=== PATIENT | female | born 1980 | race Caucasian/White ===

== ENCOUNTER 2017-02-21 12:12 | Emergency (ER) | payer MEDICAID, SELFPAY | END 2017-02-21 15:27 | disposition home or self-care (01) | PROVIDERS: Emergency Provider Nurse Practitioner Family; Visit Provider Nurse Practitioner Family | DX: O98.519 Other viral diseases complicating pregnancy, unspecified trimester (principal); J10.1 Influenza due to other identified influenza virus with other respiratory manifestations | CPT/HCPCS: 87804; 99201 ==

== ENCOUNTER → 2017-03-07 12:36 | Outpatient (CLI) | payer MEDICAID, SELFPAY ==
--- NOTE | 2017-03-07 13:20 | US_ITS ---
US OB transvaginal HISTORY: Evaluate for gestational age and estimated due date ITS.REASON: Check Dates ORDERING PHYSICIAN: Raphael Moody MD PATIENT AGE: 36 years COMPARISON: None FINDINGS: An intrauterine gestational sac is present with a pole with a crown-rump length of 1.9 cm correlating to gestational age of 10 weeks and 1 day. heart tones are present with an FHR of 167 bpm's. Yolk sac is noted. Estimated due date by ultrasound is 10/15/2017. Adnexa: Unremarkable. IMPRESSION: Live intrauterine gestation at 10 weeks 1 day with an estimated due date of 10/15/2017
[2017-03-07 14:05] LABS: Basophils % 0.2 % (0.1-2.0); Eosinophils # 0.2 K/mm3 (0.0-0.4); Eosinophils % 1.6 % (0.1-12.0); Hematocrit 42.6 % (37.0-47.0); Hemoglobin 14.5 g/dL (12.2-16.2); Lymphocytes # 1.9 K/mm3 (0.7-4.5); Lymphocytes % 16.5 K/mm3 (10-50); Mean Corpuscular Hemoglobin 31.3 pg (27.0-31.2); Mean Corpuscular Volume 91.8 fl (81-99); Monocytes # 0.5 K/mm3 (0.1-1.0); Neutrophils % 77.7 % (37.0-80.0); Platelet Count 247 K/mm3 (142-424); Red Blood Count 4.64 M/mm3 (4.20-5.40); Red Cell Distribution Width 14.7 % (11.5-17.5); White Blood Count 11.6 K/mm3 (4.8-10.8)
[2017-03-08 17:07] LABS: Hepatitis B Surface Antigen Negative (Negative); Hepatitis C Antibody <0.1 s/co ratio (0.0-0.9); Rapid Plasma Reagin Ab Titer Non Reactive (NonRea<1:1)
[2017-03-08 17:08] LABS: Rubella Antibodies, IgG 1.39 index (Immune >0.99)
== END ==
PROVIDERS: Family Provider Internal Medicine Adolescent Medicine; PCP Internal Medicine Adolescent Medicine; Visit Provider Nurse Practitioner Obstetrics & Gynecology
DX: Z34.90 Encounter for supervision of normal pregnancy, unspecified, unspecified trimester (principal); O26.841 Uterine size-date discrepancy, first trimester
CPT/HCPCS: 36415; 76830; 85025; 86592; 86762; 86850; 87340; 87380

== ENCOUNTER 2017-03-13 11:53 | Emergency (ER) | payer MEDICAID, SELFPAY ==
[2017-03-13 12:12] VITALS: BP 111/81; PULSE 98; RESP 20; TEMP 37; O2SAT 96; BMI 47.5
[2017-03-13 12:25] LABS: UTC Influenza A Antigen Negative (Negative); UTC Influenza B Antigen Negative (Negative)
--- NOTE | 2017-03-13 12:36 | PC.NURSE ---
1225: Spoke to patient regarding symptoms. Woke up yesterday with nonstop vomiting, diarrhea, nausea, feeling feverish. Report syncopal episode at work yesterday. Doesn't remember leaving work or most of the afternoon . Denies hitting head. Currently 8.5 weeks . RUQ and right suprapubic pain intermittently. Abdominal pain sharp and suprapubic pain described as cramping. hx of cholecystectomy. Denies dysuria, urinary frequency, change in color or smell. Saw OB, Dr. Moody, last week. US and heartbeat normal. Discussed [facility] guidelines and possible differentials. Agreeable to transfer to ER. Report given to Lorenzo, ER RNs. Bed 5 available. Patient assisted over by Tika.
--- NOTE | 2017-03-13 12:39 | PC.NURSE ---
PT SENT TO ED
[2017-03-13 12:44] VITALS: BP 126/81; PULSE 89; RESP 22; TEMP 36.9; O2SAT 97; BMI 45.7; BMI 46.0
--- NOTE | 2017-03-13 12:54 | HMH.EDGENADL ---
ED Disposition Clinical Impression: Viral gastroenteritis, Dehydration Qualifiers: Weeks of gestation: 9 weeks Qualified Code(s): Z3A.09 - 9 weeks gestation of UTI (urinary tract infection) Qualifiers: Urinary tract infection type: acute cystitis Hematuria presence: without hematuria Qualified Code(s): N30.00 - Acute cystitis without hematuria Disposition: Home, Self-Care Condition on Discharge: Good Instructions: Urinary Tract Infection, DI for Dehydration -- Adult, Nausea and Vomiting-Adult Prescriptions: Nitrofurantoin Monohyd/M-Cryst [Macrobid 100 mg Capsule] 100 mg PO BID #10 cap Promethazine HCl [Phenergan 25mg tab] 25 mg PO Q6H PRN #20 tab PRN Reason: Nausea And Vomiting Referrals: Miller Dee MD [Primary Care Provider] - Forms: Work/School Release Time of Disposition: 15:07 - Critical Care Critical Care Time: No Attestation: On 03/13/17, the high probability of a clinically significant, sudden or life threatening deterioration of the following system(s) required my full and direct attention, intervention and personal management. The time I documented below is in addition to time spent performing reported procedures but includes the following listed in this critical care notation. Medical Decision Making - Medical Records Medical records reviewed: Yes: I reviewed the patient's medical records. Vital Signs: 03/13/17 12:12 03/13/17 12:44 03/13/17 15:16 Temperature 98.6 F 98.4 F 98.0 F Temperature Source Temporal Artery Scan Oral Oral Pulse Rate 70 Pulse Rate [Brachial] 98 H 89 Respiratory Rate 20 22 98 H Blood Pressure 122/70 Blood Pressure [Left Arm] 111/81 126/81 Blood Pressure Mean [Left Arm] 91 96 Blood Pressure Source Automatic Cuff Blood Pressure Source [Left Arm] Automatic Cuff Automatic Cuff Blood Pressure Position Sitting Blood Pressure Position [Left Arm] Sitting Sitting 02 Sat by Pulse Oximetry 96 97 Oxygen Delivery Method Room Air Room Air Room Air - Lab Data Lab results reviewed: Yes: I reviewed the patient's lab results. Lab Results 03/13/17 12:19: Influenza Type A Ag Negative, Influenza Type B Ag Negative 03/13/17 13:15: WBC 11.5 H, RBC 4.44, Hgb 13.8, Hct 41.0, MCV 92.4, MCH 31.2, MCHC 33.7, RDW 15.0, Plt Count 247, MPV 7.6, Neut % (Auto) 77.9, Lymph % (Auto) 16.7, [place] % (Auto) 3.9, Eos % (Auto) 1.2, Baso % (Auto) 0.2, Neut # (Auto) 8.9 H, Lymph # (Auto) 1.9, [place] # (Auto) 0.5, Eos # (Auto) 0.1, Baso # (Auto) 0.0 03/13/17 13:15: Sodium 136, Potassium 3.3 L, Chloride 103, Carbon Dioxide 27, Anion Gap 9.3, BUN 9, Creatinine 0.61, Estimated Creat Clear 100, Estimated GFR 110, Est GFR ( Amer) 134, Glucose 94, Calcium 8.5, Total Bilirubin 0.3, AST 12 L, ALT 23, Alkaline Phosphatase 52, Total Protein 6.6, Albumin 3.1 L, Globulin 3.5 H, Albumin/Globulin Ratio 0.9 L, Amylase 26 03/13/17 13:15: Lipase 79 03/13/17 14:35: Chlamy pneumoniae PCR Not detected, Adenovirus (PCR) Not detected, B.parapertussis DNA PCR Not detected, Coronavirus OC43 (PCR) Not detected, Coronavirus HKU1 (PCR) Not detected, Coronavirus 229E (PCR) Not detected, Coronavirus NL63 (PCR) Not detected, Human Metapneumovir PCR Not detected, Influenza A (H1) PCR Not detected, Influ A (H1N1/09) PCR Not detected, Influenza A (H3) PCR Not detected, Influenza Type A (PCR) Not detected, Influenza Type B (PCR) Not detected, M. pneumoniae (PCR) Not detected, Parainfluenza 1 (PCR) Not detected, Parainfluenza 2 (PCR) Not detected, Parainfluenza 3 (PCR) Not detected, Parainfluenza 4 (PCR) Not detected, RSV (PCR) Not detected, Entero/Rhino (PCR) Not detected 03/13/17 14:35: Urine Color Yellow, Urine Appearance Clear, Urine pH 7.0, Ur Specific [place] 1.015, Urine Protein Negative, Urine Glucose (UA) Negative, Urine Ketones Negative, Urine Blood Negative, Urine Nitrate Negative, Urine Bilirubin Negative, Urine Urobilinogen 0.2, Ur Leukocyte Esterase Negative, Urine RBC None, Urine WBC 3-5, Ur Squam
[2017-03-13 13:22] LABS: Basophils % 0.2 % (0.1-2.0); Eosinophils # 0.1 K/mm3 (0.0-0.4); Eosinophils % 1.2 % (0.1-12.0); Hemoglobin 13.8 g/dL (12.2-16.2); Lymphocytes # 1.9 K/mm3 (0.7-4.5); Lymphocytes % 16.7 K/mm3 (10-50); Mean Corpuscular HGB Conc 33.7 g/dL (31.8-35.4); Mean Corpuscular Hemoglobin 31.2 pg (27.0-31.2); Mean Corpuscular Volume 92.4 fl (81-99); Mean Platelet Volume 7.6 fl (7.4-10.4); Monocytes # 0.5 K/mm3 (0.1-1.0); Monocytes % 3.9 % (1.7-9.3); Neutrophils # 8.9 K/mm3 (1.8-7.8); Neutrophils % 77.9 % (37.0-80.0); Platelet Count 247 K/mm3 (142-424); Red Blood Count 4.44 M/mm3 (4.20-5.40); White Blood Count 11.5 K/mm3 (4.8-10.8)
[2017-03-13 13:33] LABS: Lipase 79 u/L (73-393)
[2017-03-13 13:36] LABS: Alanine Aminotransferase 23 U/L (12-78); Albumin Level 3.1 gm/dL (3.4-5.0); Albumin/Globulin Ratio 0.9 (1.1-1.8); Alkaline Phosphatase 52 U/L (46-116); Amylase 26 U/L (25-125); Anion Gap 9.3 mEq/L (5-15); Aspartate Amino Transferase 12 U/L (15-37); Bilirubin,Total 0.3 mg/dL (0.2-1.0); Blood Urea Nitrogen 9 mg/dL (7-18); Calcium 8.5 mg/dL (8.5-10.1); Carbon Dioxide 27 mmol/L (21.0-32.0); Chloride 103 mmol/L (98-107); Creatinine Clearance Estimated 100 mL/min (0-300); Creatinine,Serum 0.61 mg/dL (0.55-1.02); Estimated Glomerular Filt Rate 110 ml/min (>60); GFR (African American) 134 ML/MIN (>60); Globulin 3.5 gm/dl (1.3-3.2); Glucose 94 mg/dL (74-106); Potassium 3.3 mmoL/L (3.5-5.1); Sodium 136 mmol/L (136-145); Total Protein,Serum 6.6 gm/dL (6.4-8.2)
[2017-03-13 14:43] LABS: Adenovirus,PCR Not Detected (NotDetected); Bordetella Pertussis Not Detected (NotDetected); Chlamydophila Pneumoniae, PCR Not Detected (NotDetected); Coronavirus 229E Not Detected (NotDetected); Coronavirus NL63 Not Detected (NotDetected); Coronavirus OC43 Not Detected (NotDetected); Coronovirus HKU1,PCR Not Detected (NotDetected); Human Metapneumovirus Not Detected (NotDetected); Influenza A, PCR Not Detected (NotDetected); Influenza AH1, 2009 Not Detected (NotDetected); Influenza AH1, PCR Not Detected (NotDetected); Influenza AH3,PCR Not Detected (NotDetected); Influenza B, PCR Not Detected (NotDetected); Microscopic, Urine URINE MICROSCOPIC (MICROSCOPIC); Mycoplasma Pneumoniae, PCR Not Detected (NotDected); Parainfluenza 1, PCR Not Detected (NotDetected); Parainfluenza 2, PCR Not Detected (NotDetected); Parainfluenza 3, PCR Not Detected (NotDetected); Parainfluenza 4, PCR Not Detected (NotDetected); Respiratory Syncytial Virus Not Detected (NotDetected); Rhinovirus/Enterovirus Not Detected (NotDetected)
[2017-03-13 14:52] LABS: Urine Pregnancy, HCG Qual. Positive (Negative)
[2017-03-13 14:55] LABS: Appearance,Urine Clear (Clear); Bilirubin,Urine Negative (Negative); Blood, Urine Negative (Negative); Color,Urine Yellow (Yellow); Glucose,Urine (UA) Negative (Negative); Ketones,Urine Negative (Negative); Leukocyte Esterase,Urine Negative (Negative); Nitrate,Urine Negative (Negative); Protein,Urine Negative (Negative); Specific Gravity, Urine 1.015 (1.005-1.030); Urobilinogen,Urine 0.2 EU/dl (0.2)
[2017-03-13 14:56] LABS: Bacteria,Urine 2+ /lpf; Squamous Epithelial Cell,Urine 20-50 #/hpf (0-5)
[2017-03-13 15:16] VITALS: BP 122/70; PULSE 70; RESP 98; TEMP 36.7
== END 2017-03-13 15:16 | disposition home or self-care (01) ==
LOC: UTC 12:00 → ER 12:42
PROVIDERS: Nurse Practitioner Family; Emergency Provider Emergency Medicine; Family Provider Internal Medicine Adolescent Medicine; PCP Internal Medicine Adolescent Medicine
DX: A08.4 Viral intestinal infection, unspecified (principal); E86.0 Dehydration; O23.11 Infections of bladder in pregnancy, first trimester; Z3A.09 9 weeks gestation of pregnancy; Z88.0 Allergy status to penicillin; Z88.6 Allergy status to analgesic agent; F17.210 Nicotine dependence, cigarettes, uncomplicated
CPT/HCPCS: 80053; 81001; 81025; 82150; 83690; 85025; 87086; 87486; 87581; 87633; 87798; 87804; 96360; 96365; 96375; 99284

== ENCOUNTER → 2017-05-01 16:04 | Outpatient (CLI) | payer MEDICAID, SELFPAY ==
[2017-05-08 17:12] LABS: DIA Value 174.38 pg/mL (.); Maternal Age At EDD 37.8 YEARS (.); hCG Value 18755 mIU/mL (.); uE3 Value 0.89 ng/mL (.)
[2017-05-14 09:22] LABS: DIA MoM 1.33 (.); DSR (Second Trimester) 1 IN 1189 (.); OSBR Risk 1 IN 6704 (.); uE3 MoM 1.23 (.)
[2017-05-16 21:44] LABS: Gest. Age on Collection Date 16.1 WEEKS (.)
[2017-05-16 21:45] LABS: Gestat. Age Based On EDD (.); Insulin Dep Diabetes No (.)
== END ==
PROVIDERS: Family Provider Internal Medicine Adolescent Medicine; PCP Internal Medicine Adolescent Medicine; Visit Provider Nurse Practitioner Obstetrics & Gynecology
DX: Z34.90 Encounter for supervision of normal pregnancy, unspecified, unspecified trimester (principal)
CPT/HCPCS: 36415; 82106

== ENCOUNTER 2017-05-17 10:56 | Emergency (ER) | payer MEDICAID, SELFPAY ==
[2017-05-17 11:02] VITALS: BP 138/77; PULSE 106; RESP 18; TEMP 36.9; O2SAT 97; BMI 48.4
[2017-05-17 11:20] LABS: Microscopic, Urine URINE MICROSCOPIC (MICROSCOPIC)
[2017-05-17 11:23] LABS: Appearance,Urine CLEAR (Clear); Bilirubin,Urine Negative (Negative); Blood, Urine Negative (Negative); Color,Urine YELLOW (Yellow); Glucose,Urine (UA) Negative (Negative); Ketones,Urine Negative (Negative); Leukocyte Esterase,Urine Negative (Negative); Nitrate,Urine Negative (Negative); Protein,Urine TRACE (Negative); Specific Gravity, Urine >= 1.030 (1.005-1.030); Urobilinogen,Urine 0.2 EU/dl (0.2)
--- NOTE | 2017-05-17 11:25 | HMH.EDGENADL ---
ED Disposition Clinical Impression: Pelvic cramping, Vaginal discharge Disposition: Home, Self-Care Condition on Discharge: Good Additional Instructions: Drink plenty of fluids. Follow-up with Dr. Moody, call for appointment. Referrals: Provider,Referral, [Primary Care Provider] - - Critical Care Critical Care Time: No Attestation: On 05/17/17, the high probability of a clinically significant, sudden or life threatening deterioration of the following system(s) required my full and direct attention, intervention and personal management. The time I documented below is in addition to time spent performing reported procedures but includes the following listed in this critical care notation. Medical Decision Making - Shilo Inquiry Pt receiving controlled substance: No Vital Signs: 05/17/17 11:02 Temperature 98.4 F Temperature Source Oral Pulse Rate [Right Brachial] 106 H Respiratory Rate 18 Blood Pressure [Right Arm] 138/77 Blood Pressure Mean [Right Arm] 97 Blood Pressure Source [Right Arm] Automatic Cuff Blood Pressure Position [Right Arm] Sitting 02 Sat by Pulse Oximetry 97 Oxygen Delivery Method Room Air - Lab Data Lab Results 05/17/17 11:15: Urine Color Yellow, Urine Appearance Clear, Urine pH 6.0, Ur Specific [place] >= 1.030, Urine Protein Trace, Urine Glucose (UA) Negative, Urine Ketones Negative, Urine Blood Negative, Urine Nitrate Negative, Urine Bilirubin Negative, Urine Urobilinogen 0.2, Ur Leukocyte Esterase Negative, Urine RBC None, Urine WBC 5-10, Ur Squamous Epith Cells 5-10, Calcium Oxalate Crystal 2+, Urine Bacteria 3+ 05/17/17 12:00: WBC 12.0 H, RBC 4.24, Hgb 13.7, Hct 40.1, MCV 94.6, MCH 32.2 H, MCHC 34.1, RDW 16.2, Plt Count 253, MPV 7.8, Neut % (Auto) 79.4, Lymph % (Auto) 15.1, [place] % (Auto) 3.8, Eos % (Auto) 1.6, Baso % (Auto) 0.1, Neut # (Auto) 9.5 H, Lymph # (Auto) 1.8, [place] # (Auto) 0.5, Eos # (Auto) 0.2, Baso # (Auto) 0.0 05/17/17 12:00: Sodium 136, Potassium 4.0, Chloride 102, Carbon Dioxide 24, Anion Gap 14.0, BUN 9, Creatinine 0.54 L, Estimated Creat Clear 113, Estimated GFR 127, Est GFR ( Amer) 154, Glucose 100, Calcium 8.8, Total Bilirubin 0.3, AST 18, ALT 19, Alkaline Phosphatase 62, Total Protein 7.0, Albumin 2.8 L, Globulin 4.2 H, Albumin/Globulin Ratio 0.7 L Result diagrams: 05/17/17 12:00 05/17/17 12:00 Orders (Tests/Meds): ORDERS Category Date Time Status Urine Culture Stat Micro 05/17/17 11:15 Received General Adult HPI - General Chief complaint: OB/Uterine Contractions Stated complaint: 18 weeks having pain and discharge Time Seen by Provider: 05/17/17 11:30 Mode of Arrival: Family Vehicle Limitations: No Limitations Description of Symptoms (Recalled from ER Triage Doc. by RN): c/o 18 weeks with pain in vaginal area and yellow/white discharge. Pain started yesterday. discharge started 2 days ago. - History of Present Illness HPI narrative: The patient is 18-1/2 weeks gestation . 3, para 1, Ab1. She sees Dr. Moody. The patient complains of a 2-3 day history of pelvic cramping and discharge. Seemed to get better yesterday, but became more severe today. She called Dr. Moody's office, but he was not available today. They advised her to go to labor and delivery to be checked. She presented there and was told because she was only 18-1/2 weeks to come to the emergency department instead. She says she has had problems with this with vomiting and has been admitted for dehydration twice. Has had hypokalemia as well. The last time she vomited was 2 days ago. - Related Data Home Medications Medication Instructions Recorded Confirmed Vit Calc,Iron,Folic [Kpn] 1 tab PO QHS 05/17/17 05/17/17 Previous Rx's Medication Instructions Recorded Promethazine HCl [Phenergan 25mg 25 mg PO Q6H PRN #20 tab 03/13/17 tab] Allergies Allergy/AdvReac Type Severity [place]
--- NOTE | 2017-05-17 11:35 | PC.NURSE ---
FHT: 157
[2017-05-17 11:37] LABS: Bacteria,Urine 3+ /lpf; Calcium Oxalate Crystals,Urine 2+ /lpf
[2017-05-17 12:14] LABS: Basophils % 0.1 % (0.1-2.0); Eosinophils # 0.2 K/mm3 (0.0-0.4); Eosinophils % 1.6 % (0.1-12.0); Hematocrit 40.1 % (37.0-47.0); Hemoglobin 13.7 g/dL (12.2-16.2); Lymphocytes # 1.8 K/mm3 (0.7-4.5); Lymphocytes % 15.1 K/mm3 (10-50); Mean Corpuscular HGB Conc 34.1 g/dL (31.8-35.4); Mean Corpuscular Hemoglobin 32.2 pg (27.0-31.2); Mean Corpuscular Volume 94.6 fl (81-99); Mean Platelet Volume 7.8 fl (7.4-10.4); Monocytes # 0.5 K/mm3 (0.1-1.0); Monocytes % 3.8 % (1.7-9.3); Neutrophils # 9.5 K/mm3 (1.8-7.8); Neutrophils % 79.4 % (37.0-80.0); Platelet Count 253 K/mm3 (142-424); Red Blood Count 4.24 M/mm3 (4.20-5.40); Red Cell Distribution Width 16.2 % (11.5-17.5)
[2017-05-17 12:29] LABS: Alanine Aminotransferase 19 U/L (12-78); Albumin Level 2.8 gm/dL (3.4-5.0); Albumin/Globulin Ratio 0.7 (1.1-1.8); Alkaline Phosphatase 62 U/L (46-116); Bilirubin,Total 0.3 mg/dL (0.2-1.0); Blood Urea Nitrogen 9 mg/dL (7-18); Calcium 8.8 mg/dL (8.5-10.1); Carbon Dioxide 24 mmol/L (21.0-32.0); Chloride 102 mmol/L (98-107); Creatinine Clearance Estimated 113 mL/min (0-300); Creatinine,Serum 0.54 mg/dL (0.55-1.02); Estimated Glomerular Filt Rate 127 ml/min (>60); GFR (African American) 154 ML/MIN (>60); Globulin 4.2 gm/dl (1.3-3.2); Glucose 100 mg/dL (74-106); Sodium 136 mmol/L (136-145)
[2017-05-17 12:31] LABS: Aspartate Amino Transferase 18 U/L (15-37)
[2017-05-17 12:49] VITALS: BP 129/86; PULSE 76; RESP 16; TEMP 36.8
[2017-05-21 06:29] LABS: Neisseria gonorrhoeae, NAA Negative (Negative)
== END 2017-05-17 12:52 | disposition home or self-care (01) ==
PROVIDERS: Emergency Provider Emergency Medicine; Family Provider Internal Medicine Adolescent Medicine
DX: R10.30 Lower abdominal pain, unspecified (principal); Z3A.18 18 weeks gestation of pregnancy; I10 Essential (primary) hypertension; J44.9 Chronic obstructive pulmonary disease, unspecified; F17.210 Nicotine dependence, cigarettes, uncomplicated
CPT/HCPCS: 80053; 81001; 85025; 87086; 87210; 87491; 87591; 99282

== ENCOUNTER 2017-05-30 18:08 | Outpatient (CLI) | payer MEDICAID, SELFPAY ==
[2017-05-30 18:15] VITALS: BMI 49.4
[2017-05-30 18:25] VITALS: BP 128/69; PULSE 114; RESP 22; TEMP 37.7; O2SAT 95
--- NOTE | 2017-05-30 18:40 | XR_ITS ---
XR chest 2V INDICATION: Chest pain COMPARISON: PA and lateral chest 02/26/2016 FINDINGS: The cardiovascular structures are unremarkable. No mediastinal shift or hilar mass is evident. The lungs are well expanded and clear bilaterally. The costophrenic sulci are sharp. No significant bony anomalies are apparent. IMPRESSION: Negative chest.
[2017-05-30 18:42] VITALS: BP 128/69; PULSE 114; RESP 22; TEMP 37.7; O2SAT 95; BMI 49.4
[2017-05-30 19:57] LABS: Basophils % 0.1 % (0.1-2.0); Eosinophils % 0.1 % (0.1-12.0); Hematocrit 34.8 % (37.0-47.0); Hemoglobin 11.8 g/dL (12.2-16.2); Lymphocytes # 0.6 K/mm3 (0.7-4.5); Lymphocytes % 8.8 K/mm3 (10-50); Mean Corpuscular HGB Conc 33.8 g/dL (31.8-35.4); Mean Corpuscular Hemoglobin 32.7 pg (27.0-31.2); Mean Corpuscular Volume 96.9 fl (81-99); Mean Platelet Volume 7.9 fl (7.4-10.4); Monocytes # 0.4 K/mm3 (0.1-1.0); Monocytes % 6.1 % (1.7-9.3); Neutrophils # 6.2 K/mm3 (1.8-7.8); Neutrophils % 84.9 % (37.0-80.0); Platelet Count 189 K/mm3 (142-424); Red Blood Count 3.59 M/mm3 (4.20-5.40); Red Cell Distribution Width 16.2 % (11.5-17.5); White Blood Count 7.3 K/mm3 (4.8-10.8)
[2017-05-30 19:58] LABS: Anion Gap 13.6 mEq/L (5-15); Blood Urea Nitrogen 5 mg/dL (7-18); Carbon Dioxide 23 mmol/L (21.0-32.0); Chloride 101 mmol/L (98-107); Creatinine Clearance Estimated 113 mL/min (0-300); Creatinine,Serum 0.54 mg/dL (0.55-1.02); Estimated Glomerular Filt Rate 127 ml/min (>60); GFR (African American) 154 ML/MIN (>60); Glucose 168 mg/dL (74-106); Sodium 135 mmol/L (136-145)
[2017-05-30 20:00] LABS: Potassium 2.6 mmoL/L (3.5-5.1)
[2017-05-30 20:00] LABS: Microscopic, Urine URINE MICROSCOPIC (MICROSCOPIC)
[2017-05-30 20:09] LABS: Appearance,Urine CLOUDY (Clear); Bilirubin,Urine Negative (Negative); Blood, Urine Negative (Negative); Color,Urine YELLOW (Yellow); Glucose,Urine (UA) Negative (Negative); Ketones,Urine 1+ (Negative); Leukocyte Esterase,Urine Negative (Negative); Nitrate,Urine Negative (Negative); PH,Urine 7.5 (5.0-8.5); Protein,Urine TRACE (Negative); Specific Gravity, Urine 1.015 (1.005-1.030)
[2017-05-30 20:27] LABS: Bacteria,Urine 3+ /lpf; RBC,Urine Occasional #/hpf (0-3); Squamous Epithelial Cell,Urine TNTC #/hpf (0-5)
[2017-05-30 20:36] LABS: Adenovirus,PCR Not Detected (NotDetected); Bordetella Pertussis Not Detected (NotDetected); Chlamydophila Pneumoniae, PCR Not Detected (NotDetected); Coronavirus 229E Not Detected (NotDetected); Coronavirus NL63 Not Detected (NotDetected); Coronavirus OC43 Not Detected (NotDetected); Coronovirus HKU1,PCR Not Detected (NotDetected); Human Metapneumovirus Not Detected (NotDetected); Influenza A, PCR Not Detected (NotDetected); Influenza AH1, 2009 Not Detected (NotDetected); Influenza AH1, PCR Not Detected (NotDetected); Influenza AH3,PCR Not Detected (NotDetected); Influenza B, PCR Not Detected (NotDetected); Mycoplasma Pneumoniae, PCR Not Detected (NotDected); Parainfluenza 1, PCR Not Detected (NotDetected); Parainfluenza 2, PCR Not Detected (NotDetected); Parainfluenza 3, PCR Not Detected (NotDetected); Parainfluenza 4, PCR Not Detected (NotDetected); Respiratory Syncytial Virus Not Detected (NotDetected); Rhinovirus/Enterovirus Not Detected (NotDetected)
== END 2017-05-30 21:08 | disposition still patient (30) ==
LOC: OBOUT 18:12 → OB 18:14
PROVIDERS: PCP Nurse Practitioner Obstetrics & Gynecology; Visit Provider Obstetrics & Gynecology
DX: O26.892 Other specified pregnancy related conditions, second trimester (principal); Z3A.20 20 weeks gestation of pregnancy; R07.9 Chest pain, unspecified; R11.2 Nausea with vomiting, unspecified; R09.89 Other specified symptoms and signs involving the circulatory and respiratory systems
CPT/HCPCS: 71046; 80048; 81001; 85025; 87086; 87486; 87581; 87633; 87798; 93005; 96360

== ENCOUNTER 2017-05-30 21:15 | Emergency (ER) | payer MEDICAID, SELFPAY ==
[2017-05-30 21:16] VITALS: BP 94/46; PULSE 114; RESP 22; TEMP 37.7; O2SAT 99; BMI 50.3
--- NOTE | 2017-05-30 22:58 | HMH.EDFEV ---
ED Disposition Clinical Impression: Viral gastroenteritis, Dehydration Disposition: Home, Self-Care Condition on Discharge: Good Instructions: DI for Dehydration -- Adult, DI for Viral Gastroenteritis -- Adult Additional Instructions: Please drink plenty of fluids, take the Phenergan as directed, follow-up with PCP within 8-10 hours if not better. If unable to see your doctor timely, please return to this, same, emergency room for reevaluation. Prescriptions: Promethazine HCl [Phenergan 25mg tab] 25 mg PO QID PRN #20 tab PRN Reason: Nausea And Vomiting Referrals: Raphael Moody MD [Primary Care Provider] - Forms: Work/School Release Time of Disposition: 00:21 - Critical Care Critical Care Time: No Attestation: On 05/30/17, the high probability of a clinically significant, sudden or life threatening deterioration of the following system(s) required my full and direct attention, intervention and personal management. The time I documented below is in addition to time spent performing reported procedures but includes the following listed in this critical care notation. Medical Decision Making - Medical Records Medical records reviewed: Yes: I reviewed the patient's medical records. - Shilo Inquiry Pt receiving controlled substance: No Vital Signs: 05/30/17 21:16 05/31/17 00:28 05/31/17 01:08 Temperature 99.8 F H 98.4 F Temperature Source Oral Oral Pulse Rate 113 H Pulse Rate [Right Brachial] 114 H 113 H Respiratory Rate 22 18 18 Blood Pressure 116/63 Blood Pressure [Left Arm] 94/46 116/63 Blood Pressure Mean [Left Arm] 62 80 Blood Pressure Source Automatic Cuff Blood Pressure Source [Left Arm] Automatic Cuff Automatic Cuff Blood Pressure Position Supine Blood Pressure Position [Left Arm] Supine Supine 02 Sat by Pulse Oximetry 99 94 L Oxygen Delivery Method Room Air Room Air Room Air - Lab Data Lab results reviewed: Yes: I reviewed the patient's lab results. Orders (Tests/Meds): ED MEDICATIONS Discontinued Medications Generic Name Dose Route Start Last Admin Trade Name Freq PRN Reason Stop Dose Admin Sodium Chloride 1,000 mls @ 999 mls/hr 05/30/17 23:15 05/30/17 23:19 Sod Chlor 0.9% 1000ml Bag IV 05/31/17 00:15 999 mls/hr .Q1H1M SEJAL Administration Potassium Chloride 60 meq 05/30/17 23:06 05/30/17 23:19 Klor-Con 20meq Tablet PO 05/30/17 23:07 60 meq ONCE ONE Administration Promethazine HCl 12.5 mg 05/30/17 23:03 05/30/17 23:19 Phenergan 25mg/Ml 1ml Vial IV 05/30/17 23:04 12.5 mg ONCE ONE Administration Sodium Chloride 25 ml 05/30/17 23:03 05/30/17 23:23 Sod Chlor 0.9% 25ml Bag IV 05/30/17 23:04 Not Given ONCE ONE - Reevaluation(s) Time: 00:15 Reevaluation #1: Upon reevaluation patient appears medically stable, clinically improving, able to hold on fluids. Offered admission but the patient declined, stating that she wants to follow up with her doctor in the morning. Fever HPI - General Chief Complaint: Fever Stated Complaint: fever,cough Time Seen by Provider: 05/30/17 23:05 Mode of Arrival: Wheelchair Source of Information: Patient Limitations: No Limitations Description of Symptoms (Recalled from ER Triage Doc. by RN): cough and fever x 1 day - History of Present Illness HPI Narrative: This is a 36-year-old female patient, 21 weeks , presented emergency room with nausea, vomiting, diarrhea for the past 2 days, unable to hold any solid food or liquids at this time. She was seen on the OB floor prior to being referred to the emergency room for evaluation. Her strep and flu swabs were performed upstairs, both negative, blood work was also ordered prior to being sent to the emergency room. Patient denies any abdominal pain, any abdominal contractions, vaginal discharge or vaginal bleeding. MD complaint: fever Temperature Source: subjective Context: sick contacts Associated symptoms: nasal
[2017-05-31 00:28] VITALS: BP 116/63; PULSE 113; RESP 18; O2SAT 94
[2017-05-31 01:08] VITALS: BP 116/63; PULSE 113; RESP 18; TEMP 36.9; O2SAT 94
== END 2017-05-31 01:08 | disposition home or self-care (01) ==
PROVIDERS: Emergency Provider Emergency Medicine; Family Provider Internal Medicine Adolescent Medicine; PCP Nurse Practitioner Obstetrics & Gynecology
DX: A08.4 Viral intestinal infection, unspecified (principal); E86.0 Dehydration; F17.210 Nicotine dependence, cigarettes, uncomplicated; J44.9 Chronic obstructive pulmonary disease, unspecified; I10 Essential (primary) hypertension; Z88.0 Allergy status to penicillin; Z88.6 Allergy status to analgesic agent
CPT/HCPCS: 96365; 96372; 99282

== ENCOUNTER → 2017-06-04 13:10 | Outpatient (CLI) | payer MEDICAID, SELFPAY ==
--- NOTE | 2017-06-04 13:13 | US_ITS ---
US OB /maternal detail: INDICATION: ITS.REASON: US OB Complete ORDERING PHYSICIAN: Raphael Moody MD PATIENT AGE: 36 years TECHNIQUE: ultrasound transabdominal scanning. COMPARISON: No previous relevant studies. FINDINGS: Single viable intrauterine gestation. cephalic position. Placenta: posterior placenta grade 1. There is average amount fluid. The cervix appears satisfactory. Closed and measuring or centimeters in length. Complete survey performed and was unremarkable on the submitted images as in PACS. No discrete anomalies identified on survey imaging by technologist. Active fetus. Three-vessel cord with satisfactory umbilical cord insertion. 4- chamber heart noted. Survey of brain & ventricles. Face and neck survey unremarkable. Diaphragm and chest views unremarkable. Abdomen: Both kidneys noted and unremarkable. Stomach noted and satisfactory. Spine: Survey of the spine satisfactory with no anomalies identified nor imaged. Both arms and legs noted. Amniotic Fluid: Adequate. Maternal adnexa: No significant findings. Measurements: Average ultrasound age 22w1d. Gestational Age 22w6d. Estimated due date by ultrasound age 0810/07/2017. Estimated weight 468 grams. This is 11th percentile based on last menstrual period BPD = 22w2d OFD = 22w4d HC = 21w5d AC = 22w0d FL = 22w1d Heart Rate = 155 bpm Cerebellum = 21w3d Humerus = 21w3d HC/AC is 1.14 (1.06-1.25). CI is 77% (70-86%). FL/BPD is 71%. FL/AC is 22% (20-24%). IMPRESSION: Single live fetus in the cephalic presentation with an average ultrasound age of 22 weeks 1 day. No obvious anomalies. Fetus is active with heart tones noted. Please see above for detailed description
== END ==
PROVIDERS: Family Provider Internal Medicine Adolescent Medicine; PCP Nurse Practitioner Obstetrics & Gynecology; Visit Provider Nurse Practitioner Obstetrics & Gynecology
DX: Z36.0 Encounter for antenatal screening for chromosomal anomalies (principal)
CPT/HCPCS: 76811

== ENCOUNTER 2017-07-26 09:40 | Outpatient (CLI) | payer MEDICAID, SELFPAY ==
[2017-07-26 11:40] VITALS: BP 119/70; PULSE 106; RESP 18
== END 2017-07-26 12:00 | disposition home or self-care (01) ==
LOC: LAB 09:41 → INF 11:20
PROVIDERS: Visit Provider Nurse Practitioner Obstetrics & Gynecology
DX: Z34.90 Encounter for supervision of normal pregnancy, unspecified, unspecified trimester (principal)
CPT/HCPCS: 36415; 96372; J2790

== ENCOUNTER 2017-07-26 11:50 | Outpatient (CLI) | payer MEDICAID, SELFPAY ==
[2017-07-26 12:13] VITALS: BMI 50.1
[2017-07-26 12:14] VITALS: BP 122/79; PULSE 98; RESP 20; TEMP 36.8; O2SAT 97; BMI 50.1
[2017-07-26 12:29] LABS: Appearance,Urine SL CLOUDY (Clear); Bilirubin,Urine Negative (Negative); Blood, Urine Negative (Negative); Color,Urine YELLOW (Yellow); Glucose,Urine (UA) Negative (Negative); Ketones,Urine Negative (Negative); Leukocyte Esterase,Urine Negative (Negative); Microscopic, Urine URINE MICROSCOPIC (MICROSCOPIC); Nitrate,Urine Negative (Negative); PH,Urine 6.5 (5.0-8.5); Protein,Urine 1+ (Negative); Specific Gravity, Urine 1.025 (1.005-1.030)
[2017-07-26 12:35] LABS: WBC,Urine Occasional #/hpf (0-3)
[2017-07-26 12:36] LABS: Bacteria,Urine 3+ /lpf; Hyaline Casts,Urine Occasional #/lpf (0); Squamous Epithelial Cell,Urine 50-100 #/hpf (0-5)
--- NOTE | 2017-07-26 13:43 | US_ITS ---
US kidney retroperitoneal comp HISTORY: Lower back and abdominal pain ITS.REASON: r/o pyelo ORDERING PHYSICIAN: Malena Shepard MD PATIENT AGE: 36 years Comparison: None FINDINGS: RIGHT KIDNEY:Unremarkable. Normal size and echogenicity. No hydronephrosis. The right kidney measures 13 x 4.5 x 6 cm LEFT KIDNEY:Unremarkable. No hydronephrosis. Normal size and echogenicity. Left kidney measures 14 x 4.5 x 6.7 cm OTHER FINDINGS: No other pertinent findings IMPRESSION: Negative bilateral renal ultrasound
== END 2017-07-26 16:18 | disposition home or self-care (01) ==
LOC: OBOUT 11:51 → OB 11:51
PROVIDERS: Visit Provider Obstetrics & Gynecology
DX: O26.93 Pregnancy related conditions, unspecified, third trimester (principal); Z3A.28 28 weeks gestation of pregnancy; M54.5 Low back pain
CPT/HCPCS: 59025; 76770; 81001; 87086

== ENCOUNTER → 2017-07-29 08:06 | Outpatient (CLI) | payer MEDICAID, SELFPAY | PROVIDERS: Family Provider Internal Medicine Adolescent Medicine; Visit Provider Nurse Practitioner Obstetrics & Gynecology | DX: O26.91 Pregnancy related conditions, unspecified, first trimester (principal); Z3A.18 18 weeks gestation of pregnancy; M54.5 Low back pain | CPT/HCPCS: 36415 ==

== ENCOUNTER → 2017-07-29 08:31 | Outpatient (CLI) | payer MEDICAID, SELFPAY ==
[2017-07-29 08:51] LABS: Glucose,Fasting 98 mg/dL (60-105)
[2017-07-29 10:20] LABS: Glucose 1 Hour 146 mg/dL (74-106)
[2017-07-29 11:25] LABS: Glucose 2 Hour 136 mg/dL (74-106)
[2017-07-29 12:09] LABS: Glucose 3 Hour 142 mg/dL (74-106)
== END ==
PROVIDERS: Visit Provider Nurse Practitioner Obstetrics & Gynecology
DX: O99.814 Abnormal glucose complicating childbirth (principal)
CPT/HCPCS: 36415; 82951

== ENCOUNTER 2017-08-12 14:52 | Outpatient (CLI) | payer MEDICAID, SELFPAY ==
[2017-08-12 14:52] VITALS: BP 130/71; PULSE 107; RESP 18; TEMP 36.6; O2SAT 98; BMI 49.4
[2017-08-12 15:33] VITALS: BMI 49.4
--- NOTE | 2017-08-12 16:07 | US_ITS ---
US OB biophysical profile: Doppler of the umbilical artery: Indication: ITS.REASON: POSSIBLE LABOR. ORDERING PHYSICIAN: Raphael Moody MD PATIENT AGE: 36 years FINDINGS: The following parameters are obtained: Average ultrasound age is 33 weeks 3 days. Estimated due date by ultrasound is 09/27/2017. Estimated weight is 2003 g. This is 90 percentile based on established due date BPD: 34 weeks 4 days OFD: 34 weeks 5 days HC: 34 weeks 2 days AC: 32 weeks 1 day FL: 32 weeks 3 days heart rate: 153 bpm. HC/AC: 1.09 Cephalic index: 79% FL/BPD: 73% FL/AC: 22% Amniotic fluid index: 16 cm Qualitative AFV: 2 breathing movements: 2 Gross body movements: 2 Tone: 2 Biophysical profile score: 8/8 Doppler evaluation of the umbilical artery: SD ratio: 2.5 Resistive index: 0.6 No obvious anomalies evident. Placenta: Posterior, grade 1 Cervix: Appears closed IMPRESSION: Single live fetus in cephalic presentation with average ultrasound age of 33 weeks 3 days and estimated due date of 09/27/2017 Biophysical profile 8 of 8 with an YAMIL of 16 cm Unremarkable Doppler evaluation of the umbilical artery
[2017-08-12 16:16] LABS: Appearance,Urine CLEAR (Clear); Bilirubin,Urine Negative (Negative); Blood, Urine Negative (Negative); Color,Urine YELLOW (Yellow); Glucose,Urine (UA) Negative (Negative); Ketones,Urine Negative (Negative); Leukocyte Esterase,Urine Negative (Negative); Microscopic, Urine URINE MICROSCOPIC (MICROSCOPIC); Nitrate,Urine Negative (Negative); Protein,Urine TRACE (Negative); Specific Gravity, Urine 1.015 (1.005-1.030); Urobilinogen,Urine 0.2 EU/dl (0.2)
[2017-08-12 16:39] LABS: Bacteria,Urine 2+ /lpf
--- NOTE | 2017-08-12 17:08 | P.PN_ITS ---
Internal Medicine - PN: Subj *Date: 08/12/17 *Time: 17:06 Interval history: She came in complaining of contractions. She is 30 weeks along. She says she started having pain last night and it got worse today when she was at work. She says the pain comes and goes like contractions. It starts in the front and goes around her back. Exam Vital signs and Labs for Last 24 Hours: Temp Pulse Resp BP Pulse Ox 97.8 F 107 H 18 130/71 98 08/12/17 14:52 08/12/17 14:52 08/12/17 14:52 08/12/17 14:52 08/12/17 14:52 Laboratory Results - last 24 hr 08/12/17 15:50: Urine Color Yellow, Urine Appearance Clear, Urine pH 7.0, Ur Specific [place] 1.015, Urine Protein Trace, Urine Glucose (UA) Negative, Urine Ketones Negative, Urine Blood Negative, Urine Nitrate Negative, Urine Bilirubin Negative, Urine Urobilinogen 0.2, Ur Leukocyte Esterase Negative, Urine RBC None , Urine WBC 3-5, Ur Squamous Epith Cells 3-5, Urine Bacteria 2+ I & O for Last 24 hours: Intake & Output 08/10/17 08/11/17 08/12/17 08/13/17 11:59 11:59 11:59 11:59 Weight 270 lb - Constitutional no acute distress Assessment and Plan (1) False labor before 37 completed weeks of gestation Current visit: Yes Status: Acute Category: Medical Code(s): O47.00 - False labor before 37 completed weeks of gestation, unspecified trimester (2) Low back pain during in third trimester Current visit: Yes Status: Acute Category: Medical Code(s): O26.893 - Other specified related conditions, third trimester; M54.5 - Low back pain - Assessment and plan all Dx Assessment and Plan for all problems:: She was not having any contractions on the monitor. We gave her 1 dose of Brethine and a dose of Stadol. This seemed to help with her discomfort. She had an ultrasound that was normal. Her urinalysis is normal. Her cervix is long and closed and the presenting part is extremely high. Her urinalysis was negative except for small amount of protein. She has an appointment to follow-up with [facility] for her advanced maternal age in 48 hours time. She will return tomorrow for a repeat dose of steroids. She received 12 mg of Celestone today.
== END 2017-08-12 17:15 | disposition home or self-care (01) | DRG 781 ==
LOC: OBOUT 14:58 → OB 08-15 14:50
PROVIDERS: PCP Nurse Practitioner Obstetrics & Gynecology; Visit Provider Nurse Practitioner Obstetrics & Gynecology
DX: O26.893 Other specified pregnancy related conditions, third trimester (principal); O60.03 Preterm labor without delivery, third trimester; Z3A.30 30 weeks gestation of pregnancy; M54.5 Low back pain
CPT/HCPCS: 59025; 76819; 81001; 87086; 96360; 96372; J0595

== ENCOUNTER 2017-08-13 11:10 | Outpatient (CLI) | payer MEDICAID, SELFPAY ==
[2017-08-13 11:20] VITALS: BP 137/75; PULSE 110; RESP 20; TEMP 36.7; O2SAT 98; BMI 49.4
== END 2017-08-13 11:45 | disposition home or self-care (01) ==
LOC: OBOUT 11:11 → OB 11:13
PROVIDERS: Visit Provider Nurse Practitioner Obstetrics & Gynecology
DX: O26.893 Other specified pregnancy related conditions, third trimester (principal); O60.03 Preterm labor without delivery, third trimester; Z3A.30 30 weeks gestation of pregnancy; M54.5 Low back pain
CPT/HCPCS: 96372

== ENCOUNTER 2017-08-27 12:15 | Outpatient (CLI) | payer MEDICAID, SELFPAY ==
[2017-08-27 12:40] VITALS: BP 138/88; PULSE 98; RESP 18; TEMP 36.7; O2SAT 98; BMI 50.5
[2017-08-27 13:08] LABS: Fetal Membrane Rupture (Rapid) Negative (Negative)
== END 2017-08-27 13:47 | disposition home or self-care (01) ==
LOC: OBOUT 12:18 → OB 12:19
PROVIDERS: Obstetrics & Gynecology; Visit Provider Nurse Practitioner Obstetrics & Gynecology
DX: O26.893 Other specified pregnancy related conditions, third trimester (principal); Z3A.33 33 weeks gestation of pregnancy
CPT/HCPCS: 59025; 84112

== ENCOUNTER → 2017-09-07 08:58 | Outpatient (CLI) | payer MEDICAID, SELFPAY ==
[2017-09-07 09:36] LABS: Basophils % 0.2 % (0.1-2.0); Eosinophils # 0.1 K/mm3 (0.0-0.4); Eosinophils % 1.3 % (0.1-12.0); Hematocrit 33.5 % (37.0-47.0); Lymphocytes # 1.1 K/mm3 (0.7-4.5); Mean Corpuscular Hemoglobin 31.3 pg (27.0-31.2); Mean Corpuscular Volume 94.8 fl (81-99); Mean Platelet Volume 7.8 fl (7.4-10.4); Monocytes # 0.3 K/mm3 (0.1-1.0); Monocytes % 3.4 % (1.7-9.3); Neutrophils % 80.2 % (37.0-80.0); Platelet Count 215 K/mm3 (142-424); Red Blood Count 3.53 M/mm3 (4.20-5.40); White Blood Count 7.5 K/mm3 (4.8-10.8)
[2017-09-07 10:02] LABS: D-Dimer 1090 ng/mL (0-400)
[2017-09-07 10:15] LABS: Alanine Aminotransferase 17 U/L (12-78); Anion Gap 12.1 mEq/L (5-15); Aspartate Amino Transferase 11 U/L (15-37); Blood Urea Nitrogen 4 mg/dL (7-18); Calcium 8.5 mg/dL (8.5-10.1); Carbon Dioxide 25 mmol/L (21.0-32.0); Chloride 108 mmol/L (98-107); Estimated Glomerular Filt Rate 112 ml/min (>60); GFR (African American) 136 ML/MIN (>60); Glucose 114 mg/dL (74-106); Potassium 3.1 mmoL/L (3.5-5.1); Sodium 142 mmol/L (136-145); Uric Acid 4.6 mg/dL (2.6-7.2)
[2017-09-07 10:24] LABS: Creatinine,Urine Random 73 mg/dL (20-320); Total Protein,Urine Random 28.7 mg/dL (0.0-11.9)
[2017-09-07 10:32] LABS: Activated Partial Thrombo Time 26.1 seconds (23.6-34.0); INR 0.92 (0.9-1.1); Prothrombin Time 9.5 seconds (9.4-11.8)
[2017-09-07 10:35] LABS: Collection Time,Urine 24 hours; Creatinine 24 Hour,Urine 1679 mg/24hr (630-2500); Creatinine Clearance Urine 194.3 mL/min (25-115); Total Protein 24 Hour,Urine 660 mg/24 hr (40-90); Total Volume,Urine 2300 mL (600-1600)
[2017-09-07 14:43] LABS: Fibrinogen 500 mg/dL (204-500)
== END ==
PROVIDERS: Visit Provider Nurse Practitioner Obstetrics & Gynecology
DX: O10.92 Unspecified pre-existing hypertension complicating childbirth (principal); Z34.90 Encounter for supervision of normal pregnancy, unspecified, unspecified trimester
CPT/HCPCS: 36415; 80048; 82575; 84155; 84450; 84460; 84550; 85025; 85378; 85384; 85610; 85730

== ENCOUNTER 2017-09-07 19:12 | Observation (INO) ==
[2017-09-07 19:40] LABS: Microscopic, Urine URINE MICROSCOPIC (MICROSCOPIC)
[2017-09-07 19:49] LABS: Appearance,Urine CLEAR (Clear); Bilirubin,Urine Negative (Negative); Blood, Urine Negative (Negative); Color,Urine YELLOW (Yellow); Glucose,Urine (UA) TRACE (Negative); Ketones,Urine Negative (Negative); Leukocyte Esterase,Urine Negative (Negative); Protein,Urine Negative (Negative); Specific Gravity, Urine 1.015 (1.005-1.030); Urobilinogen,Urine 0.2 EU/dl (0.2)
[2017-09-07 19:50] LABS: Amorphous Sediment,Urine Trace /lpf
[2017-09-08 05:41] VITALS: BP 117/77
--- NOTE | 2017-09-08 08:01 | Discharge Summary ---
General - General Admission date:: 09/07/17 Discharge date: 09/08/17 HPI HPI: She is a 36-year-old 3 para 1 aborta 1 who is 34 and 5 weeks gestational age. She has been followed since 28 weeks with gestational diabetes. She is diet controlled. Over the last week her blood pressure has increased and when I saw her in the office earlier in the week her blood pressure is in the 140s over 90s. She had a headache and blurry vision. Her reflexes were flat and she did not have any clonus. I started her on labetalol 200 mg twice daily. I ordered routine blood work. Her platelets, liver function tests and other blood work is normal. She did a 24-hour urine and she had 660 mg of protein in the 24 hour urine. She came in yesterday with headache, blurry vision and low back pain. She is not having contractions. Her blood pressure on arrival was 140/90 and since being here on bedrest her blood pressures are in the 120-140 range over 70-80 range. She continues to have a mild headache as well as blurry vision. She received a course of steroids approximately 4 weeks ago when she came in with some low back pain and labor. She has had a previous section and she is morbidly obese. Hospital Course Hospital Course: She was admitted and observed overnight. She has had resolution of her blood pressure but she continues to have a headache and blurry vision. She continues to have back pain and I did give her a Percocet overnight for her back pain. I spoke to Dr. Clif Montanez at the [facility] and we will transfer her there for further care. She is still only 34 weeks and 5 days. Objective Vital signs: Temp Pulse Resp BP Pulse Ox 97.9 F 81 17 117/77 98 09/07/17 19:36 09/08/17 05:13 09/07/17 19:36 09/08/17 05:13 09/07/17 19:36 no acute distress, morbidly obese - *Routine HEENT Exam Head: Present: normocephalic - *Routine Respiratory Exam Comments: She has good air entry bilaterally. - *Routine Abdominal Exam Present: soft - *Routine Exam Comments: Her cervix is long and closed. Results Labs on day of discharge: Labs from last 24 hours 09/07/17 19:20 Urine Color Yellow Urine Appearance Clear Urine pH 7.0 Ur Specific [place] 1.015 Urine Protein Negative Urine Glucose (UA) Trace Urine Ketones Negative Urine Blood Negative Urine Nitrate Negative Urine Bilirubin Negative Urine Urobilinogen 0.2 Ur Leukocyte Esterase Negative Ur Squamous Epith Cells 10-20 Amorphous Sediment Trace DS: Diagnosis - Discharge Diagnosis (1) induced hypertension, antepartum Status: Acute (2) Gestational diabetes mellitus (GDM) affecting , antepartum Status: Acute (3) Morbid obesity with BMI of 50.0-59.9, adult Status: Acute (4) Low back pain during in third trimester Status: Acute Discharge Plan - Patient Discharge Instructions ACTIVITY: Bed rest DIET: continue same diet, diabetic diet - Follow up Plan Disposition: Xfer Short-Term Hosp Home Medications: Home Medications Medication Instructions Recorded Confirmed Type Vit Calc,Iron,Folic [Kpn] 1 tab PO QHS 05/17/17 09/07/17 History Ferrous Sulfate 325 mg PO DAILY 05/30/17 09/07/17 History Labetalol HCl 200 mg PO BID 09/07/17 09/07/17 History Prescriptions/Medication Reconciliation: Continue promethazine 25 mg tablet 25 mg PO Q4H PRN #20 tab PRN Reason: Nausea And Vomiting promethazine 12.5 mg tablet 12.5 mg PO Q6H PRN #30 tab PRN Reason: nausea and vomiting Vit Calc,Iron,Folic [Kpn] 1 tab PO QHS Ferrous Sulfate 325 mg PO DAILY Labetalol HCl 200 mg PO BID
== END 2017-09-08 10:07 | disposition short-term general hospital (02) ==
LOC: OB 19:12 → OBOUT 19:12 → OB 19:13
PROVIDERS: ADMIT Nurse Practitioner Obstetrics & Gynecology; ATTEND Nurse Practitioner Obstetrics & Gynecology

== ENCOUNTER 2017-09-20 12:35 | Inpatient (IN) ==
--- NOTE | 2017-09-20 12:56 | Emergency Department Note ---
ED Disposition Clinical Impression: Preeclampsia in period RML pneumonia Qualifiers: Pneumonia type: due to unspecified organism Qualified Code(s): J18.1 - Lobar pneumonia, unspecified organism Disposition: Admitted as Observation Condition on Discharge: Fair Referrals: Miller Dee MD [Primary Care Provider] - Time of Disposition: 15:44 - Critical Care Critical Care Time: Yes Attestation: On 09/20/17, the high probability of a clinically significant, sudden or life threatening deterioration of the following system(s) required my full and direct attention, intervention and personal management. The time I documented below is in addition to time spent performing reported procedures but includes the following listed in this critical care notation. Total Critical Care Time: 40 Vital system(s) involved:: Circulatory Failure My critical care processes included: Assessment & monitoring of V/S, Initial and Re-exams, Data Review/Interpretation, Coordinating Care, Medication Orders and management, Documentation Medical Decision Making - Shilo Inquiry Pt receiving controlled substance: No Vital Signs: 09/20/17 12:38 09/20/17 13:06 09/20/17 13:30 Temperature 99.6 F Temperature Source Oral Pulse Rate [Right Brachial] 85 86 74 Respiratory Rate 24 20 20 Blood Pressure [Right Arm] 160/134 155/84 157/100 Blood Pressure Mean [Right Arm] 142 107 119 Blood Pressure Source [Right Arm] Automatic Cuff Automatic Cuff Blood Pressure Position [Right Arm] Supine Supine 02 Sat by Pulse Oximetry 92 L 94 L 100 Oxygen Delivery Method Room Air Room Air Nasal Cannula Oxygen Flow Rate (LPM) 2 2 09/20/17 13:47 09/20/17 14:00 09/20/17 14:26 Temperature Temperature Source Pulse Rate [Right Brachial] 75 74 79 Respiratory Rate 24 20 20 Blood Pressure [Right Arm] 164/103 170/100 167/106 Blood Pressure Mean [Right Arm] 123 123 126 Blood Pressure Source [Right Arm] Automatic Cuff Automatic Cuff Automatic Cuff Blood Pressure Position [Right Arm] Supine Supine Supine 02 Sat by Pulse Oximetry 99 100 98 Oxygen Delivery Method Room Air Nasal Cannula Room Air Oxygen Flow Rate (LPM) 2 09/20/17 14:27 09/20/17 15:00 09/20/17 15:30 Temperature Temperature Source Pulse Rate [Right Brachial] 82 77 86 Respiratory Rate 24 24 20 Blood Pressure [Right Arm] 167/106 170/96 169/102 Blood Pressure Mean [Right Arm] 126 120 124 Blood Pressure Source [Right Arm] Automatic Cuff Automatic Cuff Blood Pressure Position [Right Arm] Sitting Sitting 02 Sat by Pulse Oximetry 96 98 99 Oxygen Delivery Method Nasal Cannula Nasal Cannula Nasal Cannula Oxygen Flow Rate (LPM) 2 2 2 - Lab Data Lab results reviewed: Yes: I reviewed the patient's lab results. Lab Results 09/20/17 12:50: WBC 9.3, RBC 3.21 L, Hgb 9.9 L, Hct 30.5 L, MCV 94.8, MCH 30.9, MCHC 32.6, RDW 17.0, Plt Count 349, MPV 7.6, Neut % (Auto) 82.0 H, Lymph % (Auto ) 10.8, [place] % (Auto) 4.4, Eos % (Auto) 2.3, Baso % (Auto) 0.5, Neut # (Auto) 7.6, Lymph # (Auto) 1.0, [place] # (Auto) 0.4, Eos # (Auto) 0.2, Baso # (Auto) 0.1 09/20/17 12:50: Sodium 146 H, Potassium 3.8, Chloride 107, Carbon Dioxide 32, Anion Gap 10.8, BUN 12, Creatinine 0.67, Estimated Creat Clear 91, Estimated GFR 99, Est GFR ( Amer) 120, Glucose 87, Calcium 8.4 L, Total Bilirubin 0.4, AST 12 L, ALT 33, Alkaline Phosphatase 90, Troponin I < 0.02, Total Protein 5.9 L, Albumin 2.3 L, Globulin 3.6 H, Albumin/Globulin Ratio 0.6 L 09/20/17 12:50: Lactic Acid 0.5 Result diagrams: 09/20/17 12:50 09/20/17 12:50 Orders (Tests/Meds): ED MEDICATIONS Generic Name Dose Route Start Last Admin Trade Name Freq PRN Reason Stop Dose Admin Ceftriaxone Sodium 1 gm/ 50 mls @ 100 mls/hr 09/20/17 15:15 09/20/17 15:13 Sodium Chloride IV 10/04/17 15:14 100 mls/hr Q24H SEJAL Administration Protocol Magnesium Sulfate 20 gm in 500 mls @ 50 mls/hr 09/20/17 15:45 09/20/17 15:42 Magnesium Sulfate 20gm/500ml Premix IV 09/21/17 15:44 50 mls/hr .Q10H SEJAL Administration 2 GM/HR Azithromycin 500 mg/ Sodium 250 mls @ 250 mls/hr 09/20/17 15:45 Chloride IV 10/04/17 15:44 Q24H SEJAL Protocol Discontinued Medications Generic Name Dose Route Start Last Admin Trade Name Allan PRN Reason Stop Dose Admin Iopamidol 75 ml 09/20/17 14:53 09/20/17 14:56 [id number]; 75ml Vial IV 09/20/17 14:54 75 ml ONCE ONE Administration Labetalol HCl 200 mg 09/20/17 12:52 09/20/17 13:36 Normodyne 100mg Tablet PO 09/20/17 12:53 200 mg ONCE ONE Administration Magnesium Sulfate 4 gm 09/20/17 12:56 09/20/17 13:36 Magnesium Sulfate 4gm/50ml Premix IV 09/20/17 12:57 4 gm ONCE ONE Administration Sodium Chloride 50 ml 09/20/17 14:53 09/20/17 14:56 Rad-Ns 50ml Vial IV 09/20/17 14:54 50 ml ONCE ONE Administration Sodium Chloride 10 ml 09/20/17 14:53 09/20/17 14:56 Rad-Saline Flush 10ml Syringe IV 09/20/17 14:54 10 ml ONCE ONE Administration ORDERS Category Date Time Status Urinalysis-Acute [Urinalysis and Microscopic] Stat Lab 09/20/17 15:37 Ordered Blood Culture Stat Micro 09/20/17 12:50 Received - CT Data CT Scan: Chest Time Received: 15:[address] Reviewed: Yes: I discussed the CT results w/the radiologist Findings Narrative: neg PE, has definite RML and RLL pneumonia per radiology - US Data US Images: Lower Extremity (per tech neg DVT) - ECG Data Tracing #1 I reviewed this ECG and interpreted as documented below: ECG initial impression date: 09/20/17 ECG initial impression time: 13:00 ECG normal with no acute: arrhythmias, ischemia, conduction abnormalities, chamber hypertrophy Normal Sinus Rhythm: Yes - Physician Consults Physician Consulted: OB energy economist Time: 15:04 Reason -: Pt condition, Obstetrical Eval/Care Comment/Response: Dr. Shepard energy economist for Dr. Moody: will consult RE issues/preeclampsia; requesting 2 g/hr Magnesium sulfate x 24 hours Additional Consult: service call Dr. Velasquez Time: 15:35 (ok to admit on Rocephin/Zmax consultation done on OB already) Reason -: Admission - Reevaluation(s) Time: 14:54 (SBP in the 150's, h/a gone) Reevaluation #2: Headache better, BP variable at times SBP 150's and then back up to 160's when off mag gtts; have reinitiated Mag gtts at 2 grams per hour following d/w Dr. Shepard. Medical Decision Narrative: On arrival, seizure precautions placed on bed, Mag ordered for stat IV administration, her daily dose of Labetalol given PO as she missed two doses already today. Resp/SOB HPI - General Chief Complaint: Shortness of Breath/Dyspnea Stated Complaint: Had baby 09/13/17 now has SOA Time Seen by Provider: 09/20/17 12:50 Mode of Arrival: Family Vehicle Limitations: No Limitations Description of Symptoms (Recalled from ER Triage Doc. by RN): C/O SOB, VOMITING ALL NIGHT AND MIGRAINE FOR 4-5 DAYS. HAD C SECTION ON 09/13/17 - History of Present Illness Patient with IDDM, recent high risk complicated by preeclampsia, states did not take her Labetalol today as prescribed; reports CS on 09/13/17 at around 35 weeks GA at due to high risk. She states she had headaches and "floaters" while and that the headache has not resolved. She has had some intermittent vomiting over the last few days, "gets sweaty" at times w/o any fever, has had progressive edema to BLE over the past two to three days along with progressive CHAVARRIA, a little cough, no sputum. No urinary sx. Not . MD Complaint: shortness of breath Onset (ago): day(s) Context: other Severity: moderate Consistency/Duration: intermittent Relieving factors: rest Known history of: diabetes Associated symptoms: cough, nausea/vomiting, other - Related Data Home Medications Medication Instructions Recorded Confirmed Ferrous Sulfate 325 mg PO BID 05/30/17 09/20/17 Labetalol HCl 200 mg PO TID 09/07/17 09/20/17 Acetaminophen [Acetaminophen 325mg 650 mg PO Q4HP PRN 09/20/17 09/20/17 tab] Docusate Sodium [Colace 250mg 250 mg PO BID PRN 09/20/17 09/20/17 capsule] Ibuprofen [Ibuprofen 600mg Tab] 600 mg PO Q6 09/20/17 09/20/17 Oxycodone HCl [Roxicodone 5mg tab] 5 mg PO Q4HP PRN 09/20/17 09/20/17 Allergies Allergy/AdvReac Type Severity Reaction Status Date / Time aspirin [ASPIRIN] Allergy Unknown Hives Verified 09/05/17 10:50 codeine [CODEINE] Allergy Unknown Hives Verified 09/05/17 10:50 Penicillins Allergy Hives Verified 09/05/17 10:50 Grape Jelly Allergy Severe Difficulty Uncoded 09/05/17 10:50 Breathing - Well's Criteria PE Score Clinical signs/symptoms of DVT: Yes PE is #1 diagnosis or equally likely: Yes Heart rate is > 100: No Immobile at least 3 days, or surgery in past 4 wks: Yes Previously, obj. diagnosed PE or DVT: No Hemoptysis: No Malignancy w/Rx within 6mo, or palliative: No PE Score: 7 [facility] History I have reviewed the patient's past medical history: Yes Medical History: Reports:: Chronic Obstructive Pulmonary Disease (COPD), Diabetes Mellitus Type 2 (GESTATIONAL DIABETES), Hypertension Denies:: Cancer, Diabetes Mellitus Type 1, MRSA Laterality Cases: Left: Carpal Tunnel Release Other Surgeries: Yes: , Other Amputation: No Fractures: No Comment: gallbladder, 2003?, wisdom teeth - Social History Smoking Status: Former smoker Tobacco Type: cigarettes Alcohol Intake: never Substance Use Type: denies use Occupational Status: unemployed - Psychiatric History Expresses thoughts of harming self/others: None Suicide Plan Description: No Plan Family Hx:: Cancer, Diabetes, Hypertension, Stroke, Heart Attack, Asthma, Hyperlipidemia, Thyroid Disorder, Kidney Disease ROS Obtained: Yes All systems reviewed & no additional complaints Physical Exam - General General appearance: alert, obese, other (appears uncomfortable, somewhat tachypneic) - Head Head exam: atraumatic, normocephalic, normal inspection - Eye Eye exam: Present: normal appearance, PERRL, EOMI - ENT ENT exam: Present: normal exam, normal oropharynx, mucous membranes moist, normal external ear exam - Neck Neck exam: Present: normal inspection, full ROM, trachea midline. Absent: meningismus, lymphadenopathy - Chest Chest inspection: Present: normal inspection, symmetric chest wall rise. Absent : tenderness - Respiratory Respiratory exam: Present: normal lung sounds bilaterally. Absent: respiratory distress, wheezes, stridor, accessory muscle use, prolonged expiratory phase - Cardiovascular Cardiovascular exam: Present: regular rate, normal rhythm, other (nonpitting edema bilaterally, no asymmetry, no ropiness, neg Delilah's). Absent: JVD - Abdominal Exam Abdominal exam: Present: soft, normal bowel sounds, other (sp CS). Absent: distention, tenderness, guarding - Extremities Exam Extremities exam: Present: full ROM, normal capillary refill, pedal edema - Back Exam Back exam: Present: full ROM - Neurological Exam Neurological exam: Present: alert, oriented X3, CN II-XII intact, normal gait, reflexes normal, other (GCS 4/6/5). Absent: motor sensory deficit - Psychiatric Psychiatric exam: Present: normal affect, normal mood - Skin Skin exam: Present: warm, dry, intact
[2017-09-20 12:58] LABS: Basophils # 0.1 K/mm3 (0-0.2); Basophils % 0.5 % (0.1-2.0); Eosinophils # 0.2 K/mm3 (0.0-0.4); Eosinophils % 2.3 % (0.1-12.0); Hematocrit 30.5 % (37.0-47.0); Hemoglobin 9.9 g/dL (12.2-16.2); Lymphocytes % 10.8 K/mm3 (10-50); Mean Corpuscular HGB Conc 32.6 g/dL (31.8-35.4); Mean Corpuscular Hemoglobin 30.9 pg (27.0-31.2); Mean Corpuscular Volume 94.8 fl (81-99); Mean Platelet Volume 7.6 fl (7.4-10.4); Monocytes # 0.4 K/mm3 (0.1-1.0); Monocytes % 4.4 % (1.7-9.3); Neutrophils # 7.6 K/mm3 (1.8-7.8); Platelet Count 349 K/mm3 (142-424); Red Blood Count 3.21 M/mm3 (4.20-5.40); White Blood Count 9.3 K/mm3 (4.8-10.8)
[2017-09-20 13:11] LABS: Alanine Aminotransferase 33 U/L (12-78); Albumin Level 2.3 gm/dL (3.4-5.0); Albumin/Globulin Ratio 0.6 (1.1-1.8); Alkaline Phosphatase 90 U/L (46-116); Anion Gap 10.8 mEq/L (5-15); Aspartate Amino Transferase 12 U/L (15-37); Bilirubin,Total 0.4 mg/dL (0.2-1.0); Blood Urea Nitrogen 12 mg/dL (7-18); Calcium 8.4 mg/dL (8.5-10.1); Carbon Dioxide 32 mmol/L (21.0-32.0); Chloride 107 mmol/L (98-107); Globulin 3.6 gm/dl (1.3-3.2); Glucose 87 mg/dL (74-106); Potassium 3.8 mmoL/L (3.5-5.1); Sodium 146 mmol/L (136-145); Total Protein,Serum 5.9 gm/dL (6.4-8.2)
--- NOTE | 2017-09-20 15:16 | Non-Invasive Vascular Report ---
"Venous Exam Indications: Orthopnea 786.02. 729.5 Pain in limb. 782.3 Edema. IMPRESSIONS 1. There is no evidence of significant Reflux. 2. No evidence of deep or superficial vein thrombosis involving the right lower extremity and left lower extremity Complete lower extremity venous duplex evaluation. Doppler flow study including spectral analysis, color and banks scale imaging. Location: Vascular laboratory. Patient status: Emergency department. Tables: Venous flow and imaging: + + + + + |Location |Overall |Flow properties |Comments | + + + + + |Right common femoral|Patent |Normal phasicity; | | | | |spontaneous; normal| | | | |augmentation; | | | | |compressible | | + + + + + |Right saphenofemoral|Patent |Compressible | | |junction | | | | + + + + + |Right profunda |Patent |Compressible | | |femoral | | | | + + + + + |Right femoral |Patent |Normal phasicity; | | | | |spontaneous; normal| | | | |augmentation; | | | | |compressible; no | | | | |reflux | | + + + + + |Right greater |Patent |Normal phasicity; | | |saphenous | |spontaneous; normal| | | | |augmentation; | | | | |compressible | | + + + + + |Right popliteal |Patent |Normal phasicity; | | | | |spontaneous; normal| | | | |augmentation; | | | | |compressible | | + + + + + |Right posterior |Difficult |Compressible |Difficult to | |tibial |study | |image. | + + + + + |Right peroneal |Difficult |Compressible |Difficult to | | |study | |image | + + + + + |Right gastrocnemius |Patent |Compressible | | + + + + + |Right soleal |Patent |Compressible | | + + + + + |Left common femoral |Patent |Normal phasicity; | | | | |spontaneous; normal| | | | |augmentation; | | | | |compressible | | + + + + + |Left saphenofemoral |Patent |Compressible | | |junction | | | | + + + + + |Left profunda |Patent |Compressible | | |femoral | | | | + + + + + |Left femoral |Patent |Normal phasicity; | | | | |spontaneous; normal| | | | |augmentation; | | | | |compressible | | + + + + + |Left greater |Patent |Normal phasicity; | | |saphenous | |spontaneous; normal| | | | |augmentation; | | | | |compressible | | + + + + + |Left popliteal |Patent |Normal phasicity; | | | | |spontaneous; normal| | | | |augmentation; | | | | |compressible | | + + + + + |Left posterior |Difficult |Compressible |Difficult to | |tibial |study | |image | + + + + + |Left peroneal |Difficult |Compressible |Difficult to | | |study | |image | + + + + + |Left gastrocnemius |Patent |Compressible | | + + + + + |Left soleal |Patent |Compressible | | + + + + + (Report amended ) Electronically signed by: Bry Fitzpatrick [id number]"
[2017-09-20 15:53] LABS: Microscopic, Urine URINE MICROSCOPIC (MICROSCOPIC)
[2017-09-20 15:56] LABS: Appearance,Urine SL CLOUDY (Clear); Bilirubin,Urine Negative (Negative); Blood, Urine 3+ (Negative); Color,Urine YELLOW (Yellow); Glucose,Urine (UA) Negative (Negative); Ketones,Urine Negative (Negative); Leukocyte Esterase,Urine Negative (Negative); Protein,Urine TRACE (Negative); Urobilinogen,Urine 0.2 EU/dl (0.2)
--- NOTE | 2017-09-20 16:02 | Pharmacy Consult Notes ---
[facility] Pharmacy VTE Monitoring - Patient Demographics Admission date: 09/20/17 Report Date: 09/20/17 Time: 16:02 Allergies/Adverse Reactions: Patient Allergies aspirin [ASPIRIN] Allergy (Unknown, Verified 09/05/17 10:50) Hives codeine [CODEINE] Allergy (Unknown, Verified 09/05/17 10:50) Hives Penicillins Allergy (Verified 09/05/17 10:50) Hives Grape Jelly Allergy (Severe, Uncoded 09/05/17 10:50) Difficulty Breathing Height: 1.57 m Weight: 113.398 kg Patient Problems: Current Active Problems RML pneumonia (Acute) Preeclampsia in period (Acute) - VTE Risk Labs: VTE Related Lab Results Hgb 9.9 g/dL (12.2-16.2) L 09/20/17 12:50 Hct 30.5 % (37.0-47.0) L 09/20/17 12:50 Plt Count 349 K/mm3 (142-424) 09/20/17 12:50 BUN 12 mg/dL (7-18) 09/20/17 12:50 Creatinine 0.67 mg/dL (0.55-1.02) 09/20/17 12:50 Estimated Creat Clear 91 mL/min (0-300) 09/20/17 12:50 Clinical Trial Participant: No - Prophylaxis VTE Prophylaxis Ordered?: Yes Types of VTE Prophylaxis: TEDS Knee High
[2017-09-20 16:03] LABS: RBC,Urine 50-100 #/hpf (0-3); Squamous Epithelial Cell,Urine 20-50 #/hpf (0-5)
[2017-09-20 16:04] LABS: Bacteria,Urine Trace /lpf
--- NOTE | 2017-09-20 16:45 | History & Physical Report ---
*Admission Date: 09/20/17 <Celia Horn 09/20/17 16:50> *Chief complaint: SOA, swelling <JustinaCelia - 09/20/17 16:50> *History of present illness: Ms. Winston is a 36-year-old white female patient with a history of COPD and preeclampsia. She was a patient of Dr. Freitas and when she developed preeclampsia, she was sent to the [facility]. She states she stayed there for 1 week and had a at 35 weeks. Her blood pressure improved and she was sent home. Approximately 3 days ago she began having lower extremity edema and a headache. Last night she began vomiting and became lightheaded and short of breath. Her shortness of air worsened today and she presented to the emergency room for further evaluation and treatment. She had a Doppler that was negative for DVT and a CTA that was negative for PE. The CTA did show bilateral pneumonia. The patient's blood pressure was also elevated upon emergency room presentation. She will be admitted for further evaluation and treatment. CRA OFFICER will be consulted. <Celia Horn 09/20/17 16:50> [facility] History Medical History: Reports:: Chronic Obstructive Pulmonary Disease (COPD), Diabetes Mellitus Type 2 (GESTATIONAL DIABETES), Hypertension Denies:: Cancer, Diabetes Mellitus Type 1, MRSA <JustinaCelia - 09/20/17 16:50> Laterality Cases: Left: Carpal Tunnel Release <Celia Horn 09/20/17 16:50> Other Surgeries: Yes: , Other <Celia Horn 09/20/17 16:50> Amputation: No <Celia Horn 09/20/17 16:50> Fractures: No <Celia Horn 09/20/17 16:50> - *Social History Smoking Status: Former smoker <Celia Horn 09/20/17 16:50> Tobacco Type: cigarettes <Celia Horn 09/20/17 16:50> Alcohol Intake: never <Celia Horn 09/20/17 16:50> Substance Use Type: denies use <Celia Horn 09/20/17 16:50> Occupational Status: unemployed <Celia Horn 09/20/17 16:50> - Psychiatric History Expresses thoughts of harming self/others: None <Celia Horn 09/20/17 16: 50> Suicide Plan Description: No Plan <Celia Horn 09/20/17 16:50> *Family Hx:: Cancer, Diabetes, Hypertension, Stroke, Heart Attack, Asthma, Hyperlipidemia, Thyroid Disorder, Kidney Disease <Celia Horn 09/20/17 16: 50> Review of Systems - Constitutional Reports chills, Denies fever(s) <Celia Horn 09/20/17 16:50> - Eyes Denies blurry vision, Denies double vision <Celia Horn 09/20/17 16:50> - ENT Denies nasal congestion, Denies sore throat <Celia Horn 09/20/17 16:50> - *Cardiovascular Reports chest pain (midsternal), Reports fast heart rate <JustinaCelia 16:50> - *Respiratory Reports shortness of breath with activity, Denies chest congestion, Denies cough <Celia Horn 09/20/17 16:50> - *Gastrointestinal Reports nausea, Reports vomiting, Denies abdominal pain, Denies loose stools < Celia Horn 09/20/17 16:50> - *Genitourinary Denies difficulty urinating, Denies painful urination <Celia Horn 16:50> - *Musculoskeletal Denies joint pain, Denies muscle weakness <Celia Horn 09/20/17 16:50> - *Neurologic Reports headache(s), Denies dizziness <Celia Horn 09/20/17 16:50> Meds Home Medications Medication Instructions Recorded Confirmed Type Ferrous Sulfate 325 mg PO BID 05/30/17 09/20/17 History Labetalol HCl 200 mg PO TID 09/07/17 09/20/17 History Acetaminophen [Acetaminophen 325mg 650 mg PO Q4HP PRN 09/20/17 09/20/17 History tab] Docusate Sodium [Colace 250mg 250 mg PO BID PRN 09/20/17 09/20/17 History capsule] Ibuprofen [Ibuprofen 600mg Tab] 600 mg PO Q6 09/20/17 09/20/17 History Oxycodone HCl [Roxicodone 5mg tab] 5 mg PO Q4HP PRN 09/20/17 09/20/17 History <Sal Velasquez - 09/20/17 18:16> Allergies Allergy/AdvReac Type Severity Reaction Status Date / Time aspirin [ASPIRIN] Allergy Unknown Hives Verified 09/05/17 10:50 codeine [CODEINE] Allergy Unknown Hives Verified 09/05/17 10:50 Penicillins Allergy Hives Verified 09/05/17 10:50 Grape Jelly Allergy Severe Difficulty Uncoded 09/05/17 10:50 Breathing <Sal Velasquez - 09/20/17 18:16> Exam Vital signs and Labs for Last 24 Hours: Temp Pulse Resp BP Pulse Ox 99.4 F 79 20 171/96 96 09/20/17 16:28 09/20/17 16:28 09/20/17 16:28 09/20/17 16:28 09/20/17 16:00 Laboratory Results - last 24 hr 09/20/17 12:50: WBC 9.3, RBC 3.21 L, Hgb 9.9 L, Hct 30.5 L, MCV 94.8, MCH 30.9, MCHC 32.6, RDW 17.0, Plt Count 349, MPV 7.6, Neut % (Auto) 82.0 H, Lymph % (Auto ) 10.8, [place] % (Auto) 4.4, Eos % (Auto) 2.3, Baso % (Auto) 0.5, Neut # (Auto) 7.6, Lymph # (Auto) 1.0, [place] # (Auto) 0.4, Eos # (Auto) 0.2, Baso # (Auto) 0.1 09/20/17 12:50: Sodium 146 H, Potassium 3.8, Chloride 107, Carbon Dioxide 32, Anion Gap 10.8, BUN 12, Creatinine 0.67, Estimated Creat Clear 91, Estimated GFR 99, Est GFR ( Amer) 120, Glucose 87, Calcium 8.4 L, Total Bilirubin 0.4, AST 12 L, ALT 33, Alkaline Phosphatase 90, Troponin I < 0.02, Total Protein 5.9 L, Albumin 2.3 L, Globulin 3.6 H, Albumin/Globulin Ratio 0.6 L 09/20/17 12:50: Lactic Acid 0.5 09/20/17 14:40: Urine Color Yellow, Urine Appearance Sl cloudy, Urine pH 7.0, Ur Specific [place] 1.010, Urine Protein Trace, Urine Glucose (UA) Negative, Urine Ketones Negative, Urine Blood 3+, Urine Nitrate Negative, Urine Bilirubin Negative, Urine Urobilinogen 0.2, Ur Leukocyte Esterase Negative, Urine RBC 50- 100, Urine WBC None, Ur Squamous Epith Cells 20-50, Ur Transition Epith Cell 10- 20, Urine Bacteria Trace 09/20/17 17:08: POC Glucose 99 <RonSal - 09/20/17 18:16> Temp Pulse Resp BP Pulse Ox 99.4 F 79 20 171/96 99 09/20/17 16:28 09/20/17 16:28 09/20/17 16:28 09/20/17 16:28 09/20/17 15:30 Laboratory Results - last 24 hr 09/20/17 12:50: WBC 9.3, RBC 3.21 L, Hgb 9.9 L, Hct 30.5 L, MCV 94.8, MCH 30.9, MCHC 32.6, RDW 17.0, Plt Count 349, MPV 7.6, Neut % (Auto) 82.0 H, Lymph % (Auto ) 10.8, [place] % (Auto) 4.4, Eos % (Auto) 2.3, Baso % (Auto) 0.5, Neut # (Auto) 7.6, Lymph # (Auto) 1.0, [place] # (Auto) 0.4, Eos # (Auto) 0.2, Baso # (Auto) 0.1 09/20/17 12:50: Sodium 146 H, Potassium 3.8, Chloride 107, Carbon Dioxide 32, Anion Gap 10.8, BUN 12, Creatinine 0.67, Estimated Creat Clear 91, Estimated GFR 99, Est GFR ( Amer) 120, Glucose 87, Calcium 8.4 L, Total Bilirubin 0.4, AST 12 L, ALT 33, Alkaline Phosphatase 90, Troponin I < 0.02, Total Protein 5.9 L, Albumin 2.3 L, Globulin 3.6 H, Albumin/Globulin Ratio 0.6 L 09/20/17 12:50: Lactic Acid 0.5 09/20/17 14:40: Urine Color Yellow, Urine Appearance Sl cloudy, Urine pH 7.0, Ur Specific [place] 1.010, Urine Protein Trace, Urine Glucose (UA) Negative, Urine Ketones Negative, Urine Blood 3+, Urine Nitrate Negative, Urine Bilirubin Negative, Urine Urobilinogen 0.2, Ur Leukocyte Esterase Negative, Urine RBC 50- 100, Urine WBC None, Ur Squamous Epith Cells 20-50, Ur Transition Epith Cell 10- 20, Urine Bacteria Trace <TimiviniciusCelia 09/20/17 16:50> I & O for Last 24 hours: Intake & Output 09/18/17 09/19/17 09/20/17 09/21/17 11:59 11:59 11:59 11:59 Weight 250 lb <Sal Velasquez 09/20/17 18:16> Intake & Output 09/18/17 09/19/17 09/20/17 09/21/17 11:59 11:59 11:59 11:59 Weight 250 lb <JustinaCelia 09/20/17 16:50> - Constitutional no acute distress [facility] 16:50> - *Routine HEENT Exam Head: Present: normocephalic, atraumatic <JustinaCelia - 09/20/17 16:50> Eye: Present: EOMI, PERRL <TimiviniciusCelia 09/20/17 16:50> ENT: Present: mucous membranes moist <TimiviniciusCelia 09/20/17 16:50> - *Routine Neck Exam Present: supple, full ROM <JustinaCelia 09/20/17 16:50> - *Routine Respiratory Exam Present: decreased breath sounds, CTA bilaterally <TimiviniciusCelia - 09/20/17 16 :50> - *Routine Cardiovascular Exam Present: RRR <JustinaCelia - 09/20/17 16:50> - *Routine Abdominal Exam Present: soft, normoactive bowel sounds. Absent: tenderness <JustinaCelia 09/20/17 16:50> - *Routine Extremities Exam Present: edema (2+ in bilateral LE's) <Celia Horn 09/20/17 16:50> - *Routine Skin Exam Present: intact <Celia Horn - 09/20/17 16:50> - *Routine Neurological Exam Present: alert, oriented X3 <Celia Horn - 09/20/17 16:50> H&P: Result - Labs Labs: Short CBC 09/20/17 Range/Units 12:50 WBC 9.3 (4.8-10.8) K/mm3 Hgb 9.9 L (12.2-16.2) g/dL Hct 30.5 L (37.0-47.0) % Plt Count 349 (142-424) K/mm3 BMP 09/20/17 12:50 Sodium 146 H Potassium 3.8 Chloride 107 Carbon Dioxide 32 BUN 12 Creatinine 0.67 Glucose 87 Calcium 8.4 L Cardiac Enzymes 09/20/17 Range/Units 12:50 Troponin I < 0.02 (0.00-0.06) ng/ml Liver Function 09/20/17 Range/Units 12:50 Total Bilirubin 0.4 (0.2-1.0) mg/dL AST 12 L (15-37) U/L ALT 33 (12-78) U/L Alkaline Phosphatase 90 (46-116) U/L Albumin 2.3 L (3.4-5.0) gm/dL Urine 09/20/17 Range/Units 14:40 Urine Color Yellow (Yellow) Urine Appearance Sl cloudy (Clear) Urine pH 7.0 (5.0-8.5) Ur Specific [place] 1.010 (1.005-1.030) Urine Protein Trace (Negative) Urine Glucose (UA) Negative (Negative) <Sal Velasquez - 09/20/17 18:16> <Celia Horn - 09/20/17 16:50> - Impressions CXR - Prominent right upper lobe right perihilar right lower lobe diffuse ill- defined pneumonia with questionable left lower lobe involvement as well. Venous Doppler 1. There is no evidence of significant Reflux. 2. No evidence of deep or superficial vein thrombosis involving the right lower extremity and left lower extremity CTA Study negative for PE though contrast opacification is somewhat less than optimal however there appears be diffuse bilateral pneumonic infiltrates prosthesis secondary to viral pneumonia <JustinaLadariusa - 09/20/17 16:50> Assessment and Plan (1) Pneumonia Current visit: Yes Status: Acute Category: Medical Code(s): J18.9 - Pneumonia, unspecified organism (2) Preeclampsia in period Current visit: Yes Status: Acute Category: Medical Code(s): O14.95 - Unspecified pre-eclampsia, complicating the puerperium (3) Gestational diabetes mellitus (GDM) Current visit: No Status: Chronic Qualifiers: Gestational diabetes mellitus control: diet-controlled Trimester: third trimester Qualified Code(s): O24.410 - Gestational diabetes mellitus in , diet controlled Category: Medical Code(s): O24.419 - Gestational diabetes mellitus in , unspecified control <Celia Horn - 09/20/17 16:42> (1) Bilateral pneumonia Current visit: Yes Status: Acute Category: Medical Code(s): J18.9 - Pneumonia, unspecified organism (2) Preeclampsia in period Current visit: Yes Status: Acute Category: Medical Code(s): O14.95 - Unspecified pre-eclampsia, complicating the puerperium (3) Gestational diabetes mellitus (GDM) Current visit: No Status: Chronic Qualifiers: Gestational diabetes mellitus control: diet-controlled Trimester: third trimester Qualified Code(s): O24.410 - Gestational diabetes mellitus in , diet controlled Category: Medical Code(s): O24.419 - Gestational diabetes mellitus in , unspecified control <Sal Velasquez - 09/20/17 18:16> - Assessment and plan all Dx Assessment and Plan for all problems:: Patient seen and examined after arrival to floor. SHe still has a headache but it has eased. She is SOA with exertion but comfortable at rest. No cough or pleuritic pain. She is tolerating her diet. SHe is tearful over being away from her baby. Will add Duonebs to her treatment and check PCR respiratory panel otherwise concur with present treatment plan. Dr. Shepard is consulted for management of her pre-eclampsia. <Sal Velasquez - 09/20/17 18:16> Patient has been started on abx and mag sulfate. Most of her home meds have been ordered. Will consult POWDER LOADER. <Celia Horn - 09/20/17 16:50>
[2017-09-20 19:44] LABS: Coronavirus 229E Not Detected (NotDetected); Coronavirus NL63 Not Detected (NotDetected); Coronavirus OC43 Not Detected (NotDetected); Coronovirus HKU1,PCR Not Detected (NotDetected)
[2017-09-21 06:36] LABS: Basophils % 0.3 % (0.1-2.0); Eosinophils # 0.2 K/mm3 (0.0-0.4); Eosinophils % 2.3 % (0.1-12.0); Hematocrit 32.3 % (37.0-47.0); Hemoglobin 10.4 g/dL (12.2-16.2); Lymphocytes % 10.3 K/mm3 (10-50); Mean Corpuscular HGB Conc 32.1 g/dL (31.8-35.4); Mean Corpuscular Hemoglobin 31.2 pg (27.0-31.2); Mean Corpuscular Volume 97.2 fl (81-99); Mean Platelet Volume 7.3 fl (7.4-10.4); Monocytes # 0.5 K/mm3 (0.1-1.0); Neutrophils % 82.1 % (37.0-80.0); Platelet Count 397 K/mm3 (142-424); Red Blood Count 3.32 M/mm3 (4.20-5.40); Red Cell Distribution Width 17.7 % (11.5-17.5); White Blood Count 9.8 K/mm3 (4.8-10.8)
[2017-09-21 06:39] LABS: Anion Gap 9.3 mEq/L (5-15); Potassium 3.3 mmoL/L (3.5-5.1)
[2017-09-21 06:53] LABS: Calcium 7.6 mg/dL (8.5-10.1)
--- NOTE | 2017-09-21 08:35 | Progress Note ---
Internal Medicine - PN: Subj *Date: 09/21/17 *Time: 09:08 Interval history: She did not rest well last night due to persistent headache but states her headache is some better this morning. Her blood pressure has improved overnight. She is still short of breath with exertion but comfortable at rest. Denies cough. No chest pain. Exam Vital signs and Labs for Last 24 Hours: Temp Pulse Resp BP Pulse Ox 98.0 F 80 18 140/83 92 L 09/21/17 07:53 09/21/17 07:53 09/21/17 07:53 09/21/17 07:53 09/21/17 07:53 Laboratory Results - last 24 hr 09/20/17 12:50: WBC 9.3, RBC 3.21 L, Hgb 9.9 L, Hct 30.5 L, MCV 94.8, MCH 30.9, MCHC 32.6, RDW 17.0, Plt Count 349, MPV 7.6, Neut % (Auto) 82.0 H, Lymph % (Auto ) 10.8, [place] % (Auto) 4.4, Eos % (Auto) 2.3, Baso % (Auto) 0.5, Neut # (Auto) 7.6, Lymph # (Auto) 1.0, [place] # (Auto) 0.4, Eos # (Auto) 0.2, Baso # (Auto) 0.1 09/20/17 12:50: Sodium 146 H, Potassium 3.8, Chloride 107, Carbon Dioxide 32, Anion Gap 10.8, BUN 12, Creatinine 0.67, Estimated Creat Clear 91, Estimated GFR 99, Est GFR ( Amer) 120, Glucose 87, Calcium 8.4 L, Total Bilirubin 0.4, AST 12 L, ALT 33, Alkaline Phosphatase 90, Troponin I < 0.02, Total Protein 5.9 L, Albumin 2.3 L, Globulin 3.6 H, Albumin/Globulin Ratio 0.6 L 09/20/17 12:50: Lactic Acid 0.5 09/20/17 14:40: Urine Color Yellow, Urine Appearance Sl cloudy, Urine pH 7.0, Ur Specific [place] 1.010, Urine Protein Trace, Urine Glucose (UA) Negative, Urine Ketones Negative, Urine Blood 3+, Urine Nitrate Negative, Urine Bilirubin Negative, Urine Urobilinogen 0.2, Ur Leukocyte Esterase Negative, Urine RBC 50- 100, Urine WBC None, Ur Squamous Epith Cells 20-50, Ur Transition Epith Cell 10- 20, Urine Bacteria Trace 09/20/17 17:08: POC Glucose 99 09/20/17 19:30: Chlamy pneumoniae PCR Not detected, Adenovirus (PCR) Not detected, B.parapertussis DNA PCR Not detected, Coronavirus OC43 (PCR) Not detected, Coronavirus HKU1 (PCR) Not detected, Coronavirus 229E (PCR) Not detected, Coronavirus NL63 (PCR) Not detected, Human Metapneumovir PCR Not detected, Influenza A (H1) PCR Not detected, Influ A (H1N1/09) PCR Not detected , Influenza A (H3) PCR Not detected, Influenza Type A (PCR) Not detected, Influenza Type B (PCR) Not detected, M. pneumoniae (PCR) Not detected, Parainfluenza 1 (PCR) Not detected, Parainfluenza 2 (PCR) Not detected, Parainfluenza 3 (PCR) Not detected, Parainfluenza 4 (PCR) Not detected, RSV (PCR ) Not detected, Entero/Rhino (PCR) Not detected 09/20/17 20:28: POC Glucose 120 H 09/21/17 05:59: POC Glucose 121 H 09/21/17 06:22: WBC 9.8, RBC 3.32 L, Hgb 10.4 L, Hct 32.3 L, MCV 97.2, MCH 31.2 , MCHC 32.1, RDW 17.7 H, Plt Count 397, MPV 7.3 L, Neut % (Auto) 82.1 H, Lymph % (Auto) 10.3, [place] % (Auto) 5.0, Eos % (Auto) 2.3, Baso % (Auto) 0.3, Neut # ( Auto) 8.0 H, Lymph # (Auto) 1.0, [place] # (Auto) 0.5, Eos # (Auto) 0.2, Baso # ( Auto) 0.0 09/21/17 06:22: Sodium 142, Potassium 3.3 L, Chloride 104, Carbon Dioxide 32, Anion Gap 9.3, BUN 8 D, Creatinine 0.67, Estimated Creat Clear 91, Estimated GFR 99, Est GFR ( Amer) 120, Glucose 117 H D, Calcium 7.6 L, Magnesium 5.0 H I & O for Last 24 hours: Intake & Output 09/18/17 09/19/17 09/20/17 09/21/17 11:59 11:59 11:59 11:59 Intake Total 7 / 2257 Output Total 300 / 300 Balance 1956 / 1956 Weight 250 lb Narrative: She is alert and oriented and mildly uncomfortable with her headache. No respiratory distress. Breath sounds remain relatively clear. Heart is regular. Abdomen is soft and nondistended with appropriate tenderness around her incision. Extremities show 1+ pretibial edema Assessment and Plan (1) Bilateral pneumonia Current visit: Yes Status: Acute Category: Medical Code(s): J18.9 - Pneumonia, unspecified organism (2) Preeclampsia in period Current visit: Yes Status: Acute Category: Medical Code(s): O14.95 - Unspecified pre-eclampsia, complicating the puerperium (3) Gestational diabetes mellitus (GDM) Current visit: No Status: Chronic Qualifiers: Gestational diabetes mellitus control: diet-controlled Trimester: third trimester Qualified Code(s): O24.410 - Gestational diabetes mellitus in , diet controlled Category: Medical Code(s): O24.419 - Gestational diabetes mellitus in , unspecified control - Assessment and plan all Dx Assessment and Plan for all problems:: Her blood pressure has improved. Magnesium level is therapeutic. Dr. Shepard will manage this. She is still somewhat dyspneic with exertion. She remains afebrile and her white blood cell count is normal. PCR Respiratory panel is negative. We will continue her antibiotics and neb treatments and repeat her chest x-ray today.
--- NOTE | 2017-09-21 14:41 | Progress Note ---
Internal Medicine - PN: Hannah *Date: 09/21/17 *Time: 13:38 Interval history: HD #2 1 week admitted with acute pneumonia and exacerbation of hypertension complicated by preeclampsia with delivery at 35 weeks Was discharged home on labetalol 200 TID but non-compliant with medications and missed 2 doses yesterday Given history of severe preeclampsia and inability to confirm suspicion of chronic HTN with superimposed preeclampsia, she was given another treatment with magnesium sulfate (4gm bolus and 2gm/hour continuous infusion), but this was discontinued this am due to magnesium level 5 (presumed toxic level but actually was therapeutic level for this indication). will increase labetalol dose to 300 TID at this time Exam Vital signs and Labs for Last 24 Hours: Temp Pulse Resp BP Pulse Ox 98.1 F 90 18 175/98 92 L 09/21/17 12:00 09/21/17 12:00 09/21/17 12:00 09/21/17 12:00 09/21/17 12:00 Laboratory Results - last 24 hr 09/20/17 14:40: Urine Color Yellow, Urine Appearance Sl cloudy, Urine pH 7.0, Ur Specific [place] 1.010, Urine Protein Trace, Urine Glucose (UA) Negative, Urine Ketones Negative, Urine Blood 3+, Urine Nitrate Negative, Urine Bilirubin Negative, Urine Urobilinogen 0.2, Ur Leukocyte Esterase Negative, Urine RBC 50- 100, Urine WBC None, Ur Squamous Epith Cells 20-50, Ur Transition Epith Cell 10- 20, Urine Bacteria Trace 09/20/17 17:08: POC Glucose 99 09/20/17 19:30: Chlamy pneumoniae PCR Not detected, Adenovirus (PCR) Not detected, B.parapertussis DNA PCR Not detected, Coronavirus OC43 (PCR) Not detected, Coronavirus HKU1 (PCR) Not detected, Coronavirus 229E (PCR) Not detected, Coronavirus NL63 (PCR) Not detected, Human Metapneumovir PCR Not detected, Influenza A (H1) PCR Not detected, Influ A (H1N1/09) PCR Not detected , Influenza A (H3) PCR Not detected, Influenza Type A (PCR) Not detected, Influenza Type B (PCR) Not detected, M. pneumoniae (PCR) Not detected, Parainfluenza 1 (PCR) Not detected, Parainfluenza 2 (PCR) Not detected, Parainfluenza 3 (PCR) Not detected, Parainfluenza 4 (PCR) Not detected, RSV (PCR ) Not detected, Entero/Rhino (PCR) Not detected 09/20/17 20:28: POC Glucose 120 H 09/21/17 05:59: POC Glucose 121 H 09/21/17 06:22: WBC 9.8, RBC 3.32 L, Hgb 10.4 L, Hct 32.3 L, MCV 97.2, MCH 31.2 , MCHC 32.1, RDW 17.7 H, Plt Count 397, MPV 7.3 L, Neut % (Auto) 82.1 H, Lymph % (Auto) 10.3, [place] % (Auto) 5.0, Eos % (Auto) 2.3, Baso % (Auto) 0.3, Neut # ( Auto) 8.0 H, Lymph # (Auto) 1.0, [place] # (Auto) 0.5, Eos # (Auto) 0.2, Baso # ( Auto) 0.0 09/21/17 06:22: Sodium 142, Potassium 3.3 L, Chloride 104, Carbon Dioxide 32, Anion Gap 9.3, BUN 8 D, Creatinine 0.67, Estimated Creat Clear 91, Estimated GFR 99, Est GFR ( Amer) 120, Glucose 117 H D, Calcium 7.6 L, Magnesium 5.0 H I & O for Last 24 hours: Intake & Output 09/19/17 09/20/17 09/21/17 09/22/17 11:59 11:59 11:59 11:59 Intake Total 2256 / 2256 Output Total 300 / 300 Balance 1956 / 1956 Weight 250 lb - Constitutional no acute distress - *Routine Respiratory Exam Absent: respiratory distress - *Routine Abdominal Exam Present: soft. Absent: tenderness, distended, rebound, guarding - *Routine Extremities Exam Present: edema (2+) - *Routine Skin Exam Absent: rash - *Routine Neurological Exam Present: alert, oriented X3 - Routine Psychiatric Exam Absent: depressed, anxious Assessment and Plan (1) Bilateral pneumonia Current visit: Yes Status: Acute Category: Medical Code(s): J18.9 - Pneumonia, unspecified organism (2) Preeclampsia in period Current visit: Yes Status: Acute Category: Medical Code(s): O14.95 - Unspecified pre-eclampsia, complicating the puerperium (3) Gestational diabetes mellitus (GDM) Current visit: No Status: Chronic Qualifiers: Gestational diabetes mellitus control: diet-controlled Trimester: third trimester Qualified Code(s): O24.410 - Gestational diabetes mellitus in , diet controlled Category: Medical Code(s): O24.419 - Gestational diabetes mellitus in , unspecified control (4) Chronic hypertension with superimposed preeclampsia Current visit: Yes Status: Acute Category: Medical Code(s): O11.9 - Pre- existing hypertension with pre-eclampsia, unspecified trimester - Assessment and plan all Dx Assessment and Plan for all problems:: Magnesium sulfate x 2 in period (immediately after delivery and 1 wk ) Increase labetalol to 300 TID Continue inpatient management until hypertension stable on po meds and pneumonia sufficiently treated for discharge on po meds
[2017-09-22 06:43] LABS: Basophils % 0.4 % (0.1-2.0); Eosinophils # 0.3 K/mm3 (0.0-0.4); Eosinophils % 3.4 % (0.1-12.0); Hematocrit 31.1 % (37.0-47.0); Hemoglobin 9.9 g/dL (12.2-16.2); Lymphocytes # 1.2 K/mm3 (0.7-4.5); Lymphocytes % 14.8 K/mm3 (10-50); Mean Corpuscular HGB Conc 31.7 g/dL (31.8-35.4); Mean Corpuscular Hemoglobin 30.9 pg (27.0-31.2); Mean Corpuscular Volume 97.3 fl (81-99); Monocytes # 0.4 K/mm3 (0.1-1.0); Monocytes % 5.3 % (1.7-9.3); Neutrophils # 6.1 K/mm3 (1.8-7.8); Neutrophils % 76.1 % (37.0-80.0); Platelet Count 441 K/mm3 (142-424); Red Cell Distribution Width 17.8 % (11.5-17.5); White Blood Count 8.1 K/mm3 (4.8-10.8)
[2017-09-22 06:51] LABS: Anion Gap 9.5 mEq/L (5-15); Calcium 7.9 mg/dL (8.5-10.1); Potassium 3.5 mmoL/L (3.5-5.1)
--- NOTE | 2017-09-22 12:28 | Progress Note ---
Internal Medicine - PN: Subj *Date: 09/22/17 *Time: 12:25 Interval history: HD #3 Pneumonia, exacerbation of bloodpressure Appears chronic HTN with superimposed preeclampsia at time of delivery; non- compliant with medications after discharge home No new complaints Blood pressure still labile but improved overall with less severe range pressures on 300 TID labetalol SaO2 92% on RA Exam Vital signs and Labs for Last 24 Hours: Temp Pulse Resp BP Pulse Ox 98.4 F 102 H 20 155/83 92 L 09/22/17 08:00 09/22/17 08:00 09/22/17 08:00 09/22/17 08:00 09/22/17 08:00 Laboratory Results - last 24 hr 09/21/17 11:57: POC Glucose 99 09/21/17 16:54: POC Glucose 107 09/21/17 21:28: POC Glucose 117 H 09/22/17 06:14: POC Glucose 93 09/22/17 06:28: WBC 8.1, RBC 3.20 L, Hgb 9.9 L, Hct 31.1 L, MCV 97.3, MCH 30.9, MCHC 31.7 L, RDW 17.8 H, Plt Count 441 H, MPV 7.0 L, Neut % (Auto) 76.1, Lymph % (Auto) 14.8, [place] % (Auto) 5.3, Eos % (Auto) 3.4, Baso % (Auto) 0.4, Neut # ( Auto) 6.1, Lymph # (Auto) 1.2, [place] # (Auto) 0.4, Eos # (Auto) 0.3, Baso # (Auto ) 0.0 09/22/17 06:28: Sodium 144, Potassium 3.5, Chloride 108 H, Carbon Dioxide 30, Anion Gap 9.5, BUN 11 D, Creatinine 0.72, Estimated Creat Clear 85, Estimated GFR 91, Est GFR ( Amer) 110, Glucose 89, Calcium 7.9 L, Magnesium 2.5 H D 09/22/17 10:55: POC Glucose 97 I & O for Last 24 hours: Intake & Output 09/20/17 09/21/17 09/22/17 09/23/17 11:59 11:59 11:59 11:59 Intake Total 3157 / 3157 3989 / 3989 Output Total 300 / 300 1900 / 1900 Balance 2857 / 2857 2088 / 2088 Weight 250 lb - Constitutional no acute distress - *Routine Respiratory Exam Absent: respiratory distress - *Routine Abdominal Exam Present: soft. Absent: tenderness, distended, guarding - *Routine Skin Exam Absent: rash - *Routine Neurological Exam Present: alert, oriented X3, normal reflexes - Routine Psychiatric Exam Present: normal affect. Absent: depressed, anxious Assessment and Plan (1) Bilateral pneumonia Current visit: Yes Status: Acute Category: Medical Code(s): J18.9 - Pneumonia, unspecified organism (2) Preeclampsia in period Current visit: Yes Status: Acute Category: Medical Code(s): O14.95 - Unspecified pre-eclampsia, complicating the puerperium (3) Gestational diabetes mellitus (GDM) Current visit: No Status: Chronic Qualifiers: Gestational diabetes mellitus control: diet-controlled Trimester: third trimester Qualified Code(s): O24.410 - Gestational diabetes mellitus in , diet controlled Category: Medical Code(s): O24.419 - Gestational diabetes mellitus in , unspecified control (4) Chronic hypertension with superimposed preeclampsia Current visit: Yes Status: Acute Category: Medical Code(s): O11.9 - Pre- existing hypertension with pre-eclampsia, unspecified trimester - Assessment and plan all Dx Assessment and Plan for all problems:: Inpatient management for pneumonia per medicine May benefit from supplemental O2 with current O2 sat 92% on RA Will need f/u with PCP for bp management after time frame for continued optimal management Ok to discharge from preeclampsia standpoint when stable with pneumonia
--- NOTE | 2017-09-22 14:59 | Progress Note ---
Internal Medicine - PN: Subj *Date: 09/22/17 *Time: 14:55 Interval history: She is feeling much better. She is not having much cough congestion or shortness of breath. She never ran a fever. Her white count is normal. She is holding significant edema. Apparently she was a heavy smoker in the past. She quit at 20 weeks in her . Exam Vital signs and Labs for Last 24 Hours: Temp Pulse Resp BP Pulse Ox 99.1 F 88 20 155/79 98 09/22/17 12:00 09/22/17 12:35 09/22/17 12:00 09/22/17 12:00 09/22/17 12:35 Laboratory Results - last 24 hr 09/21/17 11:57: POC Glucose 99 09/21/17 16:54: POC Glucose 107 09/21/17 21:28: POC Glucose 117 H 09/22/17 06:14: POC Glucose 93 09/22/17 06:28: WBC 8.1, RBC 3.20 L, Hgb 9.9 L, Hct 31.1 L, MCV 97.3, MCH 30.9, MCHC 31.7 L, RDW 17.8 H, Plt Count 441 H, MPV 7.0 L, Neut % (Auto) 76.1, Lymph % (Auto) 14.8, Wilkes % (Auto) 5.3, Eos % (Auto) 3.4, Baso % (Auto) 0.4, Neut # ( Auto) 6.1, Lymph # (Auto) 1.2, Wilkes # (Auto) 0.4, Eos # (Auto) 0.3, Baso # (Auto ) 0.0 09/22/17 06:28: Sodium 144, Potassium 3.5, Chloride 108 H, Carbon Dioxide 30, Anion Gap 9.5, BUN 11 D, Creatinine 0.72, Estimated Creat Clear 85, Estimated GFR 91, Est GFR ( Amer) 110, Glucose 89, Calcium 7.9 L, Magnesium 2.5 H D 09/22/17 10:55: POC Glucose 97 Selected Entries 09/21/17 20:00 09/22/17 00:00 09/22/17 04:00 Blood Pressure [Left Arm] 131/86 123/67 133/76 09/22/17 08:00 09/22/17 12:00 Blood Pressure [Left Arm] 155/83 155/79 Laboratory Tests 09/20/17 09/21/17 09/22/17 12:50 06:22 06:28 WBC 9.3 9.8 8.1 Hgb 9.9 L 10.4 L 9.9 L Hct 30.5 L 32.3 L 31.1 L Sodium Potassium Chloride 09/22/17 06:28 WBC Hgb Hct Sodium 144 Potassium 3.5 Chloride 108 H I & O for Last 24 hours: Intake & Output 09/20/17 09/21/17 09/22/17 09/23/17 11:59 11:59 11:59 11:59 Intake Total 3157 / 3157 3989 / 3989 Output Total 300 / 300 1900 / 1900 Balance 2857 / 2857 2089 / 2089 Weight 250 lb Microbiology Reports for the Last 24 Hours: Microbiology 09/20/17 12:50 Blood Blood Culture - Preliminary NO GROWTH AFTER 48 HOURS 09/20/17 12:50 Blood Blood Culture - Preliminary NO GROWTH AFTER 48 HOURS - Constitutional no acute distress, obese - *Routine HEENT Exam Head: Present: normocephalic Eye: Present: PERRL ENT: Present: mucous membranes moist - *Routine Neck Exam Present: supple - *Routine Respiratory Exam Present: decreased breath sounds. Absent: respiratory distress, stridor, wheezes - *Routine Cardiovascular Exam Present: RRR - *Routine Abdominal Exam Present: soft Comments: Obese - *Routine Extremities Exam Present: edema Comments: 2-3+ - *Routine Neurological Exam Present: alert, normal reflexes, normal tone, normal speech. Absent: altered mental status, clonus, tremors Assessment and Plan (1) Bilateral pneumonia Current visit: Yes Status: Acute Category: Medical Code(s): J18.9 - Pneumonia, unspecified organism (2) Preeclampsia in period Current visit: Yes Status: Acute Category: Medical Code(s): O14.95 - Unspecified pre-eclampsia, complicating the puerperium (3) Gestational diabetes mellitus (GDM) Current visit: No Status: Chronic Qualifiers: Gestational diabetes mellitus control: diet-controlled Trimester: third trimester Qualified Code(s): O24.410 - Gestational diabetes mellitus in , diet controlled Category: Medical Code(s): O24.419 - Gestational diabetes mellitus in , unspecified control (4) Chronic hypertension with superimposed preeclampsia Current visit: Yes Status: Acute Category: Medical Code(s): O11.9 - Pre- existing hypertension with pre-eclampsia, unspecified trimester - Assessment and plan all Dx Assessment and Plan for all problems:: Lasix 20 mg IV one time. Echocardiogram is ordered. Daily weights are ordered.
--- NOTE | 2017-09-23 07:59 | Progress Note ---
Internal Medicine - PN: Subj *Date: 09/23/17 *Time: 07:59 Exam Vital signs and Labs for Last 24 Hours: Temp Pulse Resp BP Pulse Ox 98.6 F 98 H 18 157/88 92 L 09/23/17 07:39 09/23/17 07:39 09/23/17 07:39 09/23/17 07:39 09/23/17 07:39 Laboratory Results - last 24 hr 09/22/17 10:55: POC Glucose 97 I & O for Last 24 hours: Intake & Output 09/20/17 09/21/17 09/22/17 09/23/17 23:59 23:59 23:59 23:59 Intake Total 1537 / 1537 3068 / 3068 3924 / 3924 1719 / 1719 Output Total 1100 / 1100 1900 / 1900 1900 / 1900 Balance 1537 / 1537 1967 / 2023 -181 / -181 Weight 113.398 kg 282.8 kg Microbiology Reports for the Last 24 Hours: Microbiology 09/20/17 12:50 Blood Blood Culture - Preliminary NO GROWTH AFTER 48 HOURS 09/20/17 12:50 Blood Blood Culture - Preliminary NO GROWTH AFTER 48 HOURS Assessment and Plan (1) Bilateral pneumonia Current visit: Yes Status: Acute Category: Medical Code(s): J18.9 - Pneumonia, unspecified organism (2) Preeclampsia in period Current visit: Yes Status: Acute Category: Medical Code(s): O14.95 - Unspecified pre-eclampsia, complicating the puerperium (3) Gestational diabetes mellitus (GDM) Current visit: No Status: Chronic Qualifiers: Gestational diabetes mellitus control: diet-controlled Trimester: third trimester Qualified Code(s): O24.410 - Gestational diabetes mellitus in , diet controlled Category: Medical Code(s): O24.419 - Gestational diabetes mellitus in , unspecified control (4) Chronic hypertension with superimposed preeclampsia Current visit: Yes Status: Acute Category: Medical Code(s): O11.9 - Pre- existing hypertension with pre-eclampsia, unspecified trimester The patient's infection will respond to the chosen ABx?: Yes Is the patient receiving the right drug, dose, and route?: Yes Could a more targeted ABx be ordered?: No
--- NOTE | 2017-09-23 08:21 | Progress Note ---
Internal Medicine - PN: Subj *Date: 09/23/17 *Time: 08:18 Interval history: Patient really wants to go home today. She slept well. She denies chest pain. She is short of breath with activity. She is eating and drinking well. Bowels are moving and she is voiding without problems. She has been ambulating in the room without difficulty. Dr. Hickey referred to giving her Lasix last p.m. Which was not done. Order not noted. Will order again this morning. Echo was completed. Weight is inaccurate. Exam Vital signs and Labs for Last 24 Hours: Temp Pulse Resp BP Pulse Ox 98.6 F 98 H 18 157/88 92 L 09/23/17 07:39 09/23/17 07:39 09/23/17 07:39 09/23/17 07:39 09/23/17 07:39 Laboratory Results - last 24 hr 09/22/17 10:55: POC Glucose 97 I & O for Last 24 hours: Intake & Output 09/20/17 09/21/17 09/22/17 09/23/17 11:59 11:59 11:59 11:59 Intake Total 3157 / 3157 3989 / 3989 3102 / 3102 Output Total 300 / 300 1900 / 1900 2700 / 2700 Balance 2857 / 2857 2089 / 2089 402 / 402 Weight 250 lb 623 lb 7.476 oz Microbiology Reports for the Last 24 Hours: Microbiology 09/20/17 12:50 Blood Blood Culture - Preliminary NO GROWTH AFTER 48 HOURS 09/20/17 12:50 Blood Blood Culture - Preliminary NO GROWTH AFTER 48 HOURS - Constitutional no acute distress, obese - *Routine Respiratory Exam Comments: Minimal crackles bilaterally in bases - *Routine Cardiovascular Exam Present: RRR - *Routine Abdominal Exam Present: soft, normoactive bowel sounds, tenderness (Mild postop tenderness). Absent: guarding Comments: Postop abdominal wound has healed. - *Routine Extremities Exam Present: edema (1+ pitting edema bilaterally), full ROM. Absent: calf tenderness - *Routine Neurological Exam Present: alert, oriented X3 Assessment and Plan (1) Bilateral pneumonia Current visit: Yes Status: Acute Category: Medical Code(s): J18.9 - Pneumonia, unspecified organism (2) Preeclampsia in period Current visit: Yes Status: Acute Category: Medical Code(s): O14.95 - Unspecified pre-eclampsia, complicating the puerperium (3) Gestational diabetes mellitus (GDM) Current visit: No Status: Chronic Qualifiers: Gestational diabetes mellitus control: diet-controlled Trimester: third trimester Qualified Code(s): O24.410 - Gestational diabetes mellitus in , diet controlled Category: Medical Code(s): O24.419 - Gestational diabetes mellitus in , unspecified control (4) Chronic hypertension with superimposed preeclampsia Current visit: Yes Status: Acute Category: Medical Code(s): O11.9 - Pre- existing hypertension with pre-eclampsia, unspecified trimester (5) Leg edema Current visit: Yes Status: Acute Category: Medical Code(s): R60.0 - Localized edema - Assessment and plan all Dx Assessment and Plan for all problems:: We will going to give the 20 of Lasix IV this a.m.. Echocardiogram results are pending. Patient will probably be discharged home today.
[2017-09-23 11:34] VITALS: BP 141/96
--- NOTE | 2017-09-23 15:10 | Discharge Summary ---
General - General Admission date:: 09/20/17 Discharge date: 09/23/17 HPI HPI: Ms. Winston is a 36-year-old white female patient with a history of COPD and preeclampsia. She was a patient of Dr. Freitas and when she developed preeclampsia, she was sent to the [facility]. She states she stayed there for 1 week and had a at 35 weeks. Her blood pressure improved and she was sent home. Approximately 3 days ago she began having lower extremity edema and a headache. Last night she began vomiting and became lightheaded and short of breath. Her shortness of air worsened today and she presented to the emergency room for further evaluation and treatment. She had a Doppler that was negative for DVT and a CTA that was negative for PE. The CTA did show bilateral pneumonia. The patient's blood pressure was also elevated upon emergency room presentation. She will be admitted for further evaluation and treatment. RECEP will be consulted. Hospital Course Hospital Course: Pt was admitted and started on abx, oxygen, and duonebs. Her PCR respiratory panel was negative. Dr. Shepard was consulted for management of her pre- eclampsia. She saw the patient and agreed with the magnesium sulfate she had been given (4gm bolus and 2gm/hour continuous infusion). The magnesium sulfate was discontinued due to a magnesium level 5. She also increased her labetalol dose to 300 TID. Her BP improved as did her headache. Her SOA improved as well. She had a repeat CXR showing diffuse right perihilar, right lower lobe, and right upper lobe pneumonia again most prominent in the right lower lobe along with mild superimposed vascular congestion. An echo was ordered showing and EF of >50%. She was given a one time dose of lasix. She remained SOA with activity but was able to get up and ambulate around the room. She was anxious to get home to her . She was stable to be discharged on abx and will f/ u with Dr. Velasquez and Dr. Shepard. Objective Vital signs: Temp Pulse Resp BP Pulse Ox 97.9 F 103 H 18 141/96 93 L 09/23/17 11:33 09/23/17 12:00 09/23/17 11:33 09/23/17 11:33 09/23/17 11:33 Narrative: - Constitutional no acute distress - *Routine HEENT Exam Head: Present: normocephalic, atraumatic Eye: Present: EOMI, PERRL ENT: Present: mucous membranes moist - *Routine Neck Exam Present: supple, full ROM - *Routine Respiratory Exam Present: decreased breath sounds, CTA bilaterally - *Routine Cardiovascular Exam Present: RRR - *Routine Abdominal Exam Present: soft, normoactive bowel sounds. Absent: tenderness - *Routine Extremities Exam Present: edema (2+ in bilateral LE's) - *Routine Skin Exam Present: intact - *Routine Neurological Exam Present: alert, oriented X3 Results Labs on day of discharge: Preliminary micro results at discharge 09/20/17 12:50 Blood Culture - Preliminary Blood NO GROWTH AFTER 48 HOURS 09/20/17 12:50 Blood Culture - Preliminary Blood NO GROWTH AFTER 48 HOURS DS: Diagnosis - Discharge Diagnosis (1) Bilateral pneumonia Status: Acute (2) Preeclampsia in period Status: Acute (3) Gestational diabetes mellitus (GDM) Status: Chronic (4) Chronic hypertension with superimposed preeclampsia Status: Acute (5) Leg edema Status: Acute Discharge Plan - Patient Discharge Instructions ACTIVITY: Limited activity DIET: diabetic diet Patient Instructions: Pre-eclampsia, Pneumonia-Adult - Follow up Plan Follow up with: Sal Velasquez MD [Staff Physician] - 1 week (Also follow-up with Dr. Shepard) Disposition: Home, Self-Half-Way Medications: Home Medications Medication Instructions Recorded Confirmed Type Ferrous Sulfate 325 mg PO BID 05/30/17 09/20/17 History Labetalol HCl 200 mg PO TID 09/07/17 09/20/17 History Acetaminophen [Acetaminophen 325mg 650 mg PO Q4HP PRN 09/20/17 09/20/17 History tab] Docusate Sodium [Colace 250mg 250 mg PO BID PRN 09/20/17 09/20/17 History capsule] Ibuprofen [Ibuprofen 600mg Tab] 600 mg PO Q6 09/20/17 09/20/17 History Oxycodone HCl [Roxicodone 5mg tab] 5 mg PO Q4HP PRN 09/20/17 09/20/17 History Prescriptions/Medication Reconciliation: New Cefdinir [Omnicef 300mg Capsule] 300 mg PO BID #14 cap Continue Ibuprofen [Ibuprofen 600mg Tab] 600 mg PO Q6 Acetaminophen [Acetaminophen 325mg tab] 650 mg PO Q4HP PRN PRN Reason: PAIN Docusate Sodium [Colace 250mg capsule] 250 mg PO BID PRN PRN Reason: Constipation Ferrous Sulfate 325 mg PO BID Labetalol HCl 200 mg PO TID Oxycodone HCl [Roxicodone 5mg tab] 5 mg PO Q4HP PRN PRN Reason: PAIN
--- NOTE | 2017-09-23 20:46 | Cardiology Report ---
PROCEDURE: 2-D M-mode and color Doppler study INDICATIONS FOR THE TEST: Chest pain COPD+ Heart Murmur Tobacco Smoking Palpitations Fatigue Syncope Edema+ Hypertension+Diabetes Mellitus Rheumatic Fever SOB+CHAVARRIA Obesity Hyperlipidemia Family History HD Additional History 1WK POST OP C SECTION PRE-ECLAMPSIA, GESTATIONAL DM PATIENT INFORMATION HEIGHT: 62 WEIGHT:250 GENDER: Female B/P:155/79 2-D/M-MODE INTERPRETATION: 2-D MEASUREMENTS OBSERVED VALUES IN CMS Right Ventricular Dimension (RVDd) 2.1 Interventricular Septum (Thickness)(IVsd) 1.0 Left Ventricular Internal Dimensions(LVIDd) 5.7 Left Ventricular Posterior Wall (Thickness)(LVPWd) 0.8 Aortic Root 3.4 Aortic Cusp Separation 2.1 Left Atrial Dimensions (LAD) 4.1 2D 1. Left atrium is mildly enlarged, left ventricle is normal size, there is no concentric left ventricular hypertrophy, visually estimated ejection fraction 55% with no obvious regional wall motion abnormality. 2. The right atrium and right ventricle are normal size and contractility. 3. The aortic, mitral and tricuspid valvular grossly normal. 4. The pulmonic valve is poorly. 5. No significant pericardial effusion noted. DOPPLER INTERROGATION: Doppler interrogation of the aortic, mitral and tricuspid valvular presence of mild to moderate mitral and mild tricuspid regurgitation, tricuspid regurgitant jet velocity is insufficient for calculation of the right ventricular systolic pressure, diastolic parameters are inconclusive. CONCLUSION: 1. Mildly enlarged left atrium, normal left ventricular size, visually estimated ejection fraction 55% with no obvious regional wall motion abnormality, diastolic parameters are inconclusive. 2. Mild to moderate mitral and mild tricuspid regurgitation 3. No significant pericardial effusion noted.
== END 2017-09-23 13:05 | disposition home or self-care (01) ==
LOC: ER 12:35 → 2ND 15:57
PROVIDERS: ADMIT Family Medicine; ATTEND Family Medicine

== ENCOUNTER → 2018-05-05 08:43 | Outpatient (POV) | payer MEDICAID, SELFPAY ==
--- NOTE | 2018-05-05 10:33 | XR_ITS ---
EXAM: XR cervical spine 3V HISTORY: ITS.REASON: CERVICALGIA ORDERING PHYSICIAN: So Donis MD PATIENT AGE: 37 years COMPARISON: None FINDINGS: Normal alignment. No fracture or dislocation. No lytic or blastic change. Small posterior osteophytes are present at C4-C5. The disc spaces are well-preserved. No prevertebral soft tissue swelling. No cervical ribs. IMPRESSION: Mild cervical spondylosis with small posterior osteophytes at C4-C5
== END ==
PROVIDERS: PCP Nurse Practitioner Family; Visit Provider Specialist
DX: M54.2 Cervicalgia (principal)
CPT/HCPCS: 72040

== ENCOUNTER → 2018-05-09 08:04 | Outpatient (POV) | payer MEDICAID, SELFPAY | PROVIDERS: Visit Provider Specialist | DX: M79.642 Pain in left hand (principal) | CPT/HCPCS: 95886; 95908 ==

== ENCOUNTER → 2018-07-31 14:49 | Outpatient (CLI) | payer MEDICAID, SELFPAY ==
--- NOTE | 2018-07-31 14:54 | XR_ITS ---
XR chest 2V HISTORY: ITS.REASON: COPD, shortness of breath ORDERING PHYSICIAN: Sherrie Ewing PATIENT AGE: 37 years COMPARISON: 01/22/2018 FINDINGS: The cardiomediastinal silhouette and pulmonary vascularity are within normal limits. The lungs are clear without infiltrates, suspicious nodules, or pleural effusions. No acute bony abnormalities. IMPRESSION: Negative chest, no acute finding
== END ==
PROVIDERS: PCP Nurse Practitioner Family; Visit Provider Nurse Practitioner Family
DX: J44.0 Chronic obstructive pulmonary disease with (acute) lower respiratory infection (principal)
CPT/HCPCS: 71046

== ENCOUNTER → 2018-08-13 14:02 | Outpatient (CLI) | payer MEDICAID, SELFPAY ==
--- NOTE | 2018-08-13 14:10 | CA_ITS ---
PROCEDURE: 2-D M-mode and color Doppler study INDICATIONS FOR THE TEST: Chest pain COPD+ Heart Murmur Tobacco Smoking+ Palpitations Fatigue Syncope Edema+ Hypertension+Diabetes Mellitus+ Rheumatic Fever SOB CHAVARRIA Obesity+Hyperlipidemia Family History HD+ Additional History tds r/t body habitus, tachycardia PATIENT INFORMATION HEIGHT: 62 WEIGHT:298 GENDER: Female B/P:145/80 2-D/M-MODE INTERPRETATION: 2-D MEASUREMENTS OBSERVED VALUES IN CMS Right Ventricular Dimension (RVDd) 2.1 Interventricular Septum (Thickness)(IVsd) 1.1 Left Ventricular Internal Dimensions(LVIDd) 5.4 Left Ventricular Posterior Wall (Thickness)(LVPWd) 0.8 Aortic Root 2.4 Aortic Cusp Separation 2.3 Left Atrial Dimensions (LAD) 3.3 2D 1. Technically difficult study because of the patient's factor and poor acoustic windows 2. The left atrium is mildly enlarged, left ventricle is normal size, mild concentric left ventricular hypertrophy, visually estimated ejection fraction approximately 45%, there appears to be marked hypokinesis involving the basal septum, inferior basal wall and posterolateral wall. 3. The right atrium and right ventricle are moderately enlarged with normal contractility. 4. The aortic valve is minimally thickened and fibrosed. 5. The mitral and tricuspid valve leaflets are minimally thickened. 6. The pulmonic valve is poorly present. 7. No significant pericardial effusion noted. DOPPLER INTERROGATION: Doppler interrogation of the aortic, mitral and tricuspid valvular presence of mild mitral and tricuspid regurgitation, tricuspid regurgitation jet velocity is inadequate for calculation of the right ventricular systolic pressure, diastolic parameters are inconclusive. Inferior vena cava is normal size with normal inspiratory collapse. CONCLUSION: 1. Technically difficult study because of the patient's factor and poor acoustic windows. 2. Biatrial enlargement, normal left ventricular size, mild concentric left ventricular hypertrophy, visually estimated ejection fraction 45% with segmental wall motion abnormality described above, diastolic parameters are inconclusive. 3. Moderately enlarged right ventricle with normal contractility. 4. Mild mitral and tricuspid regurgitation 5. No significant pericardial effusion noted.
[2018-08-13 16:46] LABS: Basophils % 0.4 % (0.1-2.0); Eosinophils # 0.2 K/mm3 (0.0-0.4); Eosinophils % 1.8 % (0.1-12.0); Hematocrit 35.3 % (37.0-47.0); Hemoglobin 11.4 g/dL (12.2-16.2); Lymphocytes # 2.1 K/mm3 (0.7-4.5); Lymphocytes % 18.2 % (10-50); Mean Corpuscular HGB Conc 32.3 g/dL (31.8-35.4); Mean Corpuscular Volume 86.6 fl (81-99); Mean Platelet Volume 7.6 fl (7.4-10.4); Monocytes # 0.6 K/mm3 (0.1-1.0); Monocytes % 5.6 % (1.7-9.3); Neutrophils # 8.4 K/mm3 (1.8-7.8); Platelet Count 353 K/mm3 (142-424); Red Blood Count 4.08 M/mm3 (4.20-5.40); Red Cell Distribution Width 16.3 % (11.5-17.5); White Blood Count 11.3 K/mm3 (4.8-10.8)
== END ==
PROVIDERS: Obstetrics & Gynecology; PCP Nurse Practitioner Family; Visit Provider Nurse Practitioner Family
DX: R60.0 Localized edema (principal); N93.9 Abnormal uterine and vaginal bleeding, unspecified
CPT/HCPCS: 36415; 85025; 93306

== ENCOUNTER 2018-08-20 09:00 | Outpatient (RCR) | payer MEDICAID, SELFPAY | END 2018-09-08 08:50 | disposition home or self-care (01) | LOC: OT 09:00 | PROVIDERS: PCP Nurse Practitioner Family; Visit Provider Plastic Surgery Surgery of the Hand | DX: G56.02 Carpal tunnel syndrome, left upper limb (principal) | CPT/HCPCS: 97110; 97140; 97165 ==

== ENCOUNTER → 2018-08-20 13:12 | Outpatient (CLI) | payer MEDICAID, SELFPAY ==
--- NOTE | 2018-08-20 13:14 | US_ITS ---
US transvaginal HISTORY: ITS.REASON: US T/V- Heavy Bleeding ORDERING PHYSICIAN: Malena Shepard MD PATIENT AGE: 37 years Comparison: None FINDINGS: Uterus measures 9.1 x 4.5 x 6.1 cm. Right ovary is 4.0 x 2.3 x 2.9 cm. Left ovary is 3.9 x 1.8 x 3.0 cm. There is blood flow to both ovaries and there are no ovarian lesions except for a few small bilateral ovarian follicles. There is no cul-de-sac fluid. Endometrial stripe is 1.17 cm. Within the anterior lower uterine segment within the myometrium at the level of the scar there is a 5.8 mm anechoic focus with smooth metz and distal acoustic enhancement. IMPRESSION: No acute process. There is a benign-appearing anterior lower uterine segment cyst. This is likely benign and could be chronic sequela from the prior surgery.
== END ==
PROVIDERS: PCP Nurse Practitioner Family; Visit Provider Obstetrics & Gynecology
DX: N92.0 Excessive and frequent menstruation with regular cycle (principal)
CPT/HCPCS: 76830

== ENCOUNTER 2018-10-08 09:00 | Outpatient (RCR) | payer MEDICAID, SELFPAY | END 2018-10-28 15:00 | disposition home or self-care (01) | LOC: OT 09:00 | PROVIDERS: Visit Provider Plastic Surgery Surgery of the Hand | DX: M75.82 Other shoulder lesions, left shoulder (principal) | CPT/HCPCS: 97110; 97165 ==

== ENCOUNTER → 2018-10-15 10:29 | Outpatient (CLI) | payer MEDICAID, SELFPAY ==
[2018-10-15 10:48] LABS: Basophils # 0.1 K/mm3 (0-0.2); Basophils % 0.4 % (0.1-2.0); Eosinophils # 0.2 K/mm3 (0.0-0.4); Eosinophils % 1.7 % (0.1-12.0); Hemoglobin 12.6 g/dL (12.2-16.2); Lymphocytes # 1.7 K/mm3 (0.7-4.5); Mean Corpuscular HGB Conc 32.4 g/dL (31.8-35.4); Mean Corpuscular Volume 86.3 fl (81-99); Mean Platelet Volume 7.2 fl (7.4-10.4); Monocytes # 0.7 K/mm3 (0.1-1.0); Monocytes % 5.3 % (1.7-9.3); Neutrophils # 9.6 K/mm3 (1.8-7.8); Neutrophils % 78.5 % (37.0-80.0); Platelet Count 338 K/mm3 (142-424); Red Blood Count 4.52 M/mm3 (4.20-5.40); Red Cell Distribution Width 16.4 % (11.5-17.5); White Blood Count 12.2 K/mm3 (4.8-10.8)
== END ==
PROVIDERS: Visit Provider Obstetrics & Gynecology
DX: D72.829 Elevated white blood cell count, unspecified (principal)
CPT/HCPCS: 36415; 85025

== ENCOUNTER → 2019-03-26 14:29 | Outpatient (CLI) | payer OTHER, SELFPAY ==
[2019-03-26 14:57] LABS: Basophils % 0.3 % (0.1-2.0); Eosinophils # 0.8 K/mm3 (0.0-0.4); Eosinophils % 5.7 % (0.1-12.0); Hematocrit 41.9 % (37.0-47.0); Hemoglobin 13.4 g/dL (12.2-16.2); Lymphocytes # 1.9 K/mm3 (0.7-4.5); Lymphocytes % 13.5 % (10-50); Mean Corpuscular HGB Conc 32.1 g/dL (31.8-35.4); Mean Corpuscular Hemoglobin 27.5 pg (27.0-31.2); Mean Corpuscular Volume 85.7 fl (81-99); Mean Platelet Volume 7.6 fl (7.4-10.4); Monocytes # 0.6 K/mm3 (0.1-1.0); Monocytes % 4.6 % (1.7-9.3); Neutrophils # 10.6 K/mm3 (1.8-7.8); Neutrophils % 75.9 % (37.0-80.0); Platelet Count 323 K/mm3 (142-424); Red Blood Count 4.89 M/mm3 (4.20-5.40); Red Cell Distribution Width 18.3 % (11.5-17.5)
[2019-03-26 16:28] LABS: Alanine Aminotransferase 30 U/L (12-78); Albumin Level 3.2 gm/dL (3.4-5.0); Alkaline Phosphatase 93 U/L (46-116); Anion Gap 13.8 mEq/L (5-15); Aspartate Amino Transferase 12 U/L (15-37); Bilirubin,Total 0.4 mg/dL (0.2-1.0); Blood Urea Nitrogen 8 mg/dL (7-18); Calcium 8.8 mg/dL (8.5-10.1); Carbon Dioxide 31 mmol/L (21.0-32.0); Chloride 103 mmol/L (98-107); Cholesterol 127 mg/dL (140-200); Estimated Glomerular Filt Rate 70 ml/min (>60); GFR (African American) 84 ML/MIN (>60); Globulin 3.3 gm/dl (1.3-3.2); Glucose 113 mg/dL (74-106); HDL Cholesterol 42 mg/dL (29-89); LDL Cholesterol 67 mg/dL (0-130); Potassium 3.8 mmoL/L (3.5-5.1); Sodium 144 mmol/L (136-145); Thyroid Stimulating Hormone 1.76 uIU/ml (0.358-3.740); Total Protein,Serum 6.5 gm/dL (6.4-8.2); Triglycerides 90 mg/dL (30-200); VLDL Cholesterol 18 mg/dL (0-40)
== END ==
PROVIDERS: Visit Provider Nuclear Medicine Nuclear Cardiology
DX: R53.83 Other fatigue (principal); G47.19 Other hypersomnia
CPT/HCPCS: 36415; 80053; 80061; 84443; 85025

== ENCOUNTER → 2019-04-16 11:49 | Outpatient (CLI) | payer OTHER, SELFPAY ==
[2019-04-16 12:21] LABS: Basophils # 0.1 K/mm3 (0-0.2); Basophils % 0.5 % (0.1-2.0); Eosinophils # 0.2 K/mm3 (0.0-0.4); Hematocrit 44.2 % (37.0-47.0); Mean Corpuscular HGB Conc 31.7 g/dL (31.8-35.4); Mean Corpuscular Hemoglobin 27.7 pg (27.0-31.2); Mean Corpuscular Volume 87.3 fl (81-99); Monocytes # 0.5 K/mm3 (0.1-1.0); Monocytes % 4.7 % (1.7-9.3); Neutrophils # 7.6 K/mm3 (1.8-7.8); Neutrophils % 73.8 % (37.0-80.0); Platelet Count 362 K/mm3 (142-424); Red Blood Count 5.06 M/mm3 (4.20-5.40); Red Cell Distribution Width 18.2 % (11.5-17.5); White Blood Count 10.3 K/mm3 (4.8-10.8)
[2019-04-16 12:59] LABS: Chloride 98 mmol/L (98-107)
[2019-04-16 13:00] LABS: Potassium 4.2 mmoL/L (3.5-5.1); Sodium 139 mmol/L (136-145)
[2019-04-16 13:02] LABS: Alanine Aminotransferase 22 U/L (12-78); Alkaline Phosphatase 88 U/L (38-126); Anion Gap 11.2 mEq/L (5-15); Aspartate Amino Transferase 21 U/L (14-36); Bilirubin,Total 0.3 mg/dl (0.2-1.3); Blood Urea Nitrogen 7 mg/dl (7-17); Carbon Dioxide 34 mmol/L (22.0-30.0); Cholesterol 155 mg/dl (140-200); Estimated Glomerular Filt Rate 80 ml/min (>60); GFR (African American) 97 ML/MIN (>60); Triglycerides 100 mg/dl (30-150); VLDL Cholesterol 20 mg/dL (0-40)
[2019-04-16 13:03] LABS: Albumin/Globulin Ratio 1.5 (1.1-1.8); Calcium 9.5 mg/dl (8.4-10.2); Globulin 2.7 g/dL (1.3-3.2); Glucose 90 mg/dl (74-100); HDL Cholesterol 52 mg/dl (40-60); Total Protein,Serum 6.7 g/dl (6.3-8.2)
[2019-04-16 13:49] LABS: Thyroid Stimulating Hormone 2.26 uIU/mL (0.465-4.68)
[2019-04-16 14:24] LABS: Direct LDL Cholesterol 94.72 mg/dL (100-129)
== END ==
PROVIDERS: Visit Provider Nuclear Medicine Nuclear Cardiology
DX: R53.83 Other fatigue (principal); G47.19 Other hypersomnia
CPT/HCPCS: 36415; 80053; 80061; 84443; 85025

== ENCOUNTER → 2019-12-31 15:30 | Outpatient (CLI) | payer OTHER, SELFPAY ==
--- NOTE | 2019-12-31 15:33 | MM_ITS ---
PROCEDURE: MM DIG SCREENING MAMM BI W/CAD Digital Breast Tomosynthesis Included CLINICAL INDICATION: SCREENING There is a history of breast cancer in the patient's maternal grandmother. COMPARISON: This is a baseline screening exam, patient without complaints TECHNIQUE: Standard CC and MLO images and 3D Tomosynthesis was obtained. R2 CAD reviewed. FINDINGS: The breasts are composed primarily of fat with minimal scattered fibroglandular densities. There is minor ductal hyperplasia in the subareolar regions bilaterally. There is no suspicious lesion and no suspicious microcalcifications. IMPRESSION: Fatty type breast parenchyma with no suspicious lesions seen BI-RAD Category: 1 Negative FOLLOW-UP: 1YR 1 Year Follow-up (A letter has been sent to the patient regarding results of the study.) Dictated by: Dr. Vaibhav Gardner MD 01/05/2020 10:46 Dr. Vaibhav Gardner MD in [place] 01/05/2020 10:46
== END ==
PROVIDERS: PCP Nurse Practitioner; Visit Provider Nurse Practitioner
DX: Z12.31 Encounter for screening mammogram for malignant neoplasm of breast (principal)
CPT/HCPCS: 77063; 77067

== ENCOUNTER 2020-01-13 19:54 | Emergency (ER) | payer OTHER, SELFPAY ==
[2020-01-13] VITALS (8 sets, daily range): BP systolic 105–125; BP diastolic 52–85; PULSE 68–92; RESP 18–20; TEMP 37.2; O2SAT 93–99; BMI 55.8
--- NOTE | 2020-01-13 20:15 | ECG_ITS ---
APPROVED REPORT Exam: Resting ECG HR:73 bpm ECG Measurements Heart Rate 73 AXES ND 150 P 65 QRSd 90 QRS 37 QT 384 T 49 QTc 423 Conclusion Normal sinus rhythm with sinus arrhythmia Normal ECG Electronically signed by : Miller Dee, 01/15/2020 19:22:11
--- NOTE | 2020-01-13 20:33 | XR_ITS ---
PROCEDURE: XR CHEST 2V CLINICAL HISTORY: SOa Shortness of air, smoker COMPARISON: CR CXR2V XR chest 2V from 05/30/2017 CR CXR1VP XR chest portable from 09/20/[address] angio chest from 09/20/2017 CR CXR2V XR chest 2V from 09/21/2017 FINDINGS: Mild cardiomegaly without failure. The lungs are clear without infiltrates, suspicious nodules, or pleural effusions. No acute bony abnormalities. IMPRESSION: Mild cardiomegaly otherwise negative Dictated by: Bry Fitzpatrick MD 01/14/2020 06:00 Bry Fitzpatrick MD in [facility] 01/14/2020 06:00
--- NOTE | 2020-01-13 20:44 | HMH.EDSOB ---
ED Disposition Clinical Impression: Acute viral syndrome Disposition: Home, Self-Care Condition on Discharge: Good Instructions: DI for Shortness of Breath Additional Instructions: fluids and see pcp for follow up Prescriptions: Benzonatate [Tessalon Perle 100mg Cap] 100 mg PO TID #30 cap Transmission Status: Pending to [facility] Referrals: Мария Winters PA [Primary Care Provider] - - Critical Care Critical Care Time: No Attestation: On 01/13/20, the high probability of a clinically significant, sudden or life threatening deterioration of the following system(s) required my full and direct attention, intervention and personal management. The time I documented below is in addition to time spent performing reported procedures but includes the following listed in this critical care notation. Medical Decision Making - Medical Records Medical records reviewed: Yes: I reviewed the patient's medical records. - Shilo Inquiry Pt receiving controlled substance: No Vital Signs: 01/13/20 19:55 01/13/20 20:25 01/13/20 20:55 Temperature 98.9 F Temperature Source Oral Pulse Rate [Left Brachial] 69 75 68 Respiratory Rate 20 18 18 Blood Pressure [Left Arm] 125/85 109/72 L 125/85 Blood Pressure Mean [Left Arm] 98 84 98 02 Sat by Pulse Oximetry 94 L 94 L 93 L Oxygen Delivery Method Room Air Nasal Cannula Nasal Cannula Oxygen Flow Rate (LPM) 1.5 1 01/13/20 21:25 01/13/20 21:55 01/13/20 22:25 Temperature Temperature Source Pulse Rate [Left Brachial] 73 70 92 H Respiratory Rate 18 18 18 Blood Pressure [Left Arm] 116/69 117/56 L 115/52 L Blood Pressure Mean [Left Arm] 84 76 73 02 Sat by Pulse Oximetry 99 94 L 94 L Oxygen Delivery Method Nasal Cannula Nasal Cannula Nasal Cannula Oxygen Flow Rate (LPM) 1 1 1 01/13/20 22:55 01/13/20 23:06 Temperature Temperature Source Pulse Rate [Left Brachial] 72 71 Respiratory Rate 18 18 Blood Pressure [Left Arm] 115/61 105/55 L Blood Pressure Mean [Left Arm] 79 71 02 Sat by Pulse Oximetry 93 L 97 Oxygen Delivery Method Nasal Cannula Nasal Cannula Oxygen Flow Rate (LPM) 1 2 - Lab Data Lab results reviewed: Yes: I reviewed the patient's lab results. Lab Results 01/13/20 20:25: WBC 14.8 H, RBC 5.21, Hgb 15.6, Hct 47.7 H, MCV 91.5, MCH 29.9, MCHC 32.6, RDW 17.4, Plt Count 275, MPV 7.8, Neut % (Auto) 88.3 H, Lymph % (Auto) 7.8 L, [place] % (Auto) 3.3, Eos % (Auto) 0.3, Baso % (Auto) 0.3, Neut # (Auto) 13.0 H, Lymph # (Auto) 1.2, [place] # (Auto) 0.5, Eos # (Auto) 0.0, Baso # (Auto) 0.1, Total Counted 100, Neutrophils % (Manual) 91 H, Lymphocytes % (Manual) 7 L, Monocytes % (Manual) 2, Platelet Estimate Normal, RBC Morphology Not Reportable, Stomatocytes 1+ 01/13/20 20:25: Sodium 138, Potassium 3.5, Chloride 102, Carbon Dioxide 30, Anion Gap 9.5, BUN 18 H, Creatinine 0.70, Estimated Creat Clear 88, Estimated GFR 93, Est GFR ( Amer) 112, Glucose 142 H, Calcium 9.3, Total Bilirubin 0.5, AST 21, ALT 24, Alkaline Phosphatase 87, Troponin I < 0.01, C-Reactive Protein 21.5 H, Total Protein 7.3, Albumin 4.2, Globulin 3.1, Albumin/Globulin Ratio 1.4 01/13/20 20:25: Lactate 2.2 H 01/13/20 20:25: ESR 17 01/13/20 20:25: Amylase 31, Procalcitonin 0.043 01/13/20 20:25: Lipase 46 01/13/20 21:32: SARS-CoV-2 IgG Ab (Rapid) Negative, SARS-CoV-2 IgM Ab (Rapid) Negative 01/13/20 21:32: Chlamy pneumoniae PCR Not detected, Adenovirus (PCR) Not detected, B. pertussis DNA (PCR) Not detected, Coronavirus OC43 (PCR) Not detected, Coronavirus HKU1 (PCR) Not detected, Coronavirus 229E (PCR) Not detected, SARS-CoV-2 (PCR) Not detected, Coronavirus NL63 (PCR) Not detected, Human Metapneumovir PCR Not detected, Influenza A (H1) PCR Not detected, Influ A (H1N1/09) PCR Not detected, Influenza A (H3) PCR Not detected, Influenza Type A (PCR) Not detected, Influenza Type B (PCR) Not detected, M. pneumoniae (PCR) Not detected, Parainfluenza 1 (PCR) Not detected, Parainfluenza 2 (PCR) Not detec
[2020-01-13 21:00] LABS: Chloride 102 mmol/L (98-107); Potassium 3.5 mmoL/L (3.5-5.1); Sodium 138 mmol/L (136-145)
[2020-01-13 21:02] LABS: Basophils # 0.1 K/mm3 (0-0.2); Basophils % 0.3 % (0.1-2.0); Eosinophils % 0.3 % (0.1-12.0); Hematocrit 47.7 % (37.0-47.0); Hemoglobin 15.6 g/dL (12.2-16.2); Lymphocytes # 1.2 K/mm3 (0.7-4.5); Lymphocytes % 7.8 % (10-50); Mean Corpuscular HGB Conc 32.6 g/dL (31.8-35.4); Mean Corpuscular Hemoglobin 29.9 pg (27.0-31.2); Mean Corpuscular Volume 91.5 fl (81-99); Mean Platelet Volume 7.8 fl (7.4-10.4); Monocytes # 0.5 K/mm3 (0.1-1.0); Monocytes % 3.3 % (1.7-9.3); Neutrophils % 88.3 % (37.0-80.0); Platelet Count 275 K/mm3 (142-424); Red Blood Count 5.21 M/mm3 (4.20-5.40); Red Cell Distribution Width 17.4 % (11.5-17.5); White Blood Count 14.8 K/mm3 (4.8-10.8)
[2020-01-13 21:03] LABS: Alanine Aminotransferase 24 U/L (12-78); Albumin Level 4.2 g/dl (3.5-5.0); Albumin/Globulin Ratio 1.4 (1.1-1.8); Alkaline Phosphatase 87 U/L (38-126); Amylase 31 U/L (30-110); Anion Gap 9.5 mEq/L (5-15); Aspartate Amino Transferase 21 U/L (14-36); Bilirubin,Total 0.5 mg/dl (0.2-1.3); Blood Urea Nitrogen 18 mg/dl (7-17); Carbon Dioxide 30 mmol/L (22.0-30.0); Creatinine Clearance Estimated 88 mL/min (50-200); Estimated Glomerular Filt Rate 93 ml/min (>60); GFR (African American) 112 ML/MIN (>60); Globulin 3.1 g/dL (1.3-3.2); Total Protein,Serum 7.3 g/dl (6.3-8.2)
[2020-01-13 21:04] LABS: Calcium 9.3 mg/dl (8.4-10.2); Glucose 142 mg/dl (74-100); Lipase 46 U/L (23-300); MANUAL DIFFERENTIAL MANUAL DIFFERENTIAL (MANUAL DIFF)
[2020-01-13 21:09] LABS: C-Reactive Protein 21.5 mg/L (0-4)
[2020-01-13 21:21] LABS: Procalcitonin 0.043 ng/mL (0.0-2.0)
[2020-01-13 21:23] LABS: Lactic Acid 2.2 mmol/L (0.7-2.1)
[2020-01-13 21:26] LABS: Troponin I < 0.01 ng/ml (0.00-0.034)
[2020-01-13 21:29] LABS: Erythrocyte Sedimentation Rate 17 mm/hr (0-20)
[2020-01-13 21:46] LABS: Lymphocytes % 7 % (10-50); Monocytes % 2 % (2-9); Neutrophils % 91 % (42-76); Platelet Estimate Normal; Total Cells Counted 100
[2020-01-13 21:47] LABS: Stomatocytes 1+
[2020-01-13 22:01] LABS: Coronavirus 19 IgG Antibody Negative (Negative); Coronavirus 19 IgM Antibody Negative (Negative)
[2020-01-13 22:05] LABS: Adenovirus,PCR Not Detected (NotDetected); Bordetella Pertussis Not Detected (NotDetected); Chlamydophila Pneumoniae, PCR Not Detected (NotDetected); Coronavirus 19, PCR Not Detected (NotDetected); Coronavirus 229E Not Detected (NotDetected); Coronavirus NL63 Not Detected (NotDetected); Coronavirus OC43 Not Detected (NotDetected); Coronovirus HKU1,PCR Not Detected (NotDetected); Human Metapneumovirus Not Detected (NotDetected); Influenza A, PCR Not Detected (NotDetected); Influenza AH1, 2009 Not Detected (NotDetected); Influenza AH1, PCR Not Detected (NotDetected); Influenza AH3,PCR Not Detected (NotDetected); Influenza B, PCR Not Detected (NotDetected); Mycoplasma Pneumoniae, PCR Not Detected (NotDetected); Parainfluenza 1, PCR Not Detected (NotDetected); Parainfluenza 2, PCR Not Detected (NotDetected); Parainfluenza 3, PCR Not Detected (NotDetected); Parainfluenza 4, PCR Not Detected (NotDetected); Respiratory Syncytial Virus Not Detected (NotDetected)
[2020-01-14 00:26] LABS: Reflex Lactic Add Lactic Reflex
[2020-01-14 00:34] LABS: Lactic Acid Follow Up (RFLX 1) 1.9 mmol/L (0.7-2.1)
[2020-01-14 00:46] LABS: Rhinovirus/Enterovirus Detected (NotDetected)
[2020-01-14 00:53] LABS: Troponin I < 0.01 ng/ml (0.00-0.034)
[2020-01-14 00:57] VITALS: BP 119/68; PULSE 89; RESP 18; TEMP 36.8; O2SAT 96
== END 2020-01-14 01:12 | disposition home or self-care (01) ==
PROVIDERS: Emergency Provider Emergency Medicine; PCP Physician Assistant
DX: Z20.828 Contact with and (suspected) exposure to other viral communicable diseases (principal); B34.9 Viral infection, unspecified; F41.8 Other specified anxiety disorders; I10 Essential (primary) hypertension; J44.9 Chronic obstructive pulmonary disease, unspecified; F17.210 Nicotine dependence, cigarettes, uncomplicated; Z88.0 Allergy status to penicillin; Z79.899 Other long term (current) drug therapy
CPT/HCPCS: 71046; 80053; 82150; 83605; 83690; 84145; 84484; 85007; 85025; 85651; 86140; 86328; 87040; 87581; 87633; 87798; 93005; 96365; 96366; 96375; 99284; J2405

== ENCOUNTER 2020-06-07 18:58 | Emergency (ER) | payer OTHER, SELFPAY ==
[2020-06-07 19:07] VITALS: BP 139/89; PULSE 89; RESP 19; TEMP 36.9; O2SAT 98; BMI 54.8
[2020-06-07 19:25] LABS: Adenovirus,PCR Not Detected (NotDetected); Bordetella Pertussis Not Detected (NotDetected); Chlamydophila Pneumoniae, PCR Not Detected (NotDetected); Coronavirus 19, PCR Not Detected (NotDetected); Coronavirus 229E Not Detected (NotDetected); Coronavirus NL63 Not Detected (NotDetected); Coronavirus OC43 Not Detected (NotDetected); Coronovirus HKU1,PCR Not Detected (NotDetected); Human Metapneumovirus Not Detected (NotDetected); Influenza A, PCR Not Detected (NotDetected); Influenza AH1, 2009 Not Detected (NotDetected); Influenza AH1, PCR Not Detected (NotDetected); Influenza AH3,PCR Not Detected (NotDetected); Influenza B, PCR Not Detected (NotDetected); Mycoplasma Pneumoniae, PCR Not Detected (NotDetected); Parainfluenza 1, PCR Not Detected (NotDetected); Parainfluenza 2, PCR Not Detected (NotDetected); Parainfluenza 3, PCR Not Detected (NotDetected); Parainfluenza 4, PCR Not Detected (NotDetected); Respiratory Syncytial Virus Not Detected (NotDetected); Rhinovirus/Enterovirus Not Detected (NotDetected)
[2020-06-07 19:29] LABS: Basophils % 0.4 % (0.1-2.0); Eosinophils # 0.1 K/mm3 (0.0-0.4); Eosinophils % 0.7 % (0.1-12.0); Hematocrit 42.5 % (37.0-47.0); Hemoglobin 14.3 g/dL (12.2-16.2); Lymphocytes # 1.3 K/mm3 (0.7-4.5); Lymphocytes % 12.1 % (10-50); Mean Corpuscular HGB Conc 33.6 g/dL (31.8-35.4); Mean Corpuscular Hemoglobin 29.5 pg (27.0-31.2); Mean Corpuscular Volume 87.6 fl (81-99); Mean Platelet Volume 7.3 fl (7.4-10.4); Monocytes # 0.4 K/mm3 (0.1-1.0); Monocytes % 3.4 % (1.7-9.3); Neutrophils # 8.9 K/mm3 (1.8-7.8); Neutrophils % 83.4 % (37.0-80.0); Platelet Count 295 K/mm3 (142-424); Red Blood Count 4.85 M/mm3 (4.20-5.40); Red Cell Distribution Width 16.5 % (11.5-17.5); White Blood Count 10.7 K/mm3 (4.8-10.8)
[2020-06-07 19:31] LABS: Chloride 99 mmol/L (98-107); Sodium 137 mmol/L (136-145)
[2020-06-07 19:32] LABS: Potassium 3.6 mmoL/L (3.5-5.1)
[2020-06-07 19:34] LABS: Alanine Aminotransferase 22 U/L (12-78); Albumin Level 4.3 g/dl (3.5-5.0); Alkaline Phosphatase 75 U/L (38-126); Anion Gap 11.6 mEq/L (5-15); Aspartate Amino Transferase 23 U/L (14-36); Bilirubin,Indirect 0.5 mg/dL (0.0-0.9); Bilirubin,Total 0.5 mg/dl (0.2-1.3); Bilirubin,Unconjugated 0.5 mg/dL (0.0-1.1); Blood Urea Nitrogen 9 mg/dl (7-17); Calcium 9.4 mg/dl (8.4-10.2); Carbon Dioxide 30 mmol/L (22.0-30.0); Creatinine Clearance Estimated 118 mL/min (50-200); Estimated Glomerular Filt Rate 137 ml/min (>60); GFR (African American) 165 ML/MIN (>60); Glucose 169 mg/dl (74-100); Total Protein,Serum 7.2 g/dl (6.3-8.2)
--- NOTE | 2020-06-07 19:41 | ECG_ITS ---
APPROVED REPORT Exam: Resting ECG HR:82 bpm ECG Measurements Heart Rate 82 AXES VA 140 P 50 QRSd 98 QRS 51 QT 382 T 62 QTc 446 Conclusion Normal sinus rhythm Normal ECG Electronically signed by : Miller Dee, 06/09/2020 13:57:18
[2020-06-07 19:56] LABS: Troponin I < 0.01 ng/ml (0.00-0.034)
--- NOTE | 2020-06-07 20:01 | HMH.EDGENADL ---
ED Disposition Clinical Impression: Intractable headache Qualifiers: Headache type: unspecified Headache chronicity pattern: acute headache Qualified Code(s): R51.9 - Headache, unspecified Disposition: Xfer Short-Term Hosp Condition on Discharge: Fair Referrals: Sherrie Ewing [Primary Care Provider] - - Critical Care Critical Care Time: No Attestation: On 06/07/20, the high probability of a clinically significant, sudden or life threatening deterioration of the following system(s) required my full and direct attention, intervention and personal management. The time I documented below is in addition to time spent performing reported procedures but includes the following listed in this critical care notation. Medical Decision Making - Shilo Inquiry Pt receiving controlled substance: Yes Shilo was queried for this patient: Yes Risks and benefits of using a controlled substance: were not discussed with pt by me Vital Signs: 06/07/20 19:07 Temperature 98.4 F Temperature Source Oral Pulse Rate [Right Brachial] 89 Respiratory Rate 19 Blood Pressure [Right Arm] 139/89 Blood Pressure Mean [Right Arm] 105 Blood Pressure Source [Right Arm] Automatic Cuff Blood Pressure Position [Right Arm] Sitting 02 Sat by Pulse Oximetry 98 Oxygen Delivery Method Room Air - Lab Data Lab Results 06/07/20 19:10: Chlamy pneumoniae PCR Not detected, Adenovirus (PCR) Not detected, B. pertussis DNA (PCR) Not detected, Coronavirus OC43 (PCR) Not detected, Coronavirus HKU1 (PCR) Not detected, Coronavirus 229E (PCR) Not detected, SARS-CoV-2 (PCR) Not detected, Coronavirus NL63 (PCR) Not detected, Human Metapneumovir PCR Not detected, Influenza A (H1) PCR Not detected, Influ A (H1N1/09) PCR Not detected, Influenza A (H3) PCR Not detected, Influenza Type A (PCR) Not detected, Influenza Type B (PCR) Not detected, M. pneumoniae (PCR) Not detected, Parainfluenza 1 (PCR) Not detected, Parainfluenza 2 (PCR) Not detected, Parainfluenza 3 (PCR) Not detected, Parainfluenza 4 (PCR) Not detected, RSV (PCR) Not detected, Entero/Rhino (PCR) Not detected 06/07/20 19:10: WBC 10.7, RBC 4.85, Hgb 14.3, Hct 42.5, MCV 87.6, MCH 29.5, MCHC 33.6, RDW 16.5, Plt Count 295, MPV 7.3 L, Neut % (Auto) 83.4 H, Lymph % (Auto) 12.1, [place] % (Auto) 3.4, Eos % (Auto) 0.7, Baso % (Auto) 0.4, Neut # (Auto) 8.9 H, Lymph # (Auto) 1.3, [place] # (Auto) 0.4, Eos # (Auto) 0.1, Baso # (Auto) 0.0 06/07/20 19:10: Sodium 137, Potassium 3.6, Chloride 99, Carbon Dioxide 30, Anion Gap 11.6, BUN 9, Creatinine 0.50 L, Estimated Creat Clear 118, Estimated GFR 137, Est GFR ( Amer) 165, Glucose 169 H, Calcium 9.4, Total Bilirubin 0.5, Direct Bilirubin 0.0, Conjugated Bilirubin 0.0, Indirect Bilirubin 0.5, Unconjugated Bilirubin 0.5, AST 23, ALT 22, Alkaline Phosphatase 75, Troponin I < 0.01, Total Protein 7.2, Albumin 4.3 06/07/20 22:10: Troponin I < 0.01 Result diagrams: 06/07/20 19:10 06/07/20 19:10 Orders (Tests/Meds): ED MEDICATIONS Generic Name Dose Route Start Last Admin Trade Name Freq PRN Reason Stop Dose Admin Sodium Chloride 1,000 mls @ 999 mls/hr 06/07/20 19:15 06/07/20 19:27 Sod Chlor 0.9% 1000ml Bag IV 06/07/20 20:15 999 mls/hr .Q1H1M SEJAL Administration Discontinued Medications Generic Name Dose Route Start Last Admin Trade Name Freq PRN Reason Stop Dose Admin Butorphanol Tartrate 1 mg 06/07/20 21:48 Butorphanol Tartrate 1 Mg/Ml Vial IV 06/07/20 21:49 ONCE ONE Ketorolac Tromethamine 30 mg 06/07/20 19:12 06/07/20 19:27 Ketorolac 30mg/Ml Vial IV 06/07/20 19:13 30 mg ONCE ONE Administration Lidocaine HCl 20 ml 06/07/20 22:52 Lidocaine 2% 20ml Vial IJ 06/07/20 22:53 ONCE ONE Morphine Sulfate 4 mg 06/07/20 20:15 06/07/20 21:27 Morphine 4mg/Ml Syringe IV 06/07/20 20:16 4 mg ONCE ONE Administration Ondansetron HCl 4 mg 06/07/20 19:12 06/07/20 19:27 Ondansetron 4mg/2ml Vial IV 06/07/20 19:13 4 mg ONCE ON
--- NOTE | 2020-06-07 20:12 | CT_ITS ---
PROCEDURE: CT HEAD/BRAIN WO CON CLINICAL INDICATION: headache COMPARISON: CT HDWO CT HEAD W/O CONTRAST from 02/26/2016 TECHNIQUE: Axial images obtained. All CT scans at the facility use one or more dose reduction, viz: automated exposure control, ma/kV adjustment per patient size (including targeted exams where dose is matched to indication, i.e. head), or iterative reconstruction technique. FINDINGS: No midline shift, mass effect, intracranial hemorrhage, hydrocephalus, or extra-axial fluid collection is evident. The calvarium has an unremarkable appearance. No mastoid effusion. No sinus air-fluid level. IMPRESSION: No acute intracranial finding Dictated by: Bry Fitzpatrick MD 06/08/2020 06:50 Bry Fitzpatrick MD in [facility] 06/08/2020 06:50
--- NOTE | 2020-06-07 20:13 | XR_ITS ---
PROCEDURE: XR CHEST 2V CLINICAL HISTORY: cough, fever Cough and fever, smoker COMPARISON: CR CXR1VP XR chest portable from 09/20/[address] angio chest from 09/20/2017 CR CXR2V XR chest 2V from 09/21/2017 CR XR CHEST 2V from 01/13/2020 FINDINGS: The cardiomediastinal silhouette and pulmonary vascularity are within normal limits. The lungs are clear without infiltrates, suspicious nodules, or pleural effusions. No acute bony abnormalities. IMPRESSION: No acute findings. Dictated by: Bry Fitzpatrick MD 06/08/2020 06:07 Bry Fitzpatrick MD in [facility] 06/08/2020 06:07
--- NOTE | 2020-06-07 20:55 | PC.NURSE ---
calling [facility] at this time.
--- NOTE | 2020-06-07 20:59 | PC.NURSE ---
speakinf to dr. funes at at this time
--- NOTE | 2020-06-07 21:00 | PC.NURSE ---
md advised they are on diversion and unable to accept patient at this time.
--- NOTE | 2020-06-07 22:00 | PC.NURSE ---
calling [facility] at this time.
--- NOTE | 2020-06-07 22:02 | PC.NURSE ---
[facility] at this time.
--- NOTE | 2020-06-07 22:03 | PC.NURSE ---
calling [facility] at this time
--- NOTE | 2020-06-07 22:07 | PC.NURSE ---
dr. chi is the hospitilist at the medical center. awaiting call back at this time.
--- NOTE | 2020-06-07 22:15 | PC.NURSE ---
speaking to dr. chi at [facility] at this time.
--- NOTE | 2020-06-07 22:17 | PC.NURSE ---
awaiting call back from [facility]. they had to confirm they were able to due the procedures that md is wanting to be sent out for.
--- NOTE | 2020-06-07 22:46 | PC.NURSE ---
RECEIVED CALL BACK RE: ACCEPTED BY DR BARRERA AT [facility]. AWAITING BED ASSIGNMENT.
[2020-06-07 23:04] LABS: Troponin I < 0.01 ng/ml (0.00-0.034)
--- NOTE | 2020-06-07 23:16 | PC.NURSE ---
[id number] received call from [employer] STATING HAS BED AT [facility] FLOOR REPORT TO BE CALLED TO [phone] SEND FACE SHEET TO FAX NUMBER [phone]
[2020-06-07 23:54] VITALS: BP 125/74; PULSE 79; RESP 17; TEMP 36.7; O2SAT 98
== END 2020-06-08 00:10 | disposition short-term general hospital (02) ==
PROVIDERS: Family Medicine; Emergency Provider Emergency Medicine; PCP Nurse Practitioner Family
DX: R51.9 Headache, unspecified (principal); R50.9 Fever, unspecified; R11.10 Vomiting, unspecified; T88.1XXA Other complications following immunization, not elsewhere classified, initial encounter; J44.9 Chronic obstructive pulmonary disease, unspecified; E66.01 Morbid (severe) obesity due to excess calories; Z68.43 Body mass index [BMI] 50.0-59.9, adult; I10 Essential (primary) hypertension; F41.8 Other specified anxiety disorders; Z88.0 Allergy status to penicillin; Z88.5 Allergy status to narcotic agent; F17.210 Nicotine dependence, cigarettes, uncomplicated; Z79.899 Other long term (current) drug therapy
CPT/HCPCS: 62272; 70450; 71046; 80048; 80076; 84484; 85025; 87581; 87633; 87798; 93005; 99283; J2405

== ENCOUNTER 2020-06-12 17:35 | Emergency (ER) | payer OTHER, SELFPAY ==
[2020-06-12] VITALS (7 sets, daily range): BP systolic 104–142; BP diastolic 55–101; PULSE 52–87; RESP 15–18; TEMP 37; O2SAT 93–98; BMI 47.5
--- NOTE | 2020-06-12 17:42 | CT_ITS ---
PROCEDURE: CT HEAD/BRAIN WO CON CLINICAL INDICATION: headache COMPARISON: CT CT HEAD/BRAIN WO CON from 06/07/2020 TECHNIQUE: Axial images obtained. All CT scans at the facility use one or more dose reduction, viz: automated exposure control, ma/kV adjustment per patient size (including targeted exams where dose is matched to indication, i.e. head), or iterative reconstruction technique. FINDINGS: No midline shift, mass effect, intracranial hemorrhage, hydrocephalus, or extra-axial fluid collection is evident. The calvarium has an unremarkable appearance. No mastoid effusion. No sinus air-fluid level. IMPRESSION: No acute intracranial finding Dictated by: Bry Fitzpatrick MD 06/13/2020 10:52 Bry Fitzpatrick MD in [facility] 06/13/2020 10:52
--- NOTE | 2020-06-12 17:46 | HMH.EDGENADL ---
ED Disposition Clinical Impression: Headache Qualifiers: Headache type: unspecified Headache chronicity pattern: chronic headache Intractability: not intractable Qualified Code(s): R51.9 - Headache, unspecified Disposition: Home, Self-Care Condition on Discharge: Fair Instructions: DI for Migraine, DI for Chronic Pain -- Adult, DI for Headache Additional Instructions: You have been evaluated for headache. Please avoid triggers that cause headache or migraine. Keep a headache journal. Take Tylenol and ibuprofen. Take sumatriptan as needed for migraines. Take Flexeril as needed for muscle spasms. Please call your neurologist in the morning to schedule close follow-up. Return to the emergency department at once if you have any new or worsening headache, vision changes, neck pain, fevers, chills, other concerns. Prescriptions: Cyclobenzaprine HCl [Flexeril 10mg tablet] 10 mg PO Q8 PRN #9 tab PRN Reason: Muscle Spasm Transmission Status: Received by [facility] SUMAtriptan succinate [Imitrex 25mg Tablet] 25 mg PO Q6 PRN #12 tab PRN Reason: Headache Transmission Status: Received by [facility] Referrals: Sherrie Ewing [Primary Care Provider] - Forms: Work/School Release Time of Disposition: 20:44 - Critical Care Critical Care Time: No Attestation: On 06/12/20, the high probability of a clinically significant, sudden or life threatening deterioration of the following system(s) required my full and direct attention, intervention and personal management. The time I documented below is in addition to time spent performing reported procedures but includes the following listed in this critical care notation. Medical Decision Making - Medical Records Medical records reviewed: Yes: I reviewed the patient's medical records. - Shilo Inquiry Pt receiving controlled substance: No Vital Signs: 06/12/20 17:36 06/12/20 18:27 06/12/20 18:30 Temperature 98.6 F Temperature Source Oral Pulse Rate 59 L 58 L Pulse Rate [Right] 87 Respiratory Rate 18 17 Blood Pressure 116/62 124/79 Blood Pressure [Right Arm] 142/101 H Blood Pressure Mean 91 Blood Pressure Mean [Right Arm] 114 Blood Pressure Source Automatic Cuff Automatic Cuff Blood Pressure Position Sitting Right Lateral 02 Sat by Pulse Oximetry 98 96 95 Oxygen Delivery Method Room Air 06/12/20 19:00 06/12/20 19:31 06/12/20 20:00 Temperature Temperature Source Pulse Rate 62 52 L 64 Pulse Rate [Right] Respiratory Rate 17 15 16 Blood Pressure 137/86 104/55 L 117/68 Blood Pressure [Right Arm] Blood Pressure Mean 96 71 84 Blood Pressure Mean [Right Arm] Blood Pressure Source Blood Pressure Position 02 Sat by Pulse Oximetry 94 L 96 93 L Oxygen Delivery Method - Lab Data Lab Results 06/12/20 18:28: WBC 9.4, RBC 4.51, Hgb 13.1, Hct 40.2, MCV 89.0, MCH 28.9, MCHC 32.5, RDW 16.8, Plt Count 254, MPV 7.7, Neut % (Auto) 71.7, Lymph % (Auto) 20.5, [place] % (Auto) 4.0, Eos % (Auto) 3.3, Baso % (Auto) 0.5, Neut # (Auto) 6.7, Lymph # (Auto) 1.9, [place] # (Auto) 0.4, Eos # (Auto) 0.3, Baso # (Auto) 0.1 06/12/20 18:28: Sodium 137, Potassium 3.5, Chloride 103, Carbon Dioxide 30, Anion Gap 7.5, BUN 8, Creatinine 0.70, Estimated Creat Clear 84, Estimated GFR 93, Est GFR ( Amer) 112, Glucose 102 H, Calcium 9.0, Total Bilirubin 0.5, AST 20, ALT 15, Alkaline Phosphatase 66, Total Protein 6.4, Albumin 3.6, Globulin 2.8, Albumin/Globulin Ratio 1.3, Lipase 20 L Result diagrams: 06/12/20 18:28 06/12/20 18:28 Orders (Tests/Meds): ED MEDICATIONS Generic Name Dose Route Start Last Admin Trade Name Freq PRN Reason Stop Dose Admin Sodium Chloride 1,000 mls @ 999 mls/hr 06/12/20 17:45 06/12/20 18:35 Sod Chlor 0.9% 1000ml Bag IV 06/12/20 18:45 999 mls/hr .Q1H1M SEJAL Administration Discontinued Medications Generic Name Dose Route Start Last Admin Trade Name Freq PRN Reason Stop Dose Admin Cyclobenzapri
--- NOTE | 2020-06-12 17:49 | PC.NURSE ---
Called [facility] and request medical records from previous visit pt had in which she was discharged this past Saturday06/10/20
[2020-06-12 18:39] LABS: Basophils # 0.1 K/mm3 (0-0.2); Basophils % 0.5 % (0.1-2.0); Eosinophils # 0.3 K/mm3 (0.0-0.4); Eosinophils % 3.3 % (0.1-12.0); Hematocrit 40.2 % (37.0-47.0); Hemoglobin 13.1 g/dL (12.2-16.2); Lymphocytes # 1.9 K/mm3 (0.7-4.5); Lymphocytes % 20.5 % (10-50); Mean Corpuscular HGB Conc 32.5 g/dL (31.8-35.4); Mean Corpuscular Hemoglobin 28.9 pg (27.0-31.2); Mean Platelet Volume 7.7 fl (7.4-10.4); Monocytes # 0.4 K/mm3 (0.1-1.0); Neutrophils # 6.7 K/mm3 (1.8-7.8); Neutrophils % 71.7 % (37.0-80.0); Platelet Count 254 K/mm3 (142-424); Red Blood Count 4.51 M/mm3 (4.20-5.40); Red Cell Distribution Width 16.8 % (11.5-17.5); White Blood Count 9.4 K/mm3 (4.8-10.8)
[2020-06-12 18:48] LABS: Chloride 103 mmol/L (98-107); Potassium 3.5 mmoL/L (3.5-5.1); Sodium 137 mmol/L (136-145)
[2020-06-12 18:51] LABS: Alanine Aminotransferase 15 U/L (12-78); Albumin Level 3.6 g/dl (3.5-5.0); Albumin/Globulin Ratio 1.3 (1.1-1.8); Alkaline Phosphatase 66 U/L (38-126); Anion Gap 7.5 mEq/L (5-15); Aspartate Amino Transferase 20 U/L (14-36); Bilirubin,Total 0.5 mg/dl (0.2-1.3); Blood Urea Nitrogen 8 mg/dl (7-17); Carbon Dioxide 30 mmol/L (22.0-30.0); Creatinine Clearance Estimated 84 mL/min (50-200); Estimated Glomerular Filt Rate 93 ml/min (>60); GFR (African American) 112 ML/MIN (>60); Globulin 2.8 g/dL (1.3-3.2); Glucose 102 mg/dl (74-100); Lipase 20 U/L (23-300); Total Protein,Serum 6.4 g/dl (6.3-8.2)
== END 2020-06-12 21:12 | disposition home or self-care (01) ==
PROVIDERS: Emergency Provider Emergency Medicine; PCP Nurse Practitioner Family
DX: R51.9 Headache, unspecified (principal); R42 Dizziness and giddiness; J44.9 Chronic obstructive pulmonary disease, unspecified; F41.8 Other specified anxiety disorders; I10 Essential (primary) hypertension; F17.210 Nicotine dependence, cigarettes, uncomplicated; Z88.0 Allergy status to penicillin; Z88.5 Allergy status to narcotic agent; Z79.899 Other long term (current) drug therapy
CPT/HCPCS: 70450; 80053; 83690; 85025; 96372; 96375; 99283

== ENCOUNTER 2021-04-01 17:32 | Emergency (ER) | payer OTHER, SELFPAY ==
[2021-04-01 18:15] VITALS: BP 125/72; PULSE 80; RESP 19; TEMP 37; O2SAT 97; BMI 54.8
--- NOTE | 2021-04-01 18:34 | HMH.EDUTC ---
[facility] [place] Disposition Clinical Impression: Upper respiratory infection, viral, COVID-19 virus test result unknown Disposition: Home, Self-Care Condition on Discharge: Good Instructions: DI for Viral Upper Respiratory Infection -- Adult, DI for COVID-19 (Suspected or Confirmed ) Additional Instructions: covid swab was sent to lab, call tomorrow for results. self isolate until test results are known to be negative No sign of a bacterial infection. Likely viral. Viruses can take 7-14 days to run their course. Nasal saline and bulb syringe or nose Marychuy to remove nasal drainage to help with nasal congestion. Hard to eat, drink, sleep with nasal congestion so important to keep this cleaned out. Monitor temp. Tylenol or Motrin as needed for pain or fever Encourage fluids, water, Gatorade, Powerade, Pedialyte if /toddler/child Warm salt water gargles Warm fluids Sore throat lozenges Sleep elevated Humidifier/vaporizer Follow-up immediately for new or worsening symptoms or no noticeable improvement over the next 48-72 hours. Referrals: Sherrie Ewing [Primary Care Provider] - Time of Disposition: 18:36 Medical Decision Making - Shilo Inquiry Pt receiving controlled substance: No Orders (Tests/Meds): ORDERS Category Date Time Status Covid-19 Nasal PCR ([facility]) Routine Lab 04/01/21 18:10 Received Rapid Strep Scrn Group A [Strep Scrn Group A (Rapid)] Lab 04/01/21 18:10 Received Stat [facility] [place] HPI - General Chief complaint: Urgent Treatment Center Stated complaint: SOA,sore throat, cough KHANNA Time Seen by Provider: 04/01/21 18:34 Mode of Arrival: Ambulatory Source of Information: Patient Limitations: No Limitations - History of Present Illness Provider Complaint: 40 yr old female presnets for cough, nasal congestion, sinus pressure and tiredness that started today - Related Data Home Medications Medication Instructions Recorded Confirmed buspirone 10 mg tablet 10 mg PO DAILY tab 04/06/19 06/07/20 prazosin 1 mg capsule 1 mg PO DAILY cap 04/06/19 06/07/20 Fluticasone/Umeclidin/Vilanter 1 dose IH DAILY 01/13/20 06/07/20 [Trelegy Ellipta 100-62.5-25] Umeclidinium [place] [Incruse 62.5 mcg IH DAILY 01/13/20 06/07/20 Ellipta] Venlafaxine HCl [Venlafaxine HCl 150 mg PO DAILY 01/13/20 06/07/20 ER] Benzonatate [Tessalon Perle 100mg 100 mg PO TID 06/07/20 06/07/20 Cap] Previous Rx's Medication Instructions Recorded Cyclobenzaprine HCl [Flexeril 10mg 10 mg PO Q8 PRN #9 tab 06/12/20 tablet] SUMAtriptan succinate [Imitrex 25 mg PO Q6 PRN #12 tab 06/12/20 25mg Tablet] Allergies Allergy/AdvReac Type Severity Reaction Status Date / Time aspirin [ASPIRIN] Allergy Unknown Hives Verified 01/13/20 20:44 codeine [CODEINE] Allergy Unknown Hives Verified 01/13/20 20:44 Penicillins Allergy Hives Verified 01/13/20 20:44 Grape Jelly Allergy Severe Difficulty Uncoded 04/06/19 09:[address] [facility] History - Hepatitis A Screen Attestation statement:: This patient has been screened for Hepatitis A risk factors. I have reviewed the patient's past medical history: Yes Medical History: Reports:: Anxiety, Congestive Heart Failure, Chronic Obstructive Pulmonary Disease (COPD), Depression, Hypertension, Migraine Denies:: Cancer, Diabetes Mellitus Type 1, Diabetes Mellitus Type 2, Internal Pacemaker, MRSA, Seizures Other Medical History: Reports: Arthritis. Denies: Blood Transfusion Reaction Comment: super morbid obesity Laterality Cases: Left: Carpal Tunnel Release Other Surgeries: Yes: , Other. No: Pacemaker Amputation: No Fractures: No Comment: gallbladder, 2003?, wisdom teeth, left wrist and thumb, ablation,10/10/18 - Social History Smoking Status: Current every day smoker Tobacco Type: cigarettes # Packs/Day (cigarettes): 1 Alcohol Intake: never Substance Use Type: denies use Occupational Status: unemployed Housing: apartment Household Members: spouse - Psychiatric Hist
[2021-04-01 18:40] VITALS: BP 125/72; PULSE 80; RESP 19; TEMP 37; O2SAT 97
[2021-04-01 18:47] LABS: Strep Scrn Group A (Rapid) Negative (Negative)
== END 2021-04-01 18:45 | disposition home or self-care (01) ==
PROVIDERS: Emergency Provider Nurse Practitioner Family; PCP Nurse Practitioner Family
DX: J06.9 Acute upper respiratory infection, unspecified (principal); Z20.822 Contact with and (suspected) exposure to COVID-19; F41.9 Anxiety disorder, unspecified; I50.9 Heart failure, unspecified; J44.9 Chronic obstructive pulmonary disease, unspecified; F32.A Depression, unspecified; I12.9 Hypertensive chronic kidney disease with stage 1 through stage 4 chronic kidney disease, or unspecified chronic kidney disease; N18.9 Chronic kidney disease, unspecified
CPT/HCPCS: 87430; 99203; C9803; G0463; U0003; U0005

== ENCOUNTER 2021-08-05 14:57 | Emergency (ER) | payer MEDICARE, SELFPAY ==
[2021-08-05 15:50] VITALS: BP 138/91; PULSE 86; RESP 22; TEMP 36.9; O2SAT 100; BMI 47.7
[2021-08-05 15:58] LABS: Adenovirus,PCR Not Detected (NotDetected); Bordetella Pertussis Not Detected (NotDetected); Chlamydophila Pneumoniae, PCR Not Detected (NotDetected); Coronavirus 229E Not Detected (NotDetected); Coronavirus NL63 Not Detected (NotDetected); Coronavirus OC43 Not Detected (NotDetected); Coronovirus HKU1,PCR Not Detected (NotDetected); Human Metapneumovirus Not Detected (NotDetected); Influenza A, PCR Not Detected (NotDetected); Influenza AH1, 2009 Not Detected (NotDetected); Influenza AH1, PCR Not Detected (NotDetected); Influenza AH3,PCR Not Detected (NotDetected); Influenza B, PCR Not Detected (NotDetected); Mycoplasma Pneumoniae, PCR Not Detected (NotDetected); Parainfluenza 1, PCR Not Detected (NotDetected); Parainfluenza 2, PCR Not Detected (NotDetected); Parainfluenza 3, PCR Not Detected (NotDetected); Parainfluenza 4, PCR Not Detected (NotDetected); Respiratory Syncytial Virus Not Detected (NotDetected); Rhinovirus/Enterovirus Not Detected (NotDetected)
--- NOTE | 2021-08-05 16:17 | HMH.EDUTC ---
[facility] [place] Disposition Clinical Impression: URI (upper respiratory infection) Qualifiers: URI type: unspecified URI Qualified Code(s): J06.9 - Acute upper respiratory infection, unspecified Disposition: Home, Self-Care Condition on Discharge: Good Instructions: DI for Cough -- Adult, Cough, Sore Throat Additional Instructions: *Monitor Temp, Over the counter Motrin or Tylenol as directed/as needed Tylenol every 4 hours and Motrin every 6 hours (as long as your family doctor has told you that you can take it) for fever or pain. and straight to ER if unable to lower temp less than 101.0 after medication given *Warm salt water gargles may help to soothe the throat *Throat Lozenges *Warm fluids like tea with honey may help to soothe the throat *Sleep elevated *Humidifier/Vaporizer Your throat swab was sent for culture. Those results are typically sent to your primary care. Be sure to follow up in 2-3 days with your family doctor/primary care physician if no improvement so they can review those result and treat if necessary. If you don?t have a primary care doctor, I recommend you get one but in the mean time, you will have to return to a walk in clinic Follow up IMMEDIATELY for new or worsening symptoms or no Noticeable improvement over the next 48-72 hours. 911 for difficulty breathing or swallowing You were tested for today for COVID19 your test result should be back in the next 24-48 hours, your results will be available on the [facility] My Health portal you can view your results there Prescriptions: Benzonatate [Benzonatate 100mg cap] 100 mg PO Q8HP PRN #30 cap PRN Reason: Cough Transmission Status: Pending to [facility] methylPREDNISolone [Medrol 4mg tab] 4 mg PO DIRECTED #21 tab Transmission Status: Pending to [facility] Azithromycin [Z-Davi 250mg Tab] 250 mg PO DIRECTED #6 tab Transmission Status: Pending to [facility] Referrals: Sylvie Winters APRN [Primary Care Provider] - As needed Time of Disposition: 17:04 Medical Decision Making - Shilo Inquiry Pt receiving controlled substance: No Shilo was queried for this patient: No Vital Signs: 08/05/21 15:50 08/05/21 16:37 Temperature 98.4 F 98.4 F Temperature Source Oral Pulse Rate 86 Pulse Rate [Right Brachial] 86 Respiratory Rate Blood Pressure 138/91 H Blood Pressure [Right Arm] 138/91 H Blood Pressure Mean [Right Arm] 106 Blood Pressure Source [Right Arm] Automatic Cuff Blood Pressure Position [Right Arm] Sitting 02 Sat by Pulse Oximetry 100 Oxygen Delivery Method Room Air - Lab Data Lab results reviewed: Yes: I reviewed the patient's lab results. Lab Results 08/05/21 15:28: Group A Strep Rapid Negative Orders (Tests/Meds): ORDERS Category Date Time Status Full Resp Panel w/COVID ([facility]) Routine Lab 08/05/21 15:30 Received Strep Screen Confirmation Stat Micro 08/05/21 15:28 Received [facility] UTC HPI - General Stated complaint: fever, cough, weakness, runny nose Time Seen by Provider: 08/05/21 16:17 Mode of Arrival: Ambulatory Source of Information: Patient Limitations: No Limitations Description of Symptoms (Recalled from Triage Doc. by RN): PATIENT C/O FEVER, FATIGUE, HEADACHE, LIGHT-HEADED AND COUGH X 2 DAYS HEENT Symptoms (Recalled from RN notes): Yes Resp Symptoms (Recalled from RN notes): Yes Skin Symptoms (Recalled from RN notes): No MS Symptoms (Recalled from RN notes): No Functional Status (Recalled from RN notes): WNL - History of Present Illness Provider Complaint: Patient state that she has been having body aches, chills, cough, fatigue and over all not feeling well for several days States that daughter has been having similar symptoms States that since yesterday she was feeling worse so she came in to get checked - Related Data Home Medications Medication Instructions Recorded Confirmed buspirone 10 mg tablet 10 mg PO DAILY tab 04/06/19 06/07/20 prazosin 1
[2021-08-05 16:28] LABS: Strep Scrn Group A (Rapid) Negative (Negative)
[2021-08-05 16:37] VITALS: BP 138/91; PULSE 86; RESP 22; TEMP 36.9; O2SAT 100
[2021-08-05 19:33] LABS: Coronavirus 19, PCR Detected (NotDetected)
== END 2021-08-05 17:16 | disposition home or self-care (01) ==
PROVIDERS: Emergency Provider Nurse Practitioner; PCP Nurse Practitioner
DX: U07.1 COVID-19 (principal); J06.9 Acute upper respiratory infection, unspecified; R53.1 Weakness; R50.9 Fever, unspecified; R53.82 Chronic fatigue, unspecified; I11.0 Hypertensive heart disease with heart failure; I50.9 Heart failure, unspecified; M19.90 Unspecified osteoarthritis, unspecified site; G43.909 Migraine, unspecified, not intractable, without status migrainosus; E66.01 Morbid (severe) obesity due to excess calories; F32.A Depression, unspecified; F41.9 Anxiety disorder, unspecified; F17.210 Nicotine dependence, cigarettes, uncomplicated; Z68.42 Body mass index [BMI] 45.0-49.9, adult; Z82.49 Family history of ischemic heart disease and other diseases of the circulatory system; Z83.438 Family history of other disorder of lipoprotein metabolism and other lipidemia; Z83.3 Family history of diabetes mellitus; Z82.5 Family history of asthma and other chronic lower respiratory diseases; Z80.9 Family history of malignant neoplasm, unspecified; Z84.1 Family history of disorders of kidney and ureter; Z83.49 Family history of other endocrine, nutritional and metabolic diseases
CPT/HCPCS: 87430; 87581; 87632; 87798; 99213; C9803; G0463; U0003; U0005

== ENCOUNTER 2021-10-05 12:39 | Emergency (ER) | payer MEDICARE, SELFPAY ==
--- NOTE | 2021-10-05 12:43 | XR_ITS ---
FINAL REPORT CLINICAL HISTORY: RT SHOULDER PAIN, NO INJURY FINDINGS: RIGHT SHOULDER Three views of the right shoulder demonstrate no acute fracture or dislocation. There are mild degenerative changes of the acromioclavicular and glenohumeral joints. The visualized bony structures are well aligned. There is a chronic calcification adjacent to the humeral head which may represent calcific tendinitis. IMPRESSION: Mild degenerative change. Findings may represent calcific tendinitis. Reviewed, Interpreted and Dictated by Darrell Thao III, MD Transcribed by Delmi Bates Authenticated and [facility]
[2021-10-05 12:45] VITALS: BP 140/85; PULSE 86; RESP 18; TEMP 36.8; O2SAT 98; BMI 46.7
[2021-10-05 13:35] VITALS: BP 140/85; PULSE 86; RESP 18; TEMP 36.8; O2SAT 98
--- NOTE | 2021-10-05 13:45 | HMH.EDUTC ---
[facility] [place] Disposition Clinical Impression: Calcific tendinitis Disposition: Home, Self-Care Condition on Discharge: Good Instructions: Calcific Tendonitis of the Shoulder, DI for Calcific Tendonitis of the Shoulder Additional Instructions: Rest the extremity on back of chair if tolerable and sleep with pillow under armpit may help , Ice 15-20 minutes 3-4 times daily, Medrol as prescribed *Ibuprofen 600 every 6-8 hours as needed for pain an inflammation. If need something more can take Tylenol in between doses of Ibuprofen to help Immediately follow up with your family doctor for new or worsening of symptoms, or no noticeable improvement over the next 3-5 days Return if needed Prescriptions: Ibuprofen [Ibuprofen 600mg Tablet] 600 mg PO Q6HP PRN #20 tab PRN Reason: Moderate Pain Transmission Status: Pending to [facility] Referrals: Provider,Referral, MD [Primary Care Provider] - As needed Time of Disposition: 13:57 Medical Decision Making - Shilo Inquiry Pt receiving controlled substance: No Shilo was queried for this patient: No Vital Signs: 10/05/21 12:45 10/05/21 13:35 Temperature 98.3 F 98.3 F Temperature Source Oral Pulse Rate 86 Pulse Rate [Right Brachial] 86 Respiratory Rate 18 18 Blood Pressure 140/85 Blood Pressure [Right Arm] 140/85 Blood Pressure Mean [Right Arm] 103 Blood Pressure Source [Right Arm] Automatic Cuff Blood Pressure Position [Right Arm] Sitting 02 Sat by Pulse Oximetry 98 Oxygen Delivery Method Room Air - Radiology Data #1 Image(s): Shoulder Image Reviewed: Yes I have reviewed radiologist's interpretation IMPRESSION: Mild degenerative change. Findings may represent calcific tendinitis. Medical Decision Narrative: Patient states that she has taken ibuprofen and medrol dose pack in the past without complications or reactions [facility] [place] HPI - General Stated complaint: RT shoulder pain Time Seen by Provider: 10/05/21 13:15 Mode of Arrival: Ambulatory Source of Information: Patient Limitations: No Limitations Description of Symptoms (Recalled from Triage Doc. by RN): PATIENT C/O RIGHT SHOULDER PAIN X 3 DAYS HEENT Symptoms (Recalled from RN notes): No Resp Symptoms (Recalled from RN notes): No Skin Symptoms (Recalled from RN notes): No MS Symptoms (Recalled from RN notes): Yes Functional Status (Recalled from RN notes): WNL - History of Present Illness Provider Complaint: Patient states that she has been having pain in her right shoulder for about 3 days Denies known injury States that she just raised up her arm and it started hurting - Related Data Home Medications Medication Instructions Recorded Confirmed buspirone 10 mg tablet 10 mg PO DAILY tab 04/06/19 06/07/20 prazosin 1 mg capsule 1 mg PO DAILY cap 04/06/19 06/07/20 Fluticasone/Umeclidin/Vilanter 1 dose IH DAILY 01/13/20 06/07/20 [Trelegy Ellipta 100-62.5-25] Umeclidinium [place] [Incruse 62.5 mcg IH DAILY 01/13/20 06/07/20 Ellipta] Venlafaxine HCl [Venlafaxine HCl 150 mg PO DAILY 01/13/20 06/07/20 ER] Benzonatate [Tessalon Perle 100mg 100 mg PO TID 06/07/20 06/07/20 Cap] Previous Rx's Medication Instructions Recorded Cyclobenzaprine HCl [Flexeril 10mg 10 mg PO Q8 PRN #9 tab 06/12/20 tablet] SUMAtriptan succinate [Imitrex 25 mg PO Q6 PRN #12 tab 06/12/20 25mg Tablet] Azithromycin [Z-Davi 250mg Tab] 250 mg PO DIRECTED #6 tab 08/05/21 Benzonatate [Benzonatate 100mg 100 mg PO Q8HP PRN #30 cap 08/05/21 cap] methylPREDNISolone [Medrol 4mg 4 mg PO DIRECTED #21 tab 08/05/21 tab] Ibuprofen [Ibuprofen 600mg 600 mg PO Q6HP PRN #20 tab 10/05/21 Tablet] Allergies Allergy/AdvReac Type Severity Reaction Status Date / Time aspirin [ASPIRIN] Allergy Unknown Hives Verified 01/13/20 20:44 codeine [CODEINE] Allergy Unknown Hives Verified 01/13/20 20:44 Penicillins Allergy Hives Verified 01/13/20 20:44 Grape Jelly Allergy Severe Difficu
== END 2021-10-05 14:03 | disposition home or self-care (01) ==
PROVIDERS: Emergency Provider Nurse Practitioner
DX: M75.31 Calcific tendinitis of right shoulder
CPT/HCPCS: 73030; 99212; G0463

== ENCOUNTER 2021-11-09 19:18 | Emergency (ER) | payer MEDICARE, SELFPAY ==
[2021-11-09] VITALS (7 sets, daily range): BP systolic 103–139; BP diastolic 60–93; PULSE 77–93; RESP 16–20; TEMP 36.6–36.8; O2SAT 93–99; BMI 42.9; BMI 53.0
--- NOTE | 2021-11-09 20:12 | PC.NURSE ---
verbal orders received from, Dr. Liao for xrays. Radiology notified.
--- NOTE | 2021-11-09 20:26 | XR_ITS ---
PROCEDURE INFORMATION: Exam: XR Right Knee Exam date and time: 11/09/2021 8:31 PM Age: 40 years old Clinical indication: Injury or trauma; Fall; Blunt trauma; Knee; Right TECHNIQUE: Imaging protocol: Radiologic exam of the Right knee. Views: 3 views. COMPARISON: CR XR ANKLE RT MIN 3V 11/09/2021 8:30 PM FINDINGS: Bones/joints: Mild medial joint space narrowing. No acute fracture or dislocation. Soft tissues: Normal. IMPRESSION: No acute findings.
--- NOTE | 2021-11-09 20:26 | XR_ITS ---
PROCEDURE INFORMATION: Exam: XR Right Tibia and Fibula Exam date and time: 11/09/2021 8:32 PM Age: 40 years old Clinical indication: Injury or trauma; Fall; Blunt trauma; Knee and lower leg; Right TECHNIQUE: Imaging protocol: Radiologic exam of the Right tibia and fibula. Views: 2 views. COMPARISON: CR XR ANKLE RT MIN 3V 11/09/2021 8:30 PM FINDINGS: Bones/joints: Asymmetric appearance of the ankle joint with widening of the joint space overlying the lateral talar dome. Soft tissues: Soft tissue swelling overlying the ankle. IMPRESSION: Asymmetric appearance of the ankle joint concerning for ligamentous injury.
--- NOTE | 2021-11-09 20:26 | XR_ITS ---
PROCEDURE INFORMATION: Exam: XR Right Foot Exam date and time: 11/09/2021 8:34 PM Age: 40 years old Clinical indication: Injury or trauma; Fall; Blunt trauma; Foot; Right TECHNIQUE: Imaging protocol: Radiologic exam of the Right foot. Views: 3 or more views. COMPARISON: CR XR TIBIA FIBULA RT 2V 11/09/2021 8:32 PM FINDINGS: Bones/joints: Asymmetric appearance of the ankle joint. Soft tissues: Soft tissue swelling overlying the ankle. IMPRESSION: Asymmetric appearance of the ankle joint.
--- NOTE | 2021-11-09 20:26 | XR_ITS ---
PROCEDURE INFORMATION: Exam: XR Right Ankle Exam date and time: 11/09/2021 8:30 PM Age: 40 years old Clinical indication: Injury or trauma; Fall; Blunt trauma; Ankle; Right TECHNIQUE: Imaging protocol: Radiologic exam of the Right ankle. Views: 3 or more views. COMPARISON: US CA venous doppler LE BI 09/20/2017 2:06 PM FINDINGS: Bones/joints: Asymmetric appearance of the ankle joint with widening of the joint space above the lateral talar dome. Soft tissues: Soft tissue swelling overlying the ankle. IMPRESSION: Asymmetric appearance of the ankle joint with widening of the joint space above the lateral talar dome concerning for ligamentous injury and high ankle sprain.
--- NOTE | 2021-11-09 20:26 | XR_ITS ---
PROCEDURE INFORMATION: Exam: XR Pelvis Exam date and time: 11/09/2021 8:28 PM Age: 40 years old Clinical indication: Injury or trauma; Fall; Blunt trauma (contusions or hematomas); Right; Pelvic region TECHNIQUE: Imaging protocol: Radiologic exam of the pelvis. Views: 1 or 2 view. COMPARISON: CT ABDOMEN PELVIS W CON 10/14/2018 9:37 PM FINDINGS: Bones/joints: Unremarkable. No acute fracture. Soft tissues: No radiopaque foreign body. IMPRESSION: No acute findings.
--- NOTE | 2021-11-09 20:27 | HMH.EDLOEX ---
Discharge Plan Disposition Patient Disposition: Home, Self-Care Prescriptions Prescriptions: No Action prazosin 1 mg capsule 1 mg PO DAILY buspirone 10 mg tablet 10 mg PO DAILY Label Comments: TAKE 1 TABLET BY MOUTH THREE TIMES DAILY FOR ANXIETY venlafaxine 150 MG tablet extended release 24hr 150 mg PO DAILY umeclidinium 62.5 MCG blister with device 62.5 mcg IH DAILY [id number] 1 EACH blister with device 1 dose IH DAILY sumatriptan succinate 25 MG tablet 25 mg PO Q6 PRN (Reason: Headache) Qty: 12 0RF Rx Instructions: may take 50mg once if 25mg ineffective cyclobenzaprine 10 MG tablet 10 mg PO Q8 PRN (Reason: Muscle Spasm) Qty: 9 0RF benzonatate 100 MG capsule 100 mg PO Q8HP PRN (Reason: Cough) Qty: 30 0RF ibuprofen 600 MG tablet 600 mg PO Q6HP PRN (Reason: Moderate Pain) Qty: 20 0RF Referrals Follow up/Referrals: Sylvie Winters APRN [Primary Care Provider] - See instructions Torin Cox JR, MD [Physician] - See instructions Clinical Impressions Clinical Impression: Right knee injury, Injury of ankle, right, Acute internal derangement of knee Instructions Patient Instructions: DI for Ankle Sprain, DI for Knee Pain Discharge ED Provider: Gabe Liao Lower Extremity Injury HPI General Chief Complaint: Extremity Injury, Lower Stated Complaint: AO 11/09/21 1700 injury to right knee Time Seen by Provider: 11/09/21 20:27 Mode of Arrival: Wheelchair Source of Information: Patient, Significant Other and Medical Record Limitations: No Limitations Description of Symptoms (Recalled from ER Triage Doc. by RN): Pt c/o RLE pain after falling 2 x since saturday. Unable to bear weight. Bruising, heat, and swelling noted to RLE. Pulses History of Present Illness HPI Narrative: acute injury to rt lower ext sec to fall off mower - had today and last saturday with pain and swelling and dec wt bearing - no neuro sx MD complaint: knee injury, leg injury and fall Onset (ago): hour(s) Injury: Right: pelvis, knee, ankle and foot Type of Injury: blunt Place: home Severity: moderate Exacerbating factors: weight bearing Context: fall Associated symptoms: unable to bear weight Other symptoms: none Related Data Home Medications Medication Instructions Recorded Confirmed buspirone 10 mg tablet 10 mg PO DAILY Anxiety 04/06/19 06/07/20 prazosin 1 mg capsule 1 mg PO DAILY Depression 04/06/19 06/07/20 fluticasone fur. 100 mcg-umeclid 1 dose IH DAILY Breathing problems 01/13/20 06/07/20 62.5 mcg-vilant 25 mcg inhalat.powder umeclidinium 62.5 mcg/actuation 62.5 mcg IH DAILY Breathing 01/13/20 06/07/20 blister powder for inhalation problems venlafaxine 150 mg tablet,extended 150 mg PO DAILY Depression 01/13/20 06/07/20 release 24 hr Previous Rx's Medication Instructions Recorded cyclobenzaprine 10 mg tablet 10 mg PO Q8 PRN Muscle Spasm #9 06/12/20 tabs sumatriptan succinate 25 mg tablet 25 mg PO Q6 PRN Headache #12 tabs 06/12/20 benzonatate 100 mg capsule 100 mg PO Q8HP PRN Cough #30 caps 08/05/21 ibuprofen 600 mg tablet 600 mg PO Q6HP PRN Moderate Pain 10/05/21 #20 tabs Allergies Allergy/AdvReac Type Severity Reaction Status Date / Time aspirin [ASPIRIN] Allergy Unknown Hives Verified 01/13/20 20:44 codeine [CODEINE] Allergy Unknown Hives Verified 01/13/20 20:44 Penicillins Allergy Hives Verified 01/13/20 20:44 Grape Jelly Allergy Severe Difficulty Uncoded 04/06/19 09:17 Breathing PFSH PFSH Social History Smoking Status: Current every day smoker tobacco type: cigarettes packs per day: 1 second hand exposure: No alcohol intake: never substance use type: denies use current occupational status: other Travel in the last 8 weeks: None household members: spouse housing: apartment 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 current occupational exposures/hazards: No caffeine: Yes ROS Obtained: Christopher
--- NOTE | 2021-11-09 20:30 | XR_ITS ---
PROCEDURE INFORMATION: Exam: XR Chest Exam date and time: 11/09/2021 8:25 PM Age: 40 years old Clinical indication: Injury or trauma; Fall; Blunt trauma (contusions or hematomas) TECHNIQUE: Imaging protocol: Radiologic exam of the chest. Views: 2 views. COMPARISON: CR XR CHEST 2V 06/07/2020 8:14 PM FINDINGS: Lungs: No consolidation. Pleural spaces: No pneumothorax. Heart/Mediastinum: No cardiomegaly. Bones/joints: No acute fracture. IMPRESSION: No acute findings.
--- NOTE | 2021-11-09 21:16 | CT_ITS ---
PROCEDURE INFORMATION: Exam: CT Right Lower Extremity Without Contrast, Ankle Exam date and time: 11/09/2021 9:19 PM Age: 40 years old Clinical indication: Injury or trauma and abnormal findings; Fall; Abnormal imaging study; Right ankle xray; Blunt trauma TECHNIQUE: Imaging protocol: CT of the Right lower extremity without contrast was performed. Exam focused on the ankle. Radiation optimization: All CT scans at this facility use at least one of these dose optimization techniques: automated exposure control; mA and/or kV adjustment per patient size (includes targeted exams where dose is matched to clinical indication); or iterative reconstruction. COMPARISON: CR XR ANKLE RT MIN 3V 11/09/2021 8:30 PM FINDINGS: Bones/joints: There tiny age-indeterminate ossifications between the distal tibia and fibula which could be the sequela ligamentous injury and avulsion here. Additional tiny ossification adjacent to the distal tip of the medial malleolus. No acute linear fracture. Minimal asymmetry ankle mortise joint again evident. Soft tissues: Soft tissue swelling. IMPRESSION: 1. There tiny age-indeterminate ossifications between the distal tibia and fibula which could be the sequela ligamentous injury and avulsion here. Additional tiny ossification adjacent to the distal tip of the medial malleolus. No acute linear fracture. 2. Minimal asymmetry ankle mortise joint again evident.
--- NOTE | 2021-11-09 21:18 | PC.NURSE ---
at BS speaking with pt about results
--- NOTE | 2021-11-09 21:30 | PC.NURSE ---
Patient returned from xray. [place] 5/325 po given as ordered. Pt states her pain is a 6/10. Pt is currently sitting in wheelchair and family is laying in stretcher. Pt states she is comfortable.
== END 2021-11-09 22:40 | disposition home or self-care (01) ==
PROVIDERS: Emergency Provider Emergency Medicine; PCP Nurse Practitioner
DX: S89.91XA Unspecified injury of right lower leg, initial encounter (principal); M23.91 Unspecified internal derangement of right knee; W19.XXXA Unspecified fall, initial encounter
CPT/HCPCS: 71046; 72170; 73562; 73590; 73610; 73630; 73700; 99283

== ENCOUNTER → 2021-11-21 09:45 | Outpatient (CLI) | payer MEDICARE, SELFPAY ==
--- NOTE | 2021-11-21 09:49 | MR_ITS ---
FINAL REPORT TECHNIQUE: Multiplanar MR without contrast CLINICAL HISTORY: PAIN IN RIGHT KNEE fell off back of truck x 2 weeks then 4-5 days later lace roller fell on right knee pt stated its hard to put alot of weight on knee FINDINGS: Articular cartilage: Grade 2 chondromalacia patella. Mild degenerative changes. Marrow signal: Unremarkable Joint fluid: Small joint effusion with small Pak cyst. Menisci: Normal morphology without tear Ligaments: Collateral and cruciate ligaments intact Significant edema superficial to the patellar tendon and patellar. Presumed soft tissue contusion. Patellar and quadriceps tendinosis. IMPRESSION: Soft tissue contusion anteriorly without meniscal or ligamentous injury. Reviewed, Interpreted and Dictated by Curt Logan MD Transcribed by Danita Thakkar Authenticated and . [facility]
== END ==
PROVIDERS: PCP Nurse Practitioner; Visit Provider Nurse Practitioner
DX: M25.561 Pain in right knee (principal)
CPT/HCPCS: 73721

== ENCOUNTER 2022-01-02 10:52 | Emergency (ER) | payer MEDICARE, SELFPAY ==
[2022-01-02 12:10] VITALS: BP 138/80; PULSE 85; RESP 18; TEMP 36.7; O2SAT 98; BMI 54.8
--- NOTE | 2022-01-02 12:29 | EXP.UTC ---
Discharge Plan Disposition Patient Disposition: Home, Self-Care Condition: Good Prescriptions Prescriptions: New benzonatate 100 mg capsule 100 mg PO TID PRN (Reason: cough) Qty: 30 0RF azithromycin [Zithromax Z-Davi] 250 mg tablet See Rx Instructions .ROUTE .COMPLEX 5 Days Qty: 6 0RF Rx Instructions: For 250 mg dose pack: take 500 mg today (day 1), then 250 mg for 4 days (days 2-5) methylprednisolone [Medrol (Davi)] 4 mg tablets,dose pack See Rx Instructions .Route .COMPLEX 6 Days Qty: 21 0RF Rx Instructions: taper pack; albuterol sulfate [Proventil HFA] 90 mcg/actuation HFA aerosol inhaler 1 inh inhalation Q6H PRN (Reason: shortness of breath or wheezing) Qty: 8.5 0RF No Action prazosin 1 mg capsule 1 mg PO DAILY buspirone 10 mg tablet 10 mg PO DAILY Label Comments: TAKE 1 TABLET BY MOUTH THREE TIMES DAILY FOR ANXIETY venlafaxine 150 MG tablet extended release 24hr 150 mg PO DAILY umeclidinium 62.5 MCG blister with device 62.5 mcg IH DAILY [id number] 1 EACH blister with device 1 dose IH DAILY sumatriptan succinate 25 MG tablet 25 mg PO Q6 PRN (Reason: Headache) Qty: 12 0RF Rx Instructions: may take 50mg once if 25mg ineffective cyclobenzaprine 10 MG tablet 10 mg PO Q8 PRN (Reason: Muscle Spasm) Qty: 9 0RF benzonatate 100 MG capsule 100 mg PO Q8HP PRN (Reason: Cough) Qty: 30 0RF ibuprofen 600 MG tablet 600 mg PO Q6HP PRN (Reason: Moderate Pain) Qty: 20 0RF Referrals Follow up/Referrals: Sylvie Winters APRN [Primary Care Provider] - See instructions Activity Restrictions/Add. Instructions Additional Instructions/Restrictions: Start antibiotic today. Be sure to complete entire prescription even if feeling better Monitor temp. Tylenol every 4 hours as needed and / or ibuprofen every 6 hours as needed ( As long as your primary care physician has told you that it ok to take both. For fever/aches/pains ER if no less than 101 despite Tylenol or Motrin Humidifier/vaporizer or hot steamy shower Inhaler every 4-6 hours as needed like we discussed. If unsure how to use it, ask pharmacist to demonstrate how. Should help open airways and improve cough, wheezing, and shortness of breath *Tessalon Perles will not cause drowsiness but use at bedtime to help stop cough so that you may get some rest. *Start steroid today. Helps with inflammation therefore, cough and wheezing. Follow directions on the package. Reviewed side effects. Patient reports taking them before. Make sure to follwo up with your Family doctor if you continue to have pain in your right side/ribs Follow up IMMEDIATELY for new or worsening of symptoms OR no noticeable improvement over the next 48-72 hours. 911 immediately for any life threatening symptoms such as chest pain or difficulty breathing Clinical Impressions Clinical Impression: Bronchitis, Sinusitis Instructions Patient Instructions: DI for Sinusitis, Sinusitis, Acute Bronchitis Discharge ED Provider: Deborah Root [facility] [place] HPI General Stated complaint: Abd pain, diarreah, nausea, light headed Mode of Arrival: Ambulatory Source of Information: Patient Limitations: No Limitations Time Seen by Provider: 01/02/22 12:29 Description of Symptoms (Recalled from Triage Doc. by RN): PATIENT C/O COUGH, CHEST CONGESTION, AND RUQ PAIN X 2 DAYS HEENT Symptoms (Recalled from RN notes): No Resp Symptoms (Recalled from RN notes): Yes Skin Symptoms (Recalled from RN notes): No MS Symptoms (Recalled from RN notes): No Functional Status (Recalled from RN notes): WNL History of Present Illness Provider Complaint: Patient states that she has been having cough and chest congestion for several days States about 2 mths ago she fell from truck and hurt her right lower ribs States that it hasnt got much better and thinks the coughing has made
[2022-01-02 12:52] VITALS: BP 138/80; PULSE 85; RESP 18; TEMP 36.7; O2SAT 98
== END 2022-01-02 12:59 | disposition home or self-care (01) ==
PROVIDERS: Emergency Provider Nurse Practitioner; PCP Nurse Practitioner
DX: R07.81 Pleurodynia (principal); J01.90 Acute sinusitis, unspecified; R06.02 Shortness of breath; R51.9 Headache, unspecified; M62.838 Other muscle spasm; J44.9 Chronic obstructive pulmonary disease, unspecified; F17.210 Nicotine dependence, cigarettes, uncomplicated; Z79.1 Long term (current) use of non-steroidal anti-inflammatories (NSAID); Z79.51 Long term (current) use of inhaled steroids; Z79.52 Long term (current) use of systemic steroids; Z79.899 Other long term (current) drug therapy; Z88.5 Allergy status to narcotic agent; Z88.0 Allergy status to penicillin; Z88.6 Allergy status to analgesic agent; Z91.018 Allergy to other foods
CPT/HCPCS: 99213; G0463

== ENCOUNTER 2022-02-02 17:05 | Emergency (ER) | payer MEDICARE, SELFPAY ==
--- NOTE | 2022-02-02 17:05 | ECG_ITS ---
APPROVED REPORT Exam: Resting ECG HR:82 bpm ECG Measurements Heart Rate 82 AXES TX 141 P 64 QRSd 97 QRS 67 QT 345 T 48 QTc 384 Conclusion SINUS RHYTHM NONSPECIFIC T-WAVE ABNORMALITY BORDERLINE ECG UNCONFIRMED REPORT Electronically signed by : Miller Dee MD 02/03/2022 10:07:48
[2022-02-02 17:08] VITALS: BP 140/90; PULSE 85; RESP 20; TEMP 36.8; O2SAT 96; BMI 53.9
[2022-02-02 17:31] VITALS: BP 98/71; PULSE 86; O2SAT 97
--- NOTE | 2022-02-02 17:36 | XR_ITS ---
PROCEDURE INFORMATION: Exam: XR Chest Exam date and time: 02/02/2022 5:40 PM Age: 41 years old Clinical indication: Shortness of breath TECHNIQUE: Imaging protocol: Radiologic exam of the chest. Views: 2 views. COMPARISON: CR XR CHEST 2V 11/09/2021 8:25 PM FINDINGS: Lungs: No evidence of pneumonia or interstitial edema. Streaky opacities in left lower lobe are re-identified, favored to represent atelectasis. Pleural spaces: Unremarkable. No pleural effusion. No pneumothorax. Heart/Mediastinum: Unremarkable. No cardiomegaly. Bones/joints: Unremarkable. IMPRESSION: No evidence of pneumonia or interstitial edema.
--- NOTE | 2022-02-02 17:42 | PC.NURSE ---
DR. HERNANDEZ AT BEDSIDE
--- NOTE | 2022-02-02 17:43 | PC.NURSE ---
CLARIBEL DENSON at for patient eval
--- NOTE | 2022-02-02 17:47 | PC.NURSE ---
pt to radiology via wc with technical services assistant
--- NOTE | 2022-02-02 17:48 | PC.NURSE ---
PT TO XR
[2022-02-02 17:54] LABS: Coronavirus 19, PCR Not Detected (NotDetected); Influenza A, PCR Not Detected (NotDetected); Influenza B, PCR Not Detected (NotDetected)
--- NOTE | 2022-02-02 17:55 | PC.NURSE ---
PT RETURNED FROM XR
--- NOTE | 2022-02-02 17:57 | HMH.EDGENADL ---
Discharge Plan Disposition Patient Disposition: Home, Self-Care Condition: Good Prescriptions Prescriptions: New benzonatate 200 mg capsule 200 mg PO TID PRN (Reason: cough) Qty: 20 0RF No Action prazosin 1 mg capsule 1 mg PO DAILY buspirone 10 mg tablet 10 mg PO DAILY Label Comments: TAKE 1 TABLET BY MOUTH THREE TIMES DAILY FOR ANXIETY venlafaxine 150 MG tablet extended release 24hr 150 mg PO DAILY umeclidinium 62.5 MCG blister with device 62.5 mcg IH DAILY [id number] 1 EACH blister with device 1 dose IH DAILY sumatriptan succinate 25 MG tablet 25 mg PO Q6 PRN (Reason: Headache) Qty: 12 0RF Rx Instructions: may take 50mg once if 25mg ineffective cyclobenzaprine 10 MG tablet 10 mg PO Q8 PRN (Reason: Muscle Spasm) Qty: 9 0RF benzonatate 100 MG capsule 100 mg PO Q8HP PRN (Reason: Cough) Qty: 30 0RF ibuprofen 600 MG tablet 600 mg PO Q6HP PRN (Reason: Moderate Pain) Qty: 20 0RF benzonatate 100 mg capsule 100 mg PO TID PRN (Reason: cough) Qty: 30 0RF azithromycin [Zithromax Z-Davi] 250 mg tablet See Rx Instructions .ROUTE .COMPLEX 5 Days Qty: 6 0RF Rx Instructions: For 250 mg dose pack: take 500 mg today (day 1), then 250 mg for 4 days (days 2-5) methylprednisolone [Medrol (Davi)] 4 mg tablets,dose pack See Rx Instructions .Route .COMPLEX 6 Days Qty: 21 0RF Rx Instructions: taper pack; albuterol sulfate [Proventil HFA] 90 mcg/actuation HFA aerosol inhaler 1 inh inhalation Q6H PRN (Reason: shortness of breath or wheezing) Qty: 8.5 0RF Referrals Follow up/Referrals: Miller Dee MD [Primary Care Provider] - See instructions Activity Restrictions/Add. Instructions Additional Instructions/Restrictions: At this time was felt you are safe to be discharged from the emergency department. If new or worsening symptoms please do not hesitate to return for continued evaluation. Please take Tylenol and ibuprofen every 6 hours, take your Tessalon Perles as prescribed. Clinical Impressions Clinical Impression: Cough, Viral syndrome, Laryngitis Discharge ED Provider: Todd Aguirre General Adult HPI General Chief complaint: Shortness of Breath/Dyspnea Stated complaint: SOA Time Seen by Provider: 02/02/22 17:57 Mode of Arrival: Ambulatory Source of Information: Patient Limitations: No Limitations Description of Symptoms (Recalled from ER Triage Doc. by RN): PT WITH C/O BEING SICK SINCE BEFORE . C/O COUGH, SHORTNESS OF BREATH AND CHEST PRESSURE History of Present Illness HPI narrative: Patient is a 41-year-old female with COPD not on home oxygen, hypertension who presents emergency department for evaluation of subacute cough. Onset since , refractory to antibiotics and steroids outpatient. Patient has adequate p.o. intake. Symptoms are moderate to severe in intensity. There is an associated hoarseness of voice that has been onset recently. There is an associated chest pressure that has been persistent that does not radiate. Due to continued symptoms he presents here for continued evaluation at this time. Related Data Home Medications Medication Instructions Recorded Confirmed buspirone 10 mg tablet 10 mg PO DAILY Anxiety 04/06/19 06/07/20 prazosin 1 mg capsule 1 mg PO DAILY Depression 04/06/19 06/07/20 fluticasone fur. 100 mcg-umeclid 1 dose IH DAILY Breathing problems 01/13/20 06/07/20 62.5 mcg-vilant 25 mcg inhalat.powder umeclidinium 62.5 mcg/actuation 62.5 mcg IH DAILY Breathing 01/13/20 06/07/20 blister powder for inhalation problems venlafaxine 150 mg tablet,extended 150 mg PO DAILY Depression 01/13/20 06/07/20 release 24 hr Previous Rx's Medication Instructions Recorded cyclobenzaprine 10 mg tablet 10 mg PO Q8 PRN Muscle Spasm #9 06/12/20 tabs sumatriptan succinate 25 mg tablet 25 mg PO Q6 PRN Headache #12 tabs 06/12/20 benzonatate 100
[2022-02-02 17:58] LABS: Basophils # 0.1 K/mm3 (0-0.2); Basophils % 0.9 % (0.1-2.0); Eosinophils # 0.3 K/mm3 (0.0-0.4); Eosinophils % 2.8 % (0.1-12.0); Hematocrit 43.9 % (37.0-47.0); Hemoglobin 14.4 g/dL (12.2-16.2); Lymphocytes # 2.3 K/mm3 (0.7-4.5); Lymphocytes % 22.6 % (10-50); Mean Corpuscular HGB Conc 32.7 g/dL (31.8-35.4); Mean Corpuscular Volume 94.8 fl (81-99); Monocytes # 0.6 K/mm3 (0.1-1.0); Monocytes % 5.3 % (1.7-9.3); Neutrophils # 7.1 K/mm3 (1.8-7.8); Neutrophils % 68.4 % (37.0-80.0); Platelet Count 289 K/mm3 (142-424); Red Blood Count 4.64 M/mm3 (4.20-5.40); Red Cell Distribution Width 17.3 % (11.5-17.5); White Blood Count 10.3 K/mm3 (4.8-10.8)
[2022-02-02 18:00] VITALS: BP 117/48; PULSE 79; O2SAT 97
[2022-02-02 18:01] VITALS: PULSE 71; PULSE 74
[2022-02-02 18:03] LABS: Anion Gap 10.6 mEq/L (5-15); Blood Urea Nitrogen 9 mg/dl (7-17); Calcium 9.2 mg/dl (8.4-10.2); Carbon Dioxide 30 mmol/L (22.0-30.0); Chloride 102 mmol/L (98-107); Creatinine Clearance Estimated 83 mL/min (50-200); Estimated Glomerular Filt Rate 92 ml/min (>60); GFR (African American) 111 ML/MIN (>60); Glucose 122 mg/dl (74-100); Potassium 3.6 mmoL/L (3.5-5.1); Sodium 139 mmol/L (136-145)
--- NOTE | 2022-02-02 18:13 | PC.NURSE ---
PT MEDICATED PER EMAR, NO NEEDS AT THIS TIME
[2022-02-02 18:14] LABS: Troponin I < 0.01 ng/ml (0.00-0.034)
--- NOTE | 2022-02-02 18:20 | PC.NURSE ---
RESPIRATORY AT BEDSIDE
[2022-02-02 19:45] LABS: Strep Scrn Group A (Rapid) Negative (Negative)
[2022-02-02 20:07] VITALS: BP 148/72; PULSE 85; RESP 17; TEMP 36.9; O2SAT 98
== END 2022-02-02 20:10 | disposition home or self-care (01) ==
PROVIDERS: Emergency Provider Emergency Medicine; PCP Internal Medicine Adolescent Medicine
DX: J04.0 Acute laryngitis (principal); B34.9 Viral infection, unspecified; J44.9 Chronic obstructive pulmonary disease, unspecified; Z88.0 Allergy status to penicillin; Z88.6 Allergy status to analgesic agent; I10 Essential (primary) hypertension; Z86.711 Personal history of pulmonary embolism
CPT/HCPCS: 71046; 80048; 84484; 85025; 87430; 93005; 94640; 96365; 96375; 99284; C9803; U0003; U0005

== ENCOUNTER → 2022-04-18 15:56 | Outpatient (CLI) | payer MEDICARE, SELFPAY ==
[2022-04-18 17:16] LABS: Basophils # 0.1 K/mm3 (0-0.2); Basophils % 0.8 % (0.1-2.0); Eosinophils # 0.3 K/mm3 (0.0-0.4); Eosinophils % 2.6 % (0.1-12.0); Hematocrit 48.1 % (37.0-47.0); Hemoglobin 15.7 g/dL (12.2-16.2); Lymphocytes # 2.1 K/mm3 (0.7-4.5); Lymphocytes % 18.2 % (10-50); Mean Corpuscular HGB Conc 32.6 g/dL (31.8-35.4); Mean Corpuscular Hemoglobin 31.5 pg (27.0-31.2); Mean Corpuscular Volume 96.7 fl (81-99); Mean Platelet Volume 8.1 fl (7.4-10.4); Monocytes # 0.5 K/mm3 (0.1-1.0); Monocytes % 4.7 % (1.7-9.3); Neutrophils # 8.4 K/mm3 (1.8-7.8); Neutrophils % 73.8 % (37.0-80.0); Platelet Count 294 K/mm3 (142-424); Red Blood Count 4.97 M/mm3 (4.20-5.40); Red Cell Distribution Width 15.9 % (11.5-17.5); White Blood Count 11.4 K/mm3 (4.8-10.8)
[2022-04-26 04:09] LABS: D001-IgE D pteronyssinus <0.10 kU/L (Class 0); D002-IgE D farinae <0.10 kU/L (Class 0); E001-IgE Cat Dander <0.10 kU/L (Class 0); E005-IgE Dog Dander <0.10 kU/L (Class 0); E072-IgE Mouse Urine <0.10 kU/L (Class 0); G002-IgE Bermuda Grass <0.10 kU/L (Class 0); G006-IgE Timothy Grass <0.10 kU/L (Class 0); I006-IgE Cockroach, German 0.55 kU/L (Class I); Immunoglobulin E, Total 133 IU/mL (6-495); M001-IgE Penicillium chrysogen <0.10 kU/L (Class 0); M002-IgE Cladosporium herbarum <0.10 kU/L (Class 0); M003-IgE Aspergillus fumigatus <0.10 kU/L (Class 0); M006-IgE Alternaria alternata <0.10 kU/L (Class 0); T001-IgE Maple/Box Elder <0.10 kU/L (Class 0); T003-IgE Common Silver Birch <0.10 kU/L (Class 0); T006-IgE Cedar, Mountain <0.10 kU/L (Class 0); T007-IgE Oak, White <0.10 kU/L (Class 0); T008-IgE Elm, American <0.10 kU/L (Class 0); T010-IgE Walnut <0.10 kU/L (Class 0); T011-IgE Maple Leaf Sycamore <0.10 kU/L (Class 0); T014-IgE Cottonwood <0.10 kU/L (Class 0); T015-IgE Ash, White <0.10 kU/L (Class 0); T022-IgE Pecan, Hickory <0.10 kU/L (Class 0); T070-IgE White Mulberry <0.10 kU/L (Class 0); W001-IgE Ragweed, Short <0.10 kU/L (Class 0); W011-IgE Thistle, Russian <0.10 kU/L (Class 0); W014-IgE Pigweed, Common <0.10 kU/L (Class 0); W018-IgE Sheep Sorrel <0.10 kU/L (Class 0)
== END ==
PROVIDERS: PCP Nurse Practitioner; Visit Provider Internal Medicine Pulmonary Disease
DX: J30.9 Allergic rhinitis, unspecified; R06.09 Other forms of dyspnea; R06.2 Wheezing; R09.89 Other specified symptoms and signs involving the circulatory and respiratory systems
CPT/HCPCS: 36415; 82785; 85025; 86003

== ENCOUNTER → 2022-05-07 10:04 | Outpatient (POV) | payer MEDICARE, SELFPAY ==
--- NOTE | 2022-05-07 10:41 | EXP.PAIN.OV ---
HPI Data of Consult Patient: new to practice Consult date: 05/07/22 Requesting Physician: Laurence Carter APRN Primary Care Provider: Sylvie Winters APRN Consult Narrative Reason for consult: Neck pain, shoulder pain, low back pain, right hip pain History of present illness: Ms. Winston is a 41 year old female who presents today as a new patient. She is a referral from Sylvie Winters's office. Today she rates her pain a 9 out of 10. Patient states that she does have pain throughout her spine that has been going on for years. She states that her neck pain does radiate into her shoulders and fingers with occasional numbness as well as describing this as a sharp razor like sensation. She states it is constant and does occasionally feel like it locks up with decreased range of motion. She states that her low back pain is more of a constant achy, occasional stabbing pain that does radiate down. 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 Patient states that her pain does interfere with her activities of daily living such as cooking and cleaning and that she cannot even sweet pickle maker her 4-year-old due to the pain. Patient states she cannot tolerate prolonged walking or standing due to the pain and frequently has to lean on the counter to even do the dishes. Patient states that when she is at the grocery store she can only walk for a few minutes before she has to sit down and take breaks. Patient has had injections in the past and her neck muscles however she states this did not provide additional relief. Patient has tried [id number] Tylenol and ibuprofen along with heat and ice with minimal improvement. Patient did go to physical therapy for her previous left shoulder surgery however she did not notice significant relief. Patient also states she has been to the chiropractor in the past and this did provide significant relief however it has not since her pain has progressed. Patient does use multiple pillows at night to help with her positioning and is also used a TENS unit with no additional relief. Patient denies any recent cervical or lumbar imaging patient is not currently on any scheduled medications. Her Shilo is [id number].'s been reviewed and appropriate. CC: Laurence Carter APRN [facility] Disclaimer: The information contained in this section may have been updated after the patient was seen, as this information can be updated by other users. Medical History Allergic rhinitis Asthma Asthma Chronic cough COPD (chronic obstructive pulmonary disease) History of COPD Hypertension Pulmonary embolism Smoking greater than 30 pack years Surgical History H/O carpal tunnel repair H/O section H/O wisdom tooth extraction Hx of cholecystectomy Family History Other No significant family history Social History Smoking Status: Current every day smoker tobacco type: cigarettes packs per day: 1 second hand exposure: No alcohol intake: never substance use type: denies use current occupational status: other Travel in the last 8 weeks: None household members: spouse housing: apartment 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 current occupational exposures/hazards: No caffeine: Yes Review of Systems Review of Systems Review of systems:: pertinent systems reviewed and negative unless documented below Review of systems (narrative): Review of Systems: General: No recent weight changes, no fever, no sleep disturbances Respiratory: No cough, no shortness of air, no recurring pulmonary infections Cardiovascular/peripheral vascular: No chest pain, no palpitations, no edema, no shortness of breath Gastrointestinal: No new onset incontinence, normal bowel movements reported Genitourinary: No new onset incontinence Musculoskeletal
[2022-05-07 10:42] VITALS: BP 159/89; PULSE 120; RESP 18; O2SAT 98; BMI 54.8
== END ==
PROVIDERS: PCP Nurse Practitioner; Visit Provider Nurse Practitioner Family
DX: M54.12 Radiculopathy, cervical region (principal); M54.2 Cervicalgia; M25.519 Pain in unspecified shoulder; M54.50 Low back pain, unspecified; M25.551 Pain in right hip
CPT/HCPCS: 99202; G0463

== ENCOUNTER 2022-05-15 10:06 | Day surgery (SDC) | payer MEDICARE, SELFPAY ==
[2022-05-15 10:20] VITALS: BP 151/75; PULSE 86; RESP 18; TEMP 36.2; O2SAT 97; BMI 53.0
[2022-05-15 10:42] VITALS: BP 170/98; PULSE 94; RESP 19; O2SAT 96
[2022-05-15 10:43] VITALS: BP 170/98; PULSE 94; RESP 18; O2SAT 96
[2022-05-15 10:48] VITALS: BP 137/88; PULSE 92; RESP 18; O2SAT 97
--- NOTE | 2022-05-15 11:02 | P.PCN_ITS ---
Procedure Date: 05/15/22 Time: 10:40 Anesthesiologist:: Moisés Cook CRNA Complications:: None Pre-procedure Diagnosis:: Degenerative disc disease cervical spine multiple levels. Cervical radiculopathy. Post-procedure Diagnosis:: Same. Indications for Procedure:: Very pleasant 41-year-old female comes our clinic today for cervical epidural steroid injection. Patient has cervical neck pain she describes constant, dull, aching. She also complains of bilateral shoulder and arm radicular symptoms at times. Procedure Details:: Procedure:Cervical epidural steroid injection Informed consent was obtained and the risks and benefits of the procedure were explained to the patient. The patient was taken to the procedure room and noninvasive monitors placed, including noninvasive blood pressure cuff and pulse oximeter. The neck was prepped using Chloraprep as a cleansing solution. The C6- C7 interspace was viewed using fluroscopy. The skin and subcutaneous tissues were anesthetized using lidocaine 1.5% and a 25-gauge needle. After this an 18- gauge Touhy epidural needle was placed into the C6-C7 interspace under fluroscopy guidance and advanced using loss of resistance to air until the epidural space was encountered. After confirmation of needle placement in the epidural space using contrast dye, a solution containing normal saline, 2 mL and Depo-Medrol 80 mg was incrementally injected into the cervical epidural space.~ The patient tolerated the procedure well with no complications. The patient was observed in the Pain Clinic and then discharged home neurologically intact. Plan and Disposition:: Patient was discharged without incident.
== END 2022-05-15 10:48 | disposition home or self-care (01) ==
PROVIDERS: PCP Nurse Practitioner; Visit Provider Nurse Anesthetist, Certified Registered
DX: M50.123 Cervical disc disorder at C6-C7 level with radiculopathy (principal)
CPT/HCPCS: 62321; J1040; Q9966

== ENCOUNTER → 2022-05-31 13:00 | Outpatient (POV) | payer MEDICARE, SELFPAY ==
[2022-05-31 13:27] VITALS: BP 149/99; PULSE 100; RESP 20; O2SAT 96; BMI 58.5
--- NOTE | 2022-05-31 13:28 | A.OFFVIS_ITS ---
[facility] Pain Management SOAP Note Subjective:: This patient is a very pleasant 41-year-old obese female that comes our clinic today for follow-up after receiving cervical epidural steroid injection at the C6-7 level. Patient injection was on 05/15/2022. She reports minimal relief in terms of her overall posterior cervical neck pain as well as bilateral arm radicular symptoms. She rates her pain 8/10 today. Patient has difficulty with flexion, extension left and right rotation in the cervical spine. Patient also complains of bilateral arm radicular symptoms. She describes her arms go numb . I discussed in detail with the patient regarding repeating the cervical epidural steroid injection. I answered her questions. She wishes to proceed. She describes her posterior cervical neck pain as constant, dull, aching, sharp and stabbing at times. She Objective:: Patient is awake alert [place] x3. In no acute distress. Flexion-extension lumbar and cervical spine somewhat guarded secondary to pain. Deep tendon reflexes upper and lower extremities normal. Motor strength upper and lower extremities normal. There is no gross sensory deficit. Gait is normal. Assessment:: Degenerative disc disease cervical spine multilevels. Cervical radiculopathy. Plan:: We will plan a second cervical epidural steroid injection. I discussed in detail with the patient regarding the injection. I answered her questions. She wishes to proceed. [facility] Disclaimer: The information contained in this section may have been updated after the patient was seen, as this information can be updated by other users. Medical History Allergic rhinitis Asthma Asthma Chronic cough COPD (chronic obstructive pulmonary disease) History of COPD Hypertension Pulmonary embolism Smoking greater than 30 pack years Surgical History H/O carpal tunnel repair H/O section H/O wisdom tooth extraction Hx of cholecystectomy Family History Other No significant family history Social History Smoking Status: Current every day smoker tobacco type: cigarettes packs per day: 1 second hand exposure: No alcohol intake: never substance use type: denies use current occupational status: other Travel in the last 8 weeks: None household members: spouse housing: apartment 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 current occupational exposures/hazards: No caffeine: Yes
== END ==
PROVIDERS: PCP Nurse Practitioner; Visit Provider Nurse Anesthetist, Certified Registered
DX: M50.123 Cervical disc disorder at C6-C7 level with radiculopathy (principal)
CPT/HCPCS: 99212; G0463

== ENCOUNTER → 2022-06-01 07:34 | Outpatient (CLI) | payer MEDICARE, SELFPAY | PROVIDERS: PCP Nurse Practitioner; Visit Provider Internal Medicine Pulmonary Disease | DX: R06.09 Other forms of dyspnea (principal) | CPT/HCPCS: 94060; 94618; 94726; 94729 ==

== ENCOUNTER → 2022-07-05 09:24 | Outpatient (POV) | payer MEDICARE, SELFPAY ==
--- NOTE | 2022-07-05 09:51 | EXP.PAIN.SOA ---
[facility] Pain Management SOAP Note Subjective:: Patient is a pleasant 41-year-old female who presents today for cervical epidural denial. We are currently treating the patient for degenerative disc disease of cervical spine multilevels with cervical radiculopathy symptoms. Today she rates her pain at a 9 out of 10. Patient denies any new trauma or injury. Patient denies any change location or type of pain she experiences. Patient states her pain is a aching, throbbing sensation that is worse with increased activity. Patient cannot tolerate activities such as bending, lifting or twisting due to the pain. She does have difficulty with flexion and extension and does state the pain interferes with her ability to perform activities of daily living such as cooking and cleaning. She states frequently when driving she has to turn her head and body together due to the worsening pain when trying to turn her head. Patient has tried [id number] Tylenol and ibuprofen along with heat and ice and topicals with minimal improvement. Patient denies any heart or kidney issues. Patient has had cervical epidurals in the past at C6-C7 with minimal relief. Patient is not on any scheduled medications. Her Shilo is [id number]. Its been reviewed and appropriate. Review of Systems: General: No recent weight changes, no fever, no sleep disturbances Respiratory: No cough, no shortness of air, no recurring pulmonary infections Cardiovascular/peripheral vascular: No chest pain, no palpitations, no edema, no shortness of breath Gastrointestinal: No new onset incontinence, normal bowel movements reported Genitourinary: No new onset incontinence Musculoskeletal: Neck pain Psychiatric: [Normal mood/affect] Neurological: [Denies weakness in extremities], [denies balance issues] Objective:: Physical Exam: General: Alert and oriented x3, no acute distress, pleasant and cooperative Lungs: Respirations even and unlabored, symmetrical chest expansion Eyes: PERRL Musculoskeletal: Flexion and extension of cervical [spine] somewhat guarded secondary to pain, [antalgic gait noted] positive Kemps test Neurological: Speech clear, no gross sensory deficit Assessment:: Degenerative disc disease of cervical spine with cervical radiculopathy symptoms, cervical facet arthropathy, spondylosis Plan:: Patient continues to experience significant pain in her neck with limited range of motion. Patient had a positive Kemps test during today's exam. I have discussed with the patient that she may benefit from a medial branch block of her cervical spine. Risk and benefits were discussed with the patient and she would like to proceed forward with this plan of care. Patient is not on any blood thinners. Patient has tried and failed conservative therapies such as oral medications, heat and ice, topicals, and at home stretching and exercise for longer than 6 weeks. Patient is unable to tolerate physical therapy due to significant comorbidities of asthma and COPD that are aggravated by physical therapy. We will schedule her for a medial branch block of her cervical spine bilaterally C4-5 and C5-6. I will also send in a prescription of diclofenac 75 mg twice daily with a 14-day supply of this medication. Patient has been counseled to take this medication with food to minimize GI upset and discontinue all other NSAIDs while taking this medication. If patient does not get significant relief we will look at ordering advanced imaging of her cervical spine. Patient has been instructed to contact the clinic with any concerns before the next appointment. Dr. Coleman has reviewed this note and agrees with this plan of care. This note was dictated using voice recognition software and make contain errors or omissions. [facility] Disclaimer: The information contained in this section may have been updated after the patient was seen, as this information can be updated by other users. Medical History Allergic rhinitis Ast
[2022-07-05 10:22] VITALS: BP 124/82; PULSE 99; RESP 18; O2SAT 98; BMI 42.0
== END | disposition home or self-care (01) ==
PROVIDERS: PCP Nurse Practitioner; Visit Provider Nurse Practitioner Family
DX: M50.123 Cervical disc disorder at C6-C7 level with radiculopathy (principal); M47.22 Other spondylosis with radiculopathy, cervical region
CPT/HCPCS: 99212; G0463

== ENCOUNTER 2022-07-17 09:18 | Day surgery (SDC) | payer MEDICARE, SELFPAY ==
[2022-07-17 09:43] VITALS: BP 156/95; PULSE 79; RESP 18; TEMP 36.2; O2SAT 97; BMI 54.8
[2022-07-17 10:31] VITALS: BP 151/99; PULSE 75; RESP 18
[2022-07-17 10:32] VITALS: BP 151/100; PULSE 75; RESP 18; O2SAT 97
--- NOTE | 2022-07-17 10:41 | P.PCN_ITS ---
Procedure Date: 07/17/22 Time: 10:40 Anesthesiologist:: Moisés Cook CRNA Complications:: None Pre-procedure Diagnosis:: Degenerative disc cervical spine multilevels. Cervical radiculopathy. Cervical spondylosis. Multilevel cervical facet arthropathy. Post-procedure Diagnosis:: Same. Indications for Procedure:: A very pleasant 41-year-old female comes our clinic today for medial branch blocks C4-5, C5-6 bilaterally. Patient has difficulty with flexion, extension, left and right rotation of the cervical spine. She rates her pain 7/10. Procedure Details:: Informed consent was obtained and the risk and benefits of the procedure was explained to the patient. Patient was taken to the procedure room where noninvasive monitors were placed, including noninvasive blood pressure cuff as well as pulse oximeter. The area over the posterior cervical spine was cleansed using chlorhexidine as a cleansing solution. I anesthetized the skin and subcutaneous tissues with 1% Lidocaine. I placed 25 -gauge spinal needles into the facet joint/ medial branches of C4-5, C5 bilaterally. Needle placement was confirmed with fluoroscopy. After confirmation of needle placement, each site was injected with 1 mL of 1% lidocaine and 0.25 % Marcaine and 10 mg of Depo- Medrol. A total of 20 mg of depo medrol was used for bilateral medial branch blocks of C4-5, C5-6 bilaterally. Patient tolerated the procedure without difficulty. There were no complications. Plan and Disposition:: Patient was discharged without incident.
[2022-07-17 10:45] VITALS: BP 147/92; PULSE 78; RESP 18; O2SAT 97
== END 2022-07-17 10:45 | disposition home or self-care (01) ==
PROVIDERS: PCP Nurse Practitioner; Visit Provider Nurse Anesthetist, Certified Registered
DX: M50.122 Cervical disc disorder at C5-C6 level with radiculopathy (principal); M47.22 Other spondylosis with radiculopathy, cervical region
CPT/HCPCS: 64490; 64491; J1040; Q9966

== ENCOUNTER 2022-12-27 18:30 | Emergency (ER) | payer MEDICARE, SELFPAY ==
[2022-12-27 18:45] VITALS: BP 121/92; PULSE 104; RESP 20; TEMP 37.2; O2SAT 96; BMI 53.0
--- NOTE | 2022-12-27 19:01 | EXP.UTC ---
Discharge Plan Disposition Patient Disposition: Home, Self-Care Condition: Good Prescriptions Prescriptions: New sulfamethoxazole-trimethoprim [Bactrim DS] 800-160 mg tablet 1 tab PO Q12H 7 Days Qty: 14 0RF phenazopyridine [Pyridium] 200 mg tablet 200 mg PO Q8H 2 Days Qty: 6 0RF No Action Trelegy Ellipta 200-62.5-25 mcg blister with device 1 inh inhalation DAILY 90 Days Qty: 90 3RF oxymetazoline [Nasal [place] (oxymetazoline)] 0.05 % spray,non-aerosol 2 spray intranasal Q12H PRN (Reason: BREATHING) ipratropium-albuterol 0.5 mg-3 mg(2.5 mg base)/3 mL solution for nebulization 3 ml inhalation Q6H PRN (Reason: shortness of breath or wheezing) Qty: 90 3RF diclofenac sodium 75 mg tablet,delayed release (DR/EC) 75 mg PO BID albuterol sulfate [Proventil HFA] 90 mcg/actuation HFA aerosol inhaler 1 inh inhalation Q6H PRN (Reason: shortness of breath or wheezing) Qty: 8.5 0RF montelukast 10 mg tablet 10 mg PO DAILY azelastine 137 mcg (0.1 %) aerosol,spray 2 spray intranasal HS Rx Instructions: administer into each nostril fluticasone propionate [Flonase Allergy Relief] 50 mcg/actuation spray,suspension 2 spray intranasal ONCE Rx Instructions: administer into each nostril Referrals Follow up/Referrals: Sylvie Winters APRN [Primary Care Provider] - See instructions Activity Restrictions/Add. Instructions Additional Instructions/Restrictions: *Increase fluids. Water not Soda or Tea *Start antibiotic immediately and be sure to take as ordered for the FULL length of time although you should start to see improvement over the next 48 hours *Pyridium as needed Remember this medication will turn your urine . This is normal but it will stain what ever it gets on *You should not use Pyridium for more than 48 hours. If so , follow up with your primary physician to review urine culture and ensure that antibiotic is adequate for infection *Be SURE to follow up anytime for new or worsening symptoms with your family doctor. AND in 48 hours for urine culture results with your family doctor, if you do not have a doctor then you may call back to the [facility] for urine culture results and further treatment. We do recommend that you choose and establish care with a Primary Care Physician. ?AND follow up with them ?in 10-14 days to repeat UA to ensure infection is resolved and blood no longer present *Be sure to let your PCP know that we sent urine cultures from the [facility] so they can follow up to ensure that you area the on the correct antibiotic Call your doctor office and make appointment for 48 hours (2 days from today) ?to follow up and get the results of your urine culture and further treatment Clinical Impressions Clinical Impression: UTI (urinary tract infection) Qualifiers: Urinary tract infection type: site unspecified Hematuria presence: with hematuria Qualified Code(s): N39.0 - Urinary tract infection, site not specified Instructions Patient Instructions: DI for Urinary Tract Infection (UTI), Urinary Tract Infection Discharge ED Provider: Deborah Root [facility] [place] HPI General Stated complaint: frequent, painful urination Mode of Arrival: Ambulatory Source of Information: Patient Limitations: No Limitations Time Seen by Provider: 12/27/22 19:01 Description of Symptoms (Recalled from Triage Doc. by RN): PATIENT C/O PAIN WITH URINATION AND LEFT SIDE PAIN X 2 DAYS HEENT Symptoms (Recalled from RN notes): No Resp Symptoms (Recalled from RN notes): No Skin Symptoms (Recalled from RN notes): No MS Symptoms (Recalled from RN notes): No Functional Status (Recalled from RN notes): WNL History of Present Illness Provider Complaint: Patient states that she has been having achy like feeling in her left side and burning with urination with frequency and urgency States that symptoms started about 2 days ago and has not improved States that she is just getting off her period and thought
[2022-12-27 19:16] LABS: Apearance,Urine Clear (Clear); Bilirubin,Urine Negative (Negative); Blood, Urine 3+ (Negative); Color,Urine Yellow (Yellow); Glucose,Urine (UA) Negative (Negative); Ketones,Urine Negative (Negative); Protein,Urine Negative (Negative); Specific Gravity, Urine 1.015 (1.005-1.030); UTC Leukocyte Esterase,Urine 1+ (Negative); UTC Nitrate,Urine Negative (Negative); Urobilinogen,Urine 0.2 EU/dl (0.2)
[2022-12-27 19:18] VITALS: BP 121/92; PULSE 104; RESP 20; TEMP 37.2; O2SAT 96
== END 2022-12-27 19:40 | disposition home or self-care (01) ==
PROVIDERS: Emergency Provider Nurse Practitioner; PCP Nurse Practitioner
DX: N39.0 Urinary tract infection, site not specified (principal); B96.20 Unspecified Escherichia coli [E. coli] as the cause of diseases classified elsewhere; R31.9 Hematuria, unspecified; F17.210 Nicotine dependence, cigarettes, uncomplicated; J44.9 Chronic obstructive pulmonary disease, unspecified; I10 Essential (primary) hypertension
CPT/HCPCS: 81003; 87086; 99212; 99214; G0463

== ENCOUNTER → 2023-01-04 10:01 | Outpatient (CLI) | payer MEDICARE, SELFPAY ==
--- NOTE | 2023-01-04 10:02 | CT_ITS ---
FINAL REPORT TECHNIQUE: Thin section axial images were obtained from the lung apices through the upper abdomen without contrast. This study was performed with techniques to keep radiation doses as low as reasonably achievable (ALARA). Individualized dose reduction techniques using automated exposure control or adjustment of mA and/or kV according to the patient's size were employed. CLINICAL HISTORY: COPD FINDINGS: There is no mediastinal, hilar, or axillary lymphadenopathy. No pleural or pericardial effusion. There is granulomatous disease. The lungs are otherwise clear. Limited, unenhanced evaluation of the upper abdomen is without acute abnormality. There is no acute osseous abnormality. IMPRESSION: No acute intrathoracic abnormality. Reviewed, Interpreted and Dictated by Heidi Garrett MD Transcribed by Latha Benz Authenticated and [facility]
[2023-01-07 15:09] LABS: Strongyloides IgG Antibody Negative (Negative)
[2023-01-09 19:09] LABS: Alpha-1-Antitrypsin 166 mg/dL (101-187)
== END ==
LOC: RAD 10:01
PROVIDERS: PCP Physician Assistant; Visit Provider Internal Medicine Pulmonary Disease
DX: J44.9 Chronic obstructive pulmonary disease, unspecified (principal); D72.19 Other eosinophilia
CPT/HCPCS: 36415; 71250; 82103; 82104; 86682

== ENCOUNTER 2023-02-18 19:45 | Inpatient (IN) | payer MEDICARE, MEDICAID, SELFPAY ==
[2023-02-18] VITALS (9 sets, daily range): BP systolic 150–172; BP diastolic 74–128; PULSE 74–100; RESP 18–35; TEMP 36.5–36.9; O2SAT 89–98; BMI 53.0; BMI 54.3
--- NOTE | 2023-02-18 19:50 | XR_ITS ---
PROCEDURE INFORMATION: Exam: XR Chest Exam date and time: 02/18/2023 7:52 PM Age: 42 years old Clinical indication: Cough and shortness of breath; Smoker's cough; Additional info: Cough. SOB TECHNIQUE: Imaging protocol: Radiologic exam of the chest. Views: 1 view. COMPARISON: CT CHEST WO CON 01/04/2023 10:03 AM FINDINGS: Lungs: Normal. Pleural spaces: Normal No pleural effusion. No pneumothorax. Heart/Mediastinum: Normal. No cardiomegaly. Bones/joints: Unremarkable. IMPRESSION: No acute findings.
--- NOTE | 2023-02-18 19:51 | ED_ITS ---
Discharge Plan Disposition Patient Disposition: Admitted Clinical Impressions Clinical Impression: COPD exacerbation, Sepsis, Hypoxic respiratory failure Discharge ED Provider: Todd Aguirre General Adult HPI General Chief complaint: Upper Respiratory Infection Stated complaint: SOA Time Seen by Provider: 02/18/23 19:50 History of Present Illness HPI narrative: Patient is a 42-year-old female past medical history of COPD not on home oxygen, on nocturnal CPAP. Patient also has history of chronic cough, smoking greater than 30 pack years. Over the last week she has had progressive cough and shortness of breath refractory to her DuoNebs at home. Due to persistent worsening shortness of breath and substernal chest pain she presents here for continued evaluation. Substernal chest pain was acute, earlier today. Vomiting onset over the last 1 hour that is nonbloody. No other acute complaints at this time. Related Data Home Medications Medication Instructions Recorded Confirmed oxymetazoline 0.05 % nasal spray 2 spray intranasal Q12H PRN 04/18/22 01/04/23 (Nasal [place] (oxymetazoline)) BREATHING azelastine 137 mcg (0.1 %) nasal 2 spray intranasal HS Breathing 05/07/22 01/04/23 spray aerosol problems fluticasone propionate 50 2 spray intranasal ONCE Breathing 05/07/22 01/04/23 mcg/actuation nasal problems spray,suspension (Flonase Allergy Relief) montelukast 10 mg tablet 10 mg PO DAILY ALLERGIES 05/07/22 01/04/23 Previous Rx's Medication Instructions Recorded albuterol sulfate 90 mcg/actuation 1 inh inhalation Q6H PRN shortness 01/02/22 aerosol inhaler (Proventil HFA) of breath or wheezing #8.5 grams ipratropium 0.5 mg-albuterol 3 mg 3 ml inhalation Q6H PRN shortness 04/18/22 (2.5 mg base)/3 mL nebulization of breath or wheezing #90 mL soln fluticasone fur. 200 mcg-umeclid 1 inh inhalation DAILY 90 days #90 09/25/22 62.5 mcg-vilant 25 mcg ea inhalat.powder (Trelegy Ellipta) phenazopyridine 200 mg tablet 200 mg PO Q8H pain 2 days #6 tabs 12/27/22 (Pyridium) sulfamethoxazole 800 1 tab PO Q12H 7 days #14 tabs 12/27/22 mg-trimethoprim 160 mg tablet (Bactrim DS) Allergies Allergy/AdvReac Type Severity Reaction Status Date / Time aspirin [ASPIRIN] Allergy Unknown Hives Verified 01/04/23 10:33 codeine [CODEINE] Allergy Unknown Hives Verified 01/04/23 10:33 Penicillins Allergy Hives Verified 01/04/23 10:33 Grape Jelly Allergy Severe Difficulty Uncoded 01/04/23 10:33 Breathing PFSH PFSH Disclaimer: The information contained in this section may have been updated after the patient was seen, as this information can be updated by other users. Medical History Allergic rhinitis Asthma Asthma Chronic cough COPD (chronic obstructive pulmonary disease) COPD mixed type Dyspnea on exertion History of COPD Hypertension Moderate persistent asthma Peripheral eosinophilia Pulmonary embolism Shortness of Breath Smoking greater than 30 pack years Surgical History H/O carpal tunnel repair H/O section H/O wisdom tooth extraction Hx of cholecystectomy Family History Other No significant family history Social History Smoking Status: Unknown if ever smoked second hand exposure: No alcohol intake: never substance use type: denies use current occupational status: other Travel in the last 8 weeks: None household members: spouse housing: apartment 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 current occupational exposures/hazards: No caffeine: Yes ROS Obtained: Yes Systems reviewed as appropriate & no additional complaints except as documented Physical Exam General General appearance: alert and other (In acute distress) Head Head exam: atraumatic and normocephalic Eye Eye exam: Present PERRL and EOMI ENT ENT exam: Present mucous membranes moist Neck Neck exam: Present normal inspection Chest Chest inspection: Present normal inspection and symmetric chest wall rise Respiratory Respiratory exam: Present respiratory distress, wheezes and other (Decreased air movement in all lung field) Cardiovascular Cardiovascular exam: Present regular rate and normal rhythm Abdominal Exam Abdominal exam: Present soft; Absent tenderness Extremities Exam Extremities exam: Present normal inspection Neurological Exam Neurological exam: Present alert Psychiatric Psychiatric exam: Present normal affect Skin Skin exam: Present warm and dry Medical Decision Making Shilo Inquiry Pt receiving controlled substance: No Vital Signs: 02/18/23 19:50 02/18/23 20:49 02/18/23 20:49 Temperature 97.8 F Temperature Source Oral Pulse Rate 74 74 Pulse Rate [Right Brachial] 100 H Respiratory Rate 26 H Blood Pressure Blood Pressure [Right Arm] 150/128 H Blood Pressure Mean Blood Pressure Mean [Right Arm] 135 Blood Pressure Source Blood Pressure Source [Right Arm] Automatic Cuff Blood Pressure Position Blood Pressure Position [Right Arm] Sitting 02 Sat by Pulse Oximetry 96 Oxygen Delivery Method Room Air Oxygen Flow Rate (LPM) 02/18/23 19:47 02/18/23 19:55 02/18/23 20:11 Temperature Temperature Source Pulse Rate 96 H 96 H Pulse Rate [Right Brachial] Respiratory Rate 35 H Blood Pressure 150/128 H 163/100 H 172/100 H Blood Pressure [Right Arm] Blood Pressure Mean 133 121 113 Blood Pressure Mean [Right Arm] Blood Pressure Source Blood Pressure Source [Right Arm] Blood Pressure Position Blood Pressure Position [Right Arm] 02 Sat by Pulse Oximetry 95 89 L 94 L Oxygen Delivery Method Non-Rebreather Nasal Cannula Venturi Mask Oxygen Flow Rate (LPM) 3 02/18/23 20:50 02/18/23 21:08 Temperature 97.7 F Temperature Source Oral Pulse Rate 80 80 Pulse Rate [Right Brachial] Respiratory Rate 22 22 Blood Pressure 150/74 H 150/74 H Blood Pressure [Right Arm] Blood Pressure Mean 99 Blood Pressure Mean [Right Arm] Blood Pressure Source Automatic Cuff Blood Pressure Source [Right Arm] Blood Pressure Position Left Lateral Blood Pressure Position [Right Arm] 02 Sat by Pulse Oximetry 95 Oxygen Delivery Method BiPAP BiPAP Oxygen Flow Rate (LPM) Lab Data Lab Results 02/18/23 19:50: VBG pH 7.28 L, VBG pCO2 72.3 H, VBG pO2 70.3 H, VBG HCO3 33.5 H, VBG Total CO2 35.7 H, VBG O2 Saturation 91.7 H, VBG Base Excess 6.8 H 02/18/23 19:58: WBC 24.4 H*, RBC 4.68, Hgb 14.8, Hct 44.6, MCV 95.4, MCH 31.7 H, MCHC 33.2, RDW 16.4, Plt Count 380, MPV 7.8, Neut % (Auto) 81.7 H, Lymph % (Auto) 11.1, [place] % (Auto) 5.3, Eos % (Auto) 1.5, Baso % (Auto) 0.4, Neut # (Auto) 19.9 H, Lymph # (Auto) 2.7, [place] # (Auto) 1.3 H, Eos # (Auto) 0.4, Baso # (Auto) 0.1, Total Counted 100, Neutrophils % (Manual) 82 H, Lymphocytes % (Manual) 11, Monocytes % (Manual) 6, Eosinophils % (Manual) 1, Platelet Estimate Normal, Anisocytosis 1+, Macrocytosis 1+, Ovalocytes 1+, Sodium 137, Potassium 3.3 L, Chloride 94 L, Carbon Dioxide 33 H, Anion Gap 13.3, BUN 12, Creatinine 0.70, Estimated Creat Clear 82, Estimated GFR 91, Est GFR ( Amer) 111, Glucose 227 H, Lactate 1.7, Calcium 8.1 L, Total Bilirubin 0.4, AST 30, ALT 26, Alkaline Phosphatase 102, Troponin I < 0.01, NT-Pro-B Natriuret Pep 88.7, Total Protein 7.3, Albumin 4.1, Globulin 3.2, Albumin/Globulin Ratio 1.3, Lipase 53 02/18/23 20:16: SARS-CoV-2 (PCR) Not detected, Influenza A Untype (PCR) Not detected, Influenza Type B (PCR) Not detected 02/18/23 19:58 02/18/23 19:58 Orders (Tests/Meds): ED MEDICATIONS Generic Name Dose Route Start Last Admin Trade Name Freq PRN Reason Stop Dose Admin Acetaminophen 650 mg 02/18/23 20:37 Acetaminophen 325mg Tab PO 03/20/23 20:36 Q4HP PRN Fever or Mild Pain (1-3) Albuterol/Ipratropium 3 ml 02/19/23 00:00 Ipratropium/Albuterol 3 Ml Neb IH 03/21/23 00:00 Q6RT SEJAL Sodium Chloride 1,500 mls @ 750 mls/hr 02/18/23 20:15 02/18/23 20:35 Sod Chlor 0.9% 1000ml Bag 30 ml/kg infuse over 2 hr (1500 ml) 02/18/23 22:14 750 mls/hr IV Administration .Q2H ONE Levofloxacin/Dextrose 750 mg in 150 mls @ 100 mls/hr 02/18/23 21:00 Levofloxacin 750mg/150ml Premix IV 02/28/23 20:59 Q24H SEJAL Nicotine 21 mg 02/18/23 20:37 Nicotine 21mg/24hr Patch TD 03/20/23 20:36 DAILYP PRN Nicotine Cravings Pantoprazole Sodium 40 mg 02/18/23 20:45 Pantoprazole 40mg Tablet PO 03/20/23 20:44 DAILY SEJAL Discontinued Medications Generic Name Dose Route Start Last Admin Trade Name Freq PRN Reason Stop Dose Admin Albuterol/Ipratropium 9 ml 02/18/23 19:50 02/18/23 20:48 Ipratropium/Albuterol 3 Ml Neb IH 02/18/23 19:51 9 ml ONCE ONE Administration Azithromycin 500 mg/ Sodium 250 mls @ 250 mls/hr 02/18/23 20:13 Chloride IV 02/18/23 20:14 ONCE ONE Ceftriaxone Sodium 1 gm/ 50 mls @ 100 mls/hr 02/18/23 20:14 02/18/23 20:47 Sodium Chloride IV 02/18/23 20:43 100 mls/hr ONCE ONE Administration Methylprednisolone Sodium Succinate 125 mg 02/18/23 19:50 02/18/23 20:12 Methylprednisolone Sod Succ 125mg Vial IV 02/18/23 19:51 125 mg ONCE ONE Administration Ondansetron HCl 4 mg 02/18/23 20:12 02/18/23 20:13 Ondansetron 4mg/2ml Vial IV 02/18/23 20:13 4 mg ONCE ONE Administration ORDERS Category Date Time Status CXR --portable [XR chest portable] Stat Exams 02/18/23 19:50 Completed BNP [Brain Natriuretic Peptide] Stat Lab 02/18/23 19:58 Completed CBC w/Auto Diff [Complete Blood Count Auto Diff] Stat Lab 02/18/23 19:58 Completed CMP [Comprehensive Metabolic Panel] Stat Lab 02/18/23 19:58 Completed Complete Blood Count Auto Diff AMLAB Lab 02/19/23 06:00 Ordered Comprehensive Metabolic Panel AMLAB Lab 02/19/23 06:00 Ordered Lactic Acid Stat Lab 02/18/23 19:58 Completed Lipase Stat Lab 02/18/23 19:58 Completed Rapid PCR Covid and Flu A/B Stat Lab 02/18/23 20:16 Completed Trop I [Troponin I] Stat Lab 02/18/23 19:58 Completed Troponin I Q3H Lab 02/18/23 23:00 Ordered Troponin I Q3H Lab 02/19/23 02:00 Ordered Blood Culture Stat Micro 02/18/23 20:50 Received VBG [Venous Blood Gas] Stat RT 02/18/23 19:50 Completed EKG Request [ECG Request] Stat Y 02/18/23 19:50 Ordered ECG Data Tracing #1: Independently interpreted by me, rate is 80, rhythm is regular, axis is normal, no ST elevation in anatomical contiguous leads, significant wandering, QTc 410. HEART Score History (anamnesis): Slightly suspicious ECG: Non-specific disturbance Age: <45 years Risk factors: 3 or more risk factors Troponin: </= normal limit HEART Score: 3 Medical Decision Narrative: In summary patient is a 42-year-old female past medical history described above who presents emergency department for evaluation of shortness of breath, cough, chest pain. Patient is hemodynamically stable and in respiratory distress upon arrival, on nonrebreather saturating greater than 90%. I suspect patient is having a significant COPD exacerbation. Differential diagnosis includes pneumonia, ACS, among others. Workup will be conducted with hematologic labs, viral swab, VBG, chest x-ray, EKG, troponins. Initial interventions include DuoNeb's x 3, methylprednisolone. Initial workup reviewed by me, significant leukocytosis. Chest x-ray informally interpreted by me and it appears that there is opacities in the right lower lobe however this is confounded by patient's body habitus. Formal read shows no acute pathology. Patient meets sepsis criteria and will be started on ceftriaxone and azithromycin as well as given sepsis bolus fluids. Patient's VBG shows hypercarbic acidosis for which patient will be placed on moderate BiPAP settings. There is no SYLVIA. Initial troponin below detectable limit. Patient oxygen requirement was between 6 L nasal cannula and Ventimask. Case was discussed with hospital medicine regard ing management and patient will be admitted to her service for continued evaluation at this time. Critical Care Critical Care Time Critical Care Time: Yes Attestation: On 02/18/23, the high probability of a clinically significant, sudden or life threatening deterioration of the following system(s) required my full and direct attention, intervention and personal management. The time I documented below is in addition to time spent performing reported procedures but includes the following listed in this critical care notation. Total Time Total Critical Care Time: 35
--- NOTE | 2023-02-18 19:52 | ECG_ITS ---
APPROVED REPORT Exam: Resting ECG HR:80 bpm ECG Measurements Heart Rate 80 AXES NE 148 P 72 QRSd 97 QRS 69 QT 375 T 83 QTc 410 Conclusion SINUS RHYTHM WITH SINUS ARRHYTHMIA NORMAL ECG UNCONFIRMED REPORT Electronically signed by : Miller Dee MD 02/20/2023 09:03:34
--- NOTE | 2023-02-18 20:05 | PC.NURSE ---
Patient was placed on 3LNC and patient trended down to spo2 of 85%, titrated up to 4LNC, notified provider and spoke with respiratory. Plan to place on venti mask and titrate at this time.
[2023-02-18 20:10] LABS: Basophils # 0.1 K/mm3 (0-0.2); Basophils % 0.4 % (0.1-2.0); Eosinophils # 0.4 K/mm3 (0.0-0.4); Eosinophils % 1.5 % (0.1-12.0); Hematocrit 44.6 % (37.0-47.0); Hemoglobin 14.8 g/dL (12.2-16.2); Lymphocytes # 2.7 K/mm3 (0.7-4.5); Lymphocytes % 11.1 % (10-50); Mean Corpuscular HGB Conc 33.2 g/dL (31.8-35.4); Mean Corpuscular Hemoglobin 31.7 pg (27.0-31.2); Mean Corpuscular Volume 95.4 fl (81-99); Mean Platelet Volume 7.8 fl (7.4-10.4); Monocytes # 1.3 K/mm3 (0.1-1.0); Monocytes % 5.3 % (1.7-9.3); Neutrophils # 19.9 K/mm3 (1.8-7.8); Neutrophils % 81.7 % (37.0-80.0); Platelet Count 380 K/mm3 (142-424); Red Blood Count 4.68 M/mm3 (4.20-5.40); Red Cell Distribution Width 16.4 % (11.5-17.5); White Blood Count 24.4 K/mm3 (4.8-10.8)
[2023-02-18] MEDS: METHYLPREDNISOLONE SOD SUCC 125MG VIAL 125 MG IV (20:12)
[2023-02-18] MEDS: ONDANSETRON 4MG/2ML VIAL 4 MG IV (20:13)
[2023-02-18 20:15] LABS: MANUAL DIFFERENTIAL MANUAL DIFFERENTIAL (MANUAL DIFF)
[2023-02-18 20:15] LABS: VBG Base Excess 6.8 mmol/L (-2.4-2.3); VBG HCO3 33.5 mmol/L (23-30); VBG Oxygen Saturation 91.7 % (50-70); VBG PH 7.28 mmol/L (7.31-7.41); VBG PO2 70.3 mmol/L (28-40); VBG Total CO2 35.7 mmol/L (23-27)
[2023-02-18 20:17] LABS: Lipase 53 U/L (23-300)
[2023-02-18 20:18] LABS: Alanine Aminotransferase 26 U/L (12-78); Alkaline Phosphatase 102 U/L (38-126); Aspartate Amino Transferase 30 U/L (14-36); Bilirubin,Total 0.4 mg/dl (0.2-1.3); Blood Urea Nitrogen 12 mg/dl (7-17); Chloride 94 mmol/L (98-107); Creatinine Clearance Estimated 82 mL/min (50-200); Estimated Glomerular Filt Rate 91 ml/min (>60); GFR (African American) 111 ML/MIN (>60)
[2023-02-18 20:19] LABS: Albumin Level 4.1 g/dl (3.5-5.0); Albumin/Globulin Ratio 1.3 (1.1-1.8); Calcium 8.1 mg/dl (8.4-10.2); Globulin 3.2 g/dL (1.3-3.2); Glucose 227 mg/dl (74-100); Potassium 3.3 mmoL/L (3.5-5.1); Sodium 137 mmol/L (136-145); Total Protein,Serum 7.3 g/dl (6.3-8.2)
[2023-02-18 20:20] LABS: VBG PCO2 72.3 mmol/L (35-51)
[2023-02-18 20:21] LABS: Coronavirus 19, PCR Not Detected (NotDetected); Influenza A, PCR Not Detected (NotDetected); Influenza B, PCR Not Detected (NotDetected)
--- NOTE | 2023-02-18 20:21 | PC.NURSE ---
Patient spo2 96% on 50% fio2 via venti mask at this time. Patient had episode of nausea and emesis and reports that she was incontinent of urine and stool at this time. Patient appears diaphoretic and continues to report shortness of breath.
[2023-02-18 20:26] LABS: Anion Gap 13.3 mEq/L (5-15); Carbon Dioxide 33 mmol/L (22.0-30.0)
[2023-02-18 20:28] LABS: Lactic Acid 1.7 mmol/L (0.7-2.1)
[2023-02-18 20:30] LABS: NT Pro Brain Natriuretic Pep. 88.7 pg/mL (0-125)
[2023-02-18 20:31] LABS: Troponin I < 0.01 ng/ml (0.00-0.034)
[2023-02-18] MEDS: 0.9 % SODIUM CHLORIDE 1000ML 1,500 ML 750 ML IV (20:35)
[2023-02-18 20:36] LABS: Anisocytosis 1+; Eosinophils % 1 % (0-3); Lymphocytes % 11 % (10-50); Macrocytosis 1+; Monocytes % 6 % (2-9); Neutrophils % 82 % (42-76); Platelet Estimate Normal; Total Cells Counted 100
--- NOTE | 2023-02-18 20:36 | PC.NURSE ---
I called and requested a bed for admission from Kosta GUERRERO, assistant warehouse manager.
[2023-02-18 20:37] LABS: Ovalocytes 1+
--- NOTE | 2023-02-18 20:39 | EXP.HP ---
History of Present Illness *Admission Date: 02/18/23 *Reason for visit:: SOB *History of present illness: This is a 42-year-old female morbidly obese with significant PMHx of COPD not on home oxygen, ABILIO on nocturnal CPAP, chronic cough, smoking greater than 30 pack years. Over the last week she has had progressive cough and shortness of breath refractory to her DuoNebs at home. Due to persistent worsening shortness of breath and substernal chest pain she presents here for continued evaluation. Substernal chest pain was acute, earlier today. Vomiting onset over the last 1 hour that is nonbloody. No other acute complaints at this time. Admitted for treatment and management. [facility] Disclaimer: The information contained in this section may have been updated after the patient was seen, as this information can be updated by other users. Medical History Allergic rhinitis Asthma Asthma Chronic cough COPD (chronic obstructive pulmonary disease) COPD mixed type Dyspnea on exertion History of COPD Hypertension Moderate persistent asthma Peripheral eosinophilia Pulmonary embolism Shortness of Breath Smoking greater than 30 pack years Surgical History H/O carpal tunnel repair H/O section H/O wisdom tooth extraction Hx of cholecystectomy Family History Other No significant family history Social History (Updated 02/19/23 @ 02:24 by Tammy Bond RN) Smoking Status: Current every day smoker tobacco type: cigarettes packs per day: 1 second hand exposure: No alcohol intake: never substance use type: denies use current occupational status: other Travel in the last 8 weeks: None household members: spouse housing: apartment 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 current occupational exposures/hazards: No caffeine: Yes Review of Systems Review of Systems Review of systems:: pertinent systems reviewed and negative unless documented below Meds Home Medications and Allergies Home Medications Medication Instructions Recorded Confirmed Type albuterol sulfate 2.5 mg/3 mL 2.5 mg continuous nebulization 02/19/23 02/19/23 History (0.083 %) solution for nebulization QIDP PRN Breathing Problems albuterol sulfate 90 mcg/actuation 2 puff inhalation TIDP PRN 02/19/23 02/19/23 History aerosol inhaler Shortness Of Breath Or Wheezing azelastine 137 mcg (0.1 %) nasal 2 spray intranasal BID 02/19/23 02/19/23 History spray aerosol cariprazine 1.5 mg capsule 1.5 mg PO DAILY 02/19/23 02/19/23 History (Vraylar) duloxetine 30 mg capsule,delayed 30 mg PO DAILY 02/19/23 02/19/23 History release fluticasone fur. 100 mcg-umeclid 1 inh inhalation DAILY 02/19/23 02/19/23 History 62.5 mcg-vilant 25 mcg inhalat.powder (Trelegy Ellipta) fluticasone propionate 50 1 spray intranasal DAILY 02/19/23 02/19/23 History mcg/actuation nasal spray,suspension montelukast 10 mg tablet 10 mg PO DAILY 02/19/23 02/19/23 History prednisone 20 mg tablet 20 mg PO BID 02/19/23 02/19/23 History propranolol 60 mg capsule,24 60 mg PO DAILY 02/19/23 02/19/23 History hr,extended release sumatriptan succinate 100 mg tablet 100 mg PO NEEDED PRN Migraine 02/19/23 02/19/23 History Headache New Prescriptions to Start Prescriptions: Allergies Allergy/AdvReac Type Severity Reaction Status Date / Time aspirin [ASPIRIN] Allergy Unknown Hives Verified 01/04/23 10:33 codeine [CODEINE] Allergy Unknown Hives Verified 01/04/23 10:33 Penicillins Allergy Hives Verified 01/04/23 10:33 Grape Jelly Allergy Severe Difficulty Uncoded 01/04/23 10:33 Breathing Exam Data for Last 24 hours Vital signs and Labs for Last 24 Hours: Temp Pulse Resp BP Pulse Ox O2 Del Method 97.8 F 100 H 26 H 150/128 H 96 Room Air 02/18/23 19:50 02/18/23 19:50 02/18/23 19:50 02/18/23 19:50 02/18/23 19:50 02/18/23 19:50 Laboratory Results - last 24 hr 02/18/23 19:50: VBG pH 7.28 L, VBG pCO2 72.3 H, VBG pO2 70.3 H, VBG HCO3 33.5 H, VBG Total CO2 35.7 H, VBG O2 Saturation 91.7 H, VBG Base Excess 6.8 H 02/18/23 19:58: WBC 24.4 H*, RBC 4.68, Hgb 14.8, Hct 44.6, MCV 95.4, MCH 31.7 H, MCHC 33.2, RDW 16.4, Plt Count 380, MPV 7.8, Neut % (Auto) 81.7 H, Lymph % (Auto) 11.1, [place] % (Auto) 5.3, Eos % (Auto) 1.5, Baso % (Auto) 0.4, Neut # (Auto) 19.9 H, Lymph # (Auto) 2.7, [place] # (Auto) 1.3 H, Eos # (Auto) 0.4, Baso # (Auto) 0.1, Total Counted 100, Neutrophils % (Manual) 82 H, Lymphocytes % (Manual) 11, Monocytes % (Manual) 6, Eosinophils % (Manual) 1, Platelet Estimate Normal, Anisocytosis 1+, Macrocytosis 1+, Ovalocytes 1+, Sodium 137, Potassium 3.3 L, Chloride 94 L, Carbon Dioxide 33 H, Anion Gap 13.3, BUN 12, Creatinine 0.70, Estimated Creat Clear 82, Estimated GFR 91, Est GFR ( Amer) 111, Glucose 227 H, Lactate 1.7, Calcium 8.1 L, Total Bilirubin 0.4, AST 30, ALT 26, Alkaline Phosphatase 102, Troponin I < 0.01, NT-Pro-B Natriuret Pep 88.7, Total Protein 7.3, Albumin 4.1, Globulin 3.2, Albumin/Globulin Ratio 1.3, Lipase 53 I & O for Last 24 hours: Intake & Output 02/15/23 02/16/23 02/17/23 02/18/23 23:59 23:59 23:59 23:59 Weight 131.542 kg Constitutional Constitutional: moderate distress, cooperative and somnolent *Routine HEENT Exam Head: Present normocephalic and atraumatic Eye: Present EOMI, PERRL and normal accommodation ENT: Present mucous membranes moist *Routine Neck Exam Neck: Present supple, full ROM and trachea midline *Routine Respiratory Exam Respiratory: Present decreased breath sounds, prolonged expiratory phase, respiratory distress, wheezes and diminished air movement *Routine Cardiovascular Exam Cardiovascular: Present RRR, Normal S1, Normal S2 and tachycardia *Routine Abdominal Exam Abdominal: Present soft, normoactive bowel sounds and obese; Absent organomegaly *Routine Rectal Exam Rectal:: deferred *Routine Genitalia Exam Genitalia:: deferred *Routine Extremities Exam Extremities: Present full ROM and pulses intact; Absent cyanosis, clubbing or edema *Routine Skin Exam Skin: Present intact, dry and warm *Routine Neurological Exam Neurological: Present alert, oriented X3, normal reflexes, moving all extremities and normal speech Routine Psychiatric Exam Psychiatric: Present normal thought process, cooperative and good judgment H&P: Result Imaging and Cardiology CT scan - chest: Status: image reviewed by me, Preliminary report and final report EKG: Status: image reviewed by me and Preliminary report Assessment and Plan *Assessment and plan (1) Respiratory failure with hypercapnia: Status: Acute Qualifiers: Chronicity: acute on chronic Qualified Code(s): J96.22 - Acute and chronic respiratory failure with hypercapnia Category: Medical Code(s): J96.92 - Respiratory failure, unspecified with hypercapnia (2) COPD exacerbation: Status: Acute Category: Medical Code(s): J44.1 - Chronic obstructive pulmonary disease with (acute) exacerbation (3) Leukocytosis: Status: Acute Qualifiers: Leukocytosis type: unspecified Qualified Code(s): D72.829 - Elevated white blood cell count, unspecified Category: Medical Code(s): D72.829 - Elevated white blood cell count, unspecified (4) Smoking greater than 30 pack years: Status: Chronic Category: Social Hx Code(s): F17.210 - Nicotine dependence, cigarettes, uncomplicated (5) Morbid obesity with BMI of 50.0-59.9, adult: Status: Acute Category: Medical Code(s): E66.01 - Morbid (severe) obesity due to excess calories; Z68.43 - Body mass index [BMI] 50.0-59.9, adult Plan 42-year-old female morbidly obese with significant PMHx of COPD not on home oxygen, ABILIO on nocturnal CPAP, chronic cough, smoking greater than 30 pack years. Over the last week she has had progressive cough and shortness of breath refractory to her DuoNebs at home. on Arrival initial interventions include DuoNeb's x 3, methylprednisolone. labs are significant leukocytosis. CXR obatined. reviewed. Patient met sepsis criteria and was started on ceftriaxone and azithromycin as well as given sepsis bolus fluids. Patient's VBG shows hypercarbic acidosis for which patient was placed on moderate BiPAP settings. Discussed with the ER provider fpor admission. Plan as follow: -Acute on chronic respiratory failure with hypercapnia, COPD exacerbation: Admit patient on BIpap . Pulmonology consulted Douneb q6h Iv solumedrol given at ER monitor O2 sat repeat ABG - Leukocytosis: to r/o PNA vs inflamatory reaction zithro and ceft IV given at ER started on levaquin IV repeat and monitor CBC sputum culture -tobacco dependance: On nicotine patch Morbid obesity> Lovenox for DVT ppx. On protonix Full code Rounded on patient after nurse practitioner. Personally examined and interviewed patient. Agree with exam findings and care plan as documented.
[2023-02-18] MEDS: CEFTRIAXONE 1 GM 1 GM in 0.9 % SODIUM CHLORIDE 50 ML IV (20:47)
[2023-02-18] MEDS: IPRATROPIUM/ALBUTEROL 3 ML NEB 9 ML IH (20:48)
--- NOTE | 2023-02-18 21:05 | PC.NURSE ---
Nurse to nurse report to Candie GUERRERO.
[2023-02-18] MEDS: AZITHROMYCIN 500 MG in 0.9 % SODIUM CHLORIDE 250 ML 250 MG IV (22:33)
[2023-02-18] MEDS: IPRATROPIUM/ALBUTEROL 3 ML NEB IH (22:55)
[2023-02-18 23:15] LABS: Troponin I < 0.01 ng/ml (0.00-0.034)
[2023-02-18] MEDS: LEVOFLOXACIN/D5W 750 MG/150 ML 750 MG/150 ML PIGGYBACK 100 MG IV (23:38)
[2023-02-19] VITALS (15 sets, daily range): BP systolic 112–148; BP diastolic 56–77; PULSE 69–100; RESP 18–30; TEMP 36.3–37.4; O2SAT 87–98; BMI 53.7
[2023-02-19 02:14] LABS: ABG Base Excess 1.2 mmol/L (-2.4-2.3); ABG HCO3 27.7 mmhg (22.0-26.0); ABG Oxygen Saturation 98 % (90-100); ABG PH 7.29 mmol/L (7.35-7.45); ABG PO2 101.8 mmhg (80-100); ABG TCO2 29.5 mmhg (23-27)
[2023-02-19 02:16] LABS: Oxygen 40 %
[2023-02-19 02:17] LABS: Allen's Test Acceptable; Source Left Radial; Vent Rate 18
[2023-02-19 02:19] LABS: ABG PCO2 58.4 mmhg (35.0-45.0)
[2023-02-19 02:51] LABS: Troponin I < 0.01 ng/ml (0.00-0.034)
[2023-02-19] MEDS: IPRATROPIUM/ALBUTEROL 3 ML NEB IH ×5 (06:12→21:38)
[2023-02-19] MEDS: ACETAMINOPHEN 325MG TAB 650 MG PO (06:51)
[2023-02-19 06:59] LABS: Basophils % 0.1 % (0.1-2.0); Hematocrit 42.8 % (37.0-47.0); Hemoglobin 13.8 g/dL (12.2-16.2); Lymphocytes # 0.5 K/mm3 (0.7-4.5); Lymphocytes % 2.5 % (10-50); Mean Corpuscular HGB Conc 32.3 g/dL (31.8-35.4); Mean Corpuscular Hemoglobin 31.3 pg (27.0-31.2); Mean Corpuscular Volume 96.7 fl (81-99); Mean Platelet Volume 7.4 fl (7.4-10.4); Monocytes # 0.4 K/mm3 (0.1-1.0); Monocytes % 2.1 % (1.7-9.3); Neutrophils # 19.7 K/mm3 (1.8-7.8); Neutrophils % 95.2 % (37.0-80.0); Platelet Count 284 K/mm3 (142-424); Red Blood Count 4.42 M/mm3 (4.20-5.40); Red Cell Distribution Width 16.5 % (11.5-17.5); White Blood Count 20.7 K/mm3 (4.8-10.8)
[2023-02-19 07:09] LABS: Chloride 93 mmol/L (98-107); Potassium 4.2 mmoL/L (3.5-5.1); Sodium 135 mmol/L (136-145)
[2023-02-19 07:10] LABS: MANUAL DIFFERENTIAL MANUAL DIFFERENTIAL (MANUAL DIFF)
[2023-02-19 07:11] LABS: Alanine Aminotransferase 31 U/L (12-78); Aspartate Amino Transferase 30 U/L (14-36); Blood Urea Nitrogen 12 mg/dl (7-17); Creatinine Clearance Estimated 109 mL/min (50-200); Estimated Glomerular Filt Rate 135 ml/min (>60); GFR (African American) 163 ML/MIN (>60)
[2023-02-19 07:12] LABS: Albumin/Globulin Ratio 1.3 (1.1-1.8); Alkaline Phosphatase 96 U/L (38-126); Anion Gap 12.2 mEq/L (5-15); Bilirubin,Total 0.5 mg/dl (0.2-1.3); Carbon Dioxide 34 mmol/L (22.0-30.0); Globulin 3.1 g/dL (1.3-3.2); Glucose 185 mg/dl (74-100); Total Protein,Serum 7.1 g/dl (6.3-8.2)
[2023-02-19 07:54] LABS: Lymphocytes % 1 % (10-50); Monocytes % 1 % (2-9); Neutrophils % 98 % (42-76); Platelet Estimate Normal; RBC Morphology Normal; Total Cells Counted 100
--- NOTE | 2023-02-19 08:33 | PC.NURSE ---
PT STATS AT 87 ON ROOM AIR. PT WAS LAYING IN BED RESTING AT THIS TIME.
[2023-02-19 09:04] LABS: Adenovirus,PCR Not Detected (NotDetected); Coronavirus 19, PCR Not Detected (NotDetected); Coronavirus 229E Not Detected (NotDetected); Coronavirus NL63 Not Detected (NotDetected); Coronavirus OC43 Not Detected (NotDetected); Coronovirus HKU1,PCR Not Detected (NotDetected); Human Metapneumovirus Not Detected (NotDetected); Influenza A, PCR Not Detected (NotDetected); Influenza AH1, 2009 Not Detected (NotDetected); Influenza AH1, PCR Not Detected (NotDetected); Influenza AH3,PCR Not Detected (NotDetected); Influenza B, PCR Not Detected (NotDetected); Parainfluenza 1, PCR Not Detected (NotDetected); Parainfluenza 2, PCR Not Detected (NotDetected); Parainfluenza 3, PCR Not Detected (NotDetected); Parainfluenza 4, PCR Not Detected (NotDetected); Respiratory Syncytial Virus Not Detected (NotDetected); Rhinovirus/Enterovirus Not Detected (NotDetected)
[2023-02-19] MEDS: PANTOPRAZOLE 40MG TABLET 40 MG PO (09:21)
[2023-02-19] MEDS: predniSONE 20MG TAB 40 MG PO (09:21)
[2023-02-19 10:47] LABS: ABG Base Excess 5.9 mmol/L (-2.4-2.3); ABG HCO3 31.3 mmhg (22.0-26.0); ABG Oxygen Saturation 94 % (90-100); ABG PH 7.36 mmol/L (7.35-7.45); ABG PO2 69.1 mmhg (80-100); ABG TCO2 33.1 mmhg (23-27)
[2023-02-19 10:54] LABS: ABG PCO2 56.7 mmhg (35.0-45.0); Allen's Test ACCEPTABLE; Oxygen 30 %; Source L RADIAL; Vent Rate 18
--- NOTE | 2023-02-19 13:06 | HMH.PHAINT1 ---
Pharmacy Intervention Comments: Home med list verified with patient and family at bedside and with external pharmacy list
--- OUTSIDE RECORDS SUMMARY | 2023-02-19 14:51 | XMS_ITS | Continuity of Care Document ---
Author Name Unknown Address [address], [place] [id number] Organization [facility] Phone Care Team Providers Care Anodic Treater Name Role Phone ALYSSA CAIN Primary Attending ALYSSA CAIN Unavailable MARY ELLEN HENNING Primary Care ALYSSA CAIN Admitting ALLERGIES AND ADVERSE REACTIONS ALLERGIES AND ADVERSE REACTIONS Code System Allergy Substance Adverse Reaction Date Reaction (Severity) Comment Status Reported By Updated By [id number] RXNorm PENICILLIN Rash active [id number] on September 24, 2019 2:13:35 AM [place] 2670 RXNorm CODEINE Adverse reaction to substance throat closing active [id number] on September 24, 2019 2:13:35 AM UTC 1191 RXNorm ASPIRIN Rash active [id number] on September 24, 2019 2:13:35 AM UTC GRAPE JELLY (Free Text Allergy) Rash throat closing active [id number] on September 24, 2019 2:13:35 AM UTC ASSESSMENTS Asthma ; Chronic obstructive lung disease ; Diarrhea ; Obstructive sleep apnea syndrome ; PROBLEMS PATIENT PROBLEMS Code Description/Comments Status Updated By [id number] Asthma active [id number] on 2022 5:11:32 PM [facility] [id number] Chronic obstructive lung disease active [id number] on December 04, 2022 5:11:33 PM UT [id number] Diarrhea active [id number] on 2022 5:11:34 PM UT [id number] Obstructive sleep apnea syndrome active [id number] on December 04, 2022 5:11:35 PM UT TREATMENT PLAN DISCHARGE MEDICATIONS Status RXNORM Medication Dose Route Frequency Dates Comments U pdated By [facility] [id number] Albuterol Sulfate HFA Inhalation Aerosol Solution 108 (90 Base) MCG/ACT 0 INHALED THREE TIMES A DAY NEEDED Prescrib ed: December 05, 2022 3:25:25 PM UT [id number] on December 05, 2022 3:25:25 PM UTC Continued [id number] predniSONE Oral Tablet 20 MG 20 MG BY MOUTH ONCE DAILY Prescrib ed: December 05, 2022 3:25:25 PM UT [id number] on December 05, 2022 3:25:25 PM UTC Continued [id number] Diclofenac Sodium Oral Tablet Delayed Release 75 MG 75 MG BY MOUTH THREE TIMES A DAY NEEDED Prescrib ed: December 05, 2022 3:25:25 PM UT [id number] on December 05, 2022 3:25:25 PM UTC Continued [id number] Colestid Oral Tablet 1 GM 2 TAB BY MOUTH TWICE A DAY Prescrib ed: December 05, 2022 3:25:25 PM UT [id number] on December 05, 2022 3:25:25 PM UTC Continued [id number] Azelastine HCl Nasal Solution 137 MCG/SPRAY 2 PUF INHALED TWICE A DAY Prescrib ed: December 05, 2022 3:25:25 PM UT [id number] on December 05, 2022 3:25:25 PM UTC Continued [id number] SUMAtriptan Succinate Oral Tablet 50 MG 100 MG BY MOUTH ONCE DAILY NEEDED Prescrib ed: December 05, 2022 3:25:25 PM UT [id number] on December 05, 2022 3:25:25 PM UT Continued [id number] Fluticasone Propionate Nasal Suspension 50 MCG/ACT 50 MCG BY MOUTH ONCE DAILY Prescrib ed: December 05, 2022 3:25:25 PM UT [id number] on December 05, 2022 3:25:25 PM UT Continued [id number] DULoxetine HCl Oral Capsule Delayed Release Particles 60 MG 30 MG BY MOUTH ONCE DAILY Prescrib ed: December 05, 2022 3:25:25 PM UT [id number] on December 05, 2022 3:25:25 PM UTC Continued [id number] Propranolol HCl Oral Tablet 60 MG 60 MG BY MOUTH ONCE DAILY Prescrib ed: December 05, 2022 3:25:25 PM UT [id number] on December 05, 2022 3:25:25 PM UTC Continued [id number] Montelukast Sodium Oral Tablet 10 MG 10 MG BY MOUTH ONCE DAILY Prescrib ed: December 05, 2022 3:25:25 PM UTC [id number] on December 05, 2022 3:25:25 PM [facility] Continued [id number] Vraylar Oral Capsule 1.5 MG 1.5 MG BY MOUTH ONCE DAILY Prescrib ed: December 05, 2022 3:25:25 PM [facility] [id number] on December 05, 2022 3:25:25 PM [facility] Continued [id number] Trelegy Ellipta Inhalation Aerosol Powder Breath Activated 100-62.5-25 MCG/ACT 1 PUF INHALED ONCE DAILY Prescrib ed: December 05, 2022 3:25:25 PM [facility] [id number] on December 05, 2022 3:25:25 PM [facility] PATIENT OPEN ORDERS Code System Description Frequency Occurrences Priority Start Date Ordering Physician Updated By Patient open order informati on is not available. SCHEDULED PROCEDURES Code System Description Status Scheduled Date Upd ated By Patient scheduled procedure information is not available. MEDICATIONS HOME MEDICATIONS Status RXNORM Medication Dose Route Frequency Dates Comments R eported By Updated By Active [id number] Albuterol Sulfate HFA Inhalation Aerosol Solution 108 (90 Base) MCG/ACT 0.0 INHALED TIDPRN Last Dose: PATIENT [id number] on December 05, 2022 3:24:15 PM [facility] Active [id number] Azelastine HCl Nasal Solution 137 MCG/SPRAY 2.0 PUF INHALED BID Last Dose: PATIENT [id number] on December 04, 2022 5:12:32 PM [facility] Active [id number] Colestid Oral Tablet 1 GM 2.0 TAB PO BID Last Dose: PATIENT [id number] on December 04, 2022 5:12:54 PM [facility] Active [id number] Diclofenac Sodium Oral Tablet Delayed Release 75 MG 75.0 MG PO TIDPRN Last Dose: PATIENT [id number] on December 05, 2022 3:24:25 PM [facility] Active 764978 DULoxetine HCl Oral Capsule Delayed Release Particles 60 MG 30.0 MG PO DAILY Last Dose: PATIENT [id number] on December 04, 2022 5:13:48 PM [facility] Active 7603319 Fluticasone Propionate Nasal Suspension 50 MCG/ACT 50.0 MCG PO DAILY Last Dose: PATIENT [id number] on December 04, 2022 5:15:09 PM [facility] Active 320238 Montelukast Sodium Oral Tablet 10 MG 10.0 MG PO DAILY Last Dose: PATIENT [id number] on December 04, 2022 5:15:30 PM [facility] Active 050851 predniSONE Oral Tablet 20 MG 20.0 MG PO DAILY Last Dose: PATIENT [id number] on December 04, 2022 5:15:49 PM [facility] Active 287556 Propranolol HCl Oral Tablet 60 MG 60.0 MG PO DAILY Last Dose: PATIENT [id number] on December 04, 2022 5:16:06 PM [facility] Active 741634 SUMAtriptan Succinate Oral Tablet 50 MG 100.0 MG PO DAILYPRN Last Dose: PATIENT [id number] on December 05, 2022 3:24:41 PM [facility] Active [id number] Trelegy Ellipta Inhalation Aerosol Powder Breath Activated 100-62.5-25 MCG/ACT 1.0 PUF INHALED DAILY Last Dose: PATIENT [id number] on December 04, 2022 5:16:56 PM [facility] Active [id number] Vraylar Oral Capsule 1.5 MG 1.5 MG PO DAILY Last Dose: PATIENT [id number] on December 04, 2022 5:17:18 PM [facility] DISCHARGE MEDICATIONS Status RXNORM Medication Dose Route Frequency Dates Comments Physic jillian Updated By Continued [id number] Albuterol Sulfate HFA Inhalation Aerosol Solution 108 (90 Base) MCG/ACT 0.0 INHALED THREE TIMES A DAY NEEDED Prescri bed: December 05, 2022 3:25:25 PM [facility] ANT SHAH MD PHY [id number] on December 05, 2022 3:25:25 PM [facility] Continued [id number] predniSONE Oral Tablet 20 MG 20.0 MG BY MOUTH ONCE DAILY Prescri bed: December 05, 2022 3:25:25 PM [facility] ANT SHAH MD PHY [id number] on December 05, 2022 3:25:25 PM [facility] Continued [id number] Diclofenac Sodium Oral Tablet Delayed Release 75 MG 75.0 MG BY MOUTH THREE TIMES A DAY NEEDED Prescri bed: December 05, 2022 3:25:25 PM [facility] ANT SHAH MD, PHY [id number] on December 05, 2022 3:25:25 PM [facility] Continued [id number] Colestid Oral Tablet 1 GM 2.0 TAB BY MOUTH TWICE A DAY Prescri bed: December 05, 2022 3:25:25 PM [facility] ANT SHAH MD PHY [id number] on December 05, 2022 3:25:25 PM [facility] Continued [id number] Azelastine HCl Nasal Solution 137 MCG/SPRAY 2.0 PUF INHALED TWICE A DAY Prescri bed: December 05, 2022 3:25:25 PM UT ANT SHAH MD PHY [id number] on December 05, 2022 3:25:25 PM [facility] Continued [id number] SUMAtriptan Succinate Oral Tablet 50 MG 100.0 MG BY MOUTH ONCE DAILY NEEDED Prescri bed: December 05, 2022 3:25:25 PM UT ANT SHAH MD, PHY [id number] on December 05, 2022 3:25:25 PM [facility] Continued [id number] Fluticasone Propionate Nasal Suspension 50 MCG/ACT 50.0 MCG BY MOUTH ONCE DAILY Prescri bed: December 05, 2022 3:25:25 PM UT ANT SHAH MD, PHY [id number] on December 05, 2022 3:25:25 PM [facility] Continued [id number] DULoxetine HCl Oral Capsule Delayed Release Particles 60 MG 30.0 MG BY MOUTH ONCE DAILY Prescri bed: December 05, 2022 3:25:25 PM UT ANT SHAH MD, PHY [id number] on December 05, 2022 3:25:25 PM [facility] Continued [id number] Propranolol HCl Oral Tablet 60 MG 60.0 MG BY MOUTH ONCE DAILY Prescri bed: December 05, 2022 3:25:25 PM UT ANT SHAH MD PHY [id number] on December 05, 2022 3:25:25 PM [facility] Continued [id number] Montelukast Sodium Oral Tablet 10 MG 10.0 MG BY MOUTH ONCE DAILY Prescri bed: December 05, 2022 3:25:25 PM UT ANT SHAH MD, PHY [id number] on December 05, 2022 3:25:25 PM [facility] Continued [id number] Vraylar Oral Capsule 1.5 MG 1.5 MG BY MOUTH ONCE DAILY Prescri bed: December 05, 2022 3:25:25 PM UT ANT SHAH MD, PHY [id number] on December 05, 2022 3:25:25 PM [facility] Continued [id number] Trelegy Ellipta Inhalation Aerosol Powder Breath Activated 100-62.5-25 MCG/ACT 1.0 PUF INHALED ONCE DAILY Prescri bed: December 05, 2022 3:25:25 PM [facility] ANT SHAH MD, PHY [id number] on December 05, 2022 3:25:25 PM [facility] INPATIENT MEDICATIONS Status RXNORM Medication Dose Route Frequency Rate Quantity Dates Comments Physician Updated By Discont inued [id number] lactated ringers (LR) SOLN 1000. 0 ML INTRAV ENOUS ONE TIME ONLY 25.0 ML/[facility] 1[facility]1 7 PM UTC ANT SHAH MD [id number] on December 05, 2022 1:19:00 PM UTC Discont inued [id number] propofol (DIPRIVAN) 200 MG/20ML EMUL 20.0 ML INTRAV ENOUS ONE TIME ONLY [facility] 1:[facility]0 0 PM [facility] 1:[facility]0 0 PM UTC ANT SHAH MD INTERFAC ED on December 05, 2022 1:35:00 PM UTC Discont inued propofol (DIPRIVAN) 500 MG/50ML EMUL 50.0 ML INTRAV ENOUS ONE TIME ONLY Start: [facility] r 2022 1:36:0 0 PM [facility] 1:[facility]0 0 PM UTC ANT SHAH MD INTERFAC ED on December 05, 2022 1:35:00 PM UTC Discont inued [id number] GLYCOPYRROL ATE 1 MG/5ML SOLN 1.0 MG INTRAV ENOUS ONE TIME ONLY 0.042 MG/HR Start: [facility] r 2022 6:27:0 0 PM UTC End: [facility] r 2022 5:43:0 0 PM UTC ANT SHAH MD [id number] on December 05, 2022 6:28:00 PM UTC Discont inued [id number] LIDOCAINE HCL 2 % SOLN 20.0 ML ONE TIME ONLY 0.833 ML/HR Start: [facility] r 2022 6:27:0 0 PM [facility] 5:[facility]0 0 PM UTC ANT SHAH MD [id number] on December 05, 2022 6:28:00 PM UTC SOCIAL HISTORY SOCIAL HISTORY SNOMED-CT Social History Element Description Effective Dates Offered Cessation Comment UpdatedBy [id number] Current Tobacco smoking status Light Tobacco Smoker 1 cig [id number] on December 04, 2022 5:10:04 PM UTC [id number] Historical Tobacco smoking status Current Every Day Smoker Refused [id number] on February 26, 2019 9:39:53 PM [place] SOCIAL HISTORY - Gender Sex: Female SOCIAL HISTORY - Sexual Behavior Sexual Orientation Gender Identity SNOMED-CT Description SNO MED -CT Description Activity Level No of Partners Partner Type UpdatedBy VITAL SIGNS PATIENT VITAL SIGNS This section displays the mo st recent value for each vital sign as of December 06, 2022 4:09:38 AM UT Loinc Code Vital Sign Activity Date Result Updated By 8302-2 Body height December 04, 2022 5:09:54 PM UT 157.48 cm (62.0 in) [id number] on December 04, 2022 5:09:54 PM [facility] 92454-5 Body mass index (BMI) [Ratio] December 04, 2022 5:09:54 PM UT 51.573 kg/m2 [id number] on December 04, 2022 5:09:54 PM [facility] 3140-1 Body Surface Area Derived From Formula December 04, 2022 5:09:54 PM UT 2.212 m2 [id number] on December 04, 2022 5:09:54 PM [facility] 83795-9 Body weight Measured December 04, 2022 5:09:54 PM UT 127.913 kg (282.0 lb) [id number] on December 04, 2022 5:09:54 PM [facility] PEDIATRIC GROWTH CHART - VITAL SIGNS This section displays Head C ircumference Percentile, Weight for Length Percentile and BMI Percentile Loinc Code Pediatric Measure Age (Months) Result Updat ed By HEALTH CONCERNS Problems Concern Status Health Concern problem infor mation not available. Smoking Status Status Years Used Consumed packs p er day Health Concern smoking histo ry information not available. Family History Concern Status Health Concern family histor y information not available. ENCOUNTERS ENCOUNTER INFORMATION Reason for Visit SOP Admission December 05, 2022 12:43:[address] [id number] Discharge December 05, 2022 5:43:00 PM [facility] DISCHARGED TO HOME OR SELF CARE ENCOUNTER DIAGNOSES Notes information is not augustin ilable. Code System Diagnosis Onset Date Diagnosis information is not available. ABSTRACT DIAGNOSES Code System Diagnosis Updated By K92.1 ICD10 MELENA [id number] on Octo 2022 2:22:27 PM UTC CARE TEAM Care Anodic Treater Role ALYSSA ACIN Primary Attending ALYSSA CAIN Referring MARY ELLEN MILADY Primary Care ALYSSA CAIN Admitting HOSPITAL DISCHARGE INSTRUCTION DISCHARGE INSTRUCTION Encounter [id number] Admit Date December 05, 2022 12: 43:00 PM UTC Discharge Date December 05, 2022 5:4 3:00 PM UTC CARE TEAM CARE business objects developer Role on Team Status Start Date End Date Update d By MILADY GAN LEARNING STRATEGIST PCP normal December 04, 2022 2:22:27 PM UTC December 05, 2022 5:43:00 PM UTC [id number] on December 04, 2022 2:22:27 PM UTC ANT DIAZ Referring normal December 04, 2022 2:22:27 PM UTC December 05, 2022 5:43:00 PM UTC [id number] on December 04, 2022 2:22:27 PM UTC ANT DIAZ Attending normal December 04, 2022 2:22:27 PM UTC December 05, 2022 5:43:00 PM UTC [id number] on December 04, 2022 2:22:27 PM UTC ANT DIAZ Admitting normal December 04, 2022 2:22:27 PM UTC December 05, 2022 5:43:00 PM UTC [id number] on December 04, 2022 2:22:27 PM UTC
--- OUTSIDE RECORDS SUMMARY | 2023-02-19 14:51 | XMS_ITS | Continuity of Care Document ---
Author Name Unknown Address [address], [place] [id number] Organization [facility] Phone Care Team Providers Care Human Resources Office Assistant Name Role Phone ALYSSA CAIN Primary Attending [phone] ALYSSA CAIN Unavailable [phone] ALYSSA CAIN Surgeon MARY ELLEN HENNING Primary Care ALYSSA CAIN Admitting ALLERGIES AND ADVERSE REACTIONS ALLERGIES AND ADVERSE REACTIONS Code System Allergy Substance Adverse Reaction Date Reaction (Severity) Comment Status Reported By Updated By [id number] RXNorm PENICILLIN Rash active [id number] 9 on September 24, 2019 2:13:35 AM [place] 2670 RXNorm CODEINE Adverse reaction to substance throat closing active [id number] on September 24, 2019 2:13:35 AM UT 1191 RXNorm ASPIRIN Rash active [id number] on September 24, 2019 2:13:35 AM UTC GRAPE JELLY (Free Text Allergy) Rash throat closing active [id number] on September 24, 2019 2:13:35 AM UT ASSESSMENTS Asthma ; Chronic obstructive lung disease ; Diarrhea ; Obstructive sleep apnea syndrome ; PROBLEMS PATIENT PROBLEMS Code Description/Comments Status Updated By [id number] Asthma active [id number] on 2022 5:11:32 PM UT [id number] Chronic obstructive lung disease active [id number] on December 04, 2022 5:11:33 PM UT [id number] Diarrhea active [id number] on 2022 5:11:34 PM UT [id number] Obstructive sleep apnea syndrome active [id number] on December 04, 2022 5:11:35 PM UT TREATMENT PLAN DISCHARGE MEDICATIONS Status RXNORM Medication Dose Route Frequency Dates Comments U pdated By [facility] [id number] Albuterol Sulfate HFA Inhalation Aerosol Solution 108 (90 Base) MCG/ACT 0 INHALED THREE TIMES A DAY NEEDED Prescrib ed: December 05, 2022 3:25:25 PM UT [id number] on December 05, 2022 3:25:25 PM UTC Continued [id number] predniSONE Oral Tablet 20 MG 20 MG BY MOUTH ONCE DAILY Prescrib ed: December 05, 2022 3:25:25 PM UT [id number] on December 05, 2022 3:25:25 PM UTC Continued [id number] Diclofenac Sodium Oral Tablet Delayed Release 75 MG 75 MG BY MOUTH THREE TIMES A DAY NEEDED Prescrib ed: December 05, 2022 3:25:25 PM UT [id number] on December 05, 2022 3:25:25 PM UTC Continued [id number] Colestid Oral Tablet 1 GM 2 TAB BY MOUTH TWICE A DAY Prescrib ed: December 05, 2022 3:25:25 PM UT [id number] on December 05, 2022 3:25:25 PM UTC Continued [id number] Azelastine HCl Nasal Solution 137 MCG/SPRAY 2 PUF INHALED TWICE A DAY Prescrib ed: December 05, 2022 3:25:25 PM UT [id number] on December 05, 2022 3:25:25 PM UTC Continued [id number] SUMAtriptan Succinate Oral Tablet 50 MG 100 MG BY MOUTH ONCE DAILY NEEDED Prescrib ed: December 05, 2022 3:25:25 PM UT [id number] on December 05, 2022 3:25:25 PM UT Continued [id number] Fluticasone Propionate Nasal Suspension 50 MCG/ACT 50 MCG BY MOUTH ONCE DAILY Prescrib ed: December 05, 2022 3:25:25 PM UT [id number] on December 05, 2022 3:25:25 PM UTC Continued [id number] DULoxetine HCl Oral Capsule Delayed Release Particles 60 MG 30 MG BY MOUTH ONCE DAILY Prescrib ed: December 05, 2022 3:25:25 PM UT [id number] on December 05, 2022 3:25:25 PM UTC Continued [id number] Propranolol HCl Oral Tablet 60 MG 60 MG BY MOUTH ONCE DAILY Prescrib ed: December 05, 2022 3:25:25 PM UTC [id number] on December 05, 2022 3:25:25 PM UTC Continued [id number] Montelukast Sodium Oral Tablet 10 MG 10 MG BY MOUTH ONCE DAILY Prescrib ed: December 05, 2022 3:25:25 PM [facility] [id number] on December 05, 2022 3:25:25 PM [facility] Continued [id number] Vraylar Oral Capsule 1.5 MG 1.5 MG BY MOUTH ONCE DAILY Prescrib ed: December 05, 2022 3:25:25 PM [facility] [id number] on December 05, 2022 3:25:25 PM [facility] Continued [id number] Trelegy Ellipta Inhalation Aerosol Powder Breath Activated 100-62.5-25 MCG/ACT 1 PUF INHALED ONCE DAILY Prescrib ed: December 05, 2022 3:25:25 PM [facility] [id number] on December 05, 2022 3:25:25 PM [facility] PATIENT OPEN ORDERS Code System Description Frequency Occurrences Priority Start Date Ordering Physician Updated By Patient open order informati on is not available. SCHEDULED PROCEDURES Code System Description Status Scheduled Date Upd ated By Patient scheduled procedure information is not available. MEDICATIONS HOME MEDICATIONS Status RXNORM Medication Dose Route Frequency Dates Comments R eported By Updated By Active [id number] Albuterol Sulfate HFA Inhalation Aerosol Solution 108 (90 Base) MCG/ACT 0.0 INHALED TIDPRN Last Dose: PATIENT [id number] on December 05, 2022 3:24:15 PM [facility] Active 9909662 Azelastine HCl Nasal Solution 137 MCG/SPRAY 2.0 PUF INHALED BID Last Dose: PATIENT [id number] on December 04, 2022 5:12:32 PM [facility] Active 3510754 Colestid Oral Tablet 1 GM 2.0 TAB PO BID Last Dose: PATIENT [id number] on December 04, 2022 5:12:54 PM [facility] Active 090964 Diclofenac Sodium Oral Tablet Delayed Release 75 MG 75.0 MG PO TIDPRN Last Dose: PATIENT [id number] on December 05, 2022 3:24:25 PM [facility] Active 005716 DULoxetine HCl Oral Capsule Delayed Release Particles 60 MG 30.0 MG PO DAILY Last Dose: PATIENT [id number] on December 04, 2022 5:13:48 PM [facility] Active 2133704 Fluticasone Propionate Nasal Suspension 50 MCG/ACT 50.0 MCG PO DAILY Last Dose: PATIENT [id number] on December 04, 2022 5:15:09 PM [facility] Active 448533 Montelukast Sodium Oral Tablet 10 MG 10.0 MG PO DAILY Last Dose: PATIENT [id number] on December 04, 2022 5:15:30 PM [facility] Active 277119 predniSONE Oral Tablet 20 MG 20.0 MG PO DAILY Last Dose: PATIENT [id number] on December 04, 2022 5:15:49 PM [facility] Active 828166 Propranolol HCl Oral Tablet 60 MG 60.0 MG PO DAILY Last Dose: PATIENT [id number] on December 04, 2022 5:16:06 PM UT Active 684806 SUMAtriptan Succinate Oral Tablet 50 MG 100.0 MG PO DAILYPRN Last Dose: PATIENT [id number] on December 05, 2022 3:24:41 PM UT Active 4596967 Trelegy Ellipta Inhalation Aerosol Powder Breath Activated 100-62.5-25 MCG/ACT 1.0 PUF INHALED DAILY Last Dose: PATIENT [id number] on December 04, 2022 5:16:56 PM [facility] Active 9408581 Vraylar Oral Capsule 1.5 MG 1.5 MG PO DAILY Last Dose: PATIENT [id number] on December 04, 2022 5:17:18 PM [facility] DISCHARGE MEDICATIONS Status RXNORM Medication Dose Route Frequency Dates Comments Physic jillian Updated By Continued [id number] Albuterol Sulfate HFA Inhalation Aerosol Solution 108 (90 Base) MCG/ACT 0.0 INHALED THREE TIMES A DAY NEEDED Prescri bed: December 05, 2022 3:25:25 PM [facility] ANT SHAH MD, PHY [id number] on December 05, 2022 3:25:25 PM [facility] Continued [id number] predniSONE Oral Tablet 20 MG 20.0 MG BY MOUTH ONCE DAILY Prescri bed: December 05, 2022 3:25:25 PM [facility] ANT SHAH MD, PHY [id number] on December 05, 2022 3:25:25 PM [facility] Continued 499685 Diclofenac Sodium Oral Tablet Delayed Release 75 MG 75.0 MG BY MOUTH THREE TIMES A DAY NEEDED Prescri bed: December 05, 2022 3:25:25 PM [facility] ANT SHAH MD, PHY [id number] on December 05, 2022 3:25:25 PM [facility] Continued [id number] Colestid Oral Tablet 1 GM 2.0 TAB BY MOUTH TWICE A DAY Prescri bed: December 05, 2022 3:25:25 PM [facility] ANT SHAH MD, PHY [id number] on December 05, 2022 3:25:25 PM [facility] Continued [id number] Azelastine HCl Nasal Solution 137 MCG/SPRAY 2.0 PUF INHALED TWICE A DAY Prescri bed: December 05, 2022 3:25:25 PM [facility] ANT SHAH MD, PHY [id number] on December 05, 2022 3:25:25 PM UT Continued [id number] SUMAtriptan Succinate Oral Tablet 50 MG 100.0 MG BY MOUTH ONCE DAILY NEEDED Prescri bed: December 05, 2022 3:25:25 PM [facility] ANT SHAH MD, PHY [id number] on December 05, 2022 3:25:25 PM [facility] Continued [id number] Fluticasone Propionate Nasal Suspension 50 MCG/ACT 50.0 MCG BY MOUTH ONCE DAILY Prescri bed: December 05, 2022 3:25:25 PM [facility] ANT SHAH MD, PHY [id number] on December 05, 2022 3:25:25 PM [facility] Continued [id number] DULoxetine HCl Oral Capsule Delayed Release Particles 60 MG 30.0 MG BY MOUTH ONCE DAILY Prescri bed: December 05, 2022 3:25:25 PM [facility] ANT SHAH MD PHY [id number] on December 05, 2022 3:25:25 PM UT Continued [id number] Propranolol HCl Oral Tablet 60 MG 60.0 MG BY MOUTH ONCE DAILY Prescri bed: December 05, 2022 3:25:25 PM [facility] ANT SHAH MD PHY [id number] on December 05, 2022 3:25:25 PM [facility] Continued [id number] Montelukast Sodium Oral Tablet 10 MG 10.0 MG BY MOUTH ONCE DAILY Prescri bed: December 05, 2022 3:25:25 PM [facility] ANT SHAH MD PHY [id number] on December 05, 2022 3:25:25 PM [facility] Continued [id number] Vraylar Oral Capsule 1.5 MG 1.5 MG BY MOUTH ONCE DAILY Prescri bed: December 05, 2022 3:25:25 PM [facility] ANT SHAH MD PHY [id number] on December 05, 2022 3:25:25 PM [facility] Continued [id number] Trelegy Ellipta Inhalation Aerosol Powder Breath Activated 100-62.5-25 MCG/ACT 1.0 PUF INHALED ONCE DAILY Prescri bed: December 05, 2022 3:25:25 PM [facility] ANT SHAH MD, PHY [id number] on December 05, 2022 3:25:25 PM UT INPATIENT MEDICATIONS Status RXNORM Medication Dose Route Frequency Rate Quantity Dates Comments Physician Updated By Discont inued [id number] lactated ringers (LR) SOLN 1000. 0 ML INTRAV ENOUS ONE TIME ONLY 25.0 ML/HR Start: [facility] r 2022 1:13:0 0 PM [facility]1 7 PM UTC ANT SHAH MD [id number] on December 05, 2022 1:19:00 PM UTC Discont inued [id number] propofol (DIPRIVAN) 200 MG/20ML EMUL 20.0 ML INTRAV ENOUS ONE TIME ONLY [facility] 1:[facility]0 0 PM [facility] 1:[facility]:0 0 PM UTC ANT SHAH MD INTERFAC ED on December 05, 2022 1:35:00 PM UTC Discont inued propofol (DIPRIVAN) 500 MG/50ML EMUL 50.0 ML INTRAV ENOUS ONE TIME ONLY Start: [facility] r 2022 1:36:0 0 PM [facility] 1:36:0 0 PM UTC ANT SHAH MD INTERFAC ED on December 05, 2022 1:35:00 PM UTC Discont inued [id number] GLYCOPYRROL ATE 1 MG/5ML SOLN 1.0 MG INTRAV ENOUS ONE TIME ONLY 0.042 MG/HR Start: [facility] r 2022 6:27:0 0 PM [facility] 5:43:0 0 PM UTC ANT SHAH MD [id number] on December 05, 2022 6:28:00 PM UTC Discont inued [id number] LIDOCAINE HCL 2 % SOLN 20.0 ML ONE TIME ONLY 0.833 ML/HR [facility] 6:27:0 0 PM [facility] 5:43:0 0 PM UTC ANT SHAH MD [id number] on December 05, 2022 6:28:00 PM UTC SOCIAL HISTORY SOCIAL HISTORY SNOMED-CT Social History Element Description Effective Dates Offered Cessation Comment UpdatedBy [id number] Current Tobacco smoking status Light Tobacco Smoker 1 cig [id number] on December 04, 2022 5:10:04 PM [facility] [id number] Historical Tobacco smoking status Current Every Day Smoker Refused [id number] on February 26, 2019 9:39:53 PM [place] SOCIAL HISTORY - Gender Sex: Female SOCIAL HISTORY - Sexual Behavior Sexual Orientation Gender Identity SNOMED-CT Description SNO MED -CT Description Activity Level No of Partners Partner Type UpdatedBy VITAL SIGNS PATIENT VITAL SIGNS This section displays the mo st recent value for each vital sign as of December 07, 2022 12:33:45 PM [facility] Loinc Code Vital Sign Activity Date Result Updated By 8302-2 Body height December 04, 2022 5:09:54 PM [facility] 157.48 cm (62.0 in) [id number] on December 04, 2022 5:09:54 PM [facility] 55732-8 Body mass index (BMI) [Ratio] December 04, 2022 5:09:54 PM UT 51.573 kg/m2 [id number] on December 04, 2022 5:09:54 PM [facility] 3140-1 Body Surface Area Derived From Formula December 04, 2022 5:09:54 PM UT 2.212 m2 [id number] on December 04, 2022 5:09:54 PM [facility] 74821-1 Body weight Measured December 04, 2022 5:09:54 PM UT 127.913 kg (282.0 lb) [id number] on December 04, 2022 5:09:54 PM [facility] PEDIATRIC GROWTH CHART - VITAL SIGNS This [...] SOP Admission December 05, 2022 12:43:[address] [id number] Discharge December 05, 2022 5:43:00 PM [facility] DISCHARGED TO HOME OR SELF CARE ENCOUNTER DIAGNOSES Notes information is not augustin ilable. Code System Diagnosis Onset Date Diagnosis information is not available. ABSTRACT DIAGNOSES Code System Diagnosis Updated By R19.7 ICD10 DIARRHEA, UNSPECIFIED [id number] 1 on December 07, 2022 12:33:10 PM UTC R19.7 ICD10 DIARRHEA, UNSPECIFIED [id number] 1 on December 07, 2022 12:33:10 PM UTC K29.70 ICD10 GASTRITIS, UNSPE CIFIED, WITHOUT BLEEDING [id number] on December 07, 2022 12:33:10 PM UTC Z88.6 ICD10 ALLERGY STATUS TO ANALGESIC AGENT [id number] on December 07, 2022 12:33:10 PM UTC Z88.0 ICD10 ALLERGY STATUS TO PENICILLIN [id number] on December 07, 2022 12:33:10 PM UTC Z88.8 ICD10 ALLERGY STATUS T O OTHER DRUGS, MEDICAMENTS AND BIOLOGICAL SUBSTANCES [id number] on December 07, 2022 12:33:10 PM UTC K62.1 ICD10 RECTAL POLYP [id number] on 2022 12:33:10 PM UT J44.9 ICD10 CHRONIC OBSTRUCT KELSIE PULMONARY DISEASE, UNSPECIFIED [id number] on December 07, 2022 12:33:10 PM UTC F31.9 ICD10 BIPOLAR DISORDER, UNSPECIFIE D [id number] on December 07, 2022 12:33:10 PM UTC E66.01 ICD10 MORBID (SEVERE) OBESITY DUE TO EXCESS CALORIES [id number] on December 07, 2022 12:33:10 PM UTC K21.9 ICD10 GASTRO-ESOPHAGEA L REFLUX DISEASE WITHOUT ESOPHAGITIS [id number] on December 07, 2022 12:33:10 PM UT F17.210 ICD10 NICOTINE DEPENDE NCE, CIGARETTES, UNCOMPLICATED [id number] on December 07, 2022 12:33:10 PM UTC Z79.899 ICD10 OTHER NEUROSURGICAL NURSE PRACTITIONER (CURRENT) DR DEYSI THERAPY [id number] on December 07, 2022 12:33:10 PM UTC Z79.51 ICD10 NEUROSURGICAL NURSE PRACTITIONER (CURRE NT) USE OF INHALED STEROIDS [id number] on December 07, 2022 12:33:10 PM UTC Z68.43 ICD10 BODY MASS INDEX [BMI] 50.0-5 9.9, ADULT [id number] on December 07, 2022 12:33:10 PM UTC D12.4 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 [id number] on December 07, 2022 12:33:10 PM UTC K31.9 ICD10 DISEASE OF STOMA CH AND DUODENUM, UNSPECIFIED [id number] on December 07, 2022 12:33:10 PM UTC R10.9 ICD10 UNSPECIFIED ABDOMINAL PAIN F [id number] on December 07, 2022 12:33:10 PM UTC R13.10 ICD10 DYSPHAGIA, UNSPECIFIED [id number] on December 07, 2022 12:33:10 PM UTC K92.1 ICD10 MELENA [id number] on 2022 12:33:10 PM UTC CARE TEAM Care Human Resources Office Assistant Role ALYSSA CAIN Primary Attending ALYSSA CAIN Referring ALYSSA CAIN Surgeon MARY ELLEN HENNING Primary Care ALYSSA CAIN Admitting HOSPITAL DISCHARGE INSTRUCTION DISCHARGE INSTRUCTION Encounter [id number] Admit Date December 05, 2022 12: 43:00 PM UTC Discharge Date December 05, 2022 5:4 3:00 PM UTC CARE TEAM CARE severity of illness coordinator Role on Team Status Start Date End Date Update d By ANT DIAZ Surgeon normal December 05, 2022 12:43:00 PM UTC December 05, 2022 5:43:00 PM UTC [id number] on December 07, 2022 12:33:19 PM UTC MILADY GAN APRN PCP normal December 04, 2022 2:22:27 PM UTC December 05, 2022 5:43:00 PM UTC [id number] on December 07, 2022 12:33:19 PM UTC ANT DIAZ Referring normal December 04, 2022 2:22:27 PM UTC December 05, 2022 5:43:00 PM UTC [id number] on December 07, 2022 12:33:19 PM UTC ANT DIAZ Attending normal December 04, 2022 2:22:27 PM UTC December 05, 2022 5:43:00 PM UTC [id number] on December 07, 2022 12:33:19 PM UTC ANT DIAZ Admitting normal December 04, 2022 2:22:27 PM UTC December 05, 2022 5:43:00 PM UTC [id number] on December 07, 2022 12:33:19 PM UTC
[2023-02-19] MEDS: BUDESONIDE 0.5MG/2ML NEB 0.5 MG IH (17:38)
--- NOTE | 2023-02-19 18:53 | P.PN_ITS ---
Subjective *Date: 02/19/23 *Time: 18:53 Interval history: Patient's blood gas this morning showing improvement. Off of BiPAP on morning rounds. Necessitating 2 L nasal cannula. Still quite weak. Patient reports she wears CPAP at night at home with 2 to 3 L oxygen through it. Comprehensive respiratory panel obtained, negative at this time. Tolerating p.o. intake. No nausea or vomiting. Medical Exam Vital signs and Labs for Last 24 Hours: Vital Signs Temp Pulse Pulse Resp BP BP Pulse Ox 02/19/23 18:43 02/19/23 18:42 89 02/19/23 18:42 93 H 02/19/23 16:00 98.1 F 98 H 24 136/74 94 L 02/19/23 16:00 100 H 02/19/23 12:00 90 02/19/23 14:42 02/19/23 14:14 92 H 02/19/23 14:14 92 H 02/19/23 14:14 94 L 02/19/23 13:00 02/19/23 12:00 98.1 F 100 H 28 H 123/77 92 L 02/19/23 11:00 02/19/23 11:36 90 L 02/19/23 11:24 74 02/19/23 11:24 72 02/19/23 08:00 96 02/19/23 09:00 02/19/23 08:33 87 L 02/19/23 08:00 98.3 F 69 21 112/56 L 96 02/19/23 06:23 02/19/23 06:13 73 02/19/23 06:13 78 02/19/23 06:13 02/19/23 04:00 80 02/19/23 04:44 02/19/23 04:00 99.4 F 73 22 120/66 95 02/19/23 00:00 90 02/18/23 22:00 02/19/23 03:00 02/19/23 02:19 02/19/23 00:58 02/19/23 00:00 97.9 F 80 24 148/66 H 96 02/18/23 23:00 02/18/23 22:56 97 H 02/18/23 22:56 97 H 02/18/23 21:24 98.5 F 89 28 H 162/81 H 98 02/18/23 21:08 97.7 F 80 22 150/74 H 02/18/23 20:50 80 22 150/74 H 95 02/18/23 20:11 96 H 35 H 172/100 H 94 L 02/18/23 19:55 96 H 163/100 H 89 L 02/18/23 19:47 150/128 H 95 02/18/23 20:49 74 02/18/23 20:49 74 02/18/23 20:49 02/18/23 19:50 97.8 F 100 H 26 H 150/128 H 96 O2 Del Method O2 Flow Rate FiO2 02/19/23 18:43 40 02/19/23 18:42 02/19/23 18:42 02/19/23 16:00 Nasal Cannula 02/19/23 16:00 02/19/23 12:00 02/19/23 14:42 Nasal Cannula 3.5 02/19/23 14:14 02/19/23 14:14 02/19/23 14:14 Nasal Cannula 3 02/19/23 13:00 Nasal Cannula 3.5 02/19/23 12:00 Nasal Cannula 3 02/19/23 11:00 Nasal Cannula 2 02/19/23 11:36 Nasal Cannula 3 02/19/23 11:24 02/19/23 11:24 02/19/23 08:00 BiPAP 02/19/23 09:00 BiPAP 02/19/23 08:33 Room Air 02/19/23 08:00 BiPAP 02/19/23 06:23 BiPAP 02/19/23 06:13 02/19/23 06:13 02/19/23 06:13 30 02/19/23 04:00 02/19/23 04:44 BiPAP 02/19/23 04:00 BiPAP 02/19/23 00:00 02/18/23 22:00 BiPAP 02/19/23 03:00 BiPAP 02/19/23 02:19 40 02/19/23 00:58 BiPAP 02/19/23 00:00 02/18/23 23:00 BiPAP 02/18/23 22:56 02/18/23 22:56 02/18/23 21:24 02/18/23 21:08 BiPAP 02/18/23 20:50 BiPAP 02/18/23 20:11 Venturi Mask 02/18/23 19:55 Nasal Cannula 3 02/18/23 19:47 Non-Rebreather 02/18/23 20:49 02/18/23 20:49 02/18/23 20:49 40 02/18/23 19:50 Room Air Intake and Output 02/19/23 02/19/23 02/19/23 07:59 15:59 23:59 Intake Total 270 / 630 360 / 630 Output Total 0 / 0 Balance 270 / 630 360 / 630 Intake: Intake, Oral Amount 270 / 630 360 / 630 Output: Output, Urine Amount 0 / 0 Other: Number of Voids 0 2 Number of Unmeasured Voids 2 Weight 132.54 kg Patient Weight 02/19/23 23:59 Weight 132.54 kg Laboratory Results - last 24 hr 02/18/23 19:50: VBG pH 7.28 L, VBG pCO2 72.3 H, VBG pO2 70.3 H, VBG HCO3 33.5 H, VBG Total CO2 35.7 H, VBG O2 Saturation 91.7 H, VBG Base Excess 6.8 H 02/18/23 19:58: WBC 24.4 H*, RBC 4.68, Hgb 14.8, Hct 44.6, MCV 95.4, MCH 31.7 H, MCHC 33.2, RDW 16.4, Plt Count 380, MPV 7.8, Neut % (Auto) 81.7 H, Lymph % (Auto) 11.1, [place] % (Auto) 5.3, Eos % (Auto) 1.5, Baso % (Auto) 0.4, Neut # (Auto) 19.9 H, Lymph # (Auto) 2.7, [place] # (Auto) 1.3 H, Eos # (Auto) 0.4, Baso # (Auto) 0.1, Total Counted 100, Neutrophils % (Manual) 82 H, Lymphocytes % (Manual) 11, Monocytes % (Manual) 6, Eosinophils % (Manual) 1, Platelet Estimate Normal, Anisocytosis 1+, Macrocytosis 1+, Ovalocytes 1+, Sodium 137, Potassium 3.3 L, Chloride 94 L, Carbon Dioxide 33 H, Anion Gap 13.3, BUN 12, Creatinine 0.70, Estimated Creat Clear 82, Estimated GFR 91, Est GFR ( Amer) 111, Glucose 227 H, Lactate 1.7, Calcium 8.1 L, Total Bilirubin 0.4, AST 30, ALT 26, Alkaline Phosphatase 102, Troponin I < 0.01, NT-Pro-B Natriuret Pep 88.7, Total Protein 7.3, Albumin 4.1, Globulin 3.2, Albumin/Globulin Ratio 1.3, Lipase 53 02/18/23 20:16: Chlamy pneumoniae PCR TNP, Adenovirus (PCR) Not detected, B. pertussis DNA (PCR) TNP, Coronavirus OC43 (PCR) Not detected, Coronavirus HKU1 (PCR) Not detected, Coronavirus 229E (PCR) Not detected, SARS-CoV-2 (PCR) Not detected 02/18/23 20:16: SARS-CoV-2 (PCR) Not detected, Coronavirus NL63 (PCR) Not detected, Human Metapneumovir PCR Not detected, Influenza A (H1) PCR Not detected, Influ A (H1N1/09) PCR Not detected, Influenza A (H3) PCR Not detected, Influenza Type A (PCR) Not detected, Influenza A Untype (PCR) Not detected, Influenza Type B (PCR) Not detected 02/18/23 20:16: Influenza Type B (PCR) Not detected, M. pneumoniae (PCR) TNP, Parainfluenza 1 (PCR) Not detected, Parainfluenza 2 (PCR) Not detected, Parainfluenza 3 (PCR) Not detected, Parainfluenza 4 (PCR) Not detected, RSV (PCR) Not detected, Entero/Rhino (PCR) Not detected 02/18/23 22:50: Troponin I < 0.01 02/19/23 02:00: Specimen Source Left radial, O2 % 40, ABG pH 7.29 L, ABG pCO2 58.4 H, ABG pO2 101.8 H, ABG HCO3 27.7 H, ABG Total CO2 29.5 H, ABG O2 Saturation 98, ABG Base Excess 1.2, Bry Test Acceptable, Vent Rate 18, PEEP Bipap 01/3002/19/23 02:23: Troponin I < 0.01 02/19/23 05:58: WBC 20.7 H*, RBC 4.42, Hgb 13.8, Hct 42.8, MCV 96.7, MCH 31.3 H, MCHC 32.3, RDW 16.5, Plt Count 284 D, MPV 7.4, Neut % (Auto) 95.2 H, Lymph % (Auto) 2.5 L, [place] % (Auto) 2.1, Eos % (Auto) 0.0 L, Baso % (Auto) 0.1, Neut # (Auto) 19.7 H, Lymph # (Auto) 0.5 L, [place] # (Auto) 0.4, Eos # (Auto) 0.0, Baso # (Auto) 0.0, Total Counted 100, Neutrophils % (Manual) 98 H, Lymphocytes % (Manual) 1 L, Monocytes % (Manual) 1 L, Platelet Estimate Normal, RBC Morphology Normal, Sodium 135 L, Potassium 4.2 D, Chloride 93 L, Carbon Dioxide 34 H, Anion Gap 12.2, BUN 12, Creatinine 0.50 L D, Estimated Creat Clear 109, Estimated GFR 135, Est GFR ( Amer) 163 D, Glucose 185 H, Calcium 8.0 L, Total Bilirubin 0.5, AST 30, ALT 31, Alkaline Phosphatase 96, Total Protein 7.1, Albumin 4.0, Globulin 3.1, Albumin/Globulin Ratio 1.3 02/19/23 10:44: Specimen Source L radial, O2 % 30, ABG pH 7.36, ABG pCO2 56.7 H, ABG pO2 69.1 L, ABG HCO3 31.3 H, ABG Total CO2 33.1 H, ABG O2 Saturation 94, ABG Base Excess 5.9 H, Bry Test Acceptable, Vent Rate 18, Tidal Volume 12/6 I & O for Labs for Last 24 Hours: Intake & Output 02/16/23 02/17/23 02/18/23 02/19/23 23:59 23:59 23:59 23:59 Intake Total 1800 / 1800 630 / 630 Output Total 0 / 0 Balance 1800 / 1800 630 / 630 Weight 133.855 kg 132.54 kg Constitutional: Present no acute distress, morbidly obese and chronically ill appearing Head: Present atraumatic ENT: Present normal exam Comment:: Hirsutism Respiratory: Present wheezes, distant breath sounds, diminished air movement and normal respiratory effort; Absent rhonchi or crackles Cardiac: Present Reg Rate and Rhythm GI: Present normal bowel sounds; Absent tenderness Extremities: Present normal inspection and full ROM Skin: Present intact; Absent erythema Neuro: Present Grossly Intact, alert, awake, oriented x 3 and moves all extremities Assessment and Plan *Assessment and plan (1) Respiratory failure with hypercapnia: Status: Acute Qualifiers: Chronicity: acute on chronic Qualified Code(s): J96.22 - Acute and chronic respiratory failure with hypercapnia Category: Medical Code(s): J96.92 - Respiratory failure, unspecified with hypercapnia (2) COPD exacerbation: Status: Acute Category: Medical Code(s): J44.1 - Chronic obstructive pulmonary disease with (acute) exacerbation (3) Leukocytosis: Status: Acute Qualifiers: Leukocytosis type: unspecified Qualified Code(s): D72.829 - Elevated white blood cell count, unspecified Category: Medical Code(s): D72.829 - Elevated white blood cell count, unspecified (4) Smoking greater than 30 pack years: Status: Chronic Category: Social Hx Code(s): F17.210 - Nicotine dependence, cigarettes, uncomplicated (5) Morbid obesity with BMI of 50.0-59.9, adult: Status: Acute Category: Medical Code(s): E66.01 - Morbid (severe) obesity due to excess calories; Z68.43 - Body mass index [BMI] 50.0-59.9, adult Plan 42-year-old female morbidly obese with significant PMHx of COPD not on home oxygen, ABILIO on nocturnal CPAP, chronic cough, smoking greater than 30 pack years. Over the last week she has had progressive cough and shortness of breath refractory to her DuoNebs at home. on Arrival initial interventions include DuoNeb's x 3, methylprednisolone. labs are significant leukocytosis. CXR obatined. reviewed. Patient met sepsis criteria and was started on ceftriaxone and azithromycin as well as given sepsis bolus fluids. Patient's VBG shows hypercarbic acidosis for which patient was placed on moderate BiPAP settings. Discussed with the ER provider fpor admission. Pulmonology consulted. Assisting with BiPAP management. Continues to require inpatient management. Problems addressed as follows: -Acute on chronic respiratory failure with hypercapnia, - COPD exacerbation: Comprehensive panel obtained, negative for analytes continue levofloxacin 750 mg daily Leukocytosis 20,000 on morning labs. Repeat CBC ordered for the morning Duoneb q6h schedule; budesonide twice daily Repeat ABG this morning improved. Continue BiPAP at night. Transitioned to prednisone 40 mg daily Sputum culture pending Continue Trelegy daily Continue Singulair 10 mg daily Anxiety: Continue Vraylar 1.5 mg daily and Cymbalta 30 mg daily tobacco dependance: nicotine patch daily 21 mg Morbid obesity complicates all aspects of her care Lovenox for DVT ppx. On protonix Regular diet Full code
[2023-02-19] MEDS: LEVOFLOXACIN/D5W 750 MG/150 ML 750 MG/150 ML PIGGYBACK 100 MG IV (20:37)
[2023-02-19] MEDS: GUAIFENESIN/DEXTROMETHORPHAN 200MG/20MG 10ML UDC 10 ML PO (23:46)
[2023-02-20] VITALS (14 sets, daily range): BP systolic 102–142; BP diastolic 61–97; PULSE 73–110; RESP 17–22; TEMP 36.3–36.6; O2SAT 94–98; BMI 53.5
[2023-02-20] MEDS: GUAIFENESIN/DEXTROMETHORPHAN 200MG/20MG 10ML UDC 10 ML PO ×3 (04:15→20:30)
--- NOTE | 2023-02-20 05:28 | PC.NURSE ---
Patient has had a rough night due to endless coughing. RN called provider and got PRN orders but coughing still continues. Patient finally got to sleep for maybe an hour, but was again awoken by the coughing. Patient becomes very SOB with the coughing. No other issues happened during the shift
[2023-02-20] MEDS: BUDESONIDE 0.5MG/2ML NEB 0.5 MG IH ×2 (06:01→18:32)
[2023-02-20] MEDS: IPRATROPIUM/ALBUTEROL 3 ML NEB IH ×4 (06:01→21:56)
[2023-02-20 07:29] LABS: Basophils # 0.1 K/mm3 (0-0.2); Basophils % 0.4 % (0.1-2.0); Eosinophils % 0.3 % (0.1-12.0); Hematocrit 41.8 % (37.0-47.0); Hemoglobin 13.5 g/dL (12.2-16.2); Lymphocytes # 2.1 K/mm3 (0.7-4.5); Mean Corpuscular HGB Conc 32.4 g/dL (31.8-35.4); Mean Corpuscular Hemoglobin 31.4 pg (27.0-31.2); Mean Corpuscular Volume 97.1 fl (81-99); Mean Platelet Volume 7.7 fl (7.4-10.4); Monocytes # 0.6 K/mm3 (0.1-1.0); Monocytes % 3.9 % (1.7-9.3); Neutrophils % 81.4 % (37.0-80.0); Platelet Count 254 K/mm3 (142-424); Red Blood Count 4.31 M/mm3 (4.20-5.40); Red Cell Distribution Width 16.5 % (11.5-17.5); White Blood Count 14.7 K/mm3 (4.8-10.8)
[2023-02-20 07:38] LABS: Alanine Aminotransferase 26 U/L (12-78); Albumin Level 3.6 g/dl (3.5-5.0); Albumin/Globulin Ratio 1.2 (1.1-1.8); Alkaline Phosphatase 69 U/L (38-126); Anion Gap 7.1 mEq/L (5-15); Aspartate Amino Transferase 27 U/L (14-36); Bilirubin,Total 0.3 mg/dl (0.2-1.3); Blood Urea Nitrogen 12 mg/dl (7-17); Calcium 8.3 mg/dl (8.4-10.2); Carbon Dioxide 37 mmol/L (22.0-30.0); Chloride 92 mmol/L (98-107); Creatinine Clearance Estimated 78 mL/min (50-200); Estimated Glomerular Filt Rate 91 ml/min (>60); GFR (African American) 111 ML/MIN (>60); Glucose 172 mg/dl (74-100); Magnesium 1.8 mg/dl (1.6-2.3); Potassium 3.1 mmoL/L (3.5-5.1); Sodium 133 mmol/L (136-145); Total Protein,Serum 6.6 g/dl (6.3-8.2)
[2023-02-20] MEDS: BENZONATATE 100MG CAPSULE 200 MG PO ×2 (07:56→18:22)
[2023-02-20] MEDS: PANTOPRAZOLE 40MG TABLET 40 MG PO (07:59)
[2023-02-20] MEDS: predniSONE 20MG TAB 40 MG PO (07:59)
[2023-02-20] MEDS: DULOXETINE 30MG CAPSULE.DR 30 MG PO (08:15)
[2023-02-20] MEDS: CARIPRAZINE 1.5 MG 1.5 EACH PO (08:15)
[2023-02-20] MEDS: NICOTINE 21MG/24HR PATCH 21 MG TD (08:17)
[2023-02-20] MEDS: POTASSIUM CHLORIDE 20MEQ TAB 20 MEQ PO ×3 (09:45→20:30)
[2023-02-20] MEDS: MONTELUKAST SODIUM 10MG TAB 10 MG PO (17:05)
--- NOTE | 2023-02-20 17:07 | PC.NURSE ---
Patient weaned from 3LNC to 2LNC. Lung sounds diminished. Patient alert and oriented, no other changes noted.
--- NOTE | 2023-02-20 19:05 | CA_ITS ---
APPROVED REPORT EXAM: Comprehensive 2D, Doppler, and color-flow Echocardiogram [place] [place] Reo: Mouna Osorio CRT Ht: 5 ft 1 in Wt: 292lbs BSA: 2.22 BP: 150/74 mmHg Indications: Chest Pain, COPD, Shortness of Breath, Obesity, Hypertension/HDD, bipap 2D Dimensions LA Volume 23.60 mL LA Volume Index 10.40 mL/m2 (M/F) 16-34 M-Mode Dimensions RVDd 2.93 cm (0.9-2.6) LA Diam 2.71 cm (1.9-4.0) LVDd 5.27 cm (3.5-5.7) LVDs 3.70 cm (3.5-5.7) IVSd 1.74 cm (0.6-1.1) PWd 0.64 cm (0.6-1.1) EF (Teich) 56.50% FS 29.80% EDV (Teich) 133.60 mL TAPSE 2.26 (<1.7) ESV (Teich) 58.10 mL LV Diastology E Decel Time 147 (160-240 msec) E/A Ratio 1.42 MED A' 10.80 cm/s LAT A' 11.40 cm/s Aortic Valve AO Peak GR. 7.10 mmHg Mitral Valve MV A Velocity 73.0 (40-130 cm/s) E/A Ratio 1.42 Pulmonary Valve PV Peak Velocity 115.0 (50-150 cm/s) Tricuspid Valve TR P. Velocity 129.00 cm/s RAP Estimate 10.00 mmHg RVSP 16.70 mmHg Left Ventricle The left ventricle is normal size. The left ventricular systolic function is normal. The left ventricular ejection fraction is within the normal range. There is increased LV wall thickness. There is normal LV segmental wall motion. The left ventricular diastolic function is normal. LVEF is 55%. Right Ventricle The right ventricle is moderately dilated. The right ventricular systolic function is normal. There is increased RV wall thickness. Atria The left atrium size is normal. The right atrium size is normal. There is no Doppler evidence of interatrial shunt. Aortic Valve The aortic valve opens well. There is no aortic valvular stenosis. No aortic regurgitation is present. Mitral Valve The mitral valve is normal in structure. No evidence of mitral valve stenosis. Trace mitral regurgitation. Tricuspid Valve The tricuspid valve leaflets are thin and pliable. Mild tricuspid regurgitation. RVSP is normal. Pulmonic Valve The pulmonary valve is normal in structure. Trace pulmonic regurgitation. Great Vessels The aortic root is normal in size. The ascending aorta is normal in size. The IVC is not well-visualized. Pericardium There is no pericardial effusion. Other Information Study Quality: Technically Difficult Conclusion Technically difficult study due to poor acoustic windows. Normal biventricular systolic function. Moderate RV dilation. Mild TR. Electronically signed by : Julianne Sandoval MD 02/20/2023 11:58:02
--- NOTE | 2023-02-20 19:55 | EXP.ACUTE.PN ---
Subjective *Date: 02/20/23 *Time: 19:55 Interval history: Slept poorly but says she feels better this morning. On 3 L nasal cannula on morning rounds. Tolerated BiPAP for part of the night. Appears more alert and in less distress. Tolerating p.o. intake. Afebrile. Medical Exam Vital signs and Labs for Last 24 Hours: Vital Signs Temp Pulse Pulse Resp BP Pulse Ox O2 Del Method 02/20/23 18:36 Nasal Cannula 02/20/23 18:33 82 02/20/23 18:33 87 02/20/23 18:33 95 Nasal Cannula 02/20/23 17:00 Nasal Cannula 02/20/23 16:00 100 H 02/20/23 15:51 97.7 F 83 18 142/75 H 96 Nasal Cannula 02/20/23 14:55 Nasal Cannula 02/20/23 13:04 Nasal Cannula 02/20/23 12:00 80 02/20/23 12:00 97.8 F 88 17 141/82 H 96 Nasal Cannula 02/20/23 10:55 BiPAP 02/20/23 10:38 89 02/20/23 10:38 86 02/20/23 08:00 110 H 02/20/23 09:10 Nasal Cannula 02/20/23 08:00 97.8 F 95 H 17 140/76 97 Nasal Cannula 02/20/23 08:00 Nasal Cannula 02/20/23 06:54 Nasal Cannula 02/20/23 06:01 93 H 02/20/23 06:01 96 H 02/20/23 06:01 94 L Nasal Cannula 02/20/23 05:00 Nasal Cannula 02/20/23 04:00 97.4 F L 73 20 111/63 98 BiPAP 02/20/23 04:00 78 02/20/23 03:00 BiPAP 02/20/23 03:15 82 02/20/23 03:14 83 02/20/23 00:00 90 02/19/23 20:00 78 02/20/23 01:00 BiPAP 02/19/23 23:00 BiPAP 02/20/23 00:00 97.7 F 75 20 102/61 L 97 02/19/23 21:00 Nasal Cannula 02/19/23 20:00 Nasal Cannula, Aerosol Mask, BiPAP 02/19/23 21:54 89 02/19/23 21:54 90 02/19/23 20:00 97.4 F L 91 H 18 121/56 L 98 O2 Flow Rate 02/20/23 18:36 2 02/20/23 18:33 02/20/23 18:33 02/20/23 18:33 4 02/20/23 17:00 2 02/20/23 16:00 02/20/23 15:51 02/20/23 14:55 2 02/20/23 13:04 3 02/20/23 12:00 02/20/23 12:00 02/20/23 10:55 02/20/23 10:38 02/20/23 10:38 02/20/23 08:00 02/20/23 09:10 3 02/20/23 08:00 02/20/23 08:00 3 02/20/23 06:54 3 02/20/23 06:01 02/20/23 06:01 02/20/23 06:01 2 02/20/23 05:00 3 02/20/23 04:00 02/20/23 04:00 02/20/23 03:00 02/20/23 03:15 02/20/23 03:14 02/20/23 00:00 02/19/23 20:00 02/20/23 01:00 02/19/23 23:00 02/20/23 00:00 02/19/23 21:00 3 02/19/23 20:00 3 02/19/23 21:54 02/19/23 21:54 02/19/23 20:00 Intake and Output 02/20/23 02/20/23 02/20/23 07:59 15:59 23:59 Intake Total 1080 / 1590 510 / 1590 Output Total 0 / 0 Balance 0 / 1590 1080 / 1590 510 / 1590 Intake: Intake, Oral Amount 1080 / 1590 510 / 1590 Output: Output, Urine Amount 0 / 0 Other: Number of Unmeasured Voids 1 Weight 131.995 kg 131.99 kg Patient Weight 02/20/23 23:59 Weight 131.99 kg Laboratory Results - last 24 hr 02/20/23 07:17: WBC 14.7 H D, RBC 4.31, Hgb 13.5, Hct 41.8, MCV 97.1, MCH 31.4 H, MCHC 32.4, RDW 16.5, Plt Count 254, MPV 7.7, Neut % (Auto) 81.4 H, Lymph % (Auto) 14.0, [place] % (Auto) 3.9, Eos % (Auto) 0.3, Baso % (Auto) 0.4, Neut # (Auto) 12.0 H, Lymph # (Auto) 2.1, [place] # (Auto) 0.6, Eos # (Auto) 0.0, Baso # (Auto) 0.1, Sodium 133 L, Potassium 3.1 L D, Chloride 92 L, Carbon Dioxide 37 H, Anion Gap 7.1, BUN 12, Creatinine 0.70 D, Estimated Creat Clear 78, Estimated GFR 91, Est GFR ( Amer) 111 D, Glucose 172 H, Calcium 8.3 L, Magnesium 1.8, Total Bilirubin 0.3, AST 27, ALT 26, Alkaline Phosphatase 69, Total Protein 6.6, Albumin 3.6, Globulin 3.0, Albumin/Globulin Ratio 1.2 I & O for Labs for Last 24 Hours: Intake & Output 02/17/23 02/18/23 02/19/23 02/20/23 23:59 23:59 23:59 23:59 Intake Total 1800 / 1800 630 / 630 1590 / 1590 Output Total 0 / 0 0 / 0 Balance 1800 / 1800 630 / 630 1590 / 1590 Weight 133.855 kg 132.54 kg 131.99 kg Constitutional: Present no acute distress, morbidly obese and chronically ill appearing Head: Present atraumatic ENT: Present normal exam Comment:: Hirsutism Respiratory: Present distant breath sounds, diminished air movement and normal respiratory effort; Absent rhonchi, wheezes or crackles Cardiac: Present Reg Rate and Rhythm GI: Present normal bowel sounds; Absent tenderness Extremities: Present normal inspection and full ROM Skin: Present intact; Absent erythema Neuro: Present Grossly Intact, alert, awake, oriented x 3 and moves all extremities Assessment and Plan *Assessment and plan (1) Respiratory failure with hypercapnia: Status: Acute Qualifiers: Chronicity: acute on chronic Qualified Code(s): J96.22 - Acute and chronic respiratory failure with hypercapnia Category: Medical Code(s): J96.92 - Respiratory failure, unspecified with hypercapnia (2) COPD exacerbation: Status: Acute Category: Medical Code(s): J44.1 - Chronic obstructive pulmonary disease with (acute) exacerbation (3) Leukocytosis: Status: Acute Qualifiers: Leukocytosis type: unspecified Qualified Code(s): D72.829 - Elevated white blood cell count, unspecified Category: Medical Code(s): D72.829 - Elevated white blood cell count, unspecified (4) Smoking greater than 30 pack years: Status: Chronic Category: Social Hx Code(s): F17.210 - Nicotine dependence, cigarettes, uncomplicated (5) Morbid obesity with BMI of 50.0-59.9, adult: Status: Acute Category: Medical Code(s): E66.01 - Morbid (severe) obesity due to excess calories; Z68.43 - Body mass index [BMI] 50.0-59.9, adult Plan 42-year-old female morbidly obese with significant PMHx of COPD not on home oxygen, ABILIO on nocturnal CPAP, chronic cough, smoking greater than 30 pack years. Over the last week she has had progressive cough and shortness of breath refractory to her DuoNebs at home. on Arrival initial interventions include DuoNeb's x 3, methylprednisolone. labs are significant leukocytosis. CXR obatined. reviewed. Patient met sepsis criteria and was started on ceftriaxone and azithromycin as well as given sepsis bolus fluids. Patient showing improvement with BiPAP. Leukocytosis improving. Continues to require inpatient management. Problems addressed as follows: -Acute on chronic respiratory failure with hypercapnia, - COPD exacerbation: continue levofloxacin 750 mg daily Leukocytosis improved to 14.7 this morning. Repeat CBC ordered for the morning Duoneb q6h scheduled; budesonide twice daily prednisone 40 mg daily Sputum culture pending Continue Singulair 10 mg daily -CMP and magnesium ordered for the morning. Potassium low at 3.1, replace orally today. Kidney function stable. Bicarb on CMP elevated at 37. Anxiety: Continue Vraylar 1.5 mg daily and Cymbalta 30 mg daily tobacco dependance: nicotine patch daily 21 mg Morbid obesity complicates all aspects of her care Lovenox for DVT ppx. On protonix Regular diet Full code
[2023-02-20] MEDS: MELATONIN 5MG TABLET 5 MG PO (20:30)
[2023-02-20] MEDS: LEVOFLOXACIN/D5W 750 MG/150 ML 750 MG/150 ML PIGGYBACK 100 MG IV (20:32)
[2023-02-21] VITALS (9 sets, daily range): BP systolic 116–144; BP diastolic 65–88; PULSE 66–100; RESP 18–19; TEMP 36.6; O2SAT 87–99; BMI 53.2
[2023-02-21] MEDS: IPRATROPIUM/ALBUTEROL 3 ML NEB IH ×3 (01:18→10:46)
[2023-02-21] MEDS: GUAIFENESIN/DEXTROMETHORPHAN 200MG/20MG 10ML UDC 10 ML PO ×2 (03:12→09:05)
[2023-02-21] MEDS: BUDESONIDE 0.5MG/2ML NEB 0.5 MG IH (06:39)
[2023-02-21] MEDS: FLUTICASONE/UMECLIDIN/VILANTER 100/62.5/25MCG INHALER 1 PUFF IH (06:39)
[2023-02-21 07:19] LABS: Basophils # 0.1 K/mm3 (0-0.2); Basophils % 0.3 % (0.1-2.0); Eosinophils # 0.1 K/mm3 (0.0-0.4); Eosinophils % 0.9 % (0.1-12.0); Hematocrit 40.7 % (37.0-47.0); Hemoglobin 13.8 g/dL (12.2-16.2); Lymphocytes # 2.7 K/mm3 (0.7-4.5); Mean Corpuscular HGB Conc 33.9 g/dL (31.8-35.4); Mean Corpuscular Hemoglobin 32.1 pg (27.0-31.2); Mean Corpuscular Volume 94.7 fl (81-99); Mean Platelet Volume 7.7 fl (7.4-10.4); Monocytes # 0.6 K/mm3 (0.1-1.0); Monocytes % 3.7 % (1.7-9.3); Neutrophils # 11.6 K/mm3 (1.8-7.8); Platelet Count 236 K/mm3 (142-424); Red Cell Distribution Width 16.5 % (11.5-17.5); White Blood Count 15.1 K/mm3 (4.8-10.8)
[2023-02-21 07:25] LABS: Chloride 93 mmol/L (98-107); Sodium 135 mmol/L (136-145)
[2023-02-21 07:28] LABS: Alanine Aminotransferase 27 U/L (12-78); Albumin Level 3.7 g/dl (3.5-5.0); Albumin/Globulin Ratio 1.3 (1.1-1.8); Alkaline Phosphatase 72 U/L (38-126); Aspartate Amino Transferase 29 U/L (14-36); Bilirubin,Total 0.4 mg/dl (0.2-1.3); Blood Urea Nitrogen 15 mg/dl (7-17); Calcium 8.3 mg/dl (8.4-10.2); Carbon Dioxide 37 mmol/L (22.0-30.0); Creatinine Clearance Estimated 78 mL/min (50-200); Estimated Glomerular Filt Rate 91 ml/min (>60); GFR (African American) 111 ML/MIN (>60); Globulin 2.9 g/dL (1.3-3.2); Glucose 104 mg/dl (74-100); Magnesium 1.9 mg/dl (1.6-2.3); Total Protein,Serum 6.6 g/dl (6.3-8.2)
[2023-02-21 07:32] LABS: MANUAL DIFFERENTIAL MANUAL DIFFERENTIAL (MANUAL DIFF)
[2023-02-21 08:21] LABS: Lymphocytes % 26 % (10-50); Monocytes % 7 % (2-9); Neutrophils % 67 % (42-76); Total Cells Counted 100
[2023-02-21 08:22] LABS: Platelet Estimate Normal; RBC Morphology Normal
--- NOTE | 2023-02-21 08:23 | P.PN_ITS ---
Subjective *Date: 02/21/23 *Time: 08:23 Medical Exam Vital signs and Labs for Last 24 Hours: Vital Signs Temp Pulse Pulse Resp BP Pulse Ox O2 Del Method 02/21/23 08:00 98 F 100 H 18 123/72 96 Nasal Cannula 02/21/23 07:00 BiPAP 02/21/23 06:38 91 H 02/21/23 06:38 88 02/21/23 06:38 99 BiPAP 02/21/23 06:38 02/21/23 05:00 BiPAP 02/21/23 04:00 72 02/21/23 04:00 97.8 F 89 18 144/88 H 99 Nasal Cannula 02/21/23 03:00 Nasal Cannula 02/21/23 01:00 BiPAP 02/21/23 01:18 70 02/21/23 01:18 74 02/21/23 00:00 66 02/21/23 00:00 97.8 F 70 18 116/71 96 BiPAP 02/20/23 23:00 Nasal Cannula 02/20/23 20:30 91 H 02/20/23 21:00 Nasal Cannula 02/20/23 21:57 78 02/20/23 21:57 79 02/20/23 21:57 02/20/23 21:00 Nasal Cannula 02/20/23 20:00 97.9 F 80 18 130/97 H 97 Nasal Cannula 02/20/23 18:36 Nasal Cannula 02/20/23 18:33 82 02/20/23 18:33 87 02/20/23 18:33 95 Nasal Cannula 02/20/23 17:00 Nasal Cannula 02/20/23 16:00 100 H 02/20/23 15:51 97.7 F 83 18 142/75 H 96 Nasal Cannula 02/20/23 14:55 Nasal Cannula 02/20/23 13:04 Nasal Cannula 02/20/23 12:00 80 02/20/23 12:00 97.8 F 88 17 141/82 H 96 Nasal Cannula 02/20/23 10:55 BiPAP 02/20/23 10:38 89 02/20/23 10:38 86 02/20/23 09:10 Nasal Cannula O2 Flow Rate FiO2 02/21/23 08:00 02/21/23 07:00 02/21/23 06:38 02/21/23 06:38 02/21/23 06:38 30 02/21/23 06:38 30 02/21/23 05:00 02/21/23 04:00 02/21/23 04:00 2 02/21/23 03:00 2 02/21/23 01:00 02/21/23 01:18 02/21/23 01:18 02/21/23 00:00 02/21/23 00:00 02/20/23 23:00 2 02/20/23 20:30 02/20/23 21:00 2 02/20/23 21:57 02/20/23 21:57 02/20/23 21:57 30 02/20/23 21:00 2 02/20/23 20:00 02/20/23 18:36 2 02/20/23 18:33 02/20/23 18:33 02/20/23 18:33 4 02/20/23 17:00 2 02/20/23 16:00 02/20/23 15:51 02/20/23 14:55 2 02/20/23 13:04 3 02/20/23 12:00 02/20/23 12:00 02/20/23 10:55 02/20/23 10:38 02/20/23 10:38 02/20/23 09:10 3 Intake and Output 02/20/23 02/21/23 02/21/23 23:59 07:59 15:59 Intake Total 510 / 1590 540 / 540 Output Total 0 / 0 Balance 510 / 1590 540 / 540 Intake: Intake, Oral Amount 510 / 1590 540 / 540 Output: Output, Urine Amount 0 / 0 Other: Number of Unmeasured Voids 1 Weight 131.315 kg Patient Weight 02/21/23 23:59 Weight 131.315 kg Laboratory Results - last 24 hr 02/21/23 06:46: WBC 15.1 H, RBC 4.30, Hgb 13.8, Hct 40.7, MCV 94.7, MCH 32.1 H, MCHC 33.9, RDW 16.5, Plt Count 236, MPV 7.7, Neut % (Auto) 77.0, Lymph % (Auto) 18.0, [place] % (Auto) 3.7, Eos % (Auto) 0.9, Baso % (Auto) 0.3, Neut # (Auto) 11.6 H, Lymph # (Auto) 2.7, [place] # (Auto) 0.6, Eos # (Auto) 0.1, Baso # (Auto) 0.1, Total Counted 100, Neutrophils % (Manual) 67, Lymphocytes % (Manual) 26, Monocytes % (Manual) 7, Platelet Estimate Normal, RBC Morphology Normal, Sodium 135 L, Potassium 4.0 D, Chloride 93 L, Carbon Dioxide 37 H, Anion Gap 9.0, BUN 15, Creatinine 0.70, Estimated Creat Clear 78, Estimated GFR 91, Est GFR ( Amer) 111, Glucose 104 H D, Calcium 8.3 L, Magnesium 1.9, Total Bilirubin 0.4, AST 29, ALT 27, Alkaline Phosphatase 72, Total Protein 6.6, Albumin 3.7, Globulin 2.9, Albumin/Globulin Ratio 1.3 I & O for Labs for Last 24 Hours: Intake & Output 02/18/23 02/19/23 02/20/23 02/21/23 23:59 23:59 23:59 23:59 Intake Total 1800 / 1800 630 / 630 1590 / 1590 540 / 540 Output Total 0 / 0 0 / 0 Balance 1800 / 1800 630 / 630 1590 / 1590 540 / 540 Weight 133.855 kg 132.54 kg 131.99 kg 131.315 kg The patient's infection will respond to the chosen ABx?: Yes (BLOOD CULTURES PENDING, AFEBRILE OVER 24 HRS, WHITE COUNT ELEVATED.) Is the patient receiving the right drug, dose, and route?: Yes Could a more targeted ABx be ordered?: No
[2023-02-21] MEDS: predniSONE 20MG TAB 40 MG PO (09:04)
[2023-02-21] MEDS: PANTOPRAZOLE 40MG TABLET 40 MG PO (09:04)
[2023-02-21] MEDS: BENZONATATE 100MG CAPSULE 200 MG PO (09:05)
[2023-02-21] MEDS: DULOXETINE 30MG CAPSULE.DR 30 MG PO (09:05)
[2023-02-21] MEDS: CARIPRAZINE 1.5 MG 1.5 EACH PO (09:05)
[2023-02-21] MEDS: POTASSIUM CHLORIDE 20MEQ TAB 20 MEQ PO ×2 (09:05→12:02)
--- NOTE | 2023-02-21 09:19 | PC.NURSE ---
Patient 87% oxygen saturation on room air at rest
--- NOTE | 2023-02-21 09:34 | P.CONS_ITS ---
History of Present Illness History of present illness: Ms. Winston is a 42-year-old female with a history of asthma COPD overlap syndrome on home Trelegy 200 inhaler not on any oxygen supplementation presented to the ER with worsening respiratory distress and pulmonary was called on admission over the weekend. Patient admits significant improvement in her symptoms today. [facility] Disclaimer: The information contained in this section may have been updated after the patient was seen, as this information can be updated by other users. Medical History Acute respiratory failure with hypoxia Allergic rhinitis Asthma Asthma Chronic cough COPD (chronic obstructive pulmonary disease) COPD mixed type Dyspnea on exertion History of COPD Hypertension Moderate persistent asthma Peripheral eosinophilia Pulmonary embolism Shortness of Breath Smoking greater than 30 pack years Surgical History H/O carpal tunnel repair H/O section H/O wisdom tooth extraction Hx of cholecystectomy Family History Other No significant family history Social History (Updated 02/19/23 @ 02:24 by Tammy Bond RN) Smoking Status: Current every day smoker tobacco type: cigarettes packs per day: 1 second hand exposure: No alcohol intake: never substance use type: denies use current occupational status: other Travel in the last 8 weeks: None household members: spouse housing: apartment 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 current occupational exposures/hazards: No caffeine: Yes Review of Systems Constitutional Constitutional: Denies anorexia, Denies body ache(s) and Reports fatigue Eyes Eyes: Denies eye discharge, Denies dry eyes, Denies irritation and Denies itchy eyes ENT Ears, Nose, Mouth, and Throat: Denies epistaxis, Denies facial pain, Denies lip swelling and Denies throat swelling *Cardiovascular Cardiovascular: Reports dyspnea and Reports dyspnea on exertion *Respiratory Respiratory: Reports chest congestion, Reports cough, Reports dyspnea, Reports dyspnea on exertion, Denies excessive phlegm production and Denies wheezing *Gastrointestinal Gastrointestinal: Denies abdominal pain, Denies belching and Denies cramping *Musculoskeletal Musculoskeletal: Reports back pain and Denies myalgias Psychiatric Psychiatric: Denies homicidal ideation and Denies suicidal ideation Endocrine Endocrine: Reports fatigue and Denies heat intolerance Hematologic/Lymphatic Hematologic/Lymphatic: Denies easy bleeding and Denies lymphadenopathy Allergic/Immunologic Allergic/Immunologic: Denies itchy eyes, Denies lip swelling, Denies throat swelling and Denies wheezing Pulmonology Exam Inpatient Vital signs and Labs for Last 24 Hours: Temp Pulse Resp BP Pulse Ox O2 Del Method O2 Flow Rate 98 F 100 H 18 123/72 87 L Room Air 2 02/21/23 08:00 02/21/23 08:00 02/21/23 08:00 02/21/23 08:00 02/21/23 09:19 02/21/23 09:19 02/21/23 04:00 FiO2 30 02/21/23 06:38 Laboratory Results - last 24 hr 02/21/23 06:46: WBC 15.1 H, RBC 4.30, Hgb 13.8, Hct 40.7, MCV 94.7, MCH 32.1 H, MCHC 33.9, RDW 16.5, Plt Count 236, MPV 7.7, Neut % (Auto) 77.0, Lymph % (Auto) 18.0, [place] % (Auto) 3.7, Eos % (Auto) 0.9, Baso % (Auto) 0.3, Neut # (Auto) 11.6 H, Lymph # (Auto) 2.7, [place] # (Auto) 0.6, Eos # (Auto) 0.1, Baso # (Auto) 0.1, Total Counted 100, Neutrophils % (Manual) 67, Lymphocytes % (Manual) 26, Monocytes % (Manual) 7, Platelet Estimate Normal, RBC Morphology Normal, Sodium 135 L, Potassium 4.0 D, Chloride 93 L, Carbon Dioxide 37 H, Anion Gap 9.0, BUN 15, Creatinine 0.70, Estimated Creat Clear 78, Estimated GFR 91, Est GFR ( Amer) 111, Glucose 104 H D, Calcium 8.3 L, Magnesium 1.9, Total Bilirubin 0.4, AST 29, ALT 27, Alkaline Phosphatase 72, Total Protein 6.6, Albumin 3.7, Globulin 2.9, Albumin/Globulin Ratio 1.3 I & O for Labs for Last 24 Hours: Intake & Output 02/18/23 02/19/23 02/20/23 02/21/23 23:59 23:59 23:59 23:59 Intake Total 1800 / 1800 630 / 630 1590 / 1590 540 / 540 Output Total 0 / 0 0 / 0 Balance 1800 / 1800 630 / 630 1590 / 1590 540 / 540 Weight 295 lb 1.6 oz 292 lb 3.2 oz 290 lb 15.81 oz 289 lb 8 oz Constitutional: Present mild distress Head: Present normocephalic and atraumatic ENT: Present normal exam, normal oropharynx and mucous membranes moist Neck: Present normal inspection and full ROM Respiratory: Present able to speak in complete sentences; Absent respiratory distress or wheezes Cardiac: Present S1/S2, Tachycardia and radial pulses present GI: Present soft and distention; Absent tenderness or guarding Rectal (female): Present deferred (female): Present deferred Skin: Present intact; Absent cyanosis or jaundice Neuro: Present alert, awake and oriented x 3 Extremities: Present normal inspection; Absent clubbing or cyanosis Psychiatric: Present normal affect and cooperative Meds Home Medications and Allergies Home Medications Medication Instructions Recorded Confirmed Type albuterol sulfate 2.5 mg/3 mL 2.5 mg continuous nebulization 02/19/23 02/19/23 History (0.083 %) solution for nebulization QIDP PRN Breathing Problems albuterol sulfate 90 mcg/actuation 2 puff inhalation TIDP PRN 02/19/23 02/19/23 History aerosol inhaler Shortness Of Breath Or Wheezing azelastine 137 mcg (0.1 %) nasal 2 spray intranasal BID 02/19/23 02/19/23 History spray aerosol cariprazine 1.5 mg capsule 1.5 mg PO DAILY 02/19/23 02/19/23 History (Vraylar) duloxetine 30 mg capsule,delayed 30 mg PO DAILY 02/19/23 02/19/23 History release fluticasone fur. 100 mcg-umeclid 1 inh inhalation DAILY 02/19/23 02/19/23 History 62.5 mcg-vilant 25 mcg inhalat.powder (Trelegy Ellipta) fluticasone propionate 50 1 spray intranasal DAILY 02/19/23 02/19/23 History mcg/actuation nasal spray,suspension montelukast 10 mg tablet 10 mg PO DAILY 02/19/23 02/19/23 History prednisone 20 mg tablet 20 mg PO BID 02/19/23 02/19/23 History propranolol 60 mg capsule,24 60 mg PO DAILY 02/19/23 02/19/23 History hr,extended release sumatriptan succinate 100 mg tablet 100 mg PO NEEDED PRN Migraine 02/19/23 02/19/23 History Headache New Prescriptions to Start Prescriptions: Allergies Allergy/AdvReac Type Severity Reaction Status Date / Time aspirin [ASPIRIN] Allergy Unknown Hives Verified 01/04/23 10:33 codeine [CODEINE] Allergy Unknown Hives Verified 01/04/23 10:33 Penicillins Allergy Hives Verified 01/04/23 10:33 Grape Jelly Allergy Severe Difficulty Uncoded 01/04/23 10:33 Breathing Results Laboratory Findings 02/21/23 06:46 02/21/23 06:46 ABG ABG pH 7.36 mmol/L (7.35-7.45) 02/19/23 10:44 ABG pCO2 56.7 mmhg (35.0-45.0) H 02/19/23 10:44 ABG pO2 69.1 mmhg (80-100) L 02/19/23 10:44 ABG O2 Saturation 94 % (90-100) 02/19/23 10:44 Abnormal lab findings: Abnormal Labs 02/18/23 02/18/23 02/19/23 19:50 19:58 02:00 WBC 24.4 H* MCH 31.7 H Neut % (Auto) 81.7 H Lymph % (Auto) Eos % (Auto) Neut # (Auto) 19.9 H Lymph # (Auto) [place] # (Auto) 1.3 H Neutrophils % (Manual) 82 H Lymphocytes % (Manual) Monocytes % (Manual) ABG pH 7.29 L ABG pCO2 58.4 H ABG pO2 101.8 H ABG HCO3 27.7 H ABG Total CO2 29.5 H ABG Base Excess VBG pH 7.28 L VBG pCO2 72.3 H VBG pO2 70.3 H VBG HCO3 33.5 H VBG Total CO2 35.7 H VBG O2 Saturation 91.7 H VBG Base Excess 6.8 H Sodium Potassium 3.3 L Chloride 94 L Carbon Dioxide 33 H Creatinine Glucose 227 H Calcium 8.1 L 02/19/23 02/19/23 02/20/23 05:58 10:44 07:17 WBC 20.7 H* 14.7 H D MCH 31.3 H 31.4 H Neut % (Auto) 95.2 H 81.4 H Lymph % (Auto) 2.5 L Eos % (Auto) 0.0 L Neut # (Auto) 19.7 H 12.0 H Lymph # (Auto) 0.5 L [place] # (Auto) Neutrophils % (Manual) 98 H Lymphocytes % (Manual) 1 L Monocytes % (Manual) 1 L ABG pH ABG pCO2 56.7 H ABG pO2 69.1 L ABG HCO3 31.3 H ABG Total CO2 33.1 H ABG Base Excess 5.9 H VBG pH VBG pCO2 VBG pO2 VBG HCO3 VBG Total CO2 VBG O2 Saturation VBG Base Excess Sodium 135 L 133 L Potassium 3.1 L D Chloride 93 L 92 L Carbon Dioxide 34 H 37 H Creatinine 0.50 L D Glucose 185 H 172 H Calcium 8.0 L 8.3 L 02/21/23 06:46 WBC 15.1 H MCH 32.1 H Neut % (Auto) Lymph % (Auto) Eos % (Auto) Neut # (Auto) 11.6 H Lymph # (Auto) [place] # (Auto) Neutrophils % (Manual) Lymphocytes % (Manual) Monocytes % (Manual) ABG pH ABG pCO2 ABG pO2 ABG HCO3 ABG Total CO2 ABG Base Excess VBG pH VBG pCO2 VBG pO2 VBG HCO3 VBG Total CO2 VBG O2 Saturation VBG Base Excess Sodium 135 L Potassium Chloride 93 L Carbon Dioxide 37 H Creatinine Glucose 104 H D Calcium 8.3 L Assessment and Plan *Assessment and plan (1) Respiratory failure with hypercapnia: Status: Acute Qualifiers: Chronicity: acute on chronic Qualified Code(s): J96.22 - Acute and chronic respiratory failure with hypercapnia Category: Medical Code(s): J96.92 - Respiratory failure, unspecified with hypercapnia (2) COPD exacerbation: Status: Acute Category: Medical Code(s): J44.1 - Chronic obstructive pulmonary disease with (acute) exacerbation (3) Acute respiratory failure with hypoxia: Status: Acute Category: Medical Code(s): J96.01 - Acute respiratory failure with hypoxia Plan Ms. Winston is a 42-year-old female with a history of asthma COPD overlap syndrome on home Trelegy 200 inhaler not on any oxygen supplementation presented to the ER with worsening respiratory distress and pulmonary was called on admission over the weekend. Patient noted a significant leukocytosis upon admission. ABG on admission showed hypercarbic respiratory failure needing BiPAP per pulmonary has been following this patient peripherally. Her blood gas eventually improved and patient was weaned to nasal cannula. Patient on admission was initiated levofloxacin along with prednisone daily. Chest x-ray upon admission no acute pulmonary infiltrate/consolidation. Comprehensive respiratory viral PCR panel negative. On examination patient does not appear to be in any severe respiratory auscultation clear with no significant wheezing. Room air saturation 94%. Plan: Oxygen supplementation as needed to maintain O2 saturation below 90% unable. Recommend 6-minute walk testing prior to discharge Continue levofloxacin to complete total of 5-day course Continue prednisone to complete a total of 5-day course Continue home inhalers including Trelegy 200 along with DuoNebs every 6 hours on as-needed basis # Thank you for involving pulmonary in this patient care. Will follow the patient in pulmonary clinic 2 to 3 weeks post discharge
--- NOTE | 2023-02-21 11:28 | EXP.DC.SUM ---
General Admission date:: 02/18/23 Discharge date: 02/21/23 HPI HPI HPI: This is a 42-year-old female morbidly obese with significant PMHx of COPD not on home oxygen, ABILIO on nocturnal CPAP, chronic cough, smoking greater than 30 pack years. Over the last week she has had progressive cough and shortness of breath refractory to her DuoNebs at home. Due to persistent worsening shortness of breath and substernal chest pain she presents here for continued evaluation. Substernal chest pain was acute, earlier today. Vomiting onset over the last 1 hour that is nonbloody. No other acute complaints at this time. Admitted for treatment and management. Hospital Course Hospital Course Hospital Course: 42-year-old female morbidly obese with significant PMHx of COPD not on home oxygen, ABILIO on nocturnal CPAP, chronic cough, smoking greater than 30 pack years. Over the last week she has had progressive cough and shortness of breath refractory to her DuoNebs at home. on Arrival initial interventions include DuoNeb's x 3, methylprednisolone. labs are significant leukocytosis. CXR obatined. reviewed. Patient met sepsis criteria and was started on ceftriaxone and azithromycin as well as given sepsis bolus fluids. Patient showed improvement with BiPAP. Leukocytosis improved. Able to wean oxygen. Significant improvement in respiratory status. Meeting criteria for discharge home to continue to convalesce. Problems addressed as follows: -Acute on chronic respiratory failure with hypercapnia, - COPD exacerbation: Patient initiated on antibiotics, breathing treatments, BiPAP for respiratory failure with hypercapnia. Pulmonology consulted, appreciate their assistance in care during admission. Did well with gradual improvement in her leukocytosis down to 15 by day of discharge. Tolerating 1 L with sats in the low 90s on day of discharge. Will continue antibiotics with levofloxacin 750 mg daily for total of 5 days and prednisone 40 mg daily for total of 5 days. Continue nebulizer as needed at home. Resume Trelegy inhaler. Patient stable for discharge home. Close follow-up with pulmonology in the next 2 to 3 weeks. Anxiety: Continue Vraylar 1.5 mg daily and Cymbalta 30 mg daily tobacco dependance: nicotine patch daily 21 mg Morbid obesity complicates all aspects of her care Stable for discharge home. Continue supplemental oxygen as needed continuously through the day. Meeting criteria for 1 to 2 L daily. Wean as tolerated as an outpatient. Resume home CPAP at night. Spent 30 minutes in discharge counseling, mentation, discussion with pulmonology, and direct care with patient. Exam Data for Last 24 hours Vital signs and Labs for Last 24 Hours: Temp Pulse Resp BP Pulse Ox O2 Del Method O2 Flow Rate 97.9 F 75 18 120/65 87 L Room Air 2 02/21/23 11:20 02/21/23 10:47 02/21/23 11:20 02/21/23 11:20 02/21/23 09:19 02/21/23 11:20 02/21/23 04:00 FiO2 30 02/21/23 06:38 Laboratory Results - last 24 hr 02/21/23 06:46: WBC 15.1 H, RBC 4.30, Hgb 13.8, Hct 40.7, MCV 94.7, MCH 32.1 H, MCHC 33.9, RDW 16.5, Plt Count 236, MPV 7.7, Neut % (Auto) 77.0, Lymph % (Auto) 18.0, [place] % (Auto) 3.7, Eos % (Auto) 0.9, Baso % (Auto) 0.3, Neut # (Auto) 11.6 H, Lymph # (Auto) 2.7, [place] # (Auto) 0.6, Eos # (Auto) 0.1, Baso # (Auto) 0.1, Total Counted 100, Neutrophils % (Manual) 67, Lymphocytes % (Manual) 26, Monocytes % (Manual) 7, Platelet Estimate Normal, RBC Morphology Normal, Sodium 135 L, Potassium 4.0 D, Chloride 93 L, Carbon Dioxide 37 H, Anion Gap 9.0, BUN 15, Creatinine 0.70, Estimated Creat Clear 78, Estimated GFR 91, Est GFR ( Amer) 111, Glucose 104 H D, Calcium 8.3 L, Magnesium 1.9, Total Bilirubin 0.4, AST 29, ALT 27, Alkaline Phosphatase 72, Total Protein 6.6, Albumin 3.7, Globulin 2.9, Albumin/Globulin Ratio 1.3 I & O for Last 24 hours: Intake & Output 02/18/23 02/19/23 02/20/23 02/21/23 23:59 23:59 23:59 23:59 Intake Total 1800 / 1800 630 / 630 1590 / 1590 540 / 540 Output Total 0 / 0 0 / 0 Balance 1800 / 1800 630 / 630 1590 / 1590 540 / 540 Weight 133.855 kg 132.54 kg 131.99 kg 131.315 kg Constitutional Constitutional: no acute distress, morbidly obese, chronically ill appearing and cooperative *Routine HEENT Exam Head: Present normocephalic Eye: Present EOMI and PERRL ENT: Present mucous membranes moist Comments: hirsutism *Routine Neck Exam Neck: Present supple; Absent lymphadenopathy *Routine Respiratory Exam Respiratory: Present CTA bilaterally and distant breath sounds; Absent rhonchi, wheezes or crackles *Routine Cardiovascular Exam Cardiovascular: Present RRR *Routine Abdominal Exam Abdominal: Present soft and normoactive bowel sounds; Absent tenderness *Routine Extremities Exam Extremities: Absent cyanosis, clubbing or edema *Routine Skin Exam Skin: Present warm; Absent rash *Routine Neurological Exam Neurological: Present alert, oriented X3 and moving all extremities; Absent altered mental status Results Data Completed and Pending Labs on day of discharge: Labs from last 24 hours 02/21/23 06:46 WBC 15.1 H RBC 4.30 Hgb 13.8 Hct 40.7 MCV 94.7 MCH 32.1 H MCHC 33.9 RDW 16.5 Plt Count 236 MPV 7.7 Neut % (Auto) 77.0 Lymph % (Auto) 18.0 [place] % (Auto) 3.7 Eos % (Auto) 0.9 Baso % (Auto) 0.3 Neut # (Auto) 11.6 H Lymph # (Auto) 2.7 [place] # (Auto) 0.6 Eos # (Auto) 0.1 Baso # (Auto) 0.1 Total Counted 100 Neutrophils % (Manual) 67 Lymphocytes % (Manual) 26 Monocytes % (Manual) 7 Platelet Estimate Normal RBC Morphology Normal Sodium 135 L Potassium 4.0 D Chloride 93 L Carbon Dioxide 37 H Anion Gap 9.0 BUN 15 Creatinine 0.70 Estimated Creat Clear 78 Estimated GFR 91 Est GFR ( Amer) 111 Glucose 104 H D Calcium 8.3 L Magnesium 1.9 Total Bilirubin 0.4 AST 29 ALT 27 Alkaline Phosphatase 72 Total Protein 6.6 Albumin 3.7 Globulin 2.9 Albumin/Globulin Ratio 1.3 DS: Diagnosis Discharge Diagnosis (1) Respiratory failure with hypercapnia: Status: Acute Code(s): J96.92 - Respiratory failure, unspecified with hypercapnia Qualifiers: Chronicity: acute on chronic Qualified Code(s): J96.22 - Acute and chronic respiratory failure with hypercapnia (2) COPD exacerbation: Status: Acute Code(s): J44.1 - Chronic obstructive pulmonary disease with (acute) exacerbation (3) Acute respiratory failure with hypoxia: Status: Acute Code(s): J96.01 - Acute respiratory failure with hypoxia Meds Home Medications and Allergies Home Medications Medication Instructions Recorded Confirmed Type albuterol sulfate 2.5 mg/3 mL 2.5 mg continuous nebulization 02/19/23 02/19/23 History (0.083 %) solution for nebulization QIDP PRN Breathing Problems albuterol sulfate 90 mcg/actuation 2 puff inhalation TIDP PRN 02/19/23 02/19/23 History aerosol inhaler Shortness Of Breath Or Wheezing azelastine 137 mcg (0.1 %) nasal 2 spray intranasal BID 02/19/23 02/19/23 History spray aerosol cariprazine 1.5 mg capsule 1.5 mg PO DAILY 02/19/23 02/19/23 History (Vraylar) duloxetine 30 mg capsule,delayed 30 mg PO DAILY 02/19/23 02/19/23 History release fluticasone fur. 100 mcg-umeclid 1 inh inhalation DAILY 02/19/23 02/19/23 History 62.5 mcg-vilant 25 mcg inhalat.powder (Trelegy Ellipta) fluticasone propionate 50 1 spray intranasal DAILY 02/19/23 02/19/23 History mcg/actuation nasal spray,suspension montelukast 10 mg tablet 10 mg PO DAILY 02/19/23 02/19/23 History sumatriptan succinate 100 mg tablet 100 mg PO NEEDED PRN Migraine 02/19/23 02/19/23 History Headache ipratropium 0.5 mg-albuterol 3 mg 3 ml inhalation Q6HP PRN shortness 02/21/23 Rx (2.5 mg base)/3 mL nebulization of breath 30 days #100 ea soln levofloxacin 750 mg tablet 750 mg PO 2100 1 day #1 tab 02/21/23 Rx nicotine 21 mg/24 hr daily 21 mg transdermal DAILYP PRN 02/21/23 Rx transdermal patch Nicotine Cravings 28 days #28 ea prednisone 20 mg tablet 40 mg PO DAILY 1 day #2 tabs 02/21/23 Rx New Prescriptions to Start Prescriptions: ipratropium-albuterol Sam [place] levofloxacin Bonita,Sam nicotine Bonita,Sam prednisone Bonita,Sam Allergies Allergy/AdvReac Type Severity Reaction Status Date / Time aspirin [ASPIRIN] Allergy Unknown Hives Verified 01/04/23 10:33 codeine [CODEINE] Allergy Unknown Hives Verified 01/04/23 10:33 Penicillins Allergy Hives Verified 01/04/23 10:33 Grape Jelly Allergy Severe Difficulty Uncoded 01/04/23 10:33 Breathing Discharge Plan Disposition Patient Disposition: Home, Self-Care Condition: Fair Discharge Order Discharge Orders: Discharge Order (Routine); Ordered 02/21/23 Ordered By: Sam Mesa Follow up Plan Follow up with: Sylvie Winters APRN [Referring] - 03/04/23 1:30 pm Tesha Caruso MD [Physician] - 03/06/23 1:00 pm Prescriptions/Medication Reconciliation: New ipratropium-albuterol 0.5 mg-3 mg(2.5 mg base)/3 mL Solution For Nebulization 3 ml inhalation Q6HP PRN (Reason: shortness of breath) 30 Days Qty: 100 0RF nicotine 21 mg/24 hr Patch 24 Hour 21 mg transdermal DAILYP PRN (Reason: Nicotine Cravings) 28 Days Qty: 28 0RF prednisone 20 mg Tablet 40 mg PO DAILY 1 Days Qty: 2 0RF levofloxacin 750 mg Tablet 750 mg PO 2100 1 Days Qty: 1 0RF Continued albuterol sulfate 2.5 mg /3 mL (0.083 %) solution for nebulization 2.5 mg continuous nebulization QIDP PRN (Reason: Breathing Problems) Patient Comments: INHALE 3ML FOUR TIMES DAILY VIA NEBULIZER NEEDED (BULK) sumatriptan succinate 100 mg tablet 100 mg PO NEEDED PRN (Reason: Migraine Headache) montelukast 10 mg tablet 10 mg PO DAILY Patient Comments: TAKE ONE TABLET BY MOUTH EVERY DAY azelastine 137 mcg (0.1 %) aerosol,spray 2 spray INTRANASAL BID Patient Comments: [place] 2 sprays twice a day by intranasal route. albuterol sulfate 90 mcg/actuation HFA aerosol inhaler 2 puff INHALATION TIDP PRN (Reason: Shortness Of Breath Or Wheezing) Patient Comments: Inhale 2 puffs 3 times a day by inhalation route as needed. fluticasone propionate 50 mcg/actuation spray,suspension 1 spray INTRANASAL DAILY Patient Comments: Instill 1 spray into each nostril once daily duloxetine 30 mg capsule,delayed release(DR/EC) 30 mg PO DAILY Patient Comments: TAKE ONE CAPSULE BY MOUTH DAILY AT 9 AM Rx Instructions: DAILY AT 9AM Vraylar 1.5 mg capsule 1.5 mg PO DAILY Patient Comments: TAKE ONE CAPSULE BY MOUTH EVERY DAY Trelegy Ellipta 100-62.5-25 mcg blister with device 1 inh INHALATION DAILY Patient Comments: Inhale 1 puff every day by inhalation route. Discontinued prednisone 20 mg tablet 20 mg PO BID Rx Instructions: X4 DAYS STARTING 02/17 propranolol 60 mg capsule,extended release 24 hr 60 mg PO DAILY Patient Comments: TAKE ONE CAPSULE BY MOUTH EVERY DAY Other Ambulatory Orders: Home Medical Equipment (Routine) Location: None Selected Ordered By: Sam Mesa Problem Reconciliation Problems Reviewed?: Yes Patient Discharge Instructions ACTIVITY: Continue current activity DIET: continue same diet Patient Instructions: The Mediterranean Diet and Good Health, Heart-Healthy Diet, DI for Chronic Obstructive Pulmonary Disease, DI for Pneumonia -- Adult Providers Primary Care Provider: Мария Winters Admit Provider: Lkoi Sahu Attending Provider: Loki Sahu
[2023-02-21] MEDS: levoFLOXacin 750 MG TABLET PO (12:02)
--- NOTE | 2023-02-22 13:20 | CARE MANAGER ---
Contacted patient related to hospital discharge. She states she is tired but feels better. She picks up her medication and denies questions or concerns. CESAR Garcia
== END 2023-02-21 13:22 | disposition home or self-care (01) | DRG 189 ==
LOC: ER 20:12 → 2ND 02-19 00:31
PROVIDERS: Internal Medicine Adolescent Medicine; Nurse Practitioner Family; Admitting Provider Internal Medicine; Emergency Provider Emergency Medicine; PCP Physician Assistant; Visit Provider Internal Medicine
DX: J96.22 Acute and chronic respiratory failure with hypercapnia (principal); J44.1 Chronic obstructive pulmonary disease with (acute) exacerbation; Z68.43 Body mass index [BMI] 50.0-59.9, adult; F17.210 Nicotine dependence, cigarettes, uncomplicated; E66.01 Morbid (severe) obesity due to excess calories; J96.01 Acute respiratory failure with hypoxia; Z86.711 Personal history of pulmonary embolism; I10 Essential (primary) hypertension; F41.9 Anxiety disorder, unspecified
CPT/HCPCS: 36415; 71045; 80053; 82803; 83605; 83690; 83735; 83880; 84484; 85007; 85025; 87040; 87632; 87635; 87636; 93005; 93306; 94640; 94660; 94760; 94761; 99291; J0456; J0696; J1956; J2405

== ENCOUNTER 2023-05-10 18:44 | Emergency (ER) | payer MEDICARE, MEDICAID, SELFPAY ==
[2023-05-10 19:20] VITALS: BP 123/83; PULSE 78; RESP 21; TEMP 36.8; O2SAT 98; BMI 54.8
--- NOTE | 2023-05-10 19:37 | ED_ITS ---
Discharge Plan Disposition Patient Disposition: Home, Self-Care Condition: Good Prescriptions Prescriptions: New azithromycin [Zithromax Z-Davi] 250 mg tablet See Rx Instructions .ROUTE .COMPLEX 5 Days Qty: 6 0RF Rx Instructions: For 250 mg dose pack: take 500 mg today (day 1), then 250 mg for 4 days (days 2-5) methylprednisolone [Medrol (Davi)] 4 mg tablets,dose pack See Rx Instructions .Route .COMPLEX 6 Days Qty: 21 0RF Rx Instructions: taper pack; guaifenesin [Mucinex] 600 mg tablet extended release 12hr 1,200 mg PO BID PRN (Reason: cough) Qty: 20 0RF No Action ipratropium-albuterol 0.5 mg-3 mg(2.5 mg base)/3 mL solution for nebulization 3 ml inhalation Q6HP PRN (Reason: shortness of breath) 30 Days Qty: 100 0RF albuterol sulfate [Proventil HFA] 90 mcg/actuation HFA aerosol inhaler 1 inh inhalation Q6H PRN (Reason: shortness of breath or wheezing) Qty: 8.5 0RF Trelegy Ellipta 200-62.5-25 mcg blister with device 1 inh inhalation DAILY 90 Days Qty: 90 3RF montelukast 10 mg tablet 10 mg PO DAILY 90 Days Qty: 90 3RF azelastine 137 mcg (0.1 %) aerosol,spray 2 spray intranasal HS 90 Days Qty: 30 3RF Rx Instructions: administer into each nostril fluticasone propionate [Flonase Allergy Relief] 50 mcg/actuation spray,suspension 2 spray intranasal ONCE 90 Days Qty: 16 3RF Rx Instructions: administer into each nostril albuterol sulfate 2.5 mg /3 mL (0.083 %) solution for nebulization 2.5 mg continuous nebulization QIDP PRN (Reason: Breathing Problems) Patient Comments: INHALE 3ML FOUR TIMES DAILY VIA NEBULIZER NEEDED (BULK) sumatriptan succinate 100 mg tablet 100 mg PO NEEDED PRN (Reason: Migraine Headache) montelukast 10 mg tablet 10 mg PO DAILY Patient Comments: TAKE ONE TABLET BY MOUTH EVERY DAY azelastine 137 mcg (0.1 %) aerosol,spray 2 spray INTRANASAL BID Patient Comments: Bruning 2 sprays twice a day by intranasal route. albuterol sulfate 90 mcg/actuation HFA aerosol inhaler 2 puff INHALATION TIDP PRN (Reason: Shortness Of Breath Or Wheezing) Patient Comments: Inhale 2 puffs 3 times a day by inhalation route as needed. fluticasone propionate 50 mcg/actuation spray,suspension 1 spray INTRANASAL DAILY Patient Comments: Instill 1 spray into each nostril once daily duloxetine 30 mg capsule,delayed release(DR/EC) 30 mg PO DAILY Patient Comments: TAKE ONE CAPSULE BY MOUTH DAILY AT 9 AM Rx Instructions: DAILY AT 9AM Vraylar 1.5 mg capsule 1.5 mg PO DAILY Patient Comments: TAKE ONE CAPSULE BY MOUTH EVERY DAY Trelegy Ellipta 100-62.5-25 mcg blister with device 1 inh INHALATION DAILY Patient Comments: Inhale 1 puff every day by inhalation route. levofloxacin 750 mg Tablet 750 mg PO 2100 1 Days Qty: 1 0RF Referrals Follow up/Referrals: Sylvie Winters APRN [Primary Care Provider] - See instructions Activity Restrictions/Add. Instructions Additional Instructions/Restrictions: * Start antibiotic today. Be sure to complete entire prescription even if feeling better * Monitor temp. Tylenol every 4 hours as needed and / or ibuprofen every 6 hours as needed ( As long as your primary care physician has told you that it ok to take both. For fever/aches/pains ER if no less than 101 despite Tylenol or Motrin * Humidifier/vaporizer or hot steamy shower * Mucinex for your cough Be sure to drink lots of water. * *Start steroid today. Helps with inflammation therefore, cough and wheezing. Follow directions on the package. Reviewed side effects. Patient reports ta rylan them before. Follow up IMMEDIATELY for new or worsening of symptoms OR no noticeable improvement over the next 48-72 hours. 911 immediately for any life threatening symptoms such as chest pain or difficulty breathing Clinical Impressions Clinical Impression: Sinusitis Qualifiers: Sinusitis location: unspecified location Chronicity: unspecified Qualified Code(s): J32.9 - Chronic sinusitis, unspecified Instructions Patient Instructions: Sinusitis, DI for Sinusitis Discharge ED Provider: Deborah [place] [facility] [place] General Stated complaint: Lightheaded,KHANNA,Hot inside out,SOA Mode of Arrival: Ambulatory Source of Information: Patient Limitations: No Limitations Time Seen by Provider: 05/10/23 19:37 Description of Symptoms (Recalled from Triage Doc. by RN): PATIENT C/O FEELING LIGHT-HEADED, TIRED, HEADACHE, FEELING HOT, AND CHEST FLUTTERS X 2 WEEKS HEENT Symptoms (Recalled from RN notes): Yes Resp Symptoms (Recalled from RN notes): No Skin Symptoms (Recalled from RN notes): No MS Symptoms (Recalled from RN notes): No Functional Status (Recalled from RN notes): WNL History of Present Illness Provider Complaint: Patient states that she has been sick for a couple of weeks States that she has been having sinus congestion and pressure, congestion that feels like it rattles/flutters in her chest headache, feeling achy and tired and today her throat started hurting and feeling scratchy when she swallows worried that she may have strep throat Related Data Home Medications Medication Instructions Recorded Confirmed albuterol sulfate 2.5 mg/3 mL 2.5 mg continuous nebulization 02/19/23 03/06/23 (0.083 %) solution for nebulization QIDP PRN Breathing Problems albuterol sulfate 90 mcg/actuation 2 puff inhalation TIDP PRN 02/19/23 03/06/23 aerosol inhaler Shortness Of Breath Or Wheezing azelastine 137 mcg (0.1 %) nasal 2 spray intranasal BID 02/19/23 03/06/23 spray aerosol cariprazine 1.5 mg capsule 1.5 mg PO DAILY 02/19/23 03/06/23 (Vraylar) duloxetine 30 mg capsule,delayed 30 mg PO DAILY 02/19/23 03/06/23 release fluticasone fur. 100 mcg-umeclid 1 inh inhalation DAILY 02/19/23 03/06/23 62.5 mcg-vilant 25 mcg inhalat.powder (Trelegy Ellipta) fluticasone propionate 50 1 spray intranasal DAILY 02/19/23 03/06/23 mcg/actuation nasal spray,suspension montelukast 10 mg tablet 10 mg PO DAILY 02/19/23 03/06/23 sumatriptan succinate 100 mg tablet 100 mg PO NEEDED PRN Migraine 02/19/23 03/06/23 Headache Previous Rx's Medication Instructions Recorded levofloxacin 750 mg tablet 750 mg PO 2100 1 day #1 tab 02/21/23 albuterol sulfate 90 mcg/actuation 1 inh inhalation Q6H PRN shortness 03/06/23 aerosol inhaler (Proventil HFA) of breath or wheezing #8.5 grams azelastine 137 mcg (0.1 %) nasal 2 spray intranasal HS 90 days #30 03/06/23 spray aerosol mL fluticasone fur. 200 mcg-umeclid 1 inh inhalation DAILY 90 days #90 03/06/23 62.5 mcg-vilant 25 mcg ea inhalat.powder (Trelegy Ellipta) fluticasone propionate 50 2 spray intranasal ONCE 90 days 03/06/23 mcg/actuation nasal #16 grams spray,suspension (Flonase Allergy Relief) ipratropium 0.5 mg-albuterol 3 mg 3 ml inhalation Q6HP PRN shortness 03/06/23 (2.5 mg base)/3 mL nebulization of breath 30 days #100 ea soln montelukast 10 mg tablet 10 mg PO DAILY 90 days #90 tabs 03/06/23 azithromycin 250 mg tablet See Rx Instructions PO .COMPLEX 5 05/10/23 (Zithromax Z-Davi) days #6 tabs guaifenesin 600 mg tablet, 1,200 mg (2 x 600 mg) PO BID PRN 05/10/23 extended release 12 hr (Mucinex) cough #20 tabs methylprednisolone 4 mg tablets in See Rx Instructions .Route 05/10/23 a dose pack (Medrol (Davi)) .COMPLEX 6 days #21 tabs Allergies Allergy/AdvReac Type Severity Reaction Status Date / Time aspirin [ASPIRIN] Allergy Unknown Hives Verified 03/06/23 13:03 codeine [CODEINE] Allergy Unknown Hives Verified 03/06/23 13:03 Penicillins Allergy Hives Verified 03/06/23 13:03 Grape Jelly Allergy Severe Difficulty Uncoded 03/06/23 13:03 Breathing Worker's Comp Is this a Worker's Comp case?: No [facility] Disclaimer: The information contained in this section may have been updated after the patient was seen, as this information can be updated by other users. Medical History Acute respiratory failure with hypoxia Allergic rhinitis Asthma Asthma Chronic cough COPD (chronic obstructive pulmonary disease) COPD mixed type Dyspnea on exertion History of COPD Hypertension Moderate persistent asthma Peripheral eosinophilia Pulmonary embolism Shortness of Breath Smoking greater than 30 pack years Surgical History H/O carpal tunnel repair H/O section H/O wisdom tooth extraction Hx of cholecystectomy Family History Other No significant family history Social History (Updated 03/06/23 @ 13:06 by Vesna Orosco) Smoking Status: Former smoker tobacco type: cigarettes packs per day: 1 smoking status stop date: 02/18/23 second hand exposure: No alcohol intake: never substance use type: denies use current occupational status: other Travel in the last 8 weeks: None household members: spouse housing: apartment 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 current occupational exposures/hazards: No caffeine: Yes ROS Obtained: Yes All systems reviewed & no additional complaints except as documented and Yes Systems reviewed as appropriate & no additional complaints except as documented Constitutional Constitutional: Reports system reviewed and no additional complaints, except as documented, Reports as per HPI, Reports body ache, Reports fatigue and Reports headache(s) ENT Ears, Nose, Mouth, and Throat: Reports system reviewed and no additional complaints, except as documented, Reports as per HPI, Reports headache(s), Reports sinus pain, Reports sinus pressure and Reports sore throat Cardiovascular Cardiovascular: Reports system reviewed and no additional complaints, except as documented, Reports as per HPI and Denies chest pain Respiratory Respiratory: Reports system reviewed and no additional complaints, except as documented, Reports as per HPI and Reports chest congestion (reports feels like it rattles/flutters in chest when she coughs) Neurologic Neurologic: Reports headache(s) Endocrine Endocrine: Reports fatigue Physical Exam General General appearance: alert and in no apparent distress ENT ENT exam: Present mucous membranes moist Expanded ENT Exam Nose exam: Present sinus tenderness Throat exam: Present other (Pharyngeal erythema noted with PND) Respiratory Respiratory exam: Present normal lung sounds bilaterally; Absent respiratory d istress or wheezes Cardiovascular Cardiovascular exam: Present regular rate, normal rhythm and normal heart sounds Neurological Exam Neurological exam: Present alert, oriented X3 and normal gait Medical Decision Making Shilo Inquiry Pt receiving controlled substance: No Shilo was queried for this patient: No Vital Signs: 05/10/23 19:20 Temperature 98.2 F Temperature Source Oral Pulse Rate [Right Brachial] 78 Respiratory Rate 21 Blood Pressure [Right Arm] 123/83 Blood Pressure Mean [Right Arm] 96 Blood Pressure Source [Right Arm] Automatic Cuff Blood Pressure Position [Right Arm] Sitting 02 Sat by Pulse Oximetry 98 Oxygen Delivery Method Room Air Lab Data Lab results reviewed: Yes I reviewed the patient's lab results. Medical Decision Narrative: Patient states that she has taken azithromycin and medrol in the past without reactions or complications
[2023-05-10 19:55] VITALS: BP 123/83; PULSE 78; RESP 21; TEMP 36.8; O2SAT 98
[2023-05-11 09:18] LABS: UTC Strep Screen (Rapid) Negative (Negative)
== END 2023-05-10 20:05 | disposition home or self-care (01) ==
PROVIDERS: Emergency Provider Nurse Practitioner; PCP Nurse Practitioner
DX: J32.9 Chronic sinusitis, unspecified (principal); R42 Dizziness and giddiness; R51.9 Headache, unspecified; R06.02 Shortness of breath; R09.81 Nasal congestion; J44.9 Chronic obstructive pulmonary disease, unspecified; I10 Essential (primary) hypertension; D72.10 Eosinophilia, unspecified; Z87.891 Personal history of nicotine dependence
CPT/HCPCS: 87880; 99212; 99214; G0463

== ENCOUNTER 2023-05-24 09:10 | Outpatient (CLI) | payer MEDICARE, MEDICAID, SELFPAY ==
[2023-05-24] MEDS: ALBUTEROL 0.083% 2.5 MG/3 ML NEB IH (09:56)
== END 2023-05-24 23:59 ==
LOC: RT 09:10
PROVIDERS: PCP Nurse Practitioner; Visit Provider Internal Medicine Pulmonary Disease
DX: R06.09 Other forms of dyspnea (principal)
CPT/HCPCS: 94060; 94618; 94726; 94729

== ENCOUNTER 2023-08-08 13:00 | Outpatient (RCR) | payer MEDICARE, MEDICAID, SELFPAY | END 2023-09-16 09:12 | disposition home or self-care (01) | LOC: PT 13:00 | PROVIDERS: Visit Provider Nurse Practitioner | DX: M54.50 Low back pain, unspecified (principal) | CPT/HCPCS: 97010; 97012; 97014; 97110; 97140; 97163; G0283 ==

== ENCOUNTER 2023-09-04 09:04 | Outpatient (CLI) | payer MEDICARE, MEDICAID, SELFPAY ==
--- NOTE | 2023-09-04 | MR_ITS ---
FINAL REPORT CLINICAL HISTORY: LBP COMPARISON: None FINDINGS: Multiplanar MR imaging of the lumbar spine was performed without contrast. On the sagittal T2-weighted images, there is disc degeneration at several levels, as well as endplate degenerative changes at the L4-5 level. There is mild retrolisthesis of L4 on L5. There is no evidence of fracture. Several vertebral body hemangiomas are present. The conus has an unremarkable appearance. No significant canal stenosis is identified. L1-2: No significant central canal stenosis or neuroforaminal narrowing. L2-3: No significant central canal stenosis or neuroforaminal narrowing. L3-4: An annular bulge is present with facet arthropathy and mild right neural foraminal narrowing. L4-5: An annular bulge is present with facet arthropathy, a small left paracentral inferiorly extruded disc protrusion, that mildly indents the thecal sac. There is also at this level a posterolateral protrusion on the right, with moderate bilateral neural foraminal narrowing. L5-S1: An annular bulge is present with facet arthropathy, and moderate left neural foraminal narrowing. IMPRESSION: Degenerative changes present in the lower lumbar spine, most severe at the L4-5 level as described. Reviewed, Interpreted and Dictated by Darrell Thao III, MD Transcribed by Sisi Barrera Authenticated and [facility]
== END 2023-09-04 23:59 | disposition home or self-care (01) ==
LOC: RAD 09:05
PROVIDERS: PCP Nurse Practitioner; Visit Provider Nurse Practitioner
DX: M54.50 Low back pain, unspecified (principal)
CPT/HCPCS: 72148

== ENCOUNTER 2023-12-06 12:52 | Outpatient (CLI) | payer MEDICARE, MEDICAID, SELFPAY ==
--- NOTE | 2023-12-06 13:02 | CT_ITS ---
FINAL REPORT TECHNIQUE: Axial images through the pelvis were performed by computed tomography. Sagittal and coronal reconstruction images were performed. This study was performed with techniques to keep radiation doses as low as reasonably achievable (ALARA). Individualized dose reduction techniques using automated exposure control or adjustment of mA and/or kV according to the patient's size were employed. CLINICAL HISTORY: LUMB RIDICULOPATHY COMPARISON: None FINDINGS: No fracture is identified. No dislocation identified. There are mild degenerative changes in the SI joints. Vacuum phenomenon is noted bilaterally. No soft tissue abnormality. IMPRESSION: Mild degenerative changes in the SI joints. No acute process. Reviewed, Interpreted and Dictated by Darrell Thao III, MD Transcribed by Felicity Adrian Authenticated and [facility]
--- NOTE | 2023-12-06 13:02 | CT_ITS ---
FINAL REPORT TECHNIQUE: Axial imaging of the lumbar spine was obtained without contrast. Sagittal and coronal reformatted images were also obtained and reviewed. This study was performed with techniques to keep radiation doses as low as reasonably achievable (ALARA). Individualized dose reduction techniques using automated exposure control or adjustment of mA and/or kV according to the patient's size were employed. CLINICAL HISTORY: .LUMBAR RADICULOPATHY COMPARISON: None FINDINGS: There is no fracture. The vertebral alignment is normal. Degenerative changes are greatest at L4-5 and L5-S1. There is vacuum disc phenomenon at L4-5 and L5-S1..There is no evidence of significant central canal stenosis. L1-L2: No evidence of central canal stenosis or neural foraminal narrowing. L2-L3: Annular disc bulge. No evidence of central canal stenosis or neural foraminal narrowing. L3-L4: Annular disc bulge. Small vertebral osteophytes. Mild bilateral neural foraminal narrowing. L4-L5: Annular disc bulge, facet arthropathy, and osteophytes. Severe right and moderate left neural foraminal narrowing. Right foraminal disc protrusion. Right L5 nerve root impingement. L5-S1: Annular disc bulge and facet arthropathy. Mild right and severe left neural foraminal narrowing. Left foraminal disc protrusion. Note is made of bilateral low-attenuation adrenal nodules consistent with adenomas. IMPRESSION: Multilevel degenerative change without acute bony abnormality. Disc protrusions at L4-5 and L5-S1 as described. Incidental note of adrenal nodules consistent with adenomas. Reviewed, Interpreted and Dictated by Darrell Thao III, MD Transcribed by Felicity Adrian Authenticated and . [facility]
== END 2023-12-06 23:59 | disposition home or self-care (01) ==
LOC: RAD 12:52
PROVIDERS: PCP Nurse Practitioner; Visit Provider Neurological Surgery
DX: M54.16 Radiculopathy, lumbar region (principal)
CPT/HCPCS: 72131; 72192

== ENCOUNTER 2023-12-13 17:05 | Emergency (ER) | payer MEDICARE, MEDICAID, SELFPAY ==
[2023-12-13 17:28] VITALS: BP 123/66; PULSE 78; RESP 20; TEMP 36.7; O2SAT 96; BMI 56.1
[2023-12-13 17:37] LABS: UTC Strep Screen (Rapid) Negative (Negative)
--- NOTE | 2023-12-13 17:40 | ED_ITS ---
Discharge Plan Disposition Patient Disposition: Home, Self-Care Condition: Good Prescriptions Prescriptions: New azithromycin [Zithromax] 250 mg tablet 250 mg PO UD DOSE PK Qty: 6 0RF Rx Instructions: Take two (2) tablets today, then one (1) tablet days #2 thru #5 benzonatate 100 mg capsule 100 mg PO TIDP PRN (Reason: Cough) Qty: 30 0RF methylprednisolone 4 mg Tablets,Dose Pack 4 mg PO DIRECTED 6 Days Qty: 21 0RF Rx Instructions: Take 1 pack as directed for 6 days No Action Trelegy Ellipta 200-62.5-25 mcg blister with device 1 inh inhalation DAILY 90 Days Qty: 90 2RF azelastine 137 mcg (0.1 %) aerosol,spray 2 spray intranasal HS 90 Days Qty: 30 2RF Rx Instructions: administer into each nostril montelukast 10 mg tablet 10 mg PO QPM 90 Days Qty: 90 2RF albuterol sulfate [Proventil HFA] 90 mcg/actuation HFA aerosol inhaler 1 inh inhalation Q6H PRN (Reason: shortness of breath or wheezing) Qty: 8.5 12RF ipratropium-albuterol 0.5 mg-3 mg(2.5 mg base)/3 mL solution for nebulization 3 ml inhalation Q6HP PRN (Reason: shortness of breath) 30 Days Qty: 100 0RF fluticasone propionate [Flonase Allergy Relief] 50 mcg/actuation spray,suspension 2 spray intranasal ONCE 90 Days Qty: 16 3RF Rx Instructions: administer into each nostril diclofenac sodium 75 mg tablet,delayed release (DR/EC) 75 mg PO Vraylar 3 mg capsule 3 mg PO DAILY Patient Comments: Take 1 capsule every day by oral route. propranolol 60 mg capsule,extended release 24 hr 60 mg PO Patient Comments: Take 1 capsule every day by oral route. sumatriptan succinate 100 mg tablet 100 mg PO Patient Comments: take 1 tablet by mouth daily azithromycin 250 mg tablet See Rx Instructions PO .COMPLEX Qty: 6 0RF Rx Instructions: For 250 mg dose pack: take 500 mg today (day 1), then 250 mg for 4 days (days 2-5) PO Mounjaro 2.5 mg/0.5 mL pen injector 2.5 mg SQ WEEKLY 28 Days Qty: 2 0RF albuterol sulfate 2.5 mg /3 mL (0.083 %) solution for nebulization 2.5 mg continuous nebulization QIDP PRN (Reason: Breathing Problems) Patient Comments: INHALE 3ML FOUR TIMES DAILY VIA NEBULIZER NEEDED (BULK) duloxetine 30 mg capsule,delayed release(DR/EC) 30 mg PO DAILY Patient Comments: TAKE ONE CAPSULE BY MOUTH DAILY AT 9 AM Rx Instructions: DAILY AT 9AM Trelegy Ellipta 100-62.5-25 mcg blister with device 1 inh INHALATION DAILY Patient Comments: Inhale 1 puff every day by inhalation route. Referrals Follow up/Referrals: Sylvie Winters APRN [Primary Care Provider] - See instructions Activity Restrictions/Add. Instructions Additional Instructions/Restrictions: Drink plenty of fluids. Take tylenol or ibuprofen for pain or fever. Take the medications as directed. Follow up with your regular doctor. GO TO THE ER FOR ANY WORSENING SYMPTOMS Clinical Impressions Clinical Impression: Pharyngitis, Bronchitis, Acute viral syndrome Instructions Patient Instructions: DI for Viral Syndrome Print Language Print Language: [place] Discharge ED Provider: Sam Sevilla [facility] General Stated complaint: Drainage,KHANNA,runny nose,chest congestion Mode of Arrival: Ambulatory Source of Information: Patient Time Seen by Provider: 12/13/23 17:40 Description of Symptoms (Recalled from Triage Doc. by RN): KHANNA, FATIGUE, COUGH, SNEEZING HEENT Symptoms (Recalled from RN notes): Yes Resp Symptoms (Recalled from RN notes): Yes Skin Symptoms (Recalled from RN notes): No MS Symptoms (Recalled from RN notes): No Functional Status (Recalled from RN notes): WNL Related Data Home Medications ?Medication ?Instructions ?Recorded ?Confirmed albuterol sulfate 2.5 mg/3 mL 2.5 mg continuous nebulization 02/19/23 07/01/23 (0.083 %) solution for nebulization QIDP PRN Breathing Problems duloxetine 30 mg capsule,delayed 30 mg PO DAILY 02/19/23 07/01/23 release fluticasone fur. 100 mcg-umeclid 1 inh inhalation DAILY 02/19/23 07/01/23 62.5 mcg-vilant 25 mcg inhalat.powder (Trelegy Ellipta) cariprazine 3 mg capsule (Vraylar) 3 mg PO DAILY 07/01/23 07/01/23 diclofenac sodium 75 mg 75 mg PO 07/01/23 07/01/23 tablet,delayed release propranolol 60 mg capsule,24 60 mg PO 07/01/23 07/01/23 hr,extended release sumatriptan succinate 100 mg tablet 100 mg PO 07/01/23 07/01/23 Previous Rx's ?Medication ?Instructions ?Recorded fluticasone propionate 50 2 spray intranasal ONCE 90 days 03/06/23 mcg/actuation nasal #16 grams spray,suspension (Flonase Allergy Relief) ipratropium 0.5 mg-albuterol 3 mg 3 ml inhalation Q6HP PRN shortness 03/06/23 (2.5 mg base)/3 mL nebulization of breath 30 days #100 ea soln albuterol sulfate 90 mcg/actuation 1 inh inhalation Q6H PRN shortness 05/24/23 aerosol inhaler (Proventil HFA) of breath or wheezing #8.5 grams azelastine 137 mcg (0.1 %) nasal 2 spray intranasal HS 90 days #30 05/24/23 spray mL fluticasone fur. 200 mcg-umeclid 1 inh inhalation DAILY 90 days #90 05/24/23 62.5 mcg-vilant 25 mcg ea inhalat.powder (Trelegy Ellipta) montelukast 10 mg tablet 10 mg PO QPM 90 days #90 tabs 05/24/23 azithromycin 250 mg tablet See Rx Instructions PO .COMPLEX #6 07/01/23 tabs tirzepatide 2.5 mg/0.5 mL 2.5 mg (0.5 mL) SQ WEEKLY 4 weeks 07/06/23 subcutaneous pen injector #2 mL (William) azithromycin 250 mg tablet 250 mg PO UD DOSE PK #6 tabs 12/13/23 (Zithromax) benzonatate 100 mg capsule 100 mg PO TIDP PRN Cough #30 caps 12/13/23 methylprednisolone 4 mg tablets in 4 mg PO DIRECTED 6 days #21 tabs 12/13/23 a dose pack Allergies Allergy/AdvReac Type Severity Reaction Status Date / Time aspirin [ASPIRIN] Allergy Unknown Hives Verified 07/01/23 16:10 codeine [CODEINE] Allergy Unknown Hives Verified 07/01/23 16:10 Penicillins Allergy Hives Verified 07/01/23 16:10 Grape Jelly Allergy Severe Difficulty Uncoded 07/01/23 16:10 Breathing Worker's Comp Is this a Worker's Comp case?: No [facility] Disclaimer: The information contained in this section may have been updated after the patient was seen, as this information can be updated by other users. Medical History Acute respiratory failure with hypoxia COPD mixed type Peripheral eosinophilia Moderate persistent asthma Dyspnea on exertion Shortness of Breath Chronic cough Allergic rhinitis History of COPD Smoking greater than 30 pack years Asthma Pulmonary embolism COPD (chronic obstructive pulmonary disease) Asthma Hypertension Surgical History Hx of cholecystectomy H/O section H/O wisdom tooth extraction H/O carpal tunnel repair Family History Other No significant family history Social History Smoking Status: Former smoker tobacco type: cigarettes packs per day: 1 smoking status stop date: 02/18/23 second hand exposure: No alcohol intake: never substance use type: denies use current occupational status: other Travel in the last 8 weeks: None household members: spouse housing: apartment 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 current occupational exposures/hazards: No caffeine: Yes ROS Obtained: Yes All systems reviewed & no additional complaints except as documented Constitutional Constitutional: Reports chills and Reports fever(s) Eyes Eyes: Denies eye discharge ENT Ears, Nose, Mouth, and Throat: Reports as per HPI Cardiovascular Cardiovascular: Denies chest pain Respiratory Respiratory: Denies chest congestion and Reports cough Gastrointestinal Gastrointestingal: Reports nausea; Denies abdominal pain, constipation, cramping, diarrhea or vomiting Musculoskeletal Musculoskeletal: Denies arthralgias Integumentary/Breasts Skin/Breast: Denies rash Neurologic Neurologic: Denies paresthesias Physical Exam General General appearance: alert and in no apparent distress Head Head exam: atraumatic, normocephalic and normal inspection Eye Eye exam: Present normal appearance, PERRL and EOMI ENT ENT exam: Present mucous membranes moist and normal external ear exam Expanded ENT Exam TM/Canal exam: Bilateral TM: erythema and bulging Nose exam: Absent sinus tenderness Mouth exam: Present normal external inspection; Absent drooling Teeth exam: Present normal inspection Throat exam: Present tonsillar erythema, tonsillomegaly and tonsillar exudate Neck Neck exam: Present normal inspection, full ROM and trachea midline; Absent tenderness, meningismus or lymphadenopathy Chest Chest inspection: Present normal inspection and symmetric chest wall rise; Absent tenderness Respiratory Respiratory exam: Present normal lung sounds bilaterally; Absent respiratory distress, wheezes, stridor or accessory muscle use Cardiovascular Cardiovascular exam: Present regular rate and normal rhythm; Absent systolic murmur or diastolic murmur Abdominal Exam Abdominal exam: Present soft and normal bowel sounds; Absent distention, tenderness, guarding, rebound or rigidity Extremities Exam Extremities exam: Present normal inspection and normal capillary refill; Absent calf tenderness Back Exam Back exam: Present normal inspection and full ROM; Absent tenderness, CVA tenderness (R) or CVA tenderness (L) Neurological Exam Neurological exam: Present alert, oriented X3 and CN II-XII intact Psychiatric Psychiatric exam: Present normal affect and normal mood Skin Skin exam: Present warm, dry, intact and normal color Medical Decision Making Medical Records Medical records reviewed: No I reviewed the patient's medical records. Screening: Per USPSTF and CDC recommendations, given the prevalence of disease in our region, it is our hospital?s policy to screen for HIV and viral Hepatitis for all patients aged 18 and over and those with ongoing risk factors. Shilo Inquiry Pt receiving controlled substance: No Vital Signs: 12/13/23 17:28 Temperature 98.1 F Temperature Source Oral Pulse Rate [Left Brachial] 78 Respiratory Rate 20 Blood Pressure [Left Arm] 123/66 Blood Pressure Mean [Left Arm] 85 02 Sat by Pulse Oximetry 96 Lab Data Lab results reviewed: Yes I reviewed the patient's lab results. Lab Results 12/13/23 17:28: Strep Scn Rapid Clinic Negative Orders (Tests/Meds): ORDERS Category Date Time Status Strep Screen Confirmation Stat Micro 12/13/23 17:28 Received
[2023-12-13 18:13] VITALS: BP 123/66; PULSE 78; RESP 20; TEMP 36.7
[2023-12-13 18:20] LABS: Influenza A, PCR Not Detected (NotDetected); Influenza B, PCR Not Detected (NotDetected)
[2023-12-13 19:43] LABS: Coronavirus 19, PCR Detected (NotDetected)
== END 2023-12-13 18:16 | disposition home or self-care (01) ==
PROVIDERS: Emergency Provider Nurse Practitioner Family; PCP Nurse Practitioner
DX: J02.9 Acute pharyngitis, unspecified (principal); J20.9 Acute bronchitis, unspecified; B34.9 Viral infection, unspecified
CPT/HCPCS: 87636; 87880; 99213; G0381